=== PATIENT | male | born 1985 | race Caucasian/White ===

== ENCOUNTER 2017-10-08 10:20 | Inpatient (IN) | payer OTHER ==
[2017-10-08] MEDS ORDERED: NA CHLORIDE 0.9% 1,000 ML ONE ×3 (10:52→15:44)
[2017-10-08] MEDS ORDERED: ONDANSETRON 4 MG/2 ML VIAL ONE ×2 (10:52→15:26)
[2017-10-08] MEDS ORDERED: MORPHINE 4 MG/ML SYR ONE ×2 (10:52→15:21)
[2017-10-08 11:15] LABS: Absolute Lymphocytes (CBC) 1.4 K/uL (0.7-4.9); Absolute Monocytes 0.5 K/uL (0.1-1.3); Absolute Neutrophil 8.5 K/uL (1.8-8.0); Basophils % 0.2 % (0-1.3); Eosinophils % 0.5 % (0-4.4); Hematocrit 47.3 % (39.6-49.0); Lymphocytes % 13.7 % (15.3-44.8); MCH 34.1 pg (27.0-35.0); MCV 83.9 fL (80-100); MPV 8.5 fL (7.6-11.3); Monocytes % 5.1 % (3.3-12.3); RBC Red Blood Cell Count 5.64 M/uL (4.33-5.43)
[2017-10-08 11:52] LABS: ALT/SGPT 55 U/L (12-78); AST/SGOT 36 U/L (15-37); Albumin 3.3 g/dL (3.4-5.0); Alkaline Phosphatase 74 U/L (45-117); BUN Blood Urea Nitrogen 7 mg/dL (7-18); Bicarbonate 19 mmol/L (21-32); Bilirubin Direct 0.2 mg/dL (0-0.2); Glucose Level 322 mg/dL (74-106); Lipase 5142 U/L (73-393); Potassium 4.2 mmol/L (3.5-5.1); Protein, Total 8.2 g/dL (6.4-8.2); Sodium Level 137 mmol/L (136-145)
--- NOTE | 2017-10-08 12:45 | RAD REPORT ---
EXAM DESCRIPTION: US - Abdomen Exam Limited - 10/08/2017 12:28 pm CLINICAL HISTORY: pancreatitis, eval for gallstones/cbd;Abd pain COMPARISON: No comparisons FINDINGS: The gallbladder demonstrates no gallstones. No pericholecystic fluid or gallbladder wall t hickening. The common bile duct is normal measuring 3 mm. The liver demonstrates no findings of intrahepatic biliary dilatation. IMPRESSION: Unremarkable examination.
[2017-10-08 13:05] LABS: Urine Blood TRACE (NEG); Urine Glucose 2+ (NEG); Urine Protein 3+ (NEG); Urine Specific Gravity 1.025 (1.005-1.030)
[2017-10-08 13:06] LABS: Urine Bacteria <20 /HPF (NONE SEEN); Urine Culture Reflex Order NOT NEEDED; Urine RBC <5 /HPF (NONE SEEN)
--- NOTE | 2017-10-08 13:34 | RAD REPORT ---
EXAM DESCRIPTION: CTAbdomen Pelvis W Contrast - 10/08/2017 1:08 pm CLINICAL HISTORY: Abdominal pain. ABD PAIN COMPARISON: No comparisons TECHNIQUE: Biphasic CT imaging of the abdomen and pelvis was performed with 100 ml non-ionic IV cont rast. All CT scans are performed using dose optimization technique as appropriate and may include automated exposure control or mA/KV adjustment according to patient size. FINDINGS: The lung bases are clear. Diffuse fatty liver is present. The spleen, adrenal glands and kidneys are within normal limits. Win a is present involving the pancreatic head compatible with acute pancreatitis. No pancreatic necrosis , pseudocyst or portal venous thrombosis seen. Inflammatory changes are seen along the right inferior abdomen. No bowel obstruction, free air, free fluid or abscess. The appendix is normal. No evidence of signi ficant lymphadenopathy. Chronic bilateral spondylolysis at L5-S1 with minimal anterolisthesis. IMPRESSION: Mild to moderate acute pancreatitis without complication evident.
--- NOTE | 2017-10-08 14:08 | ER ---
Nurse's Notes [facility] Name: Kit Arias Age: 32 yrs Sex: Male : 1985 Arrival Date: 10/08/2017 Time: 10:24 Bed 20 Private MD: Carlyle Camp Diagnosis: Acute pancreatitis;Hyperglycemia, unspecified;Dehydration Presentation: 10/08 10:26 Presenting complaint: Patient states: RLQ started yesterday and has worsened. Denies sv n/v/d/fever/chills. Transition of care: patient was not received from another setting of care. Onset of symptoms was October 07, 2017. Care prior to arrival: None. 10:26 Method Of Arrival: Ambulatory sv 10:26 Acuity: JUAN 3 sv 10:43 Risk Assessment: Do you want to hurt yourself or someone else? Patient reports no hj desire to harm self or others. Initial Sepsis Screen: Does the patient meet any 2 criteria? No. Patient's initial sepsis screen is negative. Does the patient have a suspected source of infection? No. Patient's initial sepsis screen is negative. Triage Assessment: 10:43 General: Appears in no apparent distress. uncomfortable, Behavior is calm, cooperative, hj appropriate for age. Pain: Complains of pain in right lower quadrant. Historical: - Allergies: 10:27 No Known Allergies; sv - Home Meds: 10:27 None [Active]; sv - PMHx: 10:27 None; sv - PSHx: 10:27 arm; sv - Immunization history:: Adult Immunizations up to date. - Social history:: Smoking status: Patient/guardian denies using tobacco. - Ebola Screening: : No symptoms or risks identified at this time. - Family history:: not pertinent. - Hospitalizations: : No recent hospitalization is reported. Screenin:43 Abuse screen: Denies threats or abuse. Denies injuries from another. Nutritional hj screening: No deficits noted. Tuberculosis screening: No symptoms or risk factors identified. Fall Risk None identified. Assessment: 10:43 General: Appears in no apparent distress. uncomfortable, Behavior is calm, cooperative, hj appropriate for age. Pain: Complains of pain in right lower quadrant. Neuro: Level of Consciousness is awake, alert, obeys commands, Oriented to person, place, time, situation, Appropriate for age. Cardiovascular: Capillary refill < 3 seconds Patient's skin is warm and dry. Respiratory: Airway is patent Respiratory effort is even, unlabored, Respiratory pattern is regular, symmetrical. GI: Abdomen is non-distended, Bowel sounds present X 4 quads. Reports lower abdominal pain. : No signs and/or symptoms were reported regarding the genitourinary system. EENT: No signs and/or symptoms were reported regarding the EENT system. Derm: No signs and/or symptoms reported regarding the dermatologic system. Musculoskeletal: No signs and/or symptoms reported regarding the musculoskeletal system. 11:15 Reassessment: finished contrast; supervisor microbiology technologists informed;. hj 12:05 Reassessment: Patient and/or family updated on plan of care and expected duration. Pain hj level reassessed. Patient is alert, oriented x 3, equal unlabored respirations, skin warm/dry/pink. awaiting results and POC;. 12:52 Reassessment: awaiting US results; family in room;. sc1 14:03 Reassessment: Patient and/or family updated on plan of care and expected duration. Pain hj level reassessed. Patient is alert, oriented x 3, equal unlabored respirations, skin warm/dry/pink. provider in room;. Vital Signs: 10:27 BP 154 / 100; Pulse 130; Resp 20; Temp 97.1; Pulse Ox 99% ; Weight 108.86 kg; Height 5 sv ft. 11 in. (180.34 cm); Pain 7/10; 12:06 BP 151 / 91; Pulse 116; Resp 18; Pulse Ox 100% on R/A; hj 12:55 BP 141 / 87; Pulse 125; Resp 18; Pulse Ox 100% on R/A; hj 14:03 BP 142 / 80; Pulse 115; Resp 18; Pulse Ox 98% on R/A; hj 10:27 Body Mass Index 33.47 (108.86 kg, 180.34 cm) sv ED Course: 10:24 Patient arrived in ED. mr 10:24 Carlyle Camp MD is Private Physician. mr 10:26 Triage completed. sv 10:27 Arm band placed on right wrist. sv 10:28 Reese White RN is Primary Nurse. hj 10:33 Tarik Horton MD is Attending Physician. rn 10:43 Patient has correct armband on for positive identification. Placed in gown. Bed in low hj position. Call light in reach. Side rails up X 1. 11:01 Initial lab(s) drawn, by me, sent to lab. Inserted saline lock: 20 gauge in left sc1 antecubital area, using aseptic technique. Blood collected. 12:27 US Abdomen Limited In Process Unspecified. EDMS 12:37 Urine collected: clean catch specimen, ekaterina colored. [facility] 13:04 CT completed. Patient tolerated procedure well. Patient moved to CT via wheelchair. Patient moved back from CT. 13:08 CT Abd/Pelvis - W/Contrast In Process Unspecified. EDMS 14:07 Antonio Cuellar DO is Hospitalizing Provider. rn 14:53 Repeat lab(s) drawn. by me, sent to lab. by venipuncture 23G to left hand. [facility] 16:33 Lab(s) recollected, by me, sent to lab. First set of blood cultures drawn by in, by [facility] venipuncture 21G to right ac. Administered Medications: 10:44 Drug: NS 0.9% 1000 ml Route: IV; Rate: 1000 ml; Site: left antecubital; hj 11:53 Follow up: IV Status: Completed infusion hj 10:44 Drug: Zofran 4 mg Route: IVP; Site: left antecubital; hj 11:53 Follow up: Response: No adverse reaction hj 10:44 Drug: morphine 4 mg Route: IVP; Site: left antecubital; hj 11:53 Follow up: Response: No adverse reaction; Pain is decreased hj 13:30 Drug: NS 0.9% 1000 ml Route: IV; Rate: 1000 ml; Site: left antecubital; Outcome: 14:07 Decision to Hospitalize by Provider. rn 17:02 Patient left the ED. sv Signatures: Dispatcher [employer] EDWV Lalita Carrero RN Sugey Marquez Roman, MD MD rn Warren, Shannon sw Joaquin, Henry, RN RN hj Herrera, Deanna [facility] Oriana Louis RN RN sc1
--- NOTE | 2017-10-08 14:08 | EDPHYS ---
Physician Documentation [facility] Name: Kit Arias Age: 32 yrs Sex: Male : 1985 Arrival Date: 10/08/2017 Time: 10:24 Bed 20 Private MD: Carlyle Camp ED Physician Tarik Horton HPI: 10/08 10:54 This 32 yrs old Male presents to ER via Ambulatory with complaints of RLQ rn Pain. 10:54 The patient presents with abdominal pain right lower quadrant. Onset: The rn symptoms/episode began/occurred yesterday. The symptoms do not radiate. Associated signs and symptoms: Pertinent negatives: nausea and vomiting, anorexia, blood in stools, chest pain, constipation, diarrhea, dysuria, fever, testicular pain, vomiting. The symptoms are described as constant, sharp. Modifying factors: The symptoms are alleviated by nothing, the symptoms are aggravated by movement, touching the area. Severity of pain: At its worst the pain was moderate in the emergency department the pain is unchanged. The patient has not experienced similar symptoms in the past. Reports diffuse abd pain that is now worse in RLQ, began yesterday, constant, seen at urgent care today, sent here for eval. No fever/vomiting/diarrhea.. Historical: - Allergies: 10:27 No Known Allergies; sv - Home Meds: 10:27 None [Active]; sv - PMHx: 10:27 None; sv - PSHx: 10:27 arm; sv - Immunization history:: Adult Immunizations up to date. - Social history:: Smoking status: Patient/guardian denies using tobacco. - Ebola Screening: : No symptoms or risks identified at this time. - Family history:: not pertinent. - Hospitalizations: : No recent hospitalization is reported. ROS: 10:54 Constitutional: Negative for fever, chills, and weight loss, Eyes: Negative for injury, rn pain, redness, and discharge, Neck: Negative for injury, pain, and swelling, Cardiovascular: Negative for chest pain, palpitations, and edema, Respiratory: Negative for shortness of breath, cough, wheezing, and pleuritic chest pain, Abdomen/GI: + abd pain, no nausea/vomiting/diarrhea MS/Extremity: Negative for injury and deformity, Skin: Negative for injury, rash, and discoloration, Neuro: Negative for headache, weakness, numbness, tingling, and seizure. Exam: 10:54 Constitutional: This is a well developed, well nourished patient who is awake, alert, rn and in no acute distress. Head/Face: Normocephalic, atraumatic. Eyes: Pupils equal round and reactive to light, extra-ocular motions intact. Lids and lashes normal. Conjunctiva and sclera are non-icteric and not injected. Cornea within normal limits. Periorbital areas with no swelling, redness, or edema. ENT: MMM Abdomen/GI: soft, + diffuse tenderness, no peritoneal signs, worse in RLQ Skin: Warm, dry MS/ Extremity: Pulses equal, no cyanosis. Neurovascular intact. Full, normal range of motion. Equal circumference. Neuro: Awake and alert, GCS 15, oriented to person, place, time, and situation. Cranial nerves II-XII grossly intact. Motor strength 5/5 in all extremities. Sensory grossly intact. Vital Signs: 10:27 BP 154 / 100; Pulse 130; Resp 20; Temp 97.1; Pulse Ox 99% ; Weight 108.86 kg; Height 5 sv ft. 11 in. (180.34 cm); Pain 7/10; 12:06 BP 151 / 91; Pulse 116; Resp 18; Pulse Ox 100% on R/A; hj 12:55 BP 141 / 87; Pulse 125; Resp 18; Pulse Ox 100% on R/A; hj 14:03 BP 142 / 80; Pulse 115; Resp 18; Pulse Ox 98% on R/A; hj 10:27 Body Mass Index 33.47 (108.86 kg, 180.34 cm) sv MDM: 10:33 Patient medically screened. rn 14:05 Differential diagnosis: cholecystitis, Cholelithiasis, gastritis, gastroesophageal rn reflux disease, Hepatitis, non-specific abd pain, pancreatitis, Peptic Ulcer Disease, Ureterolithiasis, urinary tract infection. Data reviewed: vital signs, nurses notes, lab test result(s), radiologic studies, CT scan, ultrasound, and as a result, I will admit patient. Counseling: I had a detailed discussion with the patient and/or guardian regarding: the historical points, exam findings, and any diagnostic results supporting the discharge/admit diagnosis, lab results, radiology results, the need for further work-up and treatment in the hospital. Response to treatment: the patient's symptoms have mildly improved after treatment, and as a result, I will admit patient. Admission orders: after a detailed discussion of the patient's condition and case, the admit orders are written by me. 10/08 10:44 Order name: Basic Metabolic Panel; Complete Time: 12:04 10/08 10:44 Order name: CBC with Diff; Complete Time: 12:04 10/08 10:44 Order name: Hepatic Function; Complete Time: 12:04 10/08 10:44 Order name: Lipase; Complete Time: 12:04 10/08 10:44 Order name: Urine Microscopic Only; Complete Time: 13:30 10/08 12:53 Order name: Urine Dipstick--Ancillary (enter results); Complete Time: 13:30 10/08 10:44 Order name: CT Abd/Pelvis - W/Contrast; Complete Time: 13:40 10/08 12:05 Order name: US Abdomen Limited; Complete Time: 13:30 10/08 14:32 Order name: Lipid Profile 10/08 14:33 Order name: BMP 10/08 15:04 Order name: Blood Culture Adult (2) 10/08 15:32 Order name: Blood Culture [facility] 10/08 15:35 Order name: Hemoglobin A1c; Complete Time: 15:57 [facility] 10/08 10:44 Order name: IV Saline Lock; Complete Time: 11:01 10/08 10:44 Order name: Labs collected and sent; Complete Time: 11:01 10/08 10:44 Order name: Urine Dipstick-Ancillary (obtain specimen); Complete Time: 12:38 10/08 16:04 Order name: Labs - recollect needed; Complete Time: 16:39 bd Administered Medications: 10:44 Drug: NS 0.9% 1000 ml Route: IV; Rate: 1000 ml; Site: left antecubital; hj 11:53 Follow up: IV Status: Completed infusion hj 10:44 Drug: Zofran 4 mg Route: IVP; Site: left antecubital; hj 11:53 Follow up: Response: No adverse reaction hj 10:44 Drug: morphine 4 mg Route: IVP; Site: left antecubital; hj 11:53 Follow up: Response: No adverse reaction; Pain is decreased hj 13:30 Drug: NS 0.9% 1000 ml Route: IV; Rate: 1000 ml; Site: left antecubital; hj Disposition: 10/08/17 14:07 Hospitalization ordered by Antonio Cuellar for Inpatient Admission. Preliminary diagnosis are Acute pancreatitis, Hyperglycemia, unspecified, Dehydration. - Bed requested for Intensive Care Unit. - Status is Inpatient Admission. sv - Condition is Stable. - Problem is new. - Symptoms have improved. UTI on Admission? No Signatures: Dispatcher [employer] EDMS Karley Gil Stephanie, RN RN sv Nieto, Roman, MD MD rn Joaquin, Henry, RN RN hj Corrections: (The following items were deleted from the chart) 16:40 14:07 Hospitalization Ordered by Antonio Cuellar DO for Inpatient Admission. Preliminary bd diagnosis is Acute pancreatitis; Hyperglycemia, unspecified; Dehydration. Bed requested for Telemetry/MedSurg (Inpatient). Status is Inpatient Admission. Condition is Stable. Problem is new. Symptoms have improved. UTI on Admission? No. rn 17:02 16:40 10/08/2017 14:07 Hospitalization Ordered by Antonio Cuellar DO for Inpatient sv Admission. Preliminary diagnosis is Acute pancreatitis; Hyperglycemia, unspecified; Dehydration. Bed requested for Intensive Care Unit. Status is Inpatient Admission. Condition is Stable. Problem is new. Symptoms have improved. UTI on Admission? No. bd
[2017-10-08] MEDS ORDERED: MORPHINE 4 MG/ML SYR IV PRN (14:44)
--- NOTE | 2017-10-08 14:57 | P.HP ---
Certification for Inpatient Patient admitted to: Inpatient With expected LOS: >2 Midnights Patient will require the following post-hospital care: None Practitioner: I am a practitioner with admitting privileges, knowledge of patient current condition, hospital course, and medical plan of care. Services: Services provided to patient in accordance with Admission requirements found in Title 42 Section 412.3 of the Code of Federal Regulations Patient History Date of Service: 10/08/17 Primary Care Provider: Dr. Camp Reason for admission: Abdominal pain History of Present Illness: 35-year-old male presented emergency room with abdominal pain. Patient was seen at urgent care and sent to the ER for further evaluation. The patient reported the pain started yesterday. It was mainly to the epigastric region. He rated the pain about a 7/10. He had some nausea with this. Pain persisted today. He went to urgent care. There was some suspicion for appendicitis. The patient was sent to the ER. The patient reported 7/10 pain. He denied any fever, chills. Patient reports a history of diabetes and elevated triglycerides. It is been a while since he is taking medication. He does not drink. In the ER he was evaluated. Lipase was elevated at 5142. His anion gap was 19. White count within normal range. Ketones were noted in the urine. Lipid panel pending. Abdominal ultrasound unremarkable. CT scan showed mild to moderate pancreatitis. Patient was admitted for treatment. Patient has gotten 2 units of fluid. Insulin drip to be started. Patient be transferred to ICU. In the ER when I evaluated the patient. Pain was still present. Patient reported mild nausea. Pain to the epigastric region noted. Patient reports having bowel movement yesterday. He has not been able to tolerate a diet today. There is family history of pancreatitis of unknown etiology. Allergies No Known Allergies Allergy (Unverified 10/08/17 14:14) Home medications list reviewed: Yes - Past Medical/Surgical History Diabetic: Yes -: Diabetes mellitus type 2 -: Hypertriglyceridemia -: Right arm surgery Psychosocial/ Personal History: The patient is single. He has no children. 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 - Family History Father -: Diabetes, Other (see notes) (Pancreatitis of unknown etiology) Mother -: Diabetes - Social History Smoking Status: Never smoker Alcohol use: No CD- Drugs: No Caffeine use: Yes Place of Residence: Home Review of Systems General: As per HPI Eyes: Unremarkable ENT: Unremarkable Respiratory: Unremarkable Cardiovascular: Unremarkable Gastrointestinal: Nausea, Vomiting, Abdominal Pain, As per HPI Genitourinary: As per HPI (polyuria) Musculoskeletal: Unremarkable Integumentary: Unremarkable Neurological: Unremarkable Lymphatics: Unremarkable Physical Examination - Physical Exam General: Alert, In no apparent distress, Oriented x3, Cooperative HEENT: Atraumatic, Normocephalic, PERRLA, Other (Dry mucous membranes) Neck: Supple, No Thyromegaly Respiratory: Clear to auscultation bilaterally, Normal air movement Cardiovascular: Abnormal pulses (Sinus tachycardia) Gastrointestinal: Hypoactive (Throughout), Soft and benign, Non-distended, No masses, No rebound, No guarding, Tenderness (Pain to the epigastric region) Musculoskeletal: No erythema, No tenderness, No warmth Integumentary: No tenderness/swelling, No erythema, No warmth, No cyanosis Neurological: Normal speech, Normal strength at 5/5 x4 extr, Normal tone, Normal affect - Studies Laboratory Data (last 24 hrs) 10/08/17 10:56: WBC 10.5, Hgb 19.2 H, Hct 47.3, Plt Count 257 10/08/17 10:56: Sodium 137, Potassium 4.2, BUN 7, Creatinine 0.70, Glucose 322 H , Total Bilirubin 1.0, AST 36, ALT 55, Alkaline Phosphatase 74, Lipase 5142 H Assessment and Plan - Problems (Diagnosis) (1) DKA (diabetic ketoacidosis) Current Visit: Yes Status: Acute Plan: Patient with DKA. Patient with acute pancreatitis likely from hypertriglyceridemia. Will start insulin drip. Will continue with IV fluids. Will monitor closely and adjust appropriately. Will keep the patient NPO for now. Will continue monitor his anion gap. Will wean down insulin. Will consult GI to further assess his pancreatitis. Qualifiers: Diabetes mellitus type: type 2 Diabetes mellitus complication detail: without coma Qualified Code(s): E11.10 - Type 2 diabetes mellitus with ketoacidosis without coma (2) Diabetes mellitus Current Visit: Yes Status: Chronic Plan: Patient with DKA. Will continue with insulin drip and IV fluids. Will monitor closely. Will wean off insulin. Patient also with pancreatitis. Qualifiers: Diabetes mellitus type: type 2 Diabetes mellitus manager coding insulin use: unspecified custodial insulin use status Diabetes mellitus complication status : with ketoacidosis Diabetes mellitus complication detail: without coma Qualified Code(s): E11.10 - Type 2 diabetes mellitus with ketoacidosis without coma (3) Pancreatitis Current Visit: Yes Status: Acute Plan: Patient with history of hypertriglyceridemia. Acute pancreatitis noted. Will keep the patient NPO. Will start insulin drip. Will continue IV fluids and pain control. GI consulted to further assess. Family history of pancreatitis of unknown etiology noted. Qualifiers: Chronicity: acute Pancreatitis type: other (4) Hypertriglyceridemia Current Visit: Yes Status: Chronic Plan: Will check his lipid panel. Will continue as above. (5) Obesity Current Visit: Yes Status: Chronic Plan: Will evaluate BMI. Will address lifestyle modification education. (6) Dehydration Current Visit: Yes Status: Acute Plan: Continue IV fluids. Will monitor closely. Continue as above. Discharge Plan: Home Plan to discharge in: 72 Hours - Advance Directives Does patient have a Living Will: No Does patient have a Durable POA for Healthcare: No - Code Status/Comfort Care Code Status Assessed: Yes Time Spent Managing Pts Care (In Minutes): 55
[2017-10-08] MEDS: D5 0.45 NS 1,000 ML IV SCH ×4 (15:00→21:40)
[2017-10-08] MEDS: NACHLORIDE 0.45% 1,000 ML IV SCH ×3 (15:00→23:45)
[2017-10-08] MEDS: ONDANSETRON 4 MG/2 ML VIAL IV PRN (15:24)
[2017-10-08] MEDS ORDERED: D5 0.45 NS 1,000 ML IV ONE (15:29)
[2017-10-08] MEDS ORDERED: NACHLORIDE 0.45% 1,000 ML IV ONE (15:44)
[2017-10-08] MEDS: ENOXAPARIN 40 MG/0.4 ML SQ SCH (16:00)
[2017-10-08] MEDS ORDERED: SODIUM CHL 0.9% 1000 ML BAG IV SCH (16:00)
[2017-10-08] MEDS ORDERED: ENOXAPARIN 40 MG/0.4 ML SQ ONE (16:17)
[2017-10-08] MEDS ORDERED: NA CHLORIDE 0.9% 500 ML IV ONE (17:00)
[2017-10-08 17:42] LABS: BUN Blood Urea Nitrogen 5 mg/dL (7-18); Bicarbonate 17 mmol/L (21-32); Glucose Level 270 mg/dL (74-106); HDL Cholesterol 22 mg/dL (40-60); LDL Cholesterol, Calculated ND (<130); Sodium Level 132 mmol/L (136-145)
[2017-10-08 17:50] LABS: Potassium 4.7 mmol/L (3.5-5.1)
[2017-10-08 18:11] LABS: LDL, Direct 125 mg/dL (100-129)
[2017-10-08] MEDS: FENTANYL CITR 100 MCG/2 ML IV PRN ×2 (18:18→22:38)
[2017-10-08 20:12] LABS: BUN Blood Urea Nitrogen 5 mg/dL (7-18); Glucose Level 311 mg/dL (74-106); Potassium 4.5 mmol/L (3.5-5.1); Sodium Level 136 mmol/L (136-145)
[2017-10-08 20:18] LABS: Bicarbonate 13 mmol/L (21-32)
[2017-10-08] MEDS: KETOROLAC 30 MG/ML INJ IV PRN (20:24)
[2017-10-08] MEDS ORDERED: PNEUMOCOCCAL VACCINE 0.5 ML IMVAC ONE (21:00)
[2017-10-09] MEDS: KETOROLAC 30 MG/ML INJ IV PRN ×2 (01:59→17:50)
[2017-10-09] MEDS: ONDANSETRON 4 MG/2 ML VIAL IV PRN (02:00)
[2017-10-09] MEDS: D5 0.45 NS 1,000 ML IV SCH ×3 (04:20→18:03)
[2017-10-09] MEDS: NACHLORIDE 0.45% 1,000 ML IV SCH ×4 (04:20→17:40)
[2017-10-09] MEDS: FENTANYL CITR 100 MCG/2 ML IV PRN ×4 (05:15→21:57)
[2017-10-09 05:57] LABS: Absolute Lymphocytes (CBC) 1.3 K/uL (0.7-4.9); Absolute Monocytes 0.7 K/uL (0.1-1.3); Absolute Neutrophil 9.4 K/uL (1.8-8.0); Basophils % 0.1 % (0-1.3); Eosinophils % 0.3 % (0-4.4); Lymphocytes % 11.4 % (15.3-44.8); MCV 84.5 fL (80-100); MPV 9.3 fL (7.6-11.3); Monocytes % 6.1 % (3.3-12.3); RBC Red Blood Cell Count 5.56 M/uL (4.33-5.43)
[2017-10-09 06:28] LABS: Albumin 2.4 g/dL (3.4-5.0); Alkaline Phosphatase 62 U/L (45-117); BUN Blood Urea Nitrogen 6 mg/dL (7-18); Bilirubin Total 1.2 mg/dL (0.2-1.0); Glucose Level 304 mg/dL (74-106); HDL Cholesterol 20 mg/dL (40-60); LDL Cholesterol, Calculated ND (<130); Lipase 8012 U/L (73-393); Magnesium 1.8 mg/dL (1.8-2.4); Potassium 4.3 mmol/L (3.5-5.1); Protein, Total 7.1 g/dL (6.4-8.2); Sodium Level 134 mmol/L (136-145)
[2017-10-09 06:38] LABS: Bicarbonate 13 mmol/L (21-32)
[2017-10-09 06:42] LABS: ALT/SGPT ND U/L (12-78); AST/SGOT ND U/L (15-37)
[2017-10-09 06:44] LABS: Amylase Level 817 U/L (25-115)
[2017-10-09 06:55] LABS: LDL, Direct 114 mg/dL (100-129)
[2017-10-09 08:05] LABS: HDL Cholesterol 20 mg/dL (40-60); LDL Cholesterol, Calculated ND (<130)
[2017-10-09 08:24] LABS: LDL, Direct 108 mg/dL (100-129)
[2017-10-09 08:31] LABS: Blood Morphology Comment NOT SEEN (NOT SEEN); Platelet Estimate ADEQ
[2017-10-09] MEDS: ENOXAPARIN 40 MG/0.4 ML SQ SCH (09:00)
[2017-10-09] MEDS ORDERED: METOPROLOL TARTRATE 5 MG/5 ML INJ IV PRN (12:30)
--- NOTE | 2017-10-09 12:35 | P.PN ---
Subjective Date of Service: 10/09/17 Primary Care Provider: Dr. Camp Chief Complaint: Abdominal pain Subjective: Other (Pain slightly improved. Patient still noted to the epigastric region.) Physical Examination - Vital Signs Temperature: 97.4 F Blood Pressure: 160/88 Pulse: 120 Respirations: 22 Pulse Ox (%): 97 - Physical Exam General: Alert, In no apparent distress, Oriented x3, Cooperative HEENT: Atraumatic Neck: Supple Respiratory: Clear to auscultation bilaterally, Normal air movement Cardiovascular: Normal pulses, Regular rate/rhythm Gastrointestinal: Hypoactive, Non-distended, No masses, No rebound, No guarding , Tenderness (To the epigastric region but improved) - Studies Medications List Reviewed: Yes Assessment & Plan - Problems (Diagnosis) (1) DKA (diabetic ketoacidosis) Onset Date: 10/09/17 Current Visit: Yes Status: Acute Plan: Patient with DKA. Patient with acute pancreatitis secondary to hypertriglyceridemia. Will continue with insulin drip. Will monitor and adjust IV fluids. Spoke with GI yesterday. Patient NPO at this time. Will monitor closely. Once gap has closed and triglycerides improves then will transition to oral medication. Qualifiers: Diabetes mellitus type: type 2 Diabetes mellitus complication detail: without coma Qualified Code(s): E11.10 - Type 2 diabetes mellitus with ketoacidosis without coma (2) Diabetes mellitus Onset Date: 10/09/17 Current Visit: Yes Status: Chronic Plan: Patient with DKA. Will continue with insulin drip and IV fluids. Will monitor closely. 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 Acute pancreatitis noted with hypertriglyceridemia. Continue insulin drip. Will discuss with GI further. Patient NPO at this time. Qualifiers: Chronicity: acute Pancreatitis type: other (4) Hypertriglyceridemia Onset Date: 10/09/17 Current Visit: Yes Status: Chronic Plan: Continue monitor triglycerides (5) Obesity Onset Date: 10/09/17 Current Visit: Yes Status: Chronic Plan: BMI 36. Will address lifestyle modification education. Qualifiers: Obesity type: due to excess calories Obesity classification: adult class 2 (BMI 35 - 39.9) Serious obesity comorbidity presence: with serious comorbidity Body mass index: BMI 36.0-36.9 Qualified Code(s): E66.01 - Morbid (severe) obesity due to excess calories; Z68.36 - Body mass index (BMI) 36.0-36.9, adult (6) Dehydration Onset Date: 10/09/17 Current Visit: Yes Status: Acute Plan: Continue IV fluids. Will monitor closely. Continue as above. (7) Hypertension Current Visit: Yes Status: Acute Plan: Patient with elevated blood pressure. Will start Lopressor IV. Qualifiers: Hypertension type: essential hypertension Qualified Code(s): I10 - Essential (primary) hypertension Discharge Plan: Home Plan to discharge in: Greater than 2 days Time Spent Managing Pts Care (In Minutes): 55
[2017-10-09 13:15] LABS: BUN Blood Urea Nitrogen 5 mg/dL (7-18); Bicarbonate 16 mmol/L (21-32); Glucose Level 276 mg/dL (74-106); Potassium 4.1 mmol/L (3.5-5.1); Sodium Level 137 mmol/L (136-145)
--- NOTE | 2017-10-09 14:17 | RAD REPORT ---
EXAM DESCRIPTION: RAD - Chest Single View - 10/09/2017 1:53 pm CLINICAL HISTORY: Shortness of breath, pancreatitis COMPARISON: None. TECHNIQUE: AP portable chest image was obtained 1339 hours . FINDINGS: Lung volumes are low. No significant pulmonary edema pattern and no peripheral mass or con solidation. Heart size, vasculature and lung markings are not outside of normal range for shallow ins piration exam. Focal nodular density in the mid right lung field is believed to be summation of the a nterior right first rib. This can be monitored on a followup chest film. No measurable pleural effusi on and no pneumothorax. No gross bony abnormality seen. No acute aortic findings suspected. IMPRESSION: No failure, infiltrate or other acute cardiopulmonary finding suspected. Nodular density right midlung field is favored to be artifact of anterior right first rib rather than a lung parenchymal nodule. Follow-up follow-up chest film would be recommended when the patient can take in optimal inspiration.
--- NOTE | 2017-10-09 14:25 | ECHO ---
HEIGHT: 5 ft 11 in WEIGHT: 258 lb 7 oz DATE OF STUDY: 10/09/[address]: Antonio Cuellar DO 2-DIMENSIONAL: YES M.MODE: YES DOPPLER: YES COLOR FLOW: YES TDS: YES PORTABLE: YES DEFINITY: NO BUBBLE STUDY: NO DIAGNOSIS: HYPERTENSION CARDIAC HISTORY: CATHERIZATION: NO SURGERY: NO PROSTHETIC VALVE: NO PACEMAKER: NO MEASUREMENTS (cm) DIASTOLIC (NORMALS) SYSTOLIC (NORMALS) IVSd 1.0 (0.6-1.2) LA Diam 4.0 (1.9-4.0) LVEF 58% LVIDd 3.3 (3.5-5.7) LVIDs 2.3 (2.0-3.5) %FS 30% LVPWd 1.0 (0.6-1.2) Ao Diam 3.2 (2.0-3.7) 2 DIMENSIONAL ASSESSMENT: RIGHT ATRIUM: NORMAL LEFT ATRIUM: NORMAL RIGHT VENTRICLE: NORMAL LEFT VENTRICLE: NORMAL TRICUSPID VALVE: NORMAL MITRAL VALVE: NORMAL PULMONIC VALVE: NORMAL AORTIC VALVE: NORMAL PERICARDIAL EFFUSION: NONE AORTIC ROOT: NORMAL LEFT VENTRICULAR WALL MOTION: NORMAL DOPPLER/COLOR FLOW: TRACE TRICUSPID REGURGITATION. NORMAL RIGHT VENTRICULAR SYSTOLIC PRESSURE. COMMENTS: TRACE TRICUSPID REGURGITATION. TECHNICALLY DIFFICULT STUDY. NORMAL LEFT VENTRICULAR SIZE AND FUNCTION. NO WALL MOTION ABNORMALITY. NO EFFUSION. TECHNOLOGIST: Christopher DE LA O
[2017-10-09 17:21] LABS: BUN Blood Urea Nitrogen 7 mg/dL (7-18); Glucose Level 234 mg/dL (74-106); Potassium 4.4 mmol/L (3.5-5.1); Sodium Level 138 mmol/L (136-145)
[2017-10-09 17:24] LABS: Bicarbonate 10 mmol/L (21-32)
[2017-10-09] MEDS: INSULIN -REGULAR HUMAN 100 UNIT in NA CHLORIDE 0.9% 100 ML IV SCH (18:05)
[2017-10-10] MEDS: KETOROLAC 30 MG/ML INJ IV PRN (00:06)
[2017-10-10] MEDS: D5 0.45 NS 1,000 ML IV SCH ×5 (00:20→20:20)
[2017-10-10] MEDS: NACHLORIDE 0.45% 1,000 ML IV SCH ×4 (00:20→20:20)
[2017-10-10 05:16] LABS: Absolute Lymphocytes (CBC) 1.3 K/uL (0.7-4.9); Absolute Monocytes 0.7 K/uL (0.1-1.3); Absolute Neutrophil 7.6 K/uL (1.8-8.0); Basophils % 0.2 % (0-1.3); Eosinophils % 0.3 % (0-4.4); Lymphocytes % 13.4 % (15.3-44.8); MCH 30.1 pg (27.0-35.0); MCV 84.3 fL (80-100); MPV 8.6 fL (7.6-11.3); Monocytes % 7.1 % (3.3-12.3); RBC Red Blood Cell Count 5.22 M/uL (4.33-5.43)
[2017-10-10 09:19] LABS: ALT/SGPT 29 U/L (12-78); AST/SGOT 27 U/L (15-37); Albumin 2.3 g/dL (3.4-5.0); Alkaline Phosphatase 57 U/L (45-117); BUN Blood Urea Nitrogen 12 mg/dL (7-18); Bicarbonate 18 mmol/L (21-32); Glucose Level 222 mg/dL (74-106); Lipase 2159 U/L (73-393); Magnesium 2.2 mg/dL (1.8-2.4); Potassium 3.7 mmol/L (3.5-5.1); Protein, Total 7.3 g/dL (6.4-8.2); Sodium Level 139 mmol/L (136-145)
--- NOTE | 2017-10-10 09:20 | P.PN ---
Subjective Date of Service: 10/10/17 Primary Care Provider: Dr. Camp Chief Complaint: Abdominal pain Subjective: Other (Patient is doing better. Pain is about 3/10. No nausea or vomiting.) Physical Examination - Vital Signs Temperature: 98.9 F Blood Pressure: 157/83 Pulse: 116 Respirations: 30 Pulse Ox (%): 96 - Physical Exam General: Alert, In no apparent distress, Oriented x3, Cooperative HEENT: Atraumatic Neck: Supple Respiratory: Clear to auscultation bilaterally, Normal air movement Cardiovascular: Normal pulses, Regular rate/rhythm Gastrointestinal: Normal bowel sounds, Soft and benign, Non-distended, No masses , No rebound, No guarding, Tenderness (Less pain to the epigastric region) Musculoskeletal: No erythema, No tenderness, No warmth Integumentary: No tenderness/swelling, No erythema, No warmth, No cyanosis Neurological: Normal speech, Normal strength at 5/5 x4 extr, Normal tone, Normal affect - Studies Medications List Reviewed: Yes Assessment & Plan - Problems (Diagnosis) (1) DKA (diabetic ketoacidosis) Onset Date: 10/09/17 Current Visit: Yes Status: Acute Plan: Patient with DKA. Patient with acute pancreatitis secondary to hypertriglyceridemia. Will continue with insulin drip. Will monitor and adjust IV fluids. Will review lab this morning. Will consider providing clear liquids. Will make sure anion gap has closed. Await findings on repeat triglycerides. Blood pressure slightly elevated. Will start metoprolol 25 mg 1 pill twice daily. Will discuss further with GI. Qualifiers: Diabetes mellitus type: type 2 Diabetes mellitus complication detail: without coma Qualified Code(s): E11.10 - Type 2 diabetes mellitus with ketoacidosis without coma (2) Diabetes mellitus Onset Date: 10/09/17 Current Visit: Yes Status: Chronic Plan: Patient with DKA. Will continue with insulin drip and IV fluids. Will monitor closely. Once anion gap has closed then will transition to insulin subcu. 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 Acute pancreatitis noted with hypertriglyceridemia. Continue insulin drip. Case discussed with GI yesterday. Await repeat triglycerides. If improved and anion gap has close will consider starting clear liquid diet. Qualifiers: Chronicity: acute Pancreatitis type: other (4) Hypertriglyceridemia Onset Date: 10/09/17 Current Visit: Yes Status: Chronic Plan: Continue as above (5) Obesity Onset Date: 10/09/17 Current Visit: Yes Status: Chronic Plan: BMI 36. Will address lifestyle modification education. Qualifiers: Obesity type: due to excess calories Obesity classification: adult class 2 (BMI 35 - 39.9) Serious obesity comorbidity presence: with serious comorbidity Body mass index: BMI 36.0-36.9 Qualified Code(s): E66.01 - Morbid (severe) obesity due to excess calories; Z68.36 - Body mass index (BMI) 36.0-36.9, adult (6) Dehydration Onset Date: 10/09/17 Current Visit: Yes Status: Acute Plan: Continue IV fluids. Will monitor closely. Continue as above. (7) Hypertension Current Visit: Yes Status: Acute Plan: Patient likely has hypertension. Blood pressure remains elevated. Will start metoprolol 25 mg 1 pill twice daily. Qualifiers: Hypertension type: essential hypertension Qualified Code(s): I10 - Essential (primary) hypertension (8) Obstructive sleep apnea Current Visit: Yes Status: Suspected Plan: Patient likely has obstructive sleep apnea. Patient will need sleep study as an outpatient. Patient reports heavy snoring. Discharge Plan: Home Plan to discharge in: 72 Hours Time Spent Managing Pts Care (In Minutes): 55
[2017-10-10 09:27] LABS: Amylase Level 289 U/L (25-115)
[2017-10-10] MEDS: ENOXAPARIN 40 MG/0.4 ML SQ SCH (10:04)
[2017-10-10] MEDS: FENTANYL CITR 100 MCG/2 ML IV PRN ×2 (10:05→14:57)
[2017-10-10 10:36] LABS: BUN Blood Urea Nitrogen 11 mg/dL (7-18); Glucose Level 232 mg/dL (74-106); Potassium 4.2 mmol/L (3.5-5.1); Sodium Level 138 mmol/L (136-145)
[2017-10-10 10:41] LABS: Bicarbonate 14 mmol/L (21-32)
[2017-10-10] MEDS: METOPROLOL TAR 25 MG TAB PO SCH ×2 (11:17→17:42)
[2017-10-10 13:31] LABS: BUN Blood Urea Nitrogen 10 mg/dL (7-18); Bicarbonate 21 mmol/L (21-32); Glucose Level 183 mg/dL (74-106); Potassium 3.4 mmol/L (3.5-5.1); Sodium Level 140 mmol/L (136-145)
[2017-10-10 13:52] LABS: HDL Cholesterol 18 mg/dL (40-60); LDL Cholesterol, Calculated ND (<130)
[2017-10-10 14:08] LABS: LDL, Direct 121 mg/dL (100-129)
[2017-10-10] MEDS: KCL 20 MEQ/100 mL IVPB 20 MEQ/100 ML BAG IV SCH ×2 (14:37→16:39)
[2017-10-10 17:30] LABS: BUN Blood Urea Nitrogen 10 mg/dL (7-18); Bicarbonate 21 mmol/L (21-32); Glucose Level 178 mg/dL (74-106); Potassium 3.9 mmol/L (3.5-5.1); Sodium Level 140 mmol/L (136-145)
[2017-10-10 18:20] LABS: LDL, Direct 143 mg/dL (100-129)
[2017-10-10] MEDS: INSULIN -REGULAR HUMAN 100 UNIT in NA CHLORIDE 0.9% 100 ML IV SCH (18:24)
[2017-10-10 20:25] LABS: Absolute Monocytes 0.6 K/uL (0.1-1.3); Basophils % 0.2 % (0-1.3); Eosinophils % 0.5 % (0-4.4)
[2017-10-10 20:29] LABS: Absolute Lymphocytes (CBC) 1.3 K/uL (0.7-4.9); Absolute Neutrophil 8.6 K/uL (1.8-8.0); Hematocrit 39.7 % (39.6-49.0); Lymphocytes % 12.1 % (15.3-44.8); MCH 29.7 pg (27.0-35.0); Monocytes % 5.5 % (3.3-12.3); RBC Red Blood Cell Count 4.68 M/uL (4.33-5.43)
[2017-10-10 20:56] LABS: Blood Morphology Comment NOT SEEN (NOT SEEN); Platelet Estimate ADEQ; Urine White Blood Cell Casts OK
[2017-10-10] MEDS ORDERED: D50W 25 GM/50 ML SYRINGE IV PRN (21:01)
[2017-10-10] MEDS ORDERED: GLUCAGON 1 MG/VIAL IM PRN (21:01)
[2017-10-10] MEDS: INSULIN DETEMIR 100 UNIT/1 ML INSULIN SQ SCH (21:46)
[2017-10-10] MEDS: INSULIN -REGULAR HUMAN 50 UNIT/0.5 ML ML SQ SCH (21:50)
[2017-10-10] MEDS: NA CHLORIDE 0.9% 1,000 ML IV SCH (23:26)
[2017-10-11] MEDS: KCL 20 MEQ/100 mL IVPB 20 MEQ/100 ML BAG IV SCH ×2 (01:27→03:22)
[2017-10-11 05:32] LABS: Absolute Lymphocytes (CBC) 1.3 K/uL (0.7-4.9); Absolute Monocytes 0.7 K/uL (0.1-1.3); Absolute Neutrophil 8.6 K/uL (1.8-8.0); Basophils % 0.3 % (0-1.3); Eosinophils % 1.1 % (0-4.4); Hematocrit 37.8 % (39.6-49.0); MCH 29.9 pg (27.0-35.0); MCV 84.8 fL (80-100); MPV 8.1 fL (7.6-11.3); Monocytes % 6.5 % (3.3-12.3); RBC Red Blood Cell Count 4.46 M/uL (4.33-5.43)
[2017-10-11 05:50] LABS: ALT/SGPT 23 U/L (12-78); AST/SGOT 21 U/L (15-37); Albumin 1.9 g/dL (3.4-5.0); Alkaline Phosphatase 56 U/L (45-117); Amylase Level 115 U/L (25-115); BUN Blood Urea Nitrogen 10 mg/dL (7-18); Bicarbonate 17 mmol/L (21-32); Bilirubin Total 0.7 mg/dL (0.2-1.0); Glucose Level 209 mg/dL (74-106); HDL Cholesterol 16 mg/dL (40-60); LDL Cholesterol, Calculated 171 (<130); Lipase 910 U/L (73-393); Magnesium 1.7 mg/dL (1.8-2.4); Potassium 3.6 mmol/L (3.5-5.1); Protein, Total 6.4 g/dL (6.4-8.2); Sodium Level 139 mmol/L (136-145)
[2017-10-11] MEDS: METOPROLOL TAR 25 MG TAB PO SCH (06:45)
[2017-10-11] MEDS: NA CHLORIDE 0.9% 1,000 ML IV SCH (06:51)
[2017-10-11] MEDS ORDERED: MAGNESIUM SULFATE 1 gm IVPB 1 GM/100 ML BAG IV ONE (07:00)
[2017-10-11] MEDS ORDERED: INSULIN -REGULAR HUMAN 50 UNIT/0.5 ML ML SQ SCH (07:30)
[2017-10-11] MEDS ORDERED: POTASSIUM 25 MEQ EFFERV TAB PO ONE (08:00)
--- NOTE | 2017-10-11 08:02 | PN ---
Date of Progress Note: 10/10/2017 This is a gastroenterology progress. Additional Attending Physician: Edvin Montano MD. Subjective: The patient was seen by me today. He feels significantly better. Also, his labs show s ignificant improvement. His hemoglobin has dropped to 13.9 with hematocrit of 39.7, which is quite r easonable. Chemistry panel also reveals that his triglycerides have improved below 5 and come down b elow 1000. He is still getting the fluids and on the drips. Objective: Abdomen: Soft. Minimal tenderness. Bowel sounds are present. Impression: A 32-year-old gentleman with diabetic ketoacidosis and acute pancreatitis secondary to h ypertriglyceridemia, now is significantly improved. Plan: Continue current management. Can start on clear liquids from today and advance as tolerated. Once the patient gets discharged, he will need to follow up with Endocrinology. We will also recomm end followup with GI on an outpatient basis. /JESUS Voice ID: [id number] Report ID: [id number]
--- NOTE | 2017-10-11 08:18 | P.PN ---
Subjective Date of Service: 10/11/17 Primary Care Provider: Dr. Camp Chief Complaint: Abdominal pain Subjective: Improving (Chest pain noted to the abdomen. Patient tolerating diet. Still was mild diarrhea.) Physical Examination - Vital Signs Temperature: 98.6 F Blood Pressure: 144/84 Pulse: 114 Respirations: 30 Pulse Ox (%): 97 - Physical Exam General: Alert, In no apparent distress, Oriented x3, Cooperative HEENT: Atraumatic Neck: Supple Respiratory: Clear to auscultation bilaterally, Normal air movement Cardiovascular: Abnormal pulses (Sinus tachycardia) Gastrointestinal: Normal bowel sounds, Soft and benign, Non-distended, No tenderness, No masses, No rebound, No guarding Musculoskeletal: No erythema, No tenderness, No warmth Integumentary: No tenderness/swelling, No erythema, No warmth, No cyanosis Neurological: Normal speech, Normal strength at 5/5 x4 extr, Normal tone, Normal affect - Studies Medications List Reviewed: Yes Assessment & Plan - Problems (Diagnosis) (1) DKA (diabetic ketoacidosis) Onset Date: 10/09/17 Current Visit: Yes Status: Acute Plan: DKA has resolved. Patient tolerating diet. Patient transitioned from insulin drip to Levemir 35 units subcu daily last night. Will continue with 1800 ADA diet. A1c 10.2. Patient will need insulin therapy at discharge. Will transition patient to the floor. Pancreatitis also improved. Encourage ambulation. Anticipate discharge in the next 1-2 days. Qualifiers: Diabetes mellitus type: type 2 Diabetes mellitus complication detail: without coma Qualified Code(s): E11.10 - Type 2 diabetes mellitus with ketoacidosis without coma (2) Diabetes mellitus Onset Date: 10/09/17 Current Visit: Yes Status: Chronic Plan: DKA resolved. Now on Levemir 35 units subcu daily. Will continue with 1800 ADA diet. Anticipate discharge in the next 1-2 days. Will transition to the patient to a regular floor. 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 Acute pancreatitis noted with hypertriglyceridemia. This has significantly improved. Triglycerides now down below 500 at 374. Lipase 910 and amylase 115. Will add Tricor. Patient now off insulin drip. Will transfer the patient to the floor. Encourage ambulation. Anticipate discharge in the next 1-2 days. Qualifiers: Chronicity: acute Pancreatitis type: other (4) Hypertriglyceridemia Onset Date: 10/09/17 Current Visit: Yes Status: Chronic Plan: Continue as above (5) Obesity Onset Date: 10/09/17 Current Visit: Yes Status: Chronic Plan: BMI 36. Will continue to address lifestyle modification education. Qualifiers: Obesity type: due to excess calories Obesity classification: adult class 2 (BMI 35 - 39.9) Serious obesity comorbidity presence: with serious comorbidity Body mass index: BMI 36.0-36.9 Qualified Code(s): E66.01 - Morbid (severe) obesity due to excess calories; Z68.36 - Body mass index (BMI) 36.0-36.9, adult (6) Dehydration Onset Date: 10/09/17 Current Visit: Yes Status: Acute Plan: Adjustment in IV fluids addressed (7) Hypertension Current Visit: Yes Status: Acute Plan: Patient likely has hypertension. Will increase metoprolol to 50 mg 1 pill twice daily Qualifiers: Hypertension type: essential hypertension Qualified Code(s): I10 - Essential (primary) hypertension (8) Obstructive sleep apnea Current Visit: Yes Status: Suspected Plan: Patient likely has obstructive sleep apnea. Patient will need sleep study as an outpatient. Patient reports heavy snoring. (9) Diarrhea Current Visit: Yes Status: Acute Plan: C diff pending. Will provide medication as needed Qualifiers: Diarrhea type: unspecified type Qualified Code(s): R19.7 - Diarrhea, unspecified (10) Hypomagnesemia Current Visit: Yes Status: Acute Plan: Continue monitor and replace appropriately. Replacement protocol in place. Discharge Plan: Home Plan to discharge in: 24 Hours (to 48 hours) Time Spent Managing Pts Care (In Minutes): 55
[2017-10-11] MEDS ORDERED: TRAMADOL HCL 50 MG TAB PO PRN (08:28)
[2017-10-11] MEDS ORDERED: HYDROCODONE/APAP 7.5/325 MG TAB PO PRN (08:28)
[2017-10-11] MEDS ORDERED: LOPERAMIDE HCL 2 MG CAPSULE PO PRN (08:28)
[2017-10-11] MEDS: INSULIN -REGULAR HUMAN 50 UNIT/0.5 ML ML SQ SCH ×4 (08:46→20:11)
[2017-10-11] MEDS: ENOXAPARIN 40 MG/0.4 ML SQ SCH (08:47)
[2017-10-11] MEDS: FENOFIBRATE 160 MG TAB PO SCH (08:47)
[2017-10-11] MEDS: NACHLORIDE 0.45% 1,000 ML IV SCH ×3 (08:48→21:35)
[2017-10-11] MEDS: INSULIN DETEMIR 100 UNIT/1 ML INSULIN SQ SCH (08:48)
[2017-10-11] MEDS: PANTOPRAZOLE 40MG TABLET PO SCH (08:49)
[2017-10-11] MEDS: ONDANSETRON 4 MG/2 ML VIAL IV PRN (10:00)
--- NOTE | 2017-10-11 17:17 | RAD REPORT ---
EXAM DESCRIPTION: RAD - Chest Pa And Lat (2 Views) - 10/11/2017 4:59 pm CLINICAL HISTORY: Follow up possible nodule Chest pain. COMPARISON: Chest Single View dated 10/09/2017 FINDINGS: The lungs are clear. The heart is normal in size. No displaced fractures. The previously d etailed nodular opacity in the right mid lung is probably related to the end of the right first rib. IMPRESSION: No acute or concerning finding suspected.
[2017-10-11] MEDS: METOPROLOL TAR 50 MG TAB PO SCH (19:09)
[2017-10-12] MEDS: NACHLORIDE 0.45% 1,000 ML IV SCH ×3 (01:00→08:21)
[2017-10-12 05:16] LABS: Absolute Lymphocytes (CBC) 1.5 K/uL (0.7-4.9); Absolute Monocytes 0.9 K/uL (0.1-1.3); Absolute Neutrophil 10.7 K/uL (1.8-8.0); Basophils % 0.3 % (0-1.3); Eosinophils % 0.7 % (0-4.4); Hematocrit 36.8 % (39.6-49.0); Lymphocytes % 11.1 % (15.3-44.8); MCH 29.3 pg (27.0-35.0); MCV 85.1 fL (80-100); MPV 7.8 fL (7.6-11.3); Monocytes % 7.2 % (3.3-12.3); RBC Red Blood Cell Count 4.33 M/uL (4.33-5.43)
[2017-10-12] MEDS: METOPROLOL TAR 50 MG TAB PO SCH (05:44)
[2017-10-12] MEDS: PANTOPRAZOLE 40MG TABLET PO SCH (05:44)
[2017-10-12 05:46] LABS: ALT/SGPT 22 U/L (12-78); AST/SGOT 24 U/L (15-37); Alkaline Phosphatase 58 U/L (45-117); BUN Blood Urea Nitrogen 8 mg/dL (7-18); Bicarbonate 21 mmol/L (21-32); Bilirubin Total 0.8 mg/dL (0.2-1.0); Glucose Level 194 mg/dL (74-106); Potassium 3.1 mmol/L (3.5-5.1); Sodium Level 138 mmol/L (136-145)
[2017-10-12 05:47] LABS: Albumin 1.9 g/dL (3.4-5.0); Magnesium 1.7 mg/dL (1.8-2.4)
[2017-10-12] MEDS ORDERED: POTASSIUM 25 MEQ EFFERV TAB PO ONE (05:55)
[2017-10-12] MEDS ORDERED: MAGNESIUM SULFATE 1 gm IVPB 1 GM/100 ML BAG IV ONE (06:00)
[2017-10-12] MEDS: ONDANSETRON 4 MG/2 ML VIAL IV PRN (06:20)
[2017-10-12] MEDS: INSULIN -REGULAR HUMAN 50 UNIT/0.5 ML ML SQ SCH (07:30)
[2017-10-12 07:35] LABS: Urine White Blood Cell Casts DIFF
[2017-10-12 07:36] LABS: Blood Morphology Comment NOTED (NOT SEEN); Platelet Estimate ADEQ
[2017-10-12 07:37] LABS: Anisocytosis 1+; Macrocytosis 1+; Poikilocytosis 1+; Target Cells 1+
[2017-10-12] MEDS: INSULIN DETEMIR 100 UNIT/1 ML INSULIN SQ SCH (08:19)
[2017-10-12] MEDS: FENOFIBRATE 160 MG TAB PO SCH (08:20)
[2017-10-12] MEDS: ENOXAPARIN 40 MG/0.4 ML SQ SCH (08:20)
--- NOTE | 2017-10-12 08:50 | P.DS ---
Admission Date: 10/08/17 Discharge Date: 10/12/17 Primary Care Provider: Dr. Camp Disposition: ROUTINE DISCHARGE Discharge Condition: GOOD Reason for Admission: Abdominal pain Consultations: GI-Dr. Montano Procedures: Abdominal ultrasound: No acute changes. Otherwise unremarkable CT scan: FINDINGS: The lung bases are clear. Diffuse fatty liver is present. The spleen, adrenal glands and kidneys are within normal limits. Edema is present involving the pancreatic head compatible with acute pancreatitis. No pancreatic necrosis, pseudocyst or portal venous thrombosis seen. Inflammatory changes are seen along the right inferior abdomen. No bowel obstruction, free air, free fluid or abscess. The appendix is normal. No evidence of significant lymphadenopathy. Chronic bilateral spondylolysis at L5-S1 with minimal anterolisthesis. IMPRESSION: Mild to moderate acute pancreatitis without complication evident. Echocardiogram: Ejection fraction within normal range, 58% LEFT VENTRICULAR WALL MOTION: NORMAL DOPPLER/COLOR FLOW: TRACE TRICUSPID REGURGITATION. NORMAL RIGHT VENTRICULAR SYSTOLIC PRESSURE. COMMENTS: TRACE TRICUSPID REGURGITATION. TECHNICALLY DIFFICULT STUDY. NORMAL LEFT VENTRICULAR SIZE AND FUNCTION. NO WALL MOTION ABNORMALITY. 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 Diabetes mellitus complication status : with ketoacidosis Diabetes mellitus complication detail: without coma Qualified Code(s): E11.10 - Type 2 diabetes mellitus with ketoacidosis without coma (3) Pancreatitis Onset Date: 10/09/17 Current Visit: Yes Status: Resolved Qualifiers: Chronicity: acute Pancreatitis type: other (4) Hypertriglyceridemia Onset Date: 10/09/17 Current Visit: Yes Status: Chronic (5) Obesity Onset Date: 10/09/17 Current Visit: Yes Status: Chronic Qualifiers: Obesity type: due to excess calories Obesity classification: adult class 2 (BMI 35 - 39.9) Serious obesity comorbidity presence: with serious comorbidity Body mass index: BMI 36.0-36.9 Qualified Code(s): E66.01 - Morbid (severe) obesity due to excess calories; Z68.36 - Body mass index (BMI) 36.0-36.9, adult (6) Dehydration Onset Date: 10/09/17 Current Visit: Yes Status: Acute (7) Hypertension Current Visit: Yes Status: Acute Qualifiers: Hypertension type: essential hypertension Qualified Code(s): I10 - Essential (primary) hypertension (8) Obstructive sleep apnea Current Visit: Yes Status: Suspected (9) Diarrhea Current Visit: Yes Status: Acute Qualifiers: Diarrhea type: unspecified type Qualified Code(s): R19.7 - Diarrhea, unspecified (10) Hypomagnesemia Current Visit: Yes Status: Acute (11) Spondylolysis of lumbar region Current Visit: Yes Status: Chronic (12) GERD (gastroesophageal reflux disease) Current Visit: Yes Status: Suspected Qualifiers: Esophagitis presence: esophagitis presence not specified Qualified Code(s) : K21.9 - Gastro-esophageal reflux disease without esophagitis Brief History of Present Illness: 35-year-old male presented emergency room with abdominal pain. Patient was seen at urgent care and sent to the ER for further evaluation. The patient reported the pain started yesterday. It was mainly to the epigastric region. He rated the pain about a 7/10. He had some nausea with this. Pain persisted today. He went to urgent care. There was some suspicion for appendicitis. The patient was sent to the ER. The patient reported 7/10 pain. He denied any fever, chills. Patient reports a history of diabetes and elevated triglycerides. It is been a while since he is taking medication. He does not drink. In the ER he was evaluated. Lipase was elevated at 5142. His anion gap was 19. White count within normal range. Ketones were noted in the urine. Lipid panel pending. Abdominal ultrasound unremarkable. CT scan showed mild to moderate pancreatitis. Patient was admitted for treatment. Patient has gotten 2 units of fluid. Insulin drip to be started. Patient be transferred to ICU. In the ER when I evaluated the patient. Pain was still present. Patient reported mild nausea. Pain to the epigastric region noted. Patient reports having bowel movement yesterday. He has not been able to tolerate a diet today. There is family history of pancreatitis of unknown etiology. Hospital Course: Patient presented with acute pancreatitis secondary to hypertriglyceridemia and DKA. His lipase was 8012 with amylase of 817 and a triglycerides of 2669. Patient was admitted to ICU, placed on an insulin drip. His condition improved. DKA resolved. Improvement in his triglycerides, lipase and amylase were noted. His triglycerides came down to 374. Patient was transition from insulin drip to Levemir. Patient has tolerated his diet. No significant abdominal pain, nausea vomiting noted. GI was consulted. No further intervention was required. Abdominal ultrasound unremarkable. CT scan showed mild to moderate pancreatitis. Patient has diabetes. Hemoglobin A1c 10.2. At discharge he will continue with Levemir 35 units subcu every night. He is to monitor his blood sugars at least twice daily. Recommendation is to maintain blood sugars less 140 fasting and less than 200 after meals. Further adjustment in his medication can be done by his PCP. Diabetic education and lifestyle modification education will be per day. For hypertriglyceridemia the patient will go home on Tricor 160 mg daily. Dietary changes will be provided. Recommendation is for the patient to follow up with GI in 1-2 weeks to follow up this hospitalization. Patient will follow up with his PCP this week to recheck lab-including BMP and fasting lipid panel. His PCP can determine when the patient can return to work. Patient has hypertension. Medication was started during his stay. Echocardiogram unremarkable with normal ejection fraction. At discharge he will continue with metoprolol 50 mg 1 pill twice daily. Recommendation is to maintain blood pressures less 150/80. Further adjustment can be done by his PCP. Patient likely has underlying obstructive sleep apnea. Recommendation is for the patient to follow up with pulmonology as an outpatient for sleep study to consider CPAP at night. Patient likely has GERD. Patient will continue with Protonix 40 mg 1 pill once daily. Patient will follow up with GI to further evaluate. CT scan also shows chronic spondylolysis at the L5-S1 region with minimal anterolisthesis. He has no significant pain at this time. This can be further addressed by his PCP. Vital Signs/Physical Exam: Temp Pulse Resp BP Pulse Ox 98.4 F 106 H 28 H 130/70 98 10/12/17 04:00 10/12/17 05:44 10/12/17 04:00 10/12/17 05:44 10/12/17 04:00 General: Alert, In no apparent distress, Oriented x3, Cooperative HEENT: Atraumatic, Mucous membr. moist/pink Neck: Supple, No Thyromegaly Respiratory: Clear to auscultation bilaterally, Normal air movement Cardiovascular: Normal pulses, Regular rate/rhythm Gastrointestinal: Normal bowel sounds, Soft and benign, Non-distended, No tenderness, No masses, No rebound, No guarding Musculoskeletal: No erythema, No tenderness, No warmth Integumentary: No tenderness/swelling, No erythema, No warmth, No cyanosis Neurological: Normal speech, Normal strength at 5/5 x4 extr, Normal tone, Normal affect Lymphatics: No axilla or inguinal lymphadenopathy Laboratory Data at Discharge: WBC 13.2 K/uL (4.3-10.9) H D 10/12/17 04:55 Hgb 12.7 g/dL (13.6-17.9) L 10/12/17 04:55 Hct 36.8 % (39.6-49.0) L 10/12/17 04:55 Plt Count 226 K/uL (152-406) 10/12/17 04:55 Sodium 138 mmol/L (136-145) 10/12/17 04:55 Potassium 3.1 mmol/L (3.5-5.1) L 10/12/17 04:55 BUN 8 mg/dL (7-18) 10/12/17 04:55 Creatinine 0.30 mg/dL (0.55-1.3) L 10/12/17 04:55 Glucose 194 mg/dL (74-106) H 10/12/17 04:55 Magnesium 1.7 mg/dL (1.8-2.4) L 10/12/17 04:55 Total Bilirubin 0.8 mg/dL (0.2-1.0) 10/12/17 04:55 AST 24 U/L (15-37) 10/12/17 04:55 ALT 22 U/L (12-78) 10/12/17 04:55 Alkaline Phosphatase 58 U/L (45-117) 10/12/17 04:55 Triglycerides 374 mg/dL (<150) H 10/11/17 05:18 Cholesterol 262 mg/dL (<200) H 10/11/17 05:18 LDL Cholesterol Direct 143 mg/dL (100-129) H 10/10/17 17:05 HDL Cholesterol 16 mg/dL (40-60) L 10/11/17 05:18 Cholesterol/HDL Ratio 16.38 10/11/17 05:18 Amylase 115 U/L (25-115) D 10/11/17 05:18 Lipase 910 U/L (73-393) H 10/11/17 05:18 Home Medications: Fenofibrate [Tricor*] 160 mg PO DAILY #30 tab 10/12/17 Insulin Detemir [Levemir Flextouch] 35 unit SQ BEDTIME #1 ml 10/12/17 Metoprolol Tartrate [Lopressor*] 50 mg PO BID 6AM 6PM #60 tab 10/12/17 Pantoprazole [Protonix Tab*] 40 mg PO DAILYAC #30 tab 10/12/17 traMADol HCL [Ultram*] 50 mg PO TID PRN #10 tab 10/12/17 New Medications: Fenofibrate [Tricor*] 160 mg PO DAILY #30 tab Insulin Detemir [Levemir Flextouch] 35 unit SQ BEDTIME #1 ml Metoprolol Tartrate [Lopressor*] 50 mg PO BID 6AM 6PM #60 tab Pantoprazole [Protonix Tab*] 40 mg PO DAILYAC #30 tab traMADol HCL [Ultram*] 50 mg PO TID PRN #10 tab PRN Reason: Pain Mild Patient Discharge Instructions: 1. Patient will need to follow up with his PCP in 1 week to follow up this hospitalization. 2. Patient presented with acute pancreatitis secondary to hypertriglyceridemia and diabetic ketoacidosis. His condition improved during the course of his stay. His diabetes was better controlled. Pancreatitis resolved. Improvement in his triglycerides were noted. Patient was seen by GI. Abdominal ultrasound unremarkable. CT scan showed mild to moderate pancreatitis. Patient has diabetes. Hemoglobin A1c 10.2. At discharge he will continue with Levemir 35 units subcu every night. He is to monitor his blood sugars at least twice daily. Recommendation is to maintain blood sugars less 140 fasting and less than 200 after meals. Further adjustment in his medication can be done by his PCP. Diabetic education and lifestyle modification education will be per day. For hypertriglyceridemia the patient will go home on Tricor 160 mg daily. Dietary changes will be provided. Recommendation is for the patient to follow up with GI in 1-2 weeks to follow up this hospitalization. Patient will follow up with his PCP this week to recheck lab-including BMP and fasting lipid panel. His PCP can determine when the patient can return to work. 3. Patient has hypertension. Medication was started during his stay. Echocardiogram unremarkable with normal ejection fraction. At discharge he will continue with metoprolol 50 mg 1 pill twice daily. Recommendation is to maintain blood pressures less 150/80. Further adjustment can be done by his PCP. 4. Patient likely has underlying obstructive sleep apnea. Recommendation is for the patient to follow up with pulmonology as an outpatient for sleep study to consider CPAP at night. 5. Patient likely has GERD. Patient will continue with Protonix 40 mg 1 pill once daily. Patient will follow up with GI to further evaluate. 6. CT scan also shows chronic spondylolysis at the L5-S1 region with minimal anterolisthesis. He has no significant pain at this time. This can be further addressed by his PCP. Diet: ADA Activity: Ad shraddha Time spent managing pt's care (in minutes): 55
== END 2017-10-12 10:22 | disposition home or self-care (01) | DRG 438 ==
LOC: ER 10:20 → ERHOLD 14:07 → 3RD-ICU 16:59
PROVIDERS: ADMIT Family Medicine; ATTEND Family Medicine
DX: K85.90 Acute pancreatitis without necrosis or infection, unspecified (principal); E11.10 Type 2 diabetes mellitus with ketoacidosis without coma; Z79.4 Long term (current) use of insulin; E78.1 Pure hyperglyceridemia; E66.01 Morbid (severe) obesity due to excess calories; Z68.36 Body mass index [BMI] 36.0-36.9, adult; E86.0 Dehydration; I10 Essential (primary) hypertension; G47.33 Obstructive sleep apnea (adult) (pediatric); R19.7 Diarrhea, unspecified; E83.42 Hypomagnesemia; M43.06 Spondylolysis, lumbar region; K21.9 Gastro-esophageal reflux disease without esophagitis
CPT/HCPCS: 36415; 71045; 71046; 74177; 76705; 80048; 80053; 80061; 80076; 81003; 81015; 82010; 82150; 82962; 83036; 83605; 83690; 83735; 84132; 84478; 85025; 87040; 87493; 93306; 96361; 96374; 96375; 99284; J1650; J2405; J3010; J3475; J7030; Q9967

== ENCOUNTER 2018-03-17 04:05 | Inpatient (IN) | payer OTHER ==
--- OUTSIDE RECORDS SUMMARY | 2018-03-17 04:07 | XMS REPORT ---
:1985 Author Organization [facility] Address [address] [place] [address] Dr. Robertson [address] [place] [id number] Care Team Providers Name Role Phone Unavailable Unavailable Unavailable Problems This patient has no known problems. Allergies, Adverse Reactions, Alerts This patient has no known allergies or adverse reactions. Medications This patient has no known medications.
[2018-03-17] MEDS ORDERED: FENTANYL CITR 100 MCG/2 ML ONE (04:44)
[2018-03-17] MEDS ORDERED: ONDANSETRON 4 MG/2 ML VIAL ONE ×2 (04:45→06:05)
[2018-03-17] MEDS ORDERED: NA CHLORIDE 0.9% 1,000 ML ONE ×2 (04:45→06:13)
[2018-03-17 05:27] LABS: ALT/SGPT 51 U/L (12-78); AST/SGOT 37 U/L (15-37); Albumin 3.5 g/dL (3.4-5.0); Alkaline Phosphatase 72 U/L (45-117); BUN Blood Urea Nitrogen 12 mg/dL (7-18); Bicarbonate 20 mmol/L (21-32); Bilirubin Direct 0.1 mg/dL (0-0.2); Bilirubin Total 0.8 mg/dL (0.2-1.0); Glucose Level 370 mg/dL (74-106); Lipase 1557 U/L (73-393); Potassium 4.7 mmol/L (3.5-5.1); Protein, Total 7.7 g/dL (6.4-8.2); Sodium Level 136 mmol/L (136-145)
--- NOTE | 2018-03-17 05:58 | ER ---
Nurse's Notes [facility] Name: Kit Arias Age: 32 yrs Sex: Male : 1985 Arrival Date: 03/17/2018 Time: 04:05 Bed 7 Private MD: Carlyle Camp Diagnosis: Acute pancreatitis Presentation: 03/17 04:18 Presenting complaint: Patient states: N/V abd pain since noon. Transition of care: ak1 patient was not received from another setting of care. Onset of symptoms was March 16, 2018. Risk Assessment: Do you want to hurt yourself or someone else? Patient reports no desire to harm self or others. Initial Sepsis Screen: Does the patient meet any 2 criteria? No. Patient's initial sepsis screen is negative. Does the patient have a suspected source of infection? No. Patient's initial sepsis screen is negative. Care prior to arrival: None. 04:18 Method Of Arrival: Ambulatory ak1 04:18 Acuity: JUAN 3 ak1 Triage Assessment: 04:24 General: Appears uncomfortable, Behavior is calm, cooperative, anxious. Pain: Complains ak1 of pain in abdomen. EENT: No signs and/or symptoms were reported regarding the EENT system. Neuro: No deficits noted. Cardiovascular: No deficits noted. Respiratory: No deficits noted. GI: Reports lower abdominal pain, upper abdominal pain, nausea, vomiting, since noon yesterday. pt stated he has had pancreatitis and the pain feels similar. : No signs and/or symptoms were reported regarding the genitourinary system. Derm: No signs and/or symptoms reported regarding the dermatologic system. Musculoskeletal: No signs and/or symptoms reported regarding the musculoskeletal system. Historical: - Allergies: 04:24 No Known Allergies; ak1 - Home Meds: 04:24 promethazine-DM 6.25-15 mg/5 mL Oral syrp 5 mL every 4 hours [Active]; pantoprazole 40 ak1 mg oral TbEC 1 tab once daily [Active]; fenofibrate 160 mg oral tab 1 tab once daily [Active]; metoprolol tartrate 50 mg Oral tab 1 tab 2 times per day [Active]; Azithromycin Oral [Active]; sertraline 100 mg oral tab 1 tab once daily [Active]; - PMHx: 04:24 GERD; Pancreatitis; Hypertension; Diabetes - IDDM; ak1 - PSHx: 04:24 arm; ak1 - Immunization history:: Adult Immunizations unknown. - Social history:: Smoking status: Patient/guardian denies using tobacco, Patient/guardian denies using alcohol. - Ebola Screening: : No symptoms or risks identified at this time. Screenin:26 Abuse screen: Denies threats or abuse. Denies injuries from another. Nutritional ak1 screening: No deficits noted. Tuberculosis screening: No symptoms or risk factors identified. Fall Risk None identified. Assessment: 04:26 GI: Bowel sounds present X 4 quads. Abd is soft Abdomen is tender to palpation. ak1 05:15 Reassessment: Patient and/or family updated on plan of care and expected duration. Pain ea level reassessed. Patient is alert, oriented x 3, equal unlabored respirations, skin warm/dry/pink. 05:22 Reassessment: outside lab needs CBC recollected, inside lab paged for recollect. ak1 06:18 Reassessment: Patient and/or family updated on plan of care and expected duration. Pain ea level reassessed. Patient is alert, oriented x 3, equal unlabored respirations, skin warm/dry/pink. 07:37 Reassessment: Nurse unable to take report at this time, will call back. sv Vital Signs: 04:24 BP 145 / 92; Pulse 128; Resp 18; Temp 99.5(O); Pulse Ox 98% on R/A; Weight 120.2 kg ak1 (R); Height 5 ft. 11 in. (180.34 cm) (R); Pain 8/10; 05:06 BP 135 / 90; Pulse 106; Resp 18; Pulse Ox 95% on R/A; ea 06:35 BP 134 / 85; Pulse 110; Resp 18; Pulse Ox 96% ; ea 07:07 BP 142 / 92; Pulse 117; Resp 18; Pulse Ox 96% ; sv 04:24 Body Mass Index 36.96 (120.20 kg, 180.34 cm) ak1 ED Course: 04:05 Patient arrived in ED. am2 04:06 Carlyle Camp MD is Private Physician. am2 04:18 Laney Mathur, SKINNY is Primary Nurse. ak1 04:19 Triage completed. ak1 04:22 Lj Marcano MD is Attending Physician. gs 04:24 Arm band placed on Patient placed in an exam room, on a stretcher, on pulse oximetry, ak1 Patient notified of wait time. 04:25 Missed attempt(s): 20 gauge in right forearm. Bleeding controlled, band aid applied, ea catheter tip intact. 04:26 Patient has correct armband on for positive identification. Bed in low position. Call ak1 light in reach. Side rails up X 1. Adult w/ patient. Pulse ox on. NIBP on. 04:30 Inserted saline lock: 18 gauge in right antecubital area, using aseptic technique. ea Blood collected. 05:56 Maida Ty MD is Hospitalizing Provider. gs 06:17 No provider procedures requiring assistance completed. Patient admitted, IV remains in ea place. Administered Medications: 04:41 Drug: fentaNYL (PF) 25 mcg Route: IVP; Site: right antecubital; ea 05:10 Follow up: Response: No adverse reaction; Pain is decreased ea 04:42 Drug: NS 0.9% 1500 ml Route: IV; Rate: 1 bolus; Site: right antecubital; ea 05:21 Follow up: Response: No adverse reaction; IV Status: Completed infusion; IV Intake: ea 1000ml 04:42 Drug: Zofran 4 mg Route: IVP; Site: right antecubital; ea 05:10 Follow up: Response: No adverse reaction ea 06:01 Drug: morphine 4 mg Route: IVP; Site: right antecubital; ea 06:36 Follow up: Response: No adverse reaction; Pain is decreased ea 06:06 Drug: Zofran 4 mg Route: IVP; Site: right antecubital; ea 06:37 Follow up: Response: No adverse reaction ea 06:06 Drug: NS 0.9% 1000 ml Route: IV; Rate: 125 ml/hr; Site: right antecubital; ea 06:37 Follow up: IV Status: Infusion continued upon admission ea Intake: 05:21 IV: 1000ml; Total: 1000ml. ea Outcome: 05:57 Decision to Hospitalize by Provider. gs 06:18 Instructed on the need for admit. ea 07:56 Admitted to Med/surg accompanied by tech, via wheelchair, room 231, with chart, Report sv called to Glenis BABB 07:56 Condition: stable 08:06 Patient left the ED. sv Signatures: Magan, Lalita, RN RN Laney Elmore RN RN ak1 Radha Durant am2 Vicky Salgado RN RN Lj Preciado MD MD gs Corrections: (The following items were deleted from the chart) 07:58 07:56 Admitted to Med/surg accompanied by tech, via wheelchair, room 207, with chart, sv Report called to Glenis manning
--- NOTE | 2018-03-17 05:58 | EDPHYS ---
Physician Documentation [facility] Name: Kit Arias Age: 32 yrs Sex: Male : 1985 Arrival Date: 03/17/2018 Time: 04:05 Bed 7 Private MD: Carlyle Camp ED Physician Lj Marcano HPI: 03/17 05:54 This 32 yrs old Male presents to ER via Ambulatory with complaints of gs Abdominal Pain. 05:54 The patient presents with abdominal pain in the epigastric area. Onset: The gs symptoms/episode began/occurred yesterday. The symptoms do not radiate. Associated signs and symptoms: Pertinent positives: nausea and vomiting. The symptoms are described as sharp. Modifying factors: The symptoms are alleviated by nothing, the symptoms are aggravated by food. Severity of pain: At its worst the pain was moderate in the emergency department the pain is unchanged. The patient has experienced similar episodes in the past, a few times. Historical: - Allergies: 04:24 No Known Allergies; ak1 - Home Meds: 04:24 promethazine-DM 6.25-15 mg/5 mL Oral syrp 5 mL every 4 hours [Active]; pantoprazole 40 ak1 mg oral TbEC 1 tab once daily [Active]; fenofibrate 160 mg oral tab 1 tab once daily [Active]; metoprolol tartrate 50 mg Oral tab 1 tab 2 times per day [Active]; Azithromycin Oral [Active]; sertraline 100 mg oral tab 1 tab once daily [Active]; - PMHx: 04:24 GERD; Pancreatitis; Hypertension; Diabetes - IDDM; ak1 - PSHx: 04:24 arm; ak1 - Immunization history:: Adult Immunizations unknown. - Social history:: Smoking status: Patient/guardian denies using tobacco, Patient/guardian denies using alcohol. - Ebola Screening: : No symptoms or risks identified at this time. ROS: 05:54 All other systems are negative. gs Exam: 05:54 Head/Face: Normocephalic, atraumatic. gs 05:54 Eyes: Pupils equal round and reactive to light, extra-ocular motions intact. Lids and lashes normal. Conjunctiva and sclera are non-icteric and not injected. Cornea within normal limits. Periorbital areas with no swelling, redness, or edema. ENT: Nares patent. No nasal discharge, no septal abnormalities noted. Tympanic membranes are normal and external auditory canals are clear. Oropharynx with no redness, swelling, or masses, exudates, or evidence of obstruction, uvula midline. Mucous membranes moist. Neck: Trachea midline, no thyromegaly or masses palpated, and no cervical lymphadenopathy. Supple, full range of motion without nuchal rigidity, or vertebral point tenderness. No Meningismus. Chest/axilla: Normal chest wall appearance and motion. Nontender with no deformity. No lesions are appreciated. Respiratory: Lungs have equal breath sounds bilaterally, clear to auscultation and percussion. No rales, rhonchi or wheezes noted. No increased work of breathing, no retractions or nasal flaring. Back: No spinal tenderness. No costovertebral tenderness. Full range of motion. Skin: Warm, dry with normal turgor. Normal color with no rashes, no lesions, and no evidence of cellulitis. MS/ Extremity: Pulses equal, no cyanosis. Neurovascular intact. Full, normal range of motion. Neuro: Awake and alert, GCS 15, oriented to person, place, time, and situation. Cranial nerves II-XII grossly intact. Motor strength 5/5 in all extremities. Sensory grossly intact. Cerebellar exam normal. Normal gait. 05:54 Constitutional: The patient appears alert, awake. 05:54 Constitutional: The patient appears uncomfortable. 05:54 Cardiovascular: Rate: tachycardic, Rhythm: regular, Pulses: no pulse deficits are appreciated. 05:54 Abdomen/GI: Palpation: moderate abdominal tenderness, in all quadrants. Vital Signs: 04:24 BP 145 / 92; Pulse 128; Resp 18; Temp 99.5(O); Pulse Ox 98% on R/A; Weight 120.2 kg ak1 (R); Height 5 ft. 11 in. (180.34 cm) (R); Pain 8/10; 05:06 BP 135 / 90; Pulse 106; Resp 18; Pulse Ox 95% on R/A; ea 06:35 BP 134 / 85; Pulse 110; Resp 18; Pulse Ox 96% ; ea 07:07 BP 142 / 92; Pulse 117; Resp 18; Pulse Ox 96% ; sv 04:24 Body Mass Index 36.96 (120.20 kg, 180.34 cm) [facility] MDM: 04:22 Patient medically screened. gs 05:54 Differential diagnosis: gastritis, gastroesophageal reflux disease, non-specific abd gs pain, pancreatitis. Data reviewed: vital signs, nurses notes. Response to treatment: the patient's symptoms have mildly improved after treatment, and as a result, I will admit patient. 03/17 04:27 Order name: Basic Metabolic Panel; Complete Time: 05:52 gs 03/17 04:27 Order name: CBC with Diff gs 03/17 04:27 Order name: Hepatic Function; Complete Time: 05:52 gs 03/17 04:27 Order name: Lipase; Complete Time: 05:52 gs 03/17 07:27 Order name: Manual Differential EDMS 03/17 07:40 Order name: Urinalysis EDMS 03/17 07:40 Order name: CBC with Automated Diff EDMS 03/17 07:40 Order name: CBC with Automated Diff EDMS 03/17 07:40 Order name: Comprehensive Metabolic Panel EDMS 03/17 07:40 Order name: Comprehensive Metabolic Panel EDMS 03/17 07:40 Order name: Lipid Profile EDMS 03/17 07:40 Order name: Lipid Profile EDMS 03/17 07:40 Order name: Magnesium EDMS 03/17 04:27 Order name: IV Saline Lock; Complete Time: 04:31 gs 03/17 04:27 Order name: Labs collected and sent; Complete Time: 04:31 gs 03/17 07:40 Order name: NPO EDMS 03/17 07:40 Order name: Magnesium EDMS 03/17 07:40 Order name: Phosphorus EDMS 03/17 07:40 Order name: Phosphorus EDMS 03/17 07:42 Order name: Lipase EDMS 03/17 07:42 Order name: Lipase EDMS Administered Medications: 04:41 Drug: fentaNYL (PF) 25 mcg Route: IVP; Site: right antecubital; ea 05:10 Follow up: Response: No adverse reaction; Pain is decreased ea 04:42 Drug: NS 0.9% 1500 ml Route: IV; Rate: 1 bolus; Site: right antecubital; ea 05:21 Follow up: Response: No adverse reaction; IV Status: Completed infusion; IV Intake: ea 1000ml 04:42 Drug: Zofran 4 mg Route: IVP; Site: right antecubital; ea 05:10 Follow up: Response: No adverse reaction ea 06:01 Drug: morphine 4 mg Route: IVP; Site: right antecubital; ea 06:36 Follow up: Response: No adverse reaction; Pain is decreased ea 06:06 Drug: Zofran 4 mg Route: IVP; Site: right antecubital; ea 06:37 Follow up: Response: No adverse reaction ea 06:06 Drug: NS 0.9% 1000 ml Route: IV; Rate: 125 ml/hr; Site: right antecubital; ea 06:37 Follow up: IV Status: Infusion continued upon admission ea Disposition: 03/17/18 05:57 Hospitalization ordered by Maida Ty for Inpatient Admission. Preliminary diagnosis is Acute pancreatitis. - Bed requested for Telemetry/MedSurg (Inpatient). - Status is Inpatient Admission. sv - Condition is Stable. - Problem is new. - Symptoms have improved. UTI on Admission? No Signatures: Dispatcher [employer] EDGA Lalita Carrero RN RN Dion, Maddy, RN Laney Herbert RN RN ak Vicky Salgado RN Lj Viramontes ea, MD MD gs Corrections: (The following items were deleted from the chart) 06:05 05:57 Hospitalization Ordered by Maida Ty MD for Inpatient Admission. Preliminary diagnosis is Acute pancreatitis. Bed requested for Telemetry/MedSurg (Inpatient). Status is Inpatient Admission. Condition is Stable. Problem is new. Symptoms have improved. UTI on Admission? No. 07:42 07:40 Lipase ordered. EDGA EDGA 08:06 06:05 03/17/2018 05:57 Hospitalization Ordered by Maida Ty MD for Inpatient sv Admission. Preliminary diagnosis is Acute pancreatitis. Bed requested for Telemetry/MedSurg (Inpatient). Status is Inpatient Admission. Condition is Stable. Problem is new. Symptoms have improved. UTI on Admission? No. mw
[2018-03-17] MEDS ORDERED: MORPHINE 4 MG/ML SYR ONE (06:05)
[2018-03-17 07:21] LABS: Absolute Lymphocytes (CBC) 2.4 K/uL (0.7-4.9); Absolute Neutrophil 16.2 K/uL (1.8-8.0); Basophils % 0.4 % (0-1.3); Eosinophils % 0.2 % (0-4.4); Lymphocytes % 12.1 % (15.3-44.8); Monocytes % 5.1 % (3.3-12.3); RBC Red Blood Cell Count 5.22 M/uL (4.33-5.43)
[2018-03-17] MEDS ORDERED: ONDANSETRON 4 MG/2 ML VIAL IV PRN (07:36)
--- NOTE | 2018-03-17 07:53 | P.HP ---
Certification for Inpatient Patient admitted to: Inpatient With expected LOS: >2 Midnights Patient will require the following post-hospital care: None Practitioner: I am a practitioner with admitting privileges, knowledge of patient current condition, hospital course, and medical plan of care. Services: Services provided to patient in accordance with Admission requirements found in Title 42 Section 412.3 of the Code of Federal Regulations Patient History Date of Service: 03/17/18 Reason for admission: Acute pancreatitis secondary to hypertriglyceridemia History of Present Illness: Patient is a 32-year-old gentleman who came into the hospital with abdominal pain along with nausea. He denies having any persistent vomiting. He is having severe pain in the epigastric region which radiates to his back. Has a history of hypertriglyceridemia with secondary pancreatitis. He believes this is flaring up. He came into the ER for further evaluation. In the emergency room his lipase was 1600. His triglycerides were not checked. These are pending. He has not been taking his fenofibrate as prescribed. He denies drinking but has been eating fatty meals lately. He will be admitted to the hospital for further evaluation. Allergies No Known Allergies Allergy (Verified 10/08/17 15:55) Home Medications: Fenofibrate [Tricor*] 160 mg PO DAILY #30 tab 10/12/17 Insulin Detemir [Levemir Flextouch] 35 unit SQ BEDTIME #1 ml 10/12/17 Metoprolol Tartrate [Lopressor*] 50 mg PO BID 6AM 6PM #60 tab 10/12/17 Pantoprazole [Protonix Tab*] 40 mg PO DAILYAC #30 tab 10/12/17 traMADol HCL [Ultram*] 50 mg PO TID PRN #10 tab 10/12/17 Insulin Detemir [Levemir Flextouch] 35 unit SQ BEDTIME #1 box 10/14/17 - Past Medical/Surgical History Diabetic: Yes -: Diabetes mellitus type 2 -: Hypertriglyceridemia -: HTN -: Right arm surgery Psychosocial/ Personal History: The patient is single. He has no children. 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 - Family History Father Medical History: Diabetes Mother Medical History: Diabetes - Social History Alcohol use: No CD- Drugs: No Caffeine use: Yes Review of Systems 10-point ROS is otherwise unremarkable Physical Examination - Vital Signs Temperature: 98.9 F Blood Pressure: 140/80 Pulse: 88 Respirations: 18 Pulse Ox (%): 98 - Physical Exam General: Alert, In no apparent distress, Oriented x3 HEENT: Atraumatic, Normocephalic Neck: Supple, 2+ carotid pulse no bruit, JVD not distended, No Thyromegaly, No LAD Respiratory: Clear to auscultation bilaterally, Normal air movement Cardiovascular: No edema, Normal pulses, Regular rate/rhythm, Normal S1 S2, No murmurs Gastrointestinal: Normal bowel sounds, Soft and benign, Non-distended, No tenderness, No rebound, No guarding Musculoskeletal: No clubbing, No swelling Integumentary: No rashes Neurological: Normal strength at 5/5 x4 extr, Normal tone, Sensation intact, Cranial nerves 3-12 intact, Normal reflexes 2+ - Studies Laboratory Data (last 24 hrs) 03/17/18 07:37: Lipase Cancelled 03/17/18 06:06: WBC 19.7 H, Hgb 16.1, Hct 40.0, Plt Count 334 03/17/18 04:30: Sodium 136, Potassium 4.7, BUN 12, Creatinine 0.78, Glucose 370 H, Total Bilirubin 0.8, AST 37, ALT 51, Alkaline Phosphatase 72, Lipase 1557 H Assessment & Plan - Problems (Diagnosis) (1) Acute pancreatitis Current Visit: Yes Status: Acute (2) Dehydration Onset Date: 10/09/17 Current Visit: No Status: Acute (3) Diabetes mellitus Onset Date: 10/09/17 Current Visit: No Status: Chronic Qualifiers: (4) Hypertriglyceridemia Onset Date: 10/09/17 Current Visit: No Status: Chronic - Plan 1. Continue with IV hydration 2. Continue with medication for hypertriglyceridemia 3. Continue with pain control 4. NPO 5. GI consultation as an outpatient 6. Serial labs, and we will monitor CBC, BMP, LFTs and lipase along with triglycerides 7. GI and DVT prophylaxis Discharge Plan: Home Plan to discharge in: Greater than 2 days - Advance Directives Does patient have a Living Will: No Does patient have a Durable POA for Healthcare: No - Code Status/Comfort Care Code Status Assessed: Yes Code Status: Full Code Critical Care: No Time Spent Managing PTS Care (In Minutes): 50
[2018-03-17 08:21] LABS: Blood Morphology Comment NOT SEEN (NOT SEEN); Platelet Estimate ADEQ
[2018-03-17] MEDS: DOCOSAHEXANOIC AC/EPA 1000 MG PO SCH ×3 (09:00→20:39)
[2018-03-17] MEDS: FENOFIBRATE 160 MG TAB PO SCH (09:00)
[2018-03-17] MEDS: MORPHINE 4 MG/ML SYR IV PRN ×4 (09:26→21:27)
[2018-03-17] MEDS: NA CHLORIDE 0.9% 1,000 ML IV SCH ×3 (09:29→21:27)
[2018-03-17] MEDS: ENOXAPARIN 40 MG/0.4 ML SQ SCH (09:29)
[2018-03-17] MEDS: METOPROLOL TAR 50 MG TAB PO SCH ×2 (09:30→17:35)
[2018-03-17] MEDS ORDERED: INFLUENZA VACCINE (for 3y+) 0.5 ML DOSE IMVAC ONE (10:00)
[2018-03-17] MEDS: ONDANSETRON 4 MG/2 ML VIAL IV PRN ×3 (13:35→21:27)
[2018-03-17] MEDS ORDERED: GLUCAGON 1 MG/VIAL IM PRN (16:47)
[2018-03-17] MEDS ORDERED: D50W 25 GM/50 ML SYRINGE IV PRN (16:47)
[2018-03-17] MEDS: INSULIN -REGULAR HUMAN 50 UNIT/0.5 ML ML SQ SCH (17:34)
[2018-03-17] MEDS: INSULIN GLARGINE 100 UNITS/ML SQ SCH (21:20)
[2018-03-18] MEDS: INSULIN -REGULAR HUMAN 50 UNIT/0.5 ML ML SQ SCH ×3 (00:29→12:37)
[2018-03-18] MEDS: NA CHLORIDE 0.9% 1,000 ML IV SCH ×3 (03:55→17:30)
[2018-03-18] MEDS: METOPROLOL TAR 50 MG TAB PO SCH ×2 (05:28→17:30)
[2018-03-18] MEDS: PANTOPRAZOLE 40MG TABLET PO SCH (05:31)
[2018-03-18 08:19] LABS: BUN Blood Urea Nitrogen 10 mg/dL (7-18); HDL Cholesterol 22 mg/dL (40-60); LDL Cholesterol, Calculated ND (<130); Magnesium 2.1 mg/dL (1.8-2.4)
[2018-03-18 08:36] LABS: Absolute Monocytes 0.7 K/uL (0.1-1.3); Basophils % 0.3 % (0-1.3); Hematocrit 45.4 % (39.6-49.0); Lymphocytes % 12.1 % (15.3-44.8); RBC Red Blood Cell Count 5.28 M/uL (4.33-5.43)
[2018-03-18 09:11] LABS: Bicarbonate 17 mmol/L (21-32); Glucose Level 312 mg/dL (74-106); Potassium 4.1 mmol/L (3.5-5.1); Sodium Level 138 mmol/L (136-145)
[2018-03-18 09:12] LABS: ALT/SGPT 28 U/L (12-78); Phosphorus 1.9 mg/dL (2.5-4.9)
[2018-03-18 09:13] LABS: Albumin 2.9 g/dL (3.4-5.0); Lipase 1113 U/L (73-393); Protein, Total 7.4 g/dL (6.4-8.2)
[2018-03-18 09:31] LABS: AST/SGOT 17 U/L (15-37); Alkaline Phosphatase 60 U/L (45-117)
[2018-03-18 09:42] LABS: LDL, Direct ND mg/dL (100-129)
[2018-03-18] MEDS: ENOXAPARIN 40 MG/0.4 ML SQ SCH (10:34)
[2018-03-18] MEDS: MORPHINE 4 MG/ML SYR IV PRN (10:35)
[2018-03-18] MEDS: ONDANSETRON 4 MG/2 ML VIAL IV PRN (10:35)
[2018-03-18] MEDS: SERTRALINE HCL 100 MG TAB PO SCH (10:36)
[2018-03-18] MEDS: DOCOSAHEXANOIC AC/EPA 1000 MG PO SCH ×3 (10:36→21:45)
[2018-03-18] MEDS: FENOFIBRATE 160 MG TAB PO SCH (10:36)
--- NOTE | 2018-03-18 14:31 | P.PN ---
Subjective Date of Service: 03/18/18 Chief Complaint: Acute pancreatitis secondary to hypertriglyceridemia Physical Examination - Vital Signs Temperature: 98.6 F Blood Pressure: 142/89 Pulse: 107 Respirations: 20 Pulse Ox (%): 95 Assessment And Plan - Current Problems (Diagnosis) (1) Acute pancreatitis Current Visit: Yes Status: Acute (2) Hypertension Current Visit: No Status: Acute Qualifiers: Hypertension type: essential hypertension Qualified Code(s): I10 - Essential (primary) hypertension (3) Diabetes mellitus Onset Date: 10/09/17 Current Visit: No Status: Chronic Qualifiers: (4) Hypertriglyceridemia Onset Date: 10/09/17 Current Visit: No Status: Chronic (5) Obesity Onset Date: 10/09/17 Current Visit: No Status: Chronic Qualifiers: Obesity type: due to excess calories Obesity classification: adult class 2 (BMI 35 - 39.9) Serious obesity comorbidity presence: with serious comorbidity Body mass index: BMI 36.0-36.9 Qualified Code(s): E66.01 - Morbid (severe) obesity due to excess calories; Z68.36 - Body mass index (BMI) 36.0-36.9, adult - Plan This is a 32 yr old male with: Acute pancreatitis Hypertriglyceridemia Likely secondary to the high triglycerides Transfer patient to ICU for insulin infusion. Start at 0.5 units/hr, titrate to keep blood sugar between 200-250. Check blood glucose q1 hrs, triglycerides levels Q12 hrs. 5% dextrose infusion if Blood sugar drops below 200. We will stop the insulin drip once triglycerides are below 500 Continue pain control, IVF, NPO Zofran prn for nausea Dehydration Diabetes mellitus Patient will need strict blood sugar control and lifestyle modifications once discharged from the hospital. DVT prophylaxis: Lovenox GI prophylaxis: Not needed Diet: NPO Disposition: Transfer to ICU for insulin drip. Pending symptomatic improvement. Physician Review: Patient Assessed, Agree with Above Assessment and Plan Time Spent Managing PTS Care (In Minutes): 45
[2018-03-18] MEDS: D5 0.45 NS 1,000 ML IV SCH ×2 (16:04→17:30)
[2018-03-18 17:21] LABS: LDL, Direct 153 mg/dL (100-129)
[2018-03-18] MEDS: INSULIN -REGULAR HUMAN 100 UNIT in NA CHLORIDE 0.9% 100 ML IV SCH (17:27)
[2018-03-18] MEDS ORDERED: POTASSIUM PHOS IN 0.9 % NACL 15 MMOL/250 ML BAG IV ONE (18:15)
[2018-03-18] MEDS ORDERED: PNEUMOCOCCAL VACCINE 0.5 ML IMVAC ONE (20:00)
[2018-03-18] MEDS: INSULIN GLARGINE 100 UNITS/ML SQ SCH (21:00)
[2018-03-19] MEDS: MORPHINE 4 MG/ML SYR IV PRN ×5 (00:21→21:54)
[2018-03-19] MEDS: NA CHLORIDE 0.9% 1,000 ML IV SCH ×5 (02:36→20:00)
[2018-03-19] MEDS: PANTOPRAZOLE 40MG TABLET PO SCH (04:58)
[2018-03-19] MEDS: METOPROLOL TAR 50 MG TAB PO SCH ×2 (04:58→17:32)
[2018-03-19] MEDS: D5 0.45 NS 1,000 ML IV SCH ×3 (05:24→18:44)
[2018-03-19 07:05] LABS: Absolute Lymphocytes (CBC) 1.7 K/uL (0.7-4.9); Absolute Monocytes 0.6 K/uL (0.1-1.3); Absolute Neutrophil 12.5 K/uL (1.8-8.0); Basophils % 0.3 % (0-1.3); Eosinophils % 0.2 % (0-4.4); Hematocrit 38.8 % (39.6-49.0); Lymphocytes % 11.6 % (15.3-44.8); MPV 8.5 fL (7.6-11.3); Monocytes % 3.9 % (3.3-12.3); RBC Red Blood Cell Count 4.57 M/uL (4.33-5.43)
[2018-03-19] MEDS: FENOFIBRATE 160 MG TAB PO SCH (08:09)
[2018-03-19] MEDS: SERTRALINE HCL 100 MG TAB PO SCH (08:09)
[2018-03-19] MEDS: ENOXAPARIN 40 MG/0.4 ML SQ SCH (08:09)
[2018-03-19] MEDS: DOCOSAHEXANOIC AC/EPA 1000 MG PO SCH ×3 (09:09→21:47)
[2018-03-19 10:39] LABS: LDL, Direct 105 mg/dL (100-129)
[2018-03-19 11:52] LABS: Glucose Level 215 mg/dL (74-106); Potassium 4.2 mmol/L (3.5-5.1); Sodium Level 141 mmol/L (136-145)
[2018-03-19 11:53] LABS: ALT/SGPT 24 U/L (12-78); AST/SGOT 34 U/L (15-37); Alkaline Phosphatase 57 U/L (45-117); BUN Blood Urea Nitrogen 10 mg/dL (7-18); Bilirubin Total 0.8 mg/dL (0.2-1.0); Protein, Total 6.7 g/dL (6.4-8.2)
[2018-03-19 11:54] LABS: Albumin 2.4 g/dL (3.4-5.0)
[2018-03-19 11:56] LABS: Bicarbonate 10 mmol/L (21-32)
[2018-03-19] MEDS: LISINOPRIL 10 MG TAB PO SCH (12:22)
[2018-03-19] MEDS: NA CHLORIDE 0.9% IV SCH (16:02)
[2018-03-19] MEDS: NA BICARB IV SCH (16:02)
--- NOTE | 2018-03-19 16:54 | P.PN ---
Subjective Date of Service: 03/19/18 Chief Complaint: Acute pancreatitis secondary to hypertriglyceridemia Subjective: No new changes, No C/O voiced, Improving Patient seen and examined at bedside. No family at bedside. Chart reviewed and case discussed with nursing staff. Reports improved pain Review of Systems 10-point ROS is otherwise unremarkable Physical Examination - Vital Signs Temperature: 98.1 F Blood Pressure: 160/94 Pulse: 103 Respirations: 23 Pulse Ox (%): 98 - Physical Exam General: Alert, Oriented x3, Mild distress, Moderate distress HEENT: Atraumatic, PERRLA, EOMI Neck: Supple, JVD not distended Respiratory: Clear to auscultation bilaterally, Normal air movement Cardiovascular: Regular rate/rhythm, Normal S1 S2 Gastrointestinal: Normal bowel sounds, No tenderness Musculoskeletal: No tenderness Integumentary: No rashes Neurological: Normal speech, Normal tone, Normal affect Lymphatics: No axilla or inguinal lymphadenopathy Assessment And Plan - Current Problems (Diagnosis) (1) Acute pancreatitis Current Visit: Yes Status: Acute Qualifiers: Pancreatitis type: other Acute pancreatitis complication: no infection or necrosis Qualified Code(s): K85.80 - Other acute pancreatitis without necrosis or infection (2) Hypertension Current Visit: No Status: Acute Qualifiers: Hypertension type: essential hypertension Qualified Code(s): I10 - Essential (primary) hypertension (3) Diabetes mellitus Onset Date: 10/09/17 Current Visit: No Status: Chronic Qualifiers: Diabetes mellitus type: type 2 Diabetes mellitus long term care pharmacist insulin use: without long term care pharmacist use Diabetes mellitus complication status: with hyperglycemia Qualified Code(s): E11.65 - Type 2 diabetes mellitus with hyperglycemia (4) Hypertriglyceridemia Onset Date: 10/09/17 Current Visit: No Status: Chronic (5) Obesity Onset Date: 10/09/17 Current Visit: No Status: Chronic Qualifiers: Obesity type: due to excess calories Obesity classification: adult class 2 (BMI 35 - 39.9) Serious obesity comorbidity presence: with serious comorbidity Body mass index: BMI 36.0-36.9 Qualified Code(s): E66.01 - Morbid (severe) obesity due to excess calories; Z68.36 - Body mass index (BMI) 36.0-36.9, adult - Plan This is a 32 yr old male with: Acute pancreatitis Hypertriglyceridemia Likely secondary to the high triglycerides Continue to monitor patient in ICU for insulin infusion. Start at 0.5 units/hr, titrate to keep blood sugar between 200-250. Check blood glucose q1 hrs, triglycerides levels Q12 hrs. 5% dextrose infusion if Blood sugar drops below 200. We will stop the insulin drip once triglycerides are below 500 Continue pain control, IVF, NPO Zofran prn for nausea Dehydration Diabetes mellitus Patient will need strict blood sugar control and lifestyle modifications once discharged from the hospital. DVT prophylaxis: Lovenox GI prophylaxis: Not needed Diet: NPO Disposition: Pending symptomatic improvement. Continue insulin drip Physician Review: Patient Assessed, Agree with Above Assessment and Plan
[2018-03-19 18:18] LABS: LDL, Direct 101 mg/dL (100-129)
[2018-03-19] MEDS: ALPRAZOLAM 0.25 MG TABLET PO PRN (21:46)
[2018-03-20] MEDS: D5 0.45 NS 1,000 ML IV SCH ×4 (01:24→21:24)
[2018-03-20] MEDS: NA CHLORIDE 0.9% IV SCH ×3 (01:45→15:18)
[2018-03-20] MEDS: NA BICARB IV SCH ×3 (01:45→15:18)
[2018-03-20] MEDS: MORPHINE 4 MG/ML SYR IV PRN ×2 (01:48→20:45)
[2018-03-20] MEDS: NA CHLORIDE 0.9% 1,000 ML IV SCH ×4 (02:40→22:40)
[2018-03-20] MEDS: INSULIN -REGULAR HUMAN 100 UNIT in NA CHLORIDE 0.9% 100 ML IV SCH (03:52)
[2018-03-20 06:36] LABS: Absolute Lymphocytes (CBC) 1.2 K/uL (0.7-4.9); Absolute Monocytes 0.6 K/uL (0.1-1.3); Absolute Neutrophil 11.9 K/uL (1.8-8.0); Basophils % 0.2 % (0-1.3); Hematocrit 40.9 % (39.6-49.0); MPV 8.1 fL (7.6-11.3); Monocytes % 4.2 % (3.3-12.3); RBC Red Blood Cell Count 4.84 M/uL (4.33-5.43)
[2018-03-20] MEDS: PANTOPRAZOLE 40MG TABLET PO SCH (06:43)
[2018-03-20] MEDS: METOPROLOL TAR 50 MG TAB PO SCH ×2 (06:43→18:01)
[2018-03-20 07:01] LABS: Albumin 2.3 g/dL (3.4-5.0); Bilirubin Total 0.8 mg/dL (0.2-1.0); Potassium 3.1 mmol/L (3.5-5.1); Protein, Total 7.4 g/dL (6.4-8.2)
[2018-03-20] MEDS ORDERED: KCL 20 MEQ/100 mL IVPB 20 MEQ/100 ML BAG IV SCH (09:00)
[2018-03-20] MEDS: SERTRALINE HCL 100 MG TAB PO SCH (09:05)
[2018-03-20] MEDS: ENOXAPARIN 40 MG/0.4 ML SQ SCH (09:05)
[2018-03-20] MEDS: LISINOPRIL 10 MG TAB PO SCH (09:05)
[2018-03-20] MEDS: DOCOSAHEXANOIC AC/EPA 1000 MG PO SCH ×3 (09:06→20:44)
[2018-03-20] MEDS: FENOFIBRATE 160 MG TAB PO SCH (09:06)
[2018-03-20] MEDS ORDERED: POTASSIUM PHOS IN 0.9 % NACL 15 MMOL/250 ML BAG IV ONE (11:00)
--- NOTE | 2018-03-20 12:13 | P.PN ---
Subjective Date of Service: 03/20/18 Chief Complaint: Acute pancreatitis secondary to hypertriglyceridemia Subjective: No new changes, No C/O voiced, Improving Patient seen and examined at bedside. No family at bedside. Chart reviewed and case discussed with nursing staff. Reports improved pain Review of Systems 10-point ROS is otherwise unremarkable Physical Examination - Vital Signs Temperature: 98.4 F Blood Pressure: 154/81 Pulse: 113 Respirations: 22 Pulse Ox (%): 92 - Physical Exam General: Alert, In no apparent distress, Oriented x3 HEENT: Atraumatic, PERRLA, EOMI Neck: Supple, JVD not distended Respiratory: Clear to auscultation bilaterally, Normal air movement Cardiovascular: Regular rate/rhythm, Normal S1 S2 Gastrointestinal: Normal bowel sounds, No tenderness Musculoskeletal: No tenderness Integumentary: No rashes Neurological: Normal gait, Normal speech, Normal strength at 5/5 x4 extr, Normal tone, Normal affect, Other (Non focal Neuro exam) Lymphatics: No axilla or inguinal lymphadenopathy - Studies Medications List Reviewed: Yes Assessment And Plan - Current Problems (Diagnosis) (1) Acute pancreatitis Current Visit: Yes Status: Acute Qualifiers: Pancreatitis type: other Acute pancreatitis complication: no infection or necrosis Qualified Code(s): K85.80 - Other acute pancreatitis without necrosis or infection (2) Hypertension Current Visit: No Status: Acute Qualifiers: Hypertension type: essential hypertension Qualified Code(s): I10 - Essential (primary) hypertension (3) Diabetes mellitus Onset Date: 10/09/17 Current Visit: No Status: Chronic Qualifiers: Diabetes mellitus type: type 2 Diabetes mellitus nursing home insulin use: without longwall foreman use Diabetes mellitus complication status: with hyperglycemia Qualified Code(s): E11.65 - Type 2 diabetes mellitus with hyperglycemia (4) Hypertriglyceridemia Onset Date: 10/09/17 Current Visit: No Status: Chronic (5) Obesity Onset Date: 10/09/17 Current Visit: No Status: Chronic Qualifiers: Obesity type: due to excess calories Obesity classification: adult class 2 (BMI 35 - 39.9) Serious obesity comorbidity presence: with serious comorbidity Body mass index: BMI 36.0-36.9 Qualified Code(s): E66.01 - Morbid (severe) obesity due to excess calories; Z68.36 - Body mass index (BMI) 36.0-36.9, adult - Plan This is a 32 yr old male with: Acute pancreatitis Hypertriglyceridemia Secondary to the high triglycerides; triglycerides improving. Continue to monitor patient in ICU for insulin infusion. Start at 0.5 units/hr, titrate to keep blood sugar between 200-250. Check blood glucose q1 hrs, triglycerides levels Q12 hrs. 5% dextrose infusion if Blood sugar drops below 200. We will stop the insulin drip once triglycerides are below 500 Continue pain control, IVF, NPO Zofran prn for nausea Dehydration Diabetes mellitus Patient will need strict blood sugar control and lifestyle modifications once discharged from the hospital. DVT prophylaxis: Lovenox GI prophylaxis: Not needed Diet: NPO Disposition: Pending symptomatic improvement. Continue insulin drip Physician Review: Patient Assessed, Agree with Above Assessment and Plan Critical Care: Yes
[2018-03-20 18:09] LABS: LDL, Direct 146 mg/dL (100-129)
[2018-03-20] MEDS: ALPRAZOLAM 0.25 MG TABLET PO PRN (20:45)
[2018-03-20 21:54] LABS: Magnesium 2.4 mg/dL (1.8-2.4)
[2018-03-20 21:57] LABS: Potassium 2.4 mmol/L (3.5-5.1)
[2018-03-20] MEDS: KCL 20 MEQ/100 mL IVPB 20 MEQ/100 ML BAG IV SCH (22:30)
[2018-03-20 23:58] LABS: Urine Appearance CLEAR; Urine Blood NEGATIVE (NEG); Urine Color YELLOW; Urine Glucose 3+ (NEG); Urine Protein TRACE (NEG); Urine Urobilinogen 0.2 mg/dL (0.2-1.0); Urine pH 5.5 (5.0-7.0)
[2018-03-21 00:21] LABS: Urine Bilirubin NEGATIVE (NEG)
[2018-03-21 00:25] LABS: Urine Bacteria <20 /HPF (NONE SEEN); Urine Culture Reflex Order NOT NEEDED; Urine RBC NONE SEEN /HPF (NONE SEEN)
[2018-03-21] MEDS: NA CHLORIDE 0.9% IV SCH ×2 (00:36→03:00)
[2018-03-21] MEDS: KCL 20 MEQ/100 mL IVPB 20 MEQ/100 ML BAG IV SCH ×2 (00:36→02:37)
[2018-03-21] MEDS: NA BICARB IV SCH ×2 (00:36→03:00)
[2018-03-21] MEDS: D5 0.45 NS 1,000 ML IV SCH ×3 (04:04→18:02)
[2018-03-21] MEDS: NA CHLORIDE 0.9% 1,000 ML IV SCH (05:20)
[2018-03-21] MEDS: METOPROLOL TAR 50 MG TAB PO SCH ×2 (05:36→18:02)
[2018-03-21] MEDS: PANTOPRAZOLE 40MG TABLET PO SCH (05:37)
[2018-03-21 06:02] LABS: Albumin 2.3 g/dL (3.4-5.0); Bilirubin Total 0.7 mg/dL (0.2-1.0); Protein, Total 7.2 g/dL (6.4-8.2)
[2018-03-21 06:08] LABS: Absolute Lymphocytes (CBC) 1.6 K/uL (0.7-4.9); Absolute Monocytes 0.7 K/uL (0.1-1.3); Absolute Neutrophil 12.8 K/uL (1.8-8.0); Basophils % 0.1 % (0-1.3); Hematocrit 36.9 % (39.6-49.0); Lymphocytes % 10.4 % (15.3-44.8); Monocytes % 4.8 % (3.3-12.3); RBC Red Blood Cell Count 4.51 M/uL (4.33-5.43)
[2018-03-21 06:27] LABS: Magnesium 2.3 mg/dL (1.8-2.4); Phosphorus 0.2 mg/dL (2.5-4.9)
[2018-03-21] MEDS ORDERED: KCL 20 MEQ/100 mL IVPB 20 MEQ/100 ML BAG IV SCH ×2 (07:00→20:00)
[2018-03-21] MEDS ORDERED: POTASSIUM PHOS 30 MM in NA CHLORIDE 0.9% 500 ML IV ONE (07:00)
[2018-03-21 07:56] LABS: Blood Morphology Comment NOT SEEN (NOT SEEN); Platelet Estimate ADEQ
[2018-03-21] MEDS ORDERED: LORazepam 2 MG/ML VIAL IV ONE (08:02)
[2018-03-21] MEDS: LISINOPRIL 10 MG TAB PO SCH (08:12)
[2018-03-21] MEDS: SERTRALINE HCL 100 MG TAB PO SCH (08:13)
[2018-03-21] MEDS: FENOFIBRATE 160 MG TAB PO SCH (08:13)
[2018-03-21] MEDS: ENOXAPARIN 40 MG/0.4 ML SQ SCH (08:13)
[2018-03-21] MEDS: DOCOSAHEXANOIC AC/EPA 1000 MG PO SCH ×3 (08:17→22:22)
[2018-03-21] MEDS ORDERED: D5 0.45 NS 1,000 ML IV ONE (08:19)
[2018-03-21] MEDS: INSULIN -REGULAR HUMAN 100 UNIT in NA CHLORIDE 0.9% 100 ML IV SCH (09:06)
[2018-03-21] MEDS: MORPHINE 4 MG/ML SYR IV PRN ×2 (10:22→19:46)
--- NOTE | 2018-03-21 12:57 | P.PN ---
Subjective Date of Service: 03/21/18 Chief Complaint: Acute pancreatitis secondary to hypertriglyceridemia Patient seen and examined at bedside. No family at bedside. Chart reviewed and case discussed with nursing staff. Patient seems to be exhibiting inappropriate behavior, though neurological intact. Follows commands, and is alert and oriented. Review of Systems 10-point ROS is otherwise unremarkable Physical Examination - Vital Signs Temperature: 99.4 F Blood Pressure: 135/79 Pulse: 107 Respirations: 27 Pulse Ox (%): 98 - Physical Exam General: Alert, In no apparent distress, Other (Exhibits inappropriate behavior) HEENT: Atraumatic, PERRLA, EOMI Neck: Supple, JVD not distended Respiratory: Clear to auscultation bilaterally, Normal air movement Cardiovascular: Regular rate/rhythm, Normal S1 S2 Gastrointestinal: Normal bowel sounds, No tenderness Musculoskeletal: No tenderness Integumentary: No rashes Neurological: Normal speech, Normal tone, Normal affect Lymphatics: No axilla or inguinal lymphadenopathy - Studies Medications List Reviewed: Yes Assessment And Plan - Current Problems (Diagnosis) (1) Acute pancreatitis Current Visit: Yes Status: Acute Qualifiers: Pancreatitis type: other Acute pancreatitis complication: no infection or necrosis Qualified Code(s): K85.80 - Other acute pancreatitis without necrosis or infection (2) Hypertension Current Visit: No Status: Acute Qualifiers: Hypertension type: essential hypertension Qualified Code(s): I10 - Essential (primary) hypertension (3) Diabetes mellitus Onset Date: 10/09/17 Current Visit: No Status: Chronic Qualifiers: Diabetes mellitus type: type 2 Diabetes mellitus [facility] insulin use: without terminal worker use Diabetes mellitus complication status: with hyperglycemia Qualified Code(s): E11.65 - Type 2 diabetes mellitus with hyperglycemia (4) Hypertriglyceridemia Onset Date: 10/09/17 Current Visit: No Status: Chronic (5) Obesity Onset Date: 10/09/17 Current Visit: No Status: Chronic Qualifiers: Obesity type: due to excess calories Obesity classification: adult class 2 (BMI 35 - 39.9) Serious obesity comorbidity presence: with serious comorbidity Body mass index: BMI 36.0-36.9 Qualified Code(s): E66.01 - Morbid (severe) obesity due to excess calories; Z68.36 - Body mass index (BMI) 36.0-36.9, adult (6) Inappropriate behavior Current Visit: Yes Status: Acute - Plan This is a 32 yr old male with: Acute pancreatitis Hypertriglyceridemia Secondary to the high triglycerides; triglycerides improving. Continue to monitor patient in ICU for insulin infusion. Start at 0.5 units/hr, titrate to keep blood sugar between 200-250. Check blood glucose q1 hrs, triglycerides levels Q12 hrs. 5% dextrose infusion if Blood sugar drops below 200. We will stop the insulin drip once triglycerides are below 500 Continue pain control, IVF, NPO Zofran prn for nausea Dehydration Diabetes mellitus Patient will need strict blood sugar control and lifestyle modifications once discharged from the hospital. Inappropriate behavior Normal neurological exam, neurological intact. Alert oriented. Unsure if patient has any underlying psych issues. This does seem to be behavioral in etiology. Will continue to monitor. May need an MRI or further imaging if seems to get worse. DVT prophylaxis: Lovenox GI prophylaxis: Not needed Diet: NPO Disposition: Pending symptomatic improvement. Continue insulin drip Physician Review: Patient Assessed, Agree with Above Assessment and Plan
[2018-03-21] MEDS: ACETAMINOPHEN 500 MG TAB PO PRN (13:36)
[2018-03-21] MEDS: ONDANSETRON 4 MG/2 ML VIAL IV PRN (13:39)
[2018-03-21] MEDS ORDERED: ZIPRASIDONE MESYLA 20 MG/VIAL IM PRN (14:35)
[2018-03-21] MEDS ORDERED: WATER FOR INJ,STERILE 10 ML IM PRN (14:35)
[2018-03-21] MEDS ORDERED: HALOPERIDOL LACT 5 MG/ML INJ IV ONE (18:25)
[2018-03-21 18:51] LABS: Albumin 2.2 g/dL (3.4-5.0); Phosphorus 0.3 mg/dL (2.5-4.9); Potassium 1.7 mmol/L (3.5-5.1)
[2018-03-21] MEDS ORDERED: POTASSIUM CL IV SCH ×2 (19:00)
[2018-03-21] MEDS ORDERED: D5 NS IV SCH ×2 (19:00)
[2018-03-21] MEDS ORDERED: POTASSIUM PHOS IN 0.9 % NACL 15 MMOL/250 ML BAG IV ONE (19:17)
[2018-03-21] MEDS ORDERED: D5W 1,000 ML with NA BICARB 8.4% 50 MEQ IV SCH ×2 (23:00)
[2018-03-21] MEDS ORDERED: D5W 1,000 ML IV SCH (23:00)
[2018-03-21] MEDS: D5W 1,000 ML IV SCH (23:31)
[2018-03-21] MEDS: ALPRAZOLAM 0.25 MG TABLET PO PRN (23:32)
[2018-03-22 00:22] LABS: Bilirubin Total 0.9 mg/dL (0.2-1.0); Protein, Total 6.3 g/dL (6.4-8.2)
[2018-03-22 00:23] LABS: Potassium 1.9 mmol/L (3.5-5.1)
[2018-03-22] MEDS ORDERED: INSULIN GLARGINE 100 UNITS/ML SQ STA (01:06)
[2018-03-22] MEDS ORDERED: POTASSIUM 25 MEQ EFFERV TAB PO ONE ×2 (01:14→06:47)
[2018-03-22] MEDS: MORPHINE 4 MG/ML SYR IV PRN ×4 (03:41→23:30)
[2018-03-22] MEDS: ACETAMINOPHEN 500 MG TAB PO PRN (04:43)
[2018-03-22 05:29] LABS: Absolute Lymphocytes (CBC) 1.8 K/uL (0.7-4.9); Absolute Neutrophil 11.9 K/uL (1.8-8.0); Basophils % 0.2 % (0-1.3); Hematocrit 36.8 % (39.6-49.0); Lymphocytes % 12.4 % (15.3-44.8); MPV 8.2 fL (7.6-11.3); Monocytes % 6.7 % (3.3-12.3); RBC Red Blood Cell Count 4.52 M/uL (4.33-5.43)
[2018-03-22 05:57] LABS: Albumin 2.2 g/dL (3.4-5.0); Protein, Total 6.7 g/dL (6.4-8.2)
[2018-03-22 05:57] LABS: Arterial Blood Carboxyhemoglob 2.9 % (0-1.5); Blood Gas Oxyhemoglobin 93.8 % (94-97); Blood O2 Saturation 97.8 % (92-98.5)
[2018-03-22 05:58] LABS: Potassium 2.3 mmol/L (3.5-5.1)
[2018-03-22] MEDS: D5W 1,000 ML IV SCH ×4 (06:26→20:19)
[2018-03-22] MEDS: PANTOPRAZOLE 40MG TABLET PO SCH (06:26)
[2018-03-22] MEDS: METOPROLOL TAR 50 MG TAB PO SCH ×2 (06:26→17:46)
[2018-03-22] MEDS: KCL 20 MEQ/100 mL IVPB 20 MEQ/100 ML BAG IV SCH ×2 (07:10→09:00)
[2018-03-22 07:31] LABS: Magnesium 2.1 mg/dL (1.8-2.4); Phosphorus 1.5 mg/dL (2.5-4.9)
[2018-03-22] MEDS ORDERED: POTASSIUM PHOS IN 0.9 % NACL 15 MMOL/250 ML BAG IV ONE ×2 (07:36→18:25)
[2018-03-22] MEDS ORDERED: GLUCAGON 1 MG/VIAL IM PRN (07:45)
[2018-03-22] MEDS ORDERED: INSULIN -REGULAR HUMAN 100 UNIT in NA CHLORIDE 0.9% 100 ML IV SCH (07:45)
[2018-03-22] MEDS ORDERED: D50W 25 GM/50 ML SYRINGE IV PRN (07:45)
[2018-03-22] MEDS: GEMFIBROZIL 600 MG TAB PO SCH ×2 (08:53→20:06)
[2018-03-22] MEDS: ENOXAPARIN 40 MG/0.4 ML SQ SCH (08:53)
[2018-03-22] MEDS: DOCOSAHEXANOIC AC/EPA 1000 MG PO SCH ×3 (08:53→20:06)
[2018-03-22] MEDS: SERTRALINE HCL 100 MG TAB PO SCH (08:54)
[2018-03-22] MEDS ORDERED: GEMFIBROZIL 600 MG TAB PO SCH ×2 (09:00)
--- NOTE | 2018-03-22 09:17 | RAD REPORT ---
EXAM DESCRIPTION: CTAbdomen Pelvis W Contrast - 03/22/2018 8:38 am CLINICAL HISTORY: Abdominal pain. acute pancreatitis COMPARISON: Abdomen Pelvis W Contrast dated 10/08/2017 TECHNIQUE: Biphasic CT imaging of the abdomen and pelvis was performed with 100 ml non-ionic IV cont rast. All CT scans are performed using dose optimization technique as appropriate and may include automated exposure control or mA/KV adjustment according to patient size. FINDINGS: Subsegmental atelectasis is present in the lung bases. Mild diffuse fatty liver is present. Severe inflammatory changes are seen surrounding the pancreas co mpatible with acute pancreatitis. No evidence of portal vein thrombus. No pseudocyst seen. No seconda ry findings to indicate necrosis of pancreas. No bowel obstruction, free air, free fluid or abscess. The appendix is normal. No evidence of signi ficant lymphadenopathy. No suspicious bony findings. IMPRESSION: Severe acute pancreatitis is noted. No evidence of pseudocyst, portal venous system thro mbosis or pancreatic necrosis seen.
--- NOTE | 2018-03-22 10:02 | RAD REPORT ---
EXAM DESCRIPTION: RAD - Chest Single View - 03/22/2018 2:22 am CLINICAL HISTORY: pneumonia Chest pain. COMPARISON: Chest Pa And Lat (2 Views) dated 10/11/2017; Chest Single View dated 10/09/2017; Abdomen Pelvis W Contrast dated 03/22/2018 FINDINGS: Portable technique limits examination quality. The lungs are underinflated which results in vascular crowding. No focal infiltrate seen. The heart i s normal in size. No displaced fractures. IMPRESSION: Underinflated lungs.
[2018-03-22 12:03] LABS: Magnesium 2.3 mg/dL (1.8-2.4); Phosphorus 1.4 mg/dL (2.5-4.9); Potassium 3.1 mmol/L (3.5-5.1)
[2018-03-22] MEDS ORDERED: POTASSIUM CL SA 10 MEQ TAB PO ONE (12:57)
[2018-03-22] MEDS: ONDANSETRON 4 MG/2 ML VIAL IV PRN ×2 (13:26→17:46)
[2018-03-22 17:12] LABS: Magnesium 1.8 mg/dL (1.8-2.4); Potassium 3.2 mmol/L (3.5-5.1)
[2018-03-22] MEDS ORDERED: MAGNESIUM SULFATE 1 gm IVPB 1 GM/100 ML BAG IV ONE (19:00)
[2018-03-22] MEDS ORDERED: KCL 20 MEQ/100 mL IVPB 20 MEQ/100 ML BAG IV SCH (19:00)
[2018-03-22] MEDS: ALPRAZOLAM 0.25 MG TABLET PO PRN (20:06)
[2018-03-22] MEDS ORDERED: D5W 1,000 ML IV SCH (23:00)
[2018-03-23 01:05] LABS: BUN Blood Urea Nitrogen 6 mg/dL (7-18); Bicarbonate 32 mmol/L (21-32); Glucose Level 248 mg/dL (74-106); Magnesium 1.8 mg/dL (1.8-2.4); Phosphorus 1.9 mg/dL (2.5-4.9); Potassium 3.2 mmol/L (3.5-5.1); Sodium Level 146 mmol/L (136-145)
[2018-03-23] MEDS ORDERED: MAGNESIUM SULFATE 1 gm IVPB 1 GM/100 ML BAG IV ONE (01:35)
[2018-03-23] MEDS ORDERED: POTASSIUM 25 MEQ EFFERV TAB PO ONE ×2 (01:35→06:30)
[2018-03-23] MEDS ORDERED: POTASSIUM PHOS IN 0.9 % NACL 15 MMOL/250 ML BAG IV ONE ×4 (01:35→19:10)
[2018-03-23] MEDS: MORPHINE 4 MG/ML SYR IV PRN (05:25)
[2018-03-23 05:26] LABS: Absolute Lymphocytes (CBC) 2.3 K/uL (0.7-4.9); Absolute Monocytes 0.9 K/uL (0.1-1.3); Basophils % 0.3 % (0-1.3); Eosinophils % 1.3 % (0-4.4); Hematocrit 35.9 % (39.6-49.0); Lymphocytes % 18.9 % (15.3-44.8); MPV 7.4 fL (7.6-11.3); Monocytes % 6.9 % (3.3-12.3); RBC Red Blood Cell Count 4.41 M/uL (4.33-5.43)
[2018-03-23] MEDS: METOPROLOL TAR 50 MG TAB PO SCH ×2 (05:26→17:20)
[2018-03-23] MEDS: PANTOPRAZOLE 40MG TABLET PO SCH (05:26)
[2018-03-23 05:37] VITALS: BMI 35.6
[2018-03-23 05:45] LABS: Albumin 2.1 g/dL (3.4-5.0); Bilirubin Total 0.9 mg/dL (0.2-1.0); Phosphorus 1.9 mg/dL (2.5-4.9); Potassium 3.2 mmol/L (3.5-5.1); Protein, Total 6.3 g/dL (6.4-8.2)
[2018-03-23] MEDS ORDERED: GLUCAGON 1 MG/VIAL IM PRN ×3 (05:58→13:24)
[2018-03-23] MEDS ORDERED: D50W 25 GM/50 ML SYRINGE IV PRN ×3 (05:58→13:24)
[2018-03-23] MEDS: INSULIN GLARGINE 100 UNITS/ML SQ SCH (06:23)
[2018-03-23] MEDS ORDERED: D5W 1,000 ML IV SCH (07:00)
[2018-03-23] MEDS: SERTRALINE HCL 100 MG TAB PO SCH (08:06)
[2018-03-23] MEDS: DOCOSAHEXANOIC AC/EPA 1000 MG PO SCH ×3 (08:06→20:11)
[2018-03-23] MEDS: ENOXAPARIN 40 MG/0.4 ML SQ SCH (08:06)
[2018-03-23] MEDS: GEMFIBROZIL 600 MG TAB PO SCH ×2 (08:06→20:11)
--- NOTE | 2018-03-23 09:13 | RAD REPORT ---
EXAM DESCRIPTION: Tessie Single View03/23/2018 6:32 am CLINICAL HISTORY: Abdominal pain COMPARISON: August 20, 2018 FINDINGS: The lungs appear clear of acute infiltrate. The heart is normal size IMPRESSION: No acute abnormalities displayed
--- NOTE | 2018-03-23 09:39 | P.PN ---
- Date of Service Date of Service: 03/22/18 - Subjective Call see patient because of altered mental status. Patient is restless and not really making a lot of sense. Patient's sodium a significantly elevated. Will go ahead and start patient on D5 water. Patient is also severely hypokalemic. I will decrease his insulin drip to a minimal as well. His triglycerides have RA come down significantly. I will have Lopid and plan on stopping the insulin drip. As long as his labs are okay and his pain is minimal he should be able to start with clear liquids. Will increase his free water intake. Because of his numerous clinical issues I will go ahead and check a CT of the abdomen and pelvis to rule out complications of pancreatitis including necrosis or pseudocyst or in abscess. As long as this is negative then we should be able to start feeding him and hopefully with increased free water intake his sodium will correct. I will also do a chest x-ray because of his tachypnea. This could be related to his tachycardia. - Vital Signs Temp Pulse Resp BP Pulse Ox 97 F 98 H 19 129/73 96 03/23/18 04:00 03/23/18 08:00 03/23/18 08:00 03/23/18 08:00 03/23/18 08:00 - Physical Exam HEENT: Head atraumatic, normocephalic Lungs: Other (Minimal basilar crackles) Heart: Other (Tachycardic with no murmurs) Abdomen: Soft, Bowel sounds are normal with no guarding, Other (Minimal epigastric tenderness) - Problems (Diagnosis) (1) Acute pancreatitis Current Visit: Yes Status: Acute Qualifiers: Pancreatitis type: other Acute pancreatitis complication: no infection or necrosis Qualified Code(s): K85.80 - Other acute pancreatitis without necrosis or infection (2) Dehydration Onset Date: 10/09/17 Current Visit: No Status: Acute (3) Diabetes mellitus Onset Date: 10/09/17 Current Visit: No Status: Chronic Qualifiers: Diabetes mellitus type: type 2 Diabetes mellitus manager terminal insulin use: without manager terminal use Diabetes mellitus complication status: with hyperglycemia Qualified Code(s): E11.65 - Type 2 diabetes mellitus with hyperglycemia Comment: Hemoglobin A1c 10.2 (4) Hypertriglyceridemia Onset Date: 10/09/17 Current Visit: No Status: Chronic - Assessment and Plan 1. Change IV fluids to D5 water and monitor sodium level and electrolytes every 6 hr 2. Lopid 600 p.o. b.i.d. along with fish oil 2 g t.i.d. 3. Decrease insulin drip to a minimal and hopefully we can discontinue it altogether if patient is able to start eating; this will help correct his potassium and phosphorus quicker 4. NPO-if CT is improved then advanced to clear liquid diet 5. GI consultation as an outpatient 6. Serial labs, and we will monitor CBC, BMP, LFTs and lipase along with triglycerides 7. GI and DVT prophylaxis - Discharge Plan Discharge Plan: Home Plan to discharge in: Greater than 2 days - Code Status/Comfort Care Code Status: Full Code - Physician Review Physician Review: Patient Assessed, Agree with Above Assessment and Plan Critical Care: No Time Spent Managing Pts Care (In Minutes): 35
[2018-03-23 11:26] LABS: BUN Blood Urea Nitrogen 7 mg/dL (7-18); Bicarbonate 33 mmol/L (21-32); Glucose Level 226 mg/dL (74-106); Potassium 3.7 mmol/L (3.5-5.1); Sodium Level 143 mmol/L (136-145)
[2018-03-23] MEDS: ONDANSETRON 4 MG/2 ML VIAL IV PRN ×3 (12:01→20:11)
[2018-03-23] MEDS: INSULIN -REGULAR HUMAN 50 UNIT/0.5 ML ML SQ SCH ×2 (16:39→21:05)
[2018-03-23] MEDS ORDERED: PROMETHAZINE 25 MG TABLET PO PRN (16:53)
[2018-03-23 17:55] LABS: BUN Blood Urea Nitrogen 9 mg/dL (7-18); Bicarbonate 23 mmol/L (21-32); Glucose Level 233 mg/dL (74-106); Magnesium 2.1 mg/dL (1.8-2.4); Phosphorus 2.5 mg/dL (2.5-4.9); Potassium 3.6 mmol/L (3.5-5.1); Sodium Level 141 mmol/L (136-145)
[2018-03-23 18:11] LABS: LDL, Direct 162 mg/dL (100-129)
--- NOTE | 2018-03-23 22:14 | P.PN ---
Subjective Date of Service: 03/23/18 Chief Complaint: Acute pancreatitis secondary to hypertriglyceridemia Patient seen and examined at bedside. No family at bedside. Chart reviewed and case discussed with nursing staff. Doing well, more alert, talking appropriately, follows commands. Still having nausea and not eating much Review of Systems 10-point ROS is otherwise unremarkable Physical Examination - Vital Signs Temperature: 97.4 F Blood Pressure: 122/66 Pulse: 101 Respirations: 15 Pulse Ox (%): 98 - Physical Exam General: Alert, In no apparent distress HEENT: Atraumatic, PERRLA, EOMI Neck: Supple, JVD not distended Respiratory: Clear to auscultation bilaterally, Normal air movement Cardiovascular: Regular rate/rhythm, Normal S1 S2 Gastrointestinal: Normal bowel sounds, No tenderness Musculoskeletal: No tenderness Integumentary: No rashes Neurological: Normal speech, Normal tone, Normal affect Lymphatics: No axilla or inguinal lymphadenopathy - Studies Medications List Reviewed: Yes Assessment And Plan - Current Problems (Diagnosis) (1) Acute pancreatitis Current Visit: Yes Status: Acute Qualifiers: Pancreatitis type: other Acute pancreatitis complication: no infection or necrosis Qualified Code(s): K85.80 - Other acute pancreatitis without necrosis or infection (2) Hypertension Current Visit: No Status: Acute Qualifiers: Hypertension type: essential hypertension Qualified Code(s): I10 - Essential (primary) hypertension (3) Diabetes mellitus Onset Date: 10/09/17 Current Visit: No Status: Chronic Qualifiers: Diabetes mellitus type: type 2 Diabetes mellitus lobsterman insulin use: without custodial use Diabetes mellitus complication status: with hyperglycemia Qualified Code(s): E11.65 - Type 2 diabetes mellitus with hyperglycemia (4) Hypertriglyceridemia Onset Date: 10/09/17 Current Visit: No Status: Chronic (5) Obesity Onset Date: 10/09/17 Current Visit: No Status: Chronic Qualifiers: Obesity type: due to excess calories Obesity classification: adult class 2 (BMI 35 - 39.9) Serious obesity comorbidity presence: with serious comorbidity Body mass index: BMI 36.0-36.9 Qualified Code(s): E66.01 - Morbid (severe) obesity due to excess calories; Z68.36 - Body mass index (BMI) 36.0-36.9, adult (6) Inappropriate behavior Current Visit: Yes Status: Acute (7) Hypernatremia Current Visit: Yes Status: Acute (8) Hypokalemia Current Visit: Yes Status: Acute - Plan This is a 32 yr old male with: Acute pancreatitis Hypertriglyceridemia Hypernatremia Hypokalemia Secondary to the high triglycerides; triglycerides improving. Continue to monitor patient in ICU, Wean insulin, start levemir. Continue IVF until patient tolerating PO. Triglycerides now under 600. Monitor electrolytes closely. Continue pain control, IVF, NPO Zofran prn for nausea Dehydration Diabetes mellitus Patient will need strict blood sugar control and lifestyle modifications once discharged from the hospital. Inappropriate behavior: Likely secondary to multiple etiologies including electrolyte imbalance, pain, possible underlying behavioral/psch issues. Now improved and pt back to baseline. Normal neurological exam, neurological intact. Alert oriented. DVT prophylaxis: Lovenox GI prophylaxis: Not needed Diet: CLD Disposition: Pending symptomatic improvement. If stable, can transfer to the floor. Physician Review: Patient Assessed, Agree with Above Assessment and Plan
[2018-03-24 00:58] LABS: BUN Blood Urea Nitrogen 9 mg/dL (7-18); Bicarbonate 22 mmol/L (21-32); Glucose Level 208 mg/dL (74-106); Magnesium 1.9 mg/dL (1.8-2.4); Phosphorus 2.5 mg/dL (2.5-4.9); Potassium 3.7 mmol/L (3.5-5.1); Sodium Level 141 mmol/L (136-145)
[2018-03-24 05:31] LABS: Phosphorus 2.6 mg/dL (2.5-4.9); Potassium 4.5 mmol/L (3.5-5.1)
[2018-03-24] MEDS: PANTOPRAZOLE 40MG TABLET PO SCH (06:11)
[2018-03-24] MEDS: METOPROLOL TAR 50 MG TAB PO SCH (06:12)
[2018-03-24] MEDS: INSULIN -REGULAR HUMAN 50 UNIT/0.5 ML ML SQ SCH (08:43)
[2018-03-24] MEDS: INSULIN GLARGINE 100 UNITS/ML SQ SCH (08:44)
[2018-03-24] MEDS: ENOXAPARIN 40 MG/0.4 ML SQ SCH (08:45)
[2018-03-24] MEDS: DOCOSAHEXANOIC AC/EPA 1000 MG PO SCH (08:46)
[2018-03-24] MEDS: SERTRALINE HCL 100 MG TAB PO SCH (08:46)
[2018-03-24] MEDS: GEMFIBROZIL 600 MG TAB PO SCH (08:46)
[2018-03-24 09:18] VITALS: O2SAT 99
[2018-03-24 10:26] VITALS: BP 144/73
[2018-03-24 10:57] VITALS: TEMP 97
--- NOTE | 2018-03-25 06:44 | DS ---
Date of Discharge: 03/24/2018 Consultants: None. Admitting Diagnoses: 1.Acute pancreatitis. 2.Acute dehydration. 3.Diabetes mellitus type 2, insulin requiring with hyperglycemia. 4.Hypertriglyceridemia. Discharge Diagnoses: 1.Acute pancreatitis without infection, necrosis. 2.Essential hypertension. 3.Diabetes mellitus type 2 with long-term use of insulin with hyperglycemia. 4.Hypertriglyceridemia, improving. 5.Obesity due to excessive calories, BMI greater than 30. 6.Inappropriate behavior. 7.Hypernatremia. 8.Hypokalemia. Hospital Course: The patient is a 32-year-old male, came into the hospital with abdominal pain and n ausea, was found to have acute pancreatitis secondary to hypertriglyceridemia. His lipase was 1600, triglycerides were over 3000. The patient denied any alcohol use. He was admitted to the ICU for in sulin drip. He was started on IV fluids and pain control. He was kept n.p.o. The patient improved slowly. His triglyceride levels also improved and were less than 500. When being discharged, the nicolas martin was also started on Lopid. According to his diabetes, which was uncontrolled, his insulin dose was adjusted. The patient was then able to tolerate a diet, however, did not have much appetite. H e did have some diarrhea. C. diff was checked, which was negative. The patient's white blood cell c ount improved and was trending down. The patient did have some mild electrolyte abnormalities, which were corrected including hypernatremia and hypokalemia. The patient did have some inappropriate beh avior including drinking his urine and putting his hand in his mouth, which was likely thought to be multifactorial due to delirium from electrolyte disturbance. However, he improved once his electroly jr were corrected. He did not have any further inappropriate behavior. CT scan of the abdomen and pelvis was done, which did not show any necrosis or infection related to his pancreatitis. The patie nt did have significant improvement in his condition overall, was able to tolerate his diet and was a mbulating. Denies any further abdominal pain, nausea, or vomiting. The patient was then cleared for discharge. The patient was sent home in a stable condition. Activity: As tolerated. Medications: As per medication reconciliation list. Followup: Follow up with primary care physician in 2-3 days. Follow up with GI in 2 weeks. Return to ER for worsening condition. Diet: Diabetic, low-fat diet. Physical Examination: General: Awake, alert, and oriented x3. Obese male, no acute distress. CV: S1, S2. Regular rate and rhythm. No murmurs. Respiratory: Moving air well bilaterally. No wheezing. Gastrointestinal: Abdomen is soft. Mild tenderness to palpation in the epigastric region, but no re bound, guarding, or rigidity. No signs of peritonitis. Bowel sounds are positive. Extremities: No clubbing, cyanosis, or edema. Neurologic: Nonfocal. Total time spent discharging the patient was 33 minutes. MENG Voice ID: [id number] Report ID: [id number]
== END 2018-03-24 10:00 | disposition home or self-care (01) | DRG 439 ==
LOC: ER 04:05 → ERHOLD 07:36 → 2ND 07:58 → UNDODISIN 03-18 15:35 → 3RD-ICU 03-18 17:10
PROVIDERS: ADMIT Hospitalist; ATTEND Family Medicine
DX: K85.90 Acute pancreatitis without necrosis or infection, unspecified (principal); E87.0 Hyperosmolality and hypernatremia; I10 Essential (primary) hypertension; E78.1 Pure hyperglyceridemia; E66.09 Other obesity due to excess calories; E87.6 Hypokalemia; Z79.4 Long term (current) use of insulin; R46.89 Other symptoms and signs involving appearance and behavior; E11.649 Type 2 diabetes mellitus with hypoglycemia without coma; K21.9 Gastro-esophageal reflux disease without esophagitis; E86.0 Dehydration; Z68.36 Body mass index [BMI] 36.0-36.9, adult
CPT/HCPCS: 36415; 71045; 74177; 80048; 80053; 80061; 80076; 81001; 82010; 82805; 82962; 83605; 83690; 83735; 84100; 84132; 84145; 84478; 85025; 87493; 96361; 96374; 96375; 99285; J1630; J1650; J2405; J3010; J3475; J3486; J7030; Q9967

== ENCOUNTER 2018-03-26 07:20 | Inpatient (IN) | payer OTHER ==
--- OUTSIDE RECORDS SUMMARY | 2018-03-26 07:23 | XMS REPORT ---
:1985 [facility] Address [address] [place] [address] Dr. Robertson [address] [place] [id number] Care Team Providers Name Role Phone Unavailable Unavailable Unavailable Problems This patient has no known problems. Allergies, Adverse Reactions, Alerts This patient has no known allergies or adverse reactions. Medications This patient has no known medications.
[2018-03-26] MEDS ORDERED: FENTANYL CITR 100 MCG/2 ML ONE (08:09)
[2018-03-26] MEDS ORDERED: ONDANSETRON 4 MG/2 ML VIAL ONE ×2 (08:10→09:30)
[2018-03-26] MEDS ORDERED: NA CHLORIDE 0.9% 2,000 ML ONE (08:10)
[2018-03-26] MEDS ORDERED: PANTOPRAZOLE 40 MG INJ ONE (08:10)
[2018-03-26] MEDS ORDERED: METOCLOPRAMIDE 10 MG/2mL INJ ONE (08:10)
[2018-03-26 08:25] LABS: Urine Blood TRACE (NEG); Urine Glucose 2+ (NEG); Urine Protein TRACE (NEG); Urine Specific Gravity 1.015 (1.005-1.030); Urine pH 5.5 (5.0-7.0)
--- NOTE | 2018-03-26 08:33 | RAD REPORT ---
EXAM DESCRIPTION: RAD - Chest Single View - 03/26/2018 8:01 am CLINICAL HISTORY: COUGH Chest pain. COMPARISON: Chest Single View dated 03/23/2018; Chest Single View dated 03/22/2018; Chest Pa And Lat (2 Views) dated 10/11/2017; Chest Single View dated 10/09/2017 FINDINGS: Portable technique limits examination quality. The lungs are grossly clear. The heart is normal in size. No displaced fractures. IMPRESSION: No acute intrathoracic process suspected.
[2018-03-26 08:55] LABS: Absolute Lymphocytes (CBC) 1.2 K/uL (0.7-4.9); Absolute Monocytes 1.8 K/uL (0.1-1.3); Basophils % 0.1 % (0-1.3); Hematocrit 43.1 % (39.6-49.0); Lymphocytes % 5.9 % (15.3-44.8); Monocytes % 8.3 % (3.3-12.3); Protime INR 1.13; RBC Red Blood Cell Count 5.11 M/uL (4.33-5.43)
[2018-03-26] MEDS ORDERED: INSULIN -REGULAR HUMAN 50 UNIT/0.5 ML ML ONE (09:01)
[2018-03-26 09:05] LABS: ALT/SGPT 24 U/L (12-78); AST/SGOT 12 U/L (15-37); Albumin 2.5 g/dL (3.4-5.0); Alkaline Phosphatase 103 U/L (45-117); BUN Blood Urea Nitrogen 63 mg/dL (7-18); Bicarbonate 16 mmol/L (21-32); Bilirubin Direct 0.2 mg/dL (0-0.2); Bilirubin Total 0.8 mg/dL (0.2-1.0); Glucose Level 615 mg/dL (74-106); Lipase 1252 U/L (73-393); Magnesium 2.6 mg/dL (1.8-2.4); NT PRO-BNP 101 pg/mL (<125); Potassium 3.2 mmol/L (3.5-5.1); Protein, Total 8.4 g/dL (6.4-8.2); Sodium Level 131 mmol/L (136-145); Troponin (Emerg Dept Use Only) < 0.02 ng/mL (0.0-0.045)
--- NOTE | 2018-03-26 09:22 | EDPHYS ---
Physician Documentation [facility] Name: Kit Arias Age: 32 yrs Sex: Male : 1985 Arrival Date: 03/26/2018 Time: 07:24 Bed 2 Private MD: Carlyle Camp ED Physician Javy Burr HPI: 03/26 07:44 This 32 yrs old Male presents to ER via Ambulatory with complaints of erica Vomiting. 07:44 The patient presents to the emergency department with nausea, vomiting, abdominal pain, erica of the epigastric area, right upper quadrant and left upper quadrant. Onset: The symptoms/episode began/occurred 3 day(s) ago. Possible causes: unknown. The symptoms are aggravated by nothing. The symptoms are alleviated by nothing. Associated signs and symptoms: The patient has no apparent associated signs or symptoms. Severity of symptoms: At their worst the symptoms were moderate in the emergency department the symptoms are unchanged. The patient has experienced similar episodes in the past, multiple times. Historical: - Allergies: 07:31 No Known Allergies; sg - PMHx: 07:31 Diabetes - IDDM; GERD; Hypertension; Pancreatitis; sg - PSHx: 07:31 arm; sg - Immunization history:: Adult Immunizations unknown. - Social history:: Smoking status: Patient/guardian denies using tobacco. - Ebola Screening: : Patient negative for fever greater than or equal to 101.5 degrees Fahrenheit, and additional compatible Ebola Virus Disease symptoms Patient denies exposure to infectious person Patient denies travel to an Ebola-affected area in the 21 days before illness onset No symptoms or risks identified at this time. - Family history:: not pertinent. ROS: 07:44 Constitutional: Negative for fever, chills, and weight loss, Eyes: Negative for injury, erica pain, redness, and discharge, ENT: Negative for injury, pain, and discharge, Neck: Negative for injury, pain, and swelling, Cardiovascular: Negative for chest pain, palpitations, and edema, Respiratory: Negative for shortness of breath, cough, wheezing, and pleuritic chest pain, Back: Negative for injury and pain, : Negative for injury, bleeding, discharge, and swelling, MS/Extremity: Negative for injury and deformity, Skin: Negative for injury, rash, and discoloration, Neuro: Negative for headache, weakness, numbness, tingling, and seizure, Psych: Negative for depression, anxiety, suicide ideation, homicidal ideation, and hallucinations, Allergy/Immunology: Negative for hives, rash, and allergies, Endocrine: Negative for neck swelling, polydipsia, polyuria, polyphagia, and marked weight changes, Hematologic/Lymphatic: Negative for swollen nodes, abnormal bleeding, and unusual bruising. 07:44 Abdomen/GI: Positive for abdominal pain, nausea and vomiting, abdominal cramps, of the epigastric area, right upper quadrant and left upper quadrant. Exam: 07:44 Constitutional: This is a well developed, well nourished patient who is awake, alert, erica and in no acute distress. Head/Face: Normocephalic, atraumatic. Eyes: Pupils equal round and reactive to light, extra-ocular motions intact. Lids and lashes normal. Conjunctiva and sclera are non-icteric and not injected. Cornea within normal limits. Periorbital areas with no swelling, redness, or edema. ENT: Nares patent. No nasal discharge, no septal abnormalities noted. Tympanic membranes are normal and external auditory canals are clear. Oropharynx with no redness, swelling, or masses, exudates, or evidence of obstruction, uvula midline. Mucous membranes moist. Neck: Trachea midline, no thyromegaly or masses palpated, and no cervical lymphadenopathy. Supple, full range of motion without nuchal rigidity, or vertebral point tenderness. No Meningismus. Chest/axilla: Normal chest wall appearance and motion. Nontender with no deformity. No lesions are appreciated. Respiratory: Lungs have equal breath sounds bilaterally, clear to auscultation and percussion. No rales, rhonchi or wheezes noted. No increased work of breathing, no retractions or nasal flaring. Back: No spinal tenderness. No costovertebral tenderness. Full range of motion. Male : Normal genitalia with no discharge or lesions. Skin: Warm, dry with normal turgor. Normal color with no rashes, no lesions, and no evidence of cellulitis. MS/ Extremity: Pulses equal, no cyanosis. Neurovascular intact. Full, normal range of motion. Neuro: Awake and alert, GCS 15, oriented to person, place, time, and situation. Cranial nerves II-XII grossly intact. Motor strength 5/5 in all extremities. Sensory grossly intact. Cerebellar exam normal. Normal gait. Psych: Awake, alert, with orientation to person, place and time. Behavior, mood, and affect are within normal limits. 07:44 Cardiovascular: Rate: tachycardic, Rhythm: regular, Pulses: Pulses are 4+ in bilateral radial, brachial, femoral, popliteal, posterior tibial and and dorsalis pedis arteries.. Heart sounds: normal, Edema: is not appreciated. Vital Signs: 07:29 BP 111 / 71; Pulse 116; Resp 26; Temp 98.8; Pulse Ox 97% on R/A; Weight 111.13 kg; sg Height 6 ft. 0 in. (182.88 cm); Pain 10/10; 08:23 BP 128 / 77; Pulse 118; Resp 21; Pulse Ox 98% on R/A; Pain 7/10; sg 09:40 BP 141 / 87; Pulse 136; Resp 24 S; Pulse Ox 99% on R/A; Pain 7/10; aa5 10:52 BP 140 / 83; Pulse 130; Resp 18 S; Pulse Ox 100% on R/A; aa5 11:58 BP 140 / 85; Pulse 134; Resp 20 S; Temp 97.8(TE); Pulse Ox 100% on R/A; aa5 07:29 Body Mass Index 33.23 (111.13 kg, 182.88 cm) Procedures: 11:21 Central Line: the site was prepped with Betadine, a triple lumen catheter was inserted, erica in the right femoral vein, in 1 attempts. placement was verified, by blood return, the site was dressed with using sterile technique, the patient tolerated the procedure, well. MDM: 07:25 Patient medically screened. [facility] 07:56 Data reviewed: vital signs, nurses notes, lab test result(s), EKG, radiologic studies, [facility] CT scan, plain films. 03/26 07:44 Order name: Basic Metabolic Panel; Complete Time: 09: [facility] 03/26 07:44 Order name: CBC with Diff [facility] 03/26 07:44 Order name: LFT's; Complete Time: 09: [facility] 03/26 07:44 Order name: Magnesium; Complete Time: 09: [facility] 03/26 07:44 Order name: NT PRO-BNP; Complete Time: 09: [facility] 03/26 07:44 Order name: PT-INR; Complete Time: 09: [facility] 03/26 07:44 Order name: Troponin (emerg Dept Use Only); Complete Time: 09:09 [facility] 03/26 07:44 Order name: Lipase; Complete Time: 09:09 [facility] 03/26 07:44 Order name: Urine Culture [facility] 03/26 07:56 Order name: Blood Culture Adult (2) [facility] 03/26 07:56 Order name: Procalcitonin; Complete Time: 09:19 [facility] 03/26 07:56 Order name: Lactate; Complete Time: 09:09 [facility] 03/26 07:57 Order name: Glucose, Ancillary Testing; Complete Time: 08:40 EDMS 03/26 07:59 Order name: Urine Dipstick--Ancillary (enter results); Complete Time: 08:40 em1 03/26 07:44 Order name: XRAY Chest (1 view); Complete Time: 08:40 [facility] 03/26 09:11 Order name: ABG; Complete Time: 09:55 [facility] 03/26 09:11 Order name: Abdomen ; Complete Time: 09:55 EDMS 03/26 10:13 Order name: Manual Differential EDMS 03/26 10:32 Order name: Acetone Level EDMS 03/26 10:32 Order name: Osmolality, Serum EDMS 03/26 11:45 Order name: Basic Metabolic Panel [facility]WV 03/26 07:44 Order name: EKG; Complete Time: 07:45 [facility] 03/26 07:44 Order name: Cardiac monitoring; Complete Time: 08:17 [facility] 03/26 07:44 Order name: EKG - Nurse/Tech; Complete Time: 08:17 [facility] 03/26 07:44 Order name: IV Saline Lock; Complete Time: 08:18 erica 03/26 07:44 Order name: Labs collected and sent; Complete Time: 08:18 erica 03/26 07:44 Order name: O2 Per Protocol; Complete Time: 08:18 erica 03/26 07:44 Order name: O2 Sat Monitoring; Complete Time: 08:18 [facility] 03/26 07:44 Order name: Urine Dipstick-Ancillary (obtain specimen); Complete Time: 07:58 [facility] 03/26 07:56 Order name: IV Saline Lock - Large Bore; Complete Time: 08:16 erica 03/26 11:21 Order name: Garcia; Complete Time: 11:54 [facility] Administered Medications: 08:10 Drug: NS 0.9% 1000 ml Route: IV; Rate: 1 bolus; Site: right antecubital; sg 09:33 Follow up: IV Status: Completed infusion aa5 08:10 Drug: NS 0.9% 1000 ml Route: IV; Rate: 1 bolus; Site: right antecubital; sg 09:33 Follow up: IV Status: Completed infusion aa5 08:10 Drug: ProTONIX 40 mg Route: IVP; Site: right antecubital; sg 09:00 Follow up: Response: No adverse reaction sg 08:10 Drug: Reglan 10 mg Route: IVP; Site: right antecubital; sg 08:10 Drug: Zofran 4 mg Route: IVP; Site: right antecubital; sg 08:10 Drug: fentaNYL (PF) 25 mcg Route: IVP; Site: right antecubital; sg 08:10 Drug: fentaNYL (PF) 25 mcg Route: IVP; Site: right antecubital; sg 08:48 Drug: Insulin Regular Human 10 units {Co-Signature: sg (Pool Gilman RN).} Route: IVP; iw Site: right antecubital; 09:39 Follow up: Response: Blood sugar is lowered aa5 09:11 Drug: NS 0.9% 1000 ml Route: IV; Rate: 125 ml/hr; Site: right antecubital; iw 10:10 Follow up: Infusion moved to [facility] aa5 12:36 Follow up: IV Status: Infusion continued upon admission aa5 09:33 Drug: NS 0.9% 1000 ml Route: IV; Rate: 1 bolus; Site: right antecubital; aa5 10:20 Follow up: IV Status: Completed infusion aa5 09:35 Drug: Zofran 4 mg Route: IVP; Site: right antecubital; aa5 09:45 Follow up: Response: No adverse reaction aa5 09:37 Drug: Dilaudid 1 mg Route: IVP; Site: right antecubital; aa5 09:50 Follow up: Response: No adverse reaction; Pain is unchanged, physician notified aa5 09:45 Drug: Insulin Drip - (Insulin Regular Human 100 units, NS 0.9% 100 ml) {Co-Signature: iw aa5 (Kathy Connolly RN).} {Note: Drip started at 4 units/hr per Dr. Burr VO.} Route: IV; Rate: 5 units/hr; Site: right antecubital; 12:34 Follow up: IV Status: Infusion continued upon admission aa5 10:03 Drug: Phenergan 12.5 mg Route: IVP; Site: left antecubital; aa5 10:10 Follow up: Response: No adverse reaction aa5 10:05 Drug: Dilaudid 1 mg Route: IVP; Site: left antecubital; aa5 10:10 Follow up: Response: No adverse reaction; Pain is decreased aa5 10:05 Drug: Ativan 1 mg Route: IVP; Site: left antecubital; aa5 10:10 Follow up: Response: No adverse reaction aa5 10:10 Drug: Potassium Chloride 20 mEq Route: IV; Rate: per protocol; Site: left antecubital; aa5 12:35 Follow up: Response: No adverse reaction; IV Status: Completed infusion aa5 10:30 Drug: Rocephin - (cefTRIAXone) 1 grams {Note: administered slow IVP per pharmacy aa5 protocol at this time. .} Route: IVPB; Infused Over: 30 mins; Site: left antecubital; 10:40 Follow up: Response: No adverse reaction aa5 11:22 Drug: NS 0.9% 1000 ml Route: IV; Rate: 1 bolus; Site: right femoral; aa5 12:25 Follow up: IV Status: Completed infusion aa5 11:22 CANCELLED (Duplicate Order): NS 0.9% 1000 ml IV at 1000 ml once aa5 Point of Care Testing: Blood Glucose: 07:55 Blood Glucose: High (>450 mg/dL); iw 09:39 Blood Glucose: 384 mg/dL; aa5 10:22 Blood Glucose: 371 mg/dL; aa5 10:54 Blood Glucose: 344 mg/dL; aa5 11:58 Blood Glucose: 331 mg/dL; jb1 09:39 Dr. Burr notified aa5 Ranges: Critical Glucose Levels:Adult <50 mg/dl or >400 mg/dl <40 mg/dl or >180 mg/dl Disposition: 03/26/18 09:21 Hospitalization ordered by Babar Krishna for Inpatient Admission. Preliminary diagnosis are Vomiting, Type 1 diabetes mellitus with ketoacidosis, Acute kidney failure, Hypokalemia, Acute pancreatitis - hypetriglyceridemia, Elevated white blood cell count. - Bed requested for Intensive Care Unit. - Status is Inpatient Admission. aa5 - Condition is Fair. - Problem is an acute exacerbation. - Symptoms have improved. UTI on Admission? No Signatures: Dispatcher [employer] ED[facility] Pool Gilman RN RN sg Anderson, Corey, MD MD cha Williams, Irene RN SKINNY Kathy Connolly RN RN aa5 Nicole Stovall RN RN df Pool Connolly RN aa5 Corrections: (The following items were deleted from the chart) 09:10 07:56 Abdomen Pelvis W Con+CT.RAD.BRZ ordered. EDWV EDWV 09:22 09:21 Hospitalization Ordered by Babar Krishna MD for Inpatient Admission. Preliminary [facility] diagnosis is Vomiting. Bed requested for Intensive Care Unit. Status is Inpatient Admission. Condition is Fair. Problem is an acute exacerbation. Symptoms have improved. UTI on Admission? No. erica 10:34 09:22 03/26/2018 09:21 Hospitalization Ordered by Babar Krishna MD for Inpatient df Admission. Preliminary diagnosis is Vomiting; Type 1 diabetes mellitus with ketoacidosis; Acute kidney failure; Hypokalemia; Acute pancreatitis - hypetriglyceridemia; Elevated white blood cell count. Bed requested for Intensive Care Unit. Status is Inpatient Admission. Condition is Fair. Problem is an acute exacerbation. Symptoms have improved. UTI on Admission? No. erica 11:22 11:21 NS 0.9% 1000 ml IV at 1000 ml once ordered. aa5 aa5 12:37 10:34 03/26/2018 09:21 Hospitalization Ordered by Babar Krishna MD for Inpatient aa5 Admission. Preliminary diagnosis is Vomiting; Type 1 diabetes mellitus with ketoacidosis; Acute kidney failure; Hypokalemia; Acute pancreatitis - hypetriglyceridemia; Elevated white blood cell count. Bed requested for Intensive Care Unit. Status is Inpatient Admission. Condition is Fair. Problem is an acute exacerbation. Symptoms have improved. UTI on Admission? No. df
--- NOTE | 2018-03-26 09:22 | ER ---
Nurse's Notes [facility] Name: Kit Arias Age: 32 yrs Sex: Male : 1985 Arrival Date: 03/26/2018 Time: 07:24 Bed 2 Private MD: Carlyle Camp Diagnosis: Vomiting;Type 1 diabetes mellitus with ketoacidosis;Acute kidney failure;Hypokalemia;Acute pancreatitis-hypetriglyceridemia;Elevated white blood cell count Presentation: 03/26 07:27 Presenting complaint: Mother states: He has been vomiting for several days today, sg unable to get enough blood to do a FSBG, pt took his normal medication, insulin this morning, pt reports weakness and abd pain. Transition of care: patient was not received from another setting of care. Onset of symptoms was March 26, 2018. Risk Assessment: Do you want to hurt yourself or someone else? Patient reports no desire to harm self or others. Initial Sepsis Screen: Does the patient meet any 2 criteria? RR > 20 per min. Does the patient have a suspected source of infection? Yes: Acute abdominal pain. Care prior to arrival: None. 07:27 Method Of Arrival: Ambulatory sg 07:27 Acuity: JUAN 2 iw Historical: - Allergies: 07:31 No Known Allergies; sg - PMHx: 07:31 Diabetes - IDDM; GERD; Hypertension; Pancreatitis; sg - PSHx: 07:31 arm; sg - Immunization history:: Adult Immunizations unknown. - Social history:: Smoking status: Patient/guardian denies using tobacco. - Ebola Screening: : Patient negative for fever greater than or equal to 101.5 degrees Fahrenheit, and additional compatible Ebola Virus Disease symptoms Patient denies exposure to infectious person Patient denies travel to an Ebola-affected area in the 21 days before illness onset No symptoms or risks identified at this time. - Family history:: not pertinent. Screenin:32 Abuse screen: Denies threats or abuse. Denies injuries from another. Nutritional sg screening: No deficits noted. Tuberculosis screening: No symptoms or risk factors identified. Never had TB. Fall Risk None identified. Assessment: 07:32 General: Appears in no apparent distress. uncomfortable, ill, well groomed, well sg developed, well nourished, Behavior is cooperative, appropriate for age, quiet. Pain: Complains of pain in abdomen Quality of pain is described as aching, sharp, stabbing. Neuro: No deficits noted. Cardiovascular: Capillary refill is brisk in bilateral fingers Chest pain is located in epigastric area. Respiratory: Airway is patent Respiratory effort is even, unlabored, Respiratory pattern is symmetrical, tachypnea. GI: Abdomen is round non-distended, Reports lower abdominal pain, upper abdominal pain, nausea, vomiting. : No signs and/or symptoms were reported regarding the genitourinary system. EENT: No signs and/or symptoms were reported regarding the EENT system. Derm: Skin is intact, is healthy with good turgor, Skin is dry, Skin is pale, Skin temperature is cool Bruising that is dark purple, green, on dorsal aspect of right forearm and dorsal aspect of left forearm. Musculoskeletal: No signs and/or symptoms reported regarding the musculoskeletal system. 08:24 Reassessment: Patient appears in no apparent distress at this time. Patient and/or sg family updated on plan of care and expected duration. Pain level reassessed. Patient is alert, oriented x 3, equal unlabored respirations, skin warm/dry/pink. 09:00 Reassessment: Patient appears in no apparent distress at this time. Patient and/or sg family updated on plan of care and expected duration. Pain level reassessed. Patient is alert, oriented x 3, equal unlabored respirations, skin warm/dry/pink. pt appears uncomfortable reports pain 10/10, notified, orders received, pt medicated, V/O to consent pt on Central Line access, prep pt for Central line, pt and pt family moved to exam room 2, report given to Fidelina BABB for continuation of care Patient states symptoms have not improved. 09:33 Reassessment: Pt back from CT. Report received from Pool Gilman RN. aa5 09:35 General: Appears uncomfortable, Behavior is cooperative, quiet, restless. Pain: aa5 Complains of pain in left upper quadrant and right upper quadrant Pain currently is 7 out of 10 on a pain scale. Quality of pain is described as sharp, stabbing, Pain began approximately 1 week ago Is continuous. Neuro: Level of Consciousness is awake, alert, obeys commands, Oriented to person, place, time, situation. Cardiovascular: Heart tones S1 S2 present Rhythm is sinus tachycardia. Respiratory: Airway is patent Respiratory effort is even, unlabored, Respiratory pattern is regular, symmetrical, Breath sounds are clear bilaterally. GI: Abdomen is round Bowel sounds present X 4 quads. Abdomen is tender to palpation in right upper quadrant and left upper quadrant Reports nausea, vomiting. : No signs and/or symptoms were reported regarding the genitourinary system. EENT: No signs and/or symptoms were reported regarding the EENT system. Derm: Skin is dry, Skin is pale, Skin temperature is warm Bruising that is dark purple, green, on dorsal aspect of right forearm and dorsal aspect of left forearm. Musculoskeletal: Range of motion: intact in all extremities. 09:35 Reassessment: Consent for central line placement obtained and signed by patient and aa5 co-signed by pt's mother. . 09:50 Reassessment: Pt remains restless, pt reports pain level is unchanged. Dr. Burr was aa5 notified. . 10:10 Reassessment: Pt now resting in bed with eyes closed, respirations even and unlabored, aa5 skin is pale/warm/dry. Pt appears comfortable at this time. Pt's mother remains at bedside. . 10:30 Reassessment: Pt cleaned of urinary incontinence at this time. Clean gown applied. Pt aa5 opens eyes to verbal and tactile stimuli at this time, non-verbal and not following commands at this time. Radial pulses 3+, equal and unlabored respirations, skin is pale/warm/dry. Warm blanket given. Pupils round,equal, and reactive to light. . 10:55 Reassessment: Dr. Burr at bedside. Pt remains non-verbal, opens eyes to aa5 verbal/tactile stimuli, equal and unlabored respirations. . 11:50 Reassessment: Pt resting in bed with eyes closed, pt opens eyes to verbal/tactile aa5 stimuli. Equal unlabored respirations. Skin is pale/warm/dry . Vital Signs: 07:29 BP 111 / 71; Pulse 116; Resp 26; Temp 98.8; Pulse Ox 97% on R/A; Weight 111.13 kg; sg Height 6 ft. 0 in. (182.88 cm); Pain 10/10; 08:23 BP 128 / 77; Pulse 118; Resp 21; Pulse Ox 98% on R/A; Pain 7/10; sg 09:40 BP 141 / 87; Pulse 136; Resp 24 S; Pulse Ox 99% on R/A; Pain 7/10; aa5 10:52 BP 140 / 83; Pulse 130; Resp 18 S; Pulse Ox 100% on R/A; aa5 11:58 BP 140 / 85; Pulse 134; Resp 20 S; Temp 97.8(TE); Pulse Ox 100% on R/A; aa5 07:29 Body Mass Index 33.23 (111.13 kg, 182.88 cm) Vitals: 08:23 Cardiac Rhythm Assessment Sinus tach. ED Course: 07:24 Patient arrived in ED. mr 07:24 Carlyle Camp MD is Private Physician. mr 07:25 Javy Burr MD is Attending Physician. erica 07:27 Pool Gilman, SKINNY is Primary Nurse. sg 07:29 Triage completed. sg 07:29 Arm band placed on. sg 07:50 Radiology exam delayed due to PATIENT NEEDED TO USE RESTROOM BEFORE X RAY. sw 07:55 Initial lab(s) drawn, by de, sent to lab. Urine collected: clean catch specimen, clear. iw Inserted saline lock: 20 gauge in right antecubital area, using aseptic technique. Blood collected. 07:59 X-ray completed. Portable x-ray completed in exam room. Patient tolerated procedure jb2 well. 07:59 Patient has correct armband on for positive identification. Bed in low position. Call mh5 light in reach. Side rails up X 1. Adult w/ patient. Warm blanket given. Pulse ox on. NIBP on. 08:02 EKG done, by radiologic technologist chief. reviewed by Javy Burr MD. at1 08:03 XRAY Chest (1 view) In Process Unspecified. EDMS 08:07 Note: tried to drop off oral contrast for ct, but mother stated he wont be drinking sj that, that he will just vomit it up. dr. Burr notified. 08:14 Inserted saline lock: 20 gauge in left antecubital area, using aseptic technique. Blood iw collected. 08:30 Lab(s) recollected, sent to lab. [facility] 09:09 Notified ED physician of a critical lab result(s). WBC=21.1, Cl=84, Gtdn=904. iw 09:20 Babar Krishna MD is Hospitalizing Provider. erica 09:21 CT completed. Patient tolerated procedure well. Patient moved to CT via stretcher. sj Patient moved back from CT. 09:23 Abdomen In Process Unspecified. EDMS 11:06 Assisted provider with central line placement. Set up central line tray. Triple lumen aa5 line placed in right femoral. Line placed by Javy Burr MD Dressed with Tegaderm, Patient tolerated well. by de, sent to lab. 11:20 Kathy Connolly, RN is Primary Nurse. aa5 11:57 Garcia cath inserted, using sterile technique, 16 Fr., by de, balloon inflated, to jb1 gravity drainage. 12:35 Patient admitted, IV remains in place. aa5 Administered Medications: 08:10 Drug: NS 0.9% 1000 ml Route: IV; Rate: 1 bolus; Site: right antecubital; sg 09:33 Follow up: IV Status: Completed infusion aa5 08:10 Drug: NS 0.9% 1000 ml Route: IV; Rate: 1 bolus; Site: right antecubital; sg 09:33 Follow up: IV Status: Completed infusion aa5 08:10 Drug: ProTONIX 40 mg Route: IVP; Site: right antecubital; sg 09:00 Follow up: Response: No adverse reaction sg 08:10 Drug: Reglan 10 mg Route: IVP; Site: right antecubital; sg 08:10 Drug: Zofran 4 mg Route: IVP; Site: right antecubital; sg 08:10 Drug: fentaNYL (PF) 25 mcg Route: IVP; Site: right antecubital; sg 08:10 Drug: fentaNYL (PF) 25 mcg Route: IVP; Site: right antecubital; sg 08:48 Drug: Insulin Regular Human 10 units {Co-Signature: sg (Pool Gilman RN).} Route: IVP; iw Site: right antecubital; 09:39 Follow up: Response: Blood sugar is lowered aa5 09:11 Drug: NS 0.9% 1000 ml Route: IV; Rate: 125 ml/hr; Site: right antecubital; iw 10:10 Follow up: Infusion moved to [facility] aa5 12:36 Follow up: IV Status: Infusion continued upon admission aa5 09:33 Drug: NS 0.9% 1000 ml Route: IV; Rate: 1 bolus; Site: right antecubital; aa5 10:20 Follow up: IV Status: Completed infusion aa5 09:35 Drug: Zofran 4 mg Route: IVP; Site: right antecubital; aa5 09:45 Follow up: Response: No adverse reaction aa5 09:37 Drug: Dilaudid 1 mg Route: IVP; Site: right antecubital; aa5 09:50 Follow up: Response: No adverse reaction; Pain is unchanged, physician notified aa5 09:45 Drug: Insulin Drip - (Insulin Regular Human 100 units, NS 0.9% 100 ml) {Co-Signature: iw aa5 (Kathy Connolly RN).} {Note: Drip started at 4 units/hr per Dr. Burr VO.} Route: IV; Rate: 5 units/hr; Site: right antecubital; 12:34 Follow up: IV Status: Infusion continued upon admission aa5 10:03 Drug: Phenergan 12.5 mg Route: IVP; Site: left antecubital; aa5 10:10 Follow up: Response: No adverse reaction aa5 10:05 Drug: Dilaudid 1 mg Route: IVP; Site: left antecubital; aa5 10:10 Follow up: Response: No adverse reaction; Pain is decreased aa5 10:05 Drug: Ativan 1 mg Route: IVP; Site: left antecubital; aa5 10:10 Follow up: Response: No adverse reaction aa5 10:10 Drug: Potassium Chloride 20 mEq Route: IV; Rate: per protocol; Site: left antecubital; aa5 12:35 Follow up: Response: No adverse reaction; IV Status: Completed infusion aa5 10:30 Drug: Rocephin - (cefTRIAXone) 1 grams {Note: administered slow IVP per pharmacy aa5 protocol at this time. .} Route: IVPB; Infused Over: 30 mins; Site: left antecubital; 10:40 Follow up: Response: No adverse reaction aa5 11:22 Drug: NS 0.9% 1000 ml Route: IV; Rate: 1 bolus; Site: right femoral; aa5 12:25 Follow up: IV Status: Completed infusion aa5 11:22 CANCELLED (Duplicate Order): NS 0.9% 1000 ml IV at 1000 ml once aa5 Point of Care Testing: Blood Glucose: 07:55 Blood Glucose: High (>450 mg/dL); iw 09:39 Blood Glucose: 384 mg/dL; aa5 10:22 Blood Glucose: 371 mg/dL; aa5 10:54 Blood Glucose: 344 mg/dL; aa5 11:58 Blood Glucose: 331 mg/dL; jb1 09:39 Dr. Burr notified aa5 Ranges: Intake: Outcome: 09:21 Decision to Hospitalize by Provider. [facility] 12:35 Admitted to ICU accompanied by nurse, family with patient, via stretcher, room ICU 8, aa5 on monitor, with chart, Report called to SKINNY De La O 12:35 Condition: stable 12:35 Discharge instructions given to family, Instructed on the need for admit, Demonstrated understanding of instructions. 12:37 Patient left the ED. aa5 Signatures: Dispatcher [employer] Shiva Farooq1 Pool Gilman, Javy Azar RN, MD MD cha Rivera, Janay mr Bravo, Ted mccray2 Rajni Ambrosio Irene, RN RN iw Calderon, Kathy RN RN aa5 Radha Polanco, ball warper tender EKG [facility]1 Anum Joaquin [facility] Pool valerio5 Corrections: (The following items were deleted from the chart) 07:32 07:29 BP 111 / 71; Pulse 68bpm; Resp 26bpm; Pulse Ox 97% RA; Temp 98.8F; 111.13 kg; sg Height 6 ft. 0 in.; BMI: 33.2; Pain 10/10; sg 08:17 07:27 Acuity: JUAN 3 sg iw 09:58 09:39 Blood Glucose: Blood Glucose Orgihnp=199 mg/dL. aa5 aa5
[2018-03-26] MEDS ORDERED: MORPHINE 4 MG/ML SYR ONE (09:28)
[2018-03-26] MEDS ORDERED: HYDROMORPHONE HCL 1 MG/ML INJ ONE ×2 (09:30→10:13)
[2018-03-26 09:35] LABS: Arterial Blood Carboxyhemoglob 2.1 % (0-1.5); Blood Gas Oxyhemoglobin 94.4 % (94-97); Blood O2 Saturation 98.1 % (92-98.5)
[2018-03-26] MEDS ORDERED: NA CHLORIDE 0.9% 1,000 ML ONE ×2 (09:38→11:29)
[2018-03-26] MEDS ORDERED: KCL 20 MEQ/100 mL IVPB 20 MEQ/100 ML BAG IV ONE (09:38)
--- NOTE | 2018-03-26 09:38 | RAD REPORT ---
EXAM DESCRIPTION: CT - Abdomen Pelvis Wo Contrast - 03/26/2018 9:22 am CLINICAL HISTORY: Abdominal pain. ABD PAIN COMPARISON: Abdomen Pelvis W Contrast dated 03/22/2018; Abdomen Pelvis W Contrast dated 10/08/2017 TECHNIQUE: CT imaging of the abdomen and pelvis was performed without contrast. Solid organ, bowel a nd vascular assessment is limited due to lack of IV and oral contrast. All CT scans are performed using dose optimization technique as appropriate and may include automated exposure control or mA/KV adjustment according to patient size. FINDINGS: The lower lung luis are clear.Small hiatal hernia. The liver, spleen, adrenal glands and kidneys are within normal limits for a limited non-contrast exa mination.Significant inflammatory changes are present involving the pancreas. Full assessment is some what difficult due to lack of IV contrast material. No bowel obstruction, free air, free fluid or abscess. The appendix is normal. The osseous structures are within normal limits. IMPRESSION: Significant inflammatory changes are present involving the pancreas compatible with acut e pancreatitis. Full assessment is limited due to lack of IV contrast material. Grossly, no pseudocys t is visualized. A limited non-contrast examination was performed as detailed.
[2018-03-26] MEDS ORDERED: INSULIN -REGULAR HUMAN 100 UNIT in NA CHLORIDE 0.9% 100 ML IV SCH ×2 (10:00→10:45)
[2018-03-26 10:13] LABS: Platelet Estimate ADEQ; Toxic Granulation 1+
[2018-03-26] MEDS ORDERED: LORazepam 2 MG/ML VIAL ONE (10:13)
[2018-03-26] MEDS ORDERED: PROMETHAZINE 25 MG/ML VIAL ONE (10:13)
[2018-03-26 10:14] LABS: Anisocytosis 1+; Blood Morphology Comment NOTED (NOT SEEN)
[2018-03-26] MEDS ORDERED: NA CHLORIDE 0.9% 1,000 ML IV ONE (10:31)
[2018-03-26] MEDS ORDERED: CEFTRIAXONE/SWI 1gm 1 GM/10 ML SYR ONE (10:41)
[2018-03-26] MEDS ORDERED: PIPER/TAZO/NS 3.375gm 3.375 GM/100 ML BAG IV SCH (10:45)
[2018-03-26] MEDS ORDERED: NACHLORIDE 0.45% 1,000 ML IV SCH (11:00)
[2018-03-26] MEDS: D5 0.45 NS 1,000 ML IV SCH ×3 (11:00→16:43)
[2018-03-26 11:45] LABS: Potassium 3.4 mmol/L (3.5-5.1)
--- NOTE | 2018-03-26 12:04 | EKG ---
Test Date: 2018-03-26 Test Time: 07:56:45 Adult Educator: ELVIS MEASUREMENT RESULTS: Intervals: Rate: 135 RI: 116 QRSD: 88 QT: 312 QTc: 468 Wisner: P: 71 RI: 116 QRS: 80 T: 14 INTERPRETIVE STATEMENTS: Sinus tachycardia Otherwise normal ECG No previous ECG available for comparison Electronically Signed On 03-26-18 12:02:52 [employer] by Bobby Iyer
[2018-03-26 13:03] VITALS: BMI 31.8
[2018-03-26 14:17] LABS: LDL, Direct 228 mg/dL (100-129)
[2018-03-26 15:45] LABS: Potassium 3.2 mmol/L (3.5-5.1)
[2018-03-26] MEDS ORDERED: Meropenem 500 MG VIAL IV SCH (17:00)
[2018-03-26] MEDS: Meropenem 500 MG in NA CHLORIDE 0.9% 100 ML IV SCH (17:14)
[2018-03-26] MEDS: D5.45NS W/KCL 20MEQ 20 MEQ/1,000 ML BAG IV SCH (17:57)
[2018-03-26] MEDS ORDERED: KCL 20 MEQ/100 mL IVPB 20 MEQ/100 ML BAG IV SCH (18:00)
[2018-03-26] MEDS ORDERED: MORPHINE 4 MG/ML SYR IV PRN (18:15)
[2018-03-26] MEDS: ONDANSETRON 4 MG/2 ML VIAL IV PRN (18:23)
[2018-03-26 19:22] LABS: Potassium 3.2 mmol/L (3.5-5.1)
--- NOTE | 2018-03-26 22:54 | HP ---
Date of Admission: 03/26/2018 Chief Complaint: Nausea, vomiting, and abdominal pain. History Of Present Illness: The patient is a 32-year-old male who was recently discharged from the [facility] on 03/24/2018 due to acute pancreatitis secondary to hypertriglyceridemia. The patient had a prolonged stay in the hospital for approximately 1 week. The patient has a past medical history of diabetes mellitus type 2, hypertriglyceridemia, and hypertension. Since being discharged from the [facility], the patient has been unable to tolerate much of his diet and has been mainly on liquids, cont inuing to have nausea and vomiting. The patient was also having some abdominal pain along with some nausea. The patient's symptoms were constant, severe, and progressively worsening. The patient ther efforrest came into the ER for further evaluation. His workup revealed a glucose level of 615. He had p ositive acetone present and anion gap was 31. Lactate was normal. Procalcitonin was elevated. Lipa se was 1200. White blood cell count was 21,000. This is all new compared to previous when he was di scharged. The patient also had an elevated kidney function at 2.1. The patient was found to be in D KA. He was given 3 L of IV fluid boluses, started on insulin drip. The patient did receive pain med ications. CT scan of the abdomen did show significant inflammatory changes involving the pancreas co mpatible with acute pancreatitis. No pseudocyst was found. The patient was given 2 doses of Dilaudi d and did become somewhat lethargic in the ER, but responsive. ER physician, Dr. Burr, placed a central line and the patient was referred for admission. When seen in the ER, he was awake, somewhat lethargic, not answering questions appropriately. He appeared to be in moderate distress. Past Medical History: 1.Diabetes mellitus type 2. 2.Hypertriglyceridemia. 3.Hypertension. Past Surgical History: Right arm surgery. Allergies: NO KNOWN DRUG ALLERGIES. Medications: List reviewed. Social History: The patient is single and has no children. 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 He h as good social support. Family History: Father and mother both have diabetes. Review of Systems: Limited due to patient's medical condition. A 10-point system is negative except as per HPI. Physical Examination: Vital Signs: Blood pressure 111/71, pulse 116, respirations 26, temperature 98.8, and O2 97% on room air. General: Awake, alert, somewhat confused, not answering questions appropriately, ill-appearing male. HEENT: Normocephalic, atraumatic. PERRLA. EOMI. Dry mucous membranes. Oropharynx is clear. Conj unctivae anicteric. Neck: Supple. No JVD. Trachea midline. CV: S1, S2. Sinus tachycardia. No murmurs. Peripheral pulses present. Respiratory: Moving air well bilaterally. No wheezing or stridor. The patient is tachypneic, use o f accessory muscles present. Gastrointestinal: Abdomen is soft. Tenderness to palpation in the epigastric region. No rebound or guarding. Positive bowel sounds. Extremities: No clubbing, cyanosis, or edema. No calf tenderness. Neuro: Cranial nerves 2-12 intact grossly. The patient moves all 4 extremities. Strength is symmet becki. Skin: No rashes. Normal skin turgor. Laboratory Data: Sodium 131, potassium 3.2, chloride 84, CO2 of 16, BUN 63, creatinine 2.1, glucose 615, lactate 1.4, calcium 9.7, and magnesium 2.6. Troponin less than 0.02. Albumin 2.5, lipase 1252 . Procalcitonin 0.68. WBC 21.1, H and H are 14.4 and 43.1, and platelets 330. Neutrophils 85% and 3% bands. Blood cultures and urine cultures pending. CT scan of the abdomen and pelvis shows significant inflammatory changes present involving the pancre as compatible with acute pancreatitis. Full assessment is limited due to lack of IV contrast. No ps eudocyst visualized. Chest x-ray shows no acute intrathoracic process. Assessment And Plan: A 32-year-old male with, 1.Sepsis. The patient is tachycardic, tachypneic. White blood cell count of 21,000. Procalcitonin is elevated likely due to abdominal source. We will start on IV antibiotics. The patient has recei gaby 3 L of IV fluid bolus. 2.Diabetic ketoacidosis. Currently, anion gap is 31 and acetones are present; however, pH is normal , may be other form of metabolic acidosis. We will start on IV insulin and admit to the ICU. 3.Hypertriglyceridemia. 4.Acute pancreatitis. Lipase is 1200. CT scan shows significant inflammation. We will cover with Zosyn. Surgical consultation. 5.Acute kidney injury, likely due to dehydration, prerenal azotemia. We will continue with IV fluid hydration. 6.Hypermagnesemia. 7.Moderate protein-calorie malnutrition. Albumin 2.5. 8.Diabetes mellitus type 2 with diabetic ketoacidosis, insulin requiring. The patient is on IV insu jesús. 9.Essential hypertension, stable. 10.Hypertriglyceridemia. 11.GI and DVT prophylaxis addressed. Plan: Admit the patient to ICU and place as inpatient. Length of stay greater than 2 midnights. MENG Voice ID: [id number]
[2018-03-27] MEDS: Meropenem 500 MG in NA CHLORIDE 0.9% 100 ML IV SCH ×2 (01:00→09:46)
[2018-03-27] MEDS: D5.45NS W/KCL 20MEQ 20 MEQ/1,000 ML BAG IV SCH ×4 (01:00→17:04)
[2018-03-27 05:54] LABS: Absolute Lymphocytes (CBC) 1.8 K/uL (0.7-4.9); Absolute Monocytes 1.9 K/uL (0.1-1.3); Absolute Neutrophil 13.1 K/uL (1.8-8.0); Lymphocytes % 10.5 % (15.3-44.8); MPV 7.7 fL (7.6-11.3); Monocytes % 11.3 % (3.3-12.3); RBC Red Blood Cell Count 4.69 M/uL (4.33-5.43)
[2018-03-27 06:10] LABS: Magnesium 2.5 mg/dL (1.8-2.4)
[2018-03-27 06:13] LABS: Potassium 2.8 mmol/L (3.5-5.1)
[2018-03-27] MEDS ORDERED: KCL 20 MEQ/100 mL IVPB 20 MEQ/100 ML BAG IV SCH ×2 (07:00→17:50)
[2018-03-27] MEDS ORDERED: INFLUENZA VACCINE (for 3y+) 0.5 ML DOSE IMVAC ONE (09:00)
[2018-03-27] MEDS: KCL 20 MEQ/100 mL IVPB 20 MEQ/100 ML BAG IV SCH ×2 (09:52→11:46)
[2018-03-27] MEDS ORDERED: INSULIN GLARGINE 100 UNITS/ML SQ ONE (12:00)
[2018-03-27] MEDS: DOCOSAHEXANOIC AC/EPA 1000 MG PO SCH ×2 (13:40→21:21)
[2018-03-27] MEDS: ONDANSETRON 4 MG/2 ML VIAL IV PRN (14:46)
--- NOTE | 2018-03-27 14:52 | CON ---
Date of Consultation: 03/26/2018 Brief History Of Present Illness: The patient is a 32-year-old male, who presents after being recent ly discharged from the hospital on 03/24/2018 with an episode of acute pancreatitis on that particula r episode, which was attributable to hypertriglyceridemia. Apparently, he has a family history of fa milial hypertriglyceridemia with the triglycerides being over 1000 and had presented approximately 1 week ago with the above-stated complaints. He was discharged and subsequently comes back with recurr ent episodes of epigastric abdominal pain, some nausea, vomiting, and similar feelings and inability to tolerate diet as well, which was mainly liquids. The symptoms got progressively worse and he was brought to the ER for further evaluation. His lipase on this particular admission was 1200. He had an elevated white blood cell count as well, which is all elevated compared to his previous episode. Past Medical History: Significant for diabetes, hypertriglyceridemia, and hypertension. Past Surgical History: Only had right arm surgery. Social History: He is single. He has no children. 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 Family History: Both father and mother have diabetes. Allergies: NO KNOWN DRUG ALLERGIES. Home Medications: Include fish oil, Lopid, Levemir, Lopressor, Protonix, and promethazine DM syrup. Social History: Denies smoking, alcohol, or recreational drug use of any kind. Physical Examination: Vital Signs: At the time of my examination, his BMI is 31.9. His blood pressure was 125/79, pulse w as 129, respiratory rate 15, temperature 99.3. General: He is awake, alert, and oriented. Psychiatric: He has a flat affect and odd gaze and answers questions with appropriate responses, but with an unusual affect. He additionally is in a monitor room and was noted having some unusual beha vior, which I personally witnessed. He was placing his hands in his rectum and then licking his fing ers and smelling his fingers. Additionally, he would continue to have some hyperorality and hypersex uality with what appeared to be placing an oxygen sensor and SpO2 monitor on his genitals and disrobi ng continuously despite multiple attempts to keep him clothed during his entire episode. However, he remained alert, oriented to person, place, time, event, president, his background, his history. He is aware of his college background. He gives me details regarding many aspects of his life, which re quire fine detail and he seems completely oriented with respect to these and intelligent otherwise. HEENT: Otherwise, he is normocephalic. There is no obvious lesions on his head. His oropharynx is clear. Neck: Supple. No JVD. Chest: Normal expansion and excursion. Cardiovascular: Regular rate and rhythm. Pulmonary: Clear to auscultation bilaterally. Abdomen: Soft with mild epigastric tenderness to palpation. No rebound. No guarding. No focal per itonitis. Negative Damon sign. Extremities: No clubbing, cyanosis, or edema. Skin: Warm and dry, otherwise. Laboratory Data: Revealed a white blood cell count of 21.1, hemoglobin is 14.4, hematocrit 43.1, tania telet count is 330, neutrophils are 85%, lymphocytes are 5.9. His PT 13.3, INR 1.13. His blood gas showed a pH of 7.4, pCO2 is 19.3, pO2 is 115, bicarb is 13, base excess -10, oxyhemoglobin was 94, Sp O2 saturation was 98% on 21% oxygen, methemoglobin was 1.7, and carboxyhemoglobin was 2.1. His sodiu m 138, potassium 3.4, chloride 93, carbon dioxide 20, BUN 57, creatinine 1.6, glucose is 354. Serum osmolality 345, lactic acid 1.4, calcium 9.1, magnesium 2.6, total bilirubin 0.8, direct component 0. 2, AST 12, ALT 24, alkaline phosphatase 103. Rapid troponin is less than 0.02. His triglycerides we re elevated at 595 and LDL was 228. His lipase is 1252. Procalcitonin is 0.68. UA showed 2+ ketone s and trace blood and moderate acetone in his serum. Additionally, he had imaging performed which in cluded an abdomen and pelvis CT, which was officially read as significant inflammatory changes are pr esent involving the pancreas compatible with acute pancreatitis. Full assessment is limited due to l ack of IV contrast material. Grossly, no pseudocyst visualized. Limited noncontrast examination was performed as detailed. He additionally had a chest x-ray performed, which officially read as no acu te intrathoracic processes. Assessment And Plan: This is a 32-year-old male, who presents with signs and symptoms of acute pancr eatitis. 1.IV fluid hydration. 2.No need for antibiotic coverage as this is likely a SIRS response. There is no evidence of active infected pancreatitis. 3.Control blood sugar. 4.Medical management. 5.I recommended neurology consult for the patient's unusual behavior and affect. 6.I will follow along with you and do serial exams. 7.Continue electrolyte replacement. Thank you for this interesting consult. NEGRITO Voice ID: [id number] Report ID: [id number]
[2018-03-27] MEDS ORDERED: D50W 25 GM/50 ML SYRINGE IV PRN (14:58)
[2018-03-27] MEDS ORDERED: GLUCAGON 1 MG/VIAL IM PRN (14:58)
[2018-03-27] MEDS: INSULIN -REGULAR HUMAN 50 UNIT/0.5 ML ML IV SCH ×2 (16:30→21:23)
--- NOTE | 2018-03-27 16:58 | PN ---
Date of Progress Note: 03/27/2018 Subjective: The patient is seen and examined. Chart reviewed and case discussed with RN. The patie nt is much more awake and alert today. Still reporting some nausea and pain in his abdomen. Case di scussed with Dr. Camejo. Medications: List reviewed. Physical Examination: Vital Signs: Temperature 98.7, heart rate 113, blood pressure 136/90, respirations 18, O2 97% on luz elena m air. General: Awake, alert, oriented x3, in some mild distress due to pain. Obese male. CV: S1, S2. Regular rate and rhythm. No murmurs. Respiratory: Moving air well bilaterally. No wheezing. Gastrointestinal: Abdomen is soft, nontender, nondistended. Positive bowel sounds. Extremities: No clubbing, cyanosis, or edema. Neurologic: Nonfocal. Laboratory Data: Sodium 146, potassium 2.8, chloride 105, CO2 30, BUN 32, creatinine 1.29, glucose 1 74, calcium 9.4. Triglycerides 559, LDL 222. Lipase is 1957. WBC 16.8, H and H 13.3 and 38, platel ets 266, neutrophils 78%. Blood cultures, no growth to date. Assessment And Plan: A 32-year-old male with. 1.Sepsis, improving. White count is trending down, still around 16,000, maybe secondary to abdomina l source with pancreatitis. We will continue IV fluids. 2.Diabetic ketoacidosis. Anion gap now closed. We will continue IV insulin. IV fluids have been s witched to D5 half NS with potassium. 3.Hypernatremia. 4.Hypokalemia. We will replace and monitor. 5.Acute pancreatitis. Lipase trending up. Pain is somewhat better. We will start on ice chips for now. Appreciate Dr. Camejo's input. Discontinue antibiotics. 6.Acute kidney injury, likely due to prerenal azotemia and acute dehydration. Kidney function is no w normalized. We will continue to monitor creatinine and continue IV fluids. 7.Hypomagnesemia. 8.Moderate protein-calorie malnutrition. Albumin 2.5. 9.Diabetes mellitus type 2 with diabetic ketoacidosis, insulin requiring. We will continue IV insul in, switch to subcutaneous this afternoon. 10.Hypertriglyceridemia, slightly improved. 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 11.Acute metabolic encephalopathy, likely due to sepsis and electrolyte disturbances. However, the patient does have a flat affect. We will obtain Neurology consultation. 12.Gastrointestinal and deep venous thrombosis prophylaxis addressed. Plan: Continue to monitor in ICU setting until off of IV insulin and continue with the IV fluids. F ollow up with blood cultures. SA/MODL Voice ID: [id number] Report ID: [id number]
[2018-03-27] MEDS: METOPROLOL TAR 50 MG TAB PO SCH (17:07)
[2018-03-27] MEDS ORDERED: INSULIN GLARGINE 100 UNITS/ML SQ SCH (21:00)
[2018-03-27] MEDS: GEMFIBROZIL 600 MG TAB PO SCH (21:22)
--- NOTE | 2018-03-27 22:43 | CON ---
Reason For Consultation: Consultation called because of altered mental status. History Of Present Illness: Mr. Arias is a 32-year-old patient admitted to the hospital with pancre atitis, sepsis, and since his admission on the , the patient was experiencing more vomiting, abdo kike pain, nausea, and became confused. He had an elevated glucose up to 615, with an anion gap of 31. He was found to have white blood cell count of 21,000 and having the diabetic ketoacidosis. Sin ce his admission to the intensive care unit, the patient's cognitive status actually has improved sig nificantly. The patient's mother is at the bedside and indicated that he is largely back to himself, but still slightly disoriented. 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 The staff in the ICU also noted the pat loyd's affect seems to be somewhat unusual; however, the patient and his family denied any prior hist ory such as psychiatric diagnoses or personality disorders. He does not have a history of use of psy chotropic medications and denies a history of drug use. He has had some significant improvement in b lood sugar control, although still elevated to around 200 to 300s and today had significant hypokalem ia of 2.8. Magnesium is slightly elevated to 2.5. Calcium normal at 9.4. White blood cell count im proved from 21,000 yesterday to 16,800. Past Medical History: Is as indicated in addition to type 2 diabetes, hypertension, and dyslipidemia . Past Surgical History: Right arm surgery. Allergies: NO KNOWN DRUG ALLERGIES. 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 Denies alcohol, tobacco, or I V drug use. Family History: Both father and mother have diabetes mellitus. Current Medications: Lopid 600 mg twice daily, Lantus 35 units at bedtime, Lopressor 50 mg twice gris ly, Zofran 4 mg as needed every 4 hours, and fish oil 1000 mg tablets 2-3 times daily. Review of Systems: Mr. Arias and his mother did report the nausea, vomiting, abdominal pain, some disorientation and co nfusion. Otherwise, no focal findings such as face, arm, or leg numbness or weakness. No incoordina tion and no dermatological issues. No genitourinary issues. Physical Examination: Vital Signs: Blood pressure range 135 to 149 over 70 to 87, pulse up to 106, respiratory rate 16, te mperature 98.0, oxygen saturation 98% to 100% on room air. General: Mr. Arias is resting in bed. Neurologic: He is alert and oriented to situation, place, person, follows all commands appropriately . He did have some difficulty with concentration and showing inability to do serial 7 subtraction, b ut he was able to spell the word world in reverse without difficulty. He recalled 1 of 2 words after 5 minutes. On cranial nerves, there are no focal deficits on 2 through 12 on motor examination. He is fully strong in the upper and lower extremities proximally and distally. Sensory examination is intact to light touch and temperature in the arms and legs without deficits. Reflexes trace to 1+ in the biceps, triceps, brachioradialis, patellae, and heels. Coordination is slow, but intact in uppe r and lower extremities. Labs: His labs have been reviewed. Assessment: Mr. Arias is a 32-year-old patient with multifocal reasons for encephalopathy, which is resolving. He does have diabetic ketoacidosis and significant electrolyte abnormalities and there i s a possible underlying personality disorder that is not evaluated. At this point, no evidence of an y focal neurological deficits. The patient again is resolving his altered mental status back towards baseline. Plan: Continue with fluid replacement as per primary team. Continue with aggressive management of d iabetic ketoacidosis and electrolyte abnormalities. At this point, further neurological workup is not recommended as the patient is retur soniya to his baseline. LB/MODL Voice ID: [id number] Report ID: [id number]
[2018-03-28] MEDS: D5.45NS W/KCL 20MEQ 20 MEQ/1,000 ML BAG IV SCH ×2 (02:57→10:00)
[2018-03-28] MEDS: METOPROLOL TAR 50 MG TAB PO SCH ×2 (05:16→18:51)
[2018-03-28] MEDS: ONDANSETRON 4 MG/2 ML VIAL IV PRN (05:32)
[2018-03-28 06:26] LABS: Absolute Lymphocytes (CBC) 2.1 K/uL (0.7-4.9); Absolute Monocytes 0.9 K/uL (0.1-1.3); Absolute Neutrophil 6.8 K/uL (1.8-8.0); Basophils % 0.1 % (0-1.3); Eosinophils % 0.2 % (0-4.4); Hematocrit 34.5 % (39.6-49.0); MPV 7.8 fL (7.6-11.3); RBC Red Blood Cell Count 4.16 M/uL (4.33-5.43)
[2018-03-28 06:31] LABS: BUN Blood Urea Nitrogen 16 mg/dL (7-18); Bicarbonate 26 mmol/L (21-32); Glucose Level 295 mg/dL (74-106); Lipase 856 U/L (73-393); Magnesium 2.2 mg/dL (1.8-2.4); Potassium 3.7 mmol/L (3.5-5.1); Sodium Level 144 mmol/L (136-145)
[2018-03-28 07:03] LABS: LDL, Direct 172 mg/dL (100-129)
[2018-03-28 07:26] LABS: Blood Morphology Comment NOT SEEN (NOT SEEN); Platelet Estimate ADEQ; Urine White Blood Cell Casts OK
[2018-03-28] MEDS: INSULIN -REGULAR HUMAN 50 UNIT/0.5 ML ML IV SCH ×4 (07:30→20:57)
[2018-03-28] MEDS: GEMFIBROZIL 600 MG TAB PO SCH ×2 (09:00→20:53)
[2018-03-28] MEDS: DOCOSAHEXANOIC AC/EPA 1000 MG PO SCH ×3 (09:00→20:56)
--- NOTE | 2018-03-28 13:56 | PN ---
Date of Progress Note: 03/28/2018 Subjective: The patient is seen and examined. Chart reviewed, and case discussed with RN and Dr. Rob patel. The patient feels significantly better. Pain is well controlled. Does complain of some dysp hagia to liquids. No nausea or vomiting. Medications: List reviewed. Physical Examination: Vital Signs: Temperature 97, heart rate 94, blood pressure 129/78, respirations 18, O2 of 99% on luz elena m air. GENERAL: Awake, alert, oriented x3. No acute distress. An obese male. BMI 31. CV: S1, S2. No murmurs. Regular rate and rhythm. Respiratory: Moving air well bilaterally. No wheezing or stridor. Gastrointestinal: Abdomen is soft. Mild tenderness to palpation in the epigastric region. No guard ing or rigidity. Extremities: No clubbing, cyanosis, or edema. Neuro: Nonfocal. Laboratory Data: Sodium 144, potassium 3.7, chloride 106, CO2 of 26, BUN 16, creatinine 0.93, glucos e 295, calcium 8.9, magnesium 2.2. Triglycerides 510, LDL 172. Lipase 856. WBC 9.8, H and H 11.8 a nd 34.5, platelets 199, neutrophils 69%. Blood cultures, no growth to date. Assessment: A 32-year-old male with: 1.Sepsis, improving. White count is normalized. Likely from abdominal source due to pancreatitis. Continue IV fluids. IV antibiotics have been discontinued. 2.Diabetic ketoacidosis, resolved. Now switched to subcutaneous insulin. 3.Hypernatremia, corrected. 4.Hypokalemia. Replace and monitor. 5.Acute pancreatitis. Lipase improving. Secondary to hypertriglyceridemia. Appreciate Dr. Camejo 's input. Continue IV fluid hydration and advance to full liquids. 6.Acute kidney injury due to prerenal azotemia and acute dehydration. Kidney function is normalized . We will monitor creatinine. 7.Hypomagnesemia, replace and monitor. 8.Moderate protein-calorie malnutrition. Albumin 2.5. 9.Diabetes mellitus type 2 with ketoacidosis now resolved, insulin requiring. We will continue to m onitor Accu-Cheks. Continue sliding scale. 10.Hypertriglyceridemia, likely familial, improving. 11.Acute metabolic encephalopathy secondary to sepsis and electrolyte disturbances, resolved. 12.Gastrointestinal and deep venous thrombosis prophylaxis addressed. Plan: Continue advancing diet as tolerated. Likely discharge in the next 24 to 48 hours. /JESUS Voice ID: [id number] Report ID: [id number]
[2018-03-28] MEDS: NA CHLORIDE 0.9% 1,000 ML IV SCH (14:27)
[2018-03-28] MEDS: INSULIN GLARGINE 100 UNITS/ML SQ SCH (20:56)
[2018-03-29] MEDS: NA CHLORIDE 0.9% 1,000 ML IV SCH ×4 (02:00→20:00)
[2018-03-29] MEDS: METOPROLOL TAR 50 MG TAB PO SCH ×2 (05:17→18:29)
[2018-03-29 05:19] LABS: Absolute Lymphocytes (CBC) 1.8 K/uL (0.7-4.9); Absolute Monocytes 0.5 K/uL (0.1-1.3); Absolute Neutrophil 4.8 K/uL (1.8-8.0); Basophils % 0.1 % (0-1.3); Eosinophils % 0.6 % (0-4.4); Hematocrit 30.5 % (39.6-49.0); Lymphocytes % 24.6 % (15.3-44.8); MPV 7.5 fL (7.6-11.3); Monocytes % 7.7 % (3.3-12.3); RBC Red Blood Cell Count 3.68 M/uL (4.33-5.43)
[2018-03-29 05:36] LABS: Lipase 694 U/L (73-393); Magnesium 1.8 mg/dL (1.8-2.4)
[2018-03-29 05:53] LABS: LDL, Direct 153 mg/dL (100-129)
[2018-03-29] MEDS ORDERED: MAGNESIUM SULFATE 1 gm IVPB 1 GM/100 ML BAG IV ONE (06:00)
[2018-03-29 07:16] LABS: BUN Blood Urea Nitrogen 9 mg/dL (7-18); Bicarbonate 29 mmol/L (21-32); Glucose Level 192 mg/dL (74-106); Sodium Level 143 mmol/L (136-145)
[2018-03-29] MEDS ORDERED: POTASSIUM CL SA 10 MEQ TAB PO ONE ×2 (09:00→22:39)
[2018-03-29] MEDS: INSULIN -REGULAR HUMAN 50 UNIT/0.5 ML ML IV SCH ×4 (09:00→20:50)
[2018-03-29] MEDS: DOCOSAHEXANOIC AC/EPA 1000 MG PO SCH ×3 (09:02→20:49)
[2018-03-29] MEDS: GEMFIBROZIL 600 MG TAB PO SCH ×2 (09:03→20:49)
[2018-03-29] MEDS: INSULIN GLARGINE 100 UNITS/ML SQ SCH (20:49)
--- NOTE | 2018-03-29 20:51 | PN ---
Date of Progress Note: 03/29/2018 Subjective: The patient is seen and examined. Chart reviewed and case discussed with RN. Mother is at the bedside. Treatment plan explained. All questions answered. The patient denies any signific ant amount of pain. Does have some abdominal discomfort with liquids, but no nausea or vomiting. Di d have some difficulty with his medications, but kept him down. Medications: List reviewed. Physical Examination: Vital Signs: Temperature 97.6, heart rate 93, blood pressure 133/72, respirations 18, O2 98% on room air. General: Awake, alert, oriented x3. Some mild distress due to pain. Obese male, BMI 31.3. CV: S1, S2. Regular rate and rhythm. No murmurs. Respiratory: Moving air well bilaterally. No wheezing or stridor. Gastrointestinal: Abdomen is soft. Mild tenderness to palpation in the epigastric region. No guard ing or rigidity. Bowel sounds positive. Extremities: No clubbing, cyanosis, or edema. Neurologic: Nonfocal. Laboratory Data: Sodium 143, potassium 3, chloride 105, CO2 29, BUN 9, creatinine 0.63, glucose 192, calcium 8.5, magnesium 1.8. Triglycerides 500, LDL 153, lipase 694. WBC 7.1, H and H 10.5 and 30.5 , platelets 133, neutrophils 67%. Blood cultures, no growth to date. Assessment And Plan: A 32-year-old male with: 1.Acute sepsis, improving. White count normalized. Antibiotics discontinued. 2.Diabetic ketoacidosis, resolved. 3.Hypernatremia, corrected. 4.Hypokalemia. We will replace and monitor. 5.Acute pancreatitis secondary to hypertriglyceridemia, improving. Lipase trending down. We will a dvance to low-fat diet. 6.Acute kidney injury due to prerenal azotemia and acute dehydration. Kidney function normalized. We will continue to monitor. 7.Hypomagnesemia. We will replace and monitor. 8.Moderate protein-calorie malnutrition. Albumin is 2.5. 9.Diabetes mellitus type 2 with ketoacidosis, resolved, insulin requiring. We will adjust subcutane ous insulin dose. Continue sliding scale, moderate. 10.Hypertriglyceridemia, familial, improving. 11.Acute metabolic encephalopathy secondary to sepsis and electrolyte disturbances, resolved. 12.Gastrointestinal and deep venous thrombosis prophylaxis with PPI and SCDs. We will continue adam y persistent ambulation. Plan: Likely discharge in the next 24 to 48 hours depending on response if the patient tolerates low -fat diet. /JESUS Voice ID: [id number] Report ID: [id number]
[2018-03-30] MEDS: NA CHLORIDE 0.9% 1,000 ML IV SCH ×3 (02:46→15:40)
[2018-03-30 04:23] LABS: ALT/SGPT 22 U/L (12-78); AST/SGOT 24 U/L (15-37); Alkaline Phosphatase 55 U/L (45-117); BUN Blood Urea Nitrogen 7 mg/dL (7-18); Bicarbonate 29 mmol/L (21-32); Bilirubin Total 0.3 mg/dL (0.2-1.0); Glucose Level 199 mg/dL (74-106); Lipase 765 U/L (73-393); Potassium 3.7 mmol/L (3.5-5.1); Protein, Total 5.7 g/dL (6.4-8.2); Sodium Level 142 mmol/L (136-145)
[2018-03-30] MEDS ORDERED: MAGNESIUM SULFATE 1 gm IVPB 1 GM/100 ML BAG IV ONE (05:12)
[2018-03-30] MEDS ORDERED: POTASSIUM CL SA 10 MEQ TAB PO ONE (05:14)
[2018-03-30] MEDS: METOPROLOL TAR 50 MG TAB PO SCH ×2 (06:11→17:38)
[2018-03-30] MEDS: DOCOSAHEXANOIC AC/EPA 1000 MG PO SCH ×3 (08:19→21:54)
[2018-03-30] MEDS: GEMFIBROZIL 600 MG TAB PO SCH ×2 (08:19→21:54)
[2018-03-30] MEDS: INSULIN -REGULAR HUMAN 50 UNIT/0.5 ML ML IV SCH ×3 (08:19→17:34)
[2018-03-30 12:46] LABS: Absolute Monocytes 0.6 K/uL (0.1-1.3); Absolute Neutrophil 6.1 K/uL (1.8-8.0); Basophils % 0.3 % (0-1.3); Eosinophils % 0.9 % (0-4.4); Hematocrit 32.8 % (39.6-49.0); Lymphocytes % 22.5 % (15.3-44.8); MPV 7.9 fL (7.6-11.3); Monocytes % 6.7 % (3.3-12.3); RBC Red Blood Cell Count 3.94 M/uL (4.33-5.43)
[2018-03-30] MEDS ORDERED: ALTEPLASE 2 MG/VIAL IV SCH ×2 (15:00→16:00)
[2018-03-30] MEDS ORDERED: WATER FOR INJ,STERILE 10 ML IV ONE ×2 (15:00→16:00)
[2018-03-30] MEDS ORDERED: DEXTROSE 10%-WATER 500 ML IV SCH (15:00)
--- NOTE | 2018-03-30 17:13 | PN ---
Date of Progress Note: 03/30/2018 Subjective: The patient is seen and examined. Chart reviewed and case discussed with RN. The patient clinically has improved significantly. Able to tolerate low-fat diet. Still having some nausea. No significant abdominal pain. Has not vomited. Medications: List reviewed. Physical Examination: Vital Signs: Temperature 98.1, heart rate 95, blood pressure 125/70, respirations 18, and O2 of 100% on room air. General: Awake, alert, and oriented x3. No acute distress. Obese male. BMI 31. CV: S1 and S2. Regular rate and rhythm. No murmurs. Respiratory: Moving air well bilaterally. No wheezing. Gastrointestinal: Abdomen is soft, nontender, and nondistended. Positive bowel sounds. Extremities: No clubbing, cyanosis, or edema. Neurologic: Nonfocal. Laboratory Data: Sodium 142, potassium 3.7, chloride 106, CO2 of 29, BUN 7, creatinine 0.52, glucose 199, calcium 8.4, magnesium 1.8, and albumin 2. Lipase 765. WBC 7.1, H and H of 10.5 and 30.5, platelets 133, neutrophils 57%. Blood cultures, no growth to date. Assessment And Plan: A 32-year-old male with, 1. Acute sepsis, resolved. White count has normalized. Antibiotics have been stopped. Vital signs have been normalized as well. 2. Diabetic ketoacidosis, resolved. 3. Acute pancreatitis secondary to hypertriglyceridemia, clinically improved, however, lipase trended back up today to 765. The patient is tolerating low- fat diet. Surgery on board. 4. Hypertriglyceridemia, improved, likely familial. The patient would benefit from Repatha medication and will need to see environmental monitoring technician as an outpatient to prevent these recurrent episodes of pancreatitis. 5. Severe protein-calorie malnutrition, albumin is 2. 6. Hypocalcemia. 7. Diabetes mellitus type 2 with ketoacidosis, resolved, insulin requiring. The patient is still having hyperglycemia. We will adjust insulin dose. Continue sliding scale. 8. Acute metabolic encephalopathy, resolved. 9. Gastrointestinal and deep venous thrombosis prophylaxis, addressed. Continue persistent ambulation. We will continue to monitor the patient. Continue IV pain medications for pain control, IV fluids have been adjusted. We will monitor lipase and triglyceride levels. This is the patient's second admission for pancreatitis, discharge in the next 24 to 48 hours once lipase is improving. ADDENDUM: Case discussed with Dr. Camejo. He recommends changing diet to clears , initiate TPN and transfer to LTAC. Patient and mother adamantly opposed to both initially. Now accepting TPN but do not want LTAC. Long discussion regarding benefits and risks. They voiced understanding and all questions answered. They still disagree regarding LTAC. MENG Voice ID: [id number] Report ID: [id number] RODNEY
[2018-03-30 17:15] LABS: Anisocytosis 1+; Blood Morphology Comment NOTED (NOT SEEN); Platelet Estimate ADEQ; Toxic Granulation 1+
[2018-03-30] MEDS: AA 5%/D20W/ELECTROLYTES-TPN 2,000 ML, Lipids 20% 250 ML with MULTIVITAMINS INJ 10 ML IV SCH ×3 (17:33)
[2018-03-30] MEDS: INSULIN GLARGINE 100 UNITS/ML SQ SCH (21:53)
[2018-03-31] MEDS: INSULIN -REGULAR HUMAN 50 UNIT/0.5 ML ML IV SCH ×4 (00:51→18:12)
[2018-03-31 04:30] LABS: ALT/SGPT 25 U/L (12-78); AST/SGOT 23 U/L (15-37); Albumin 2.2 g/dL (3.4-5.0); Alkaline Phosphatase 57 U/L (45-117); BUN Blood Urea Nitrogen 6 mg/dL (7-18); Bicarbonate 28 mmol/L (21-32); Bilirubin Total 0.3 mg/dL (0.2-1.0); Glucose Level 227 mg/dL (74-106); Lipase 705 U/L (73-393); Magnesium 1.9 mg/dL (1.8-2.4); Potassium 4.7 mmol/L (3.5-5.1); Protein, Total 6.1 g/dL (6.4-8.2); Sodium Level 144 mmol/L (136-145)
[2018-03-31 04:53] LABS: LDL, Direct 132 mg/dL (100-129)
[2018-03-31] MEDS: METOPROLOL TAR 50 MG TAB PO SCH ×2 (06:31→18:13)
[2018-03-31] MEDS: DOCOSAHEXANOIC AC/EPA 1000 MG PO SCH ×3 (08:38→21:43)
[2018-03-31] MEDS: GEMFIBROZIL 600 MG TAB PO SCH ×2 (08:38→21:43)
--- NOTE | 2018-03-31 08:40 | P.PN ---
Subjective Date of Service: 03/27/18 Subjective: Improving (Patient only has mild tenderness, feels better) Physical Examination - Vital Signs Temperature: 97.7 F Blood Pressure: 119/69 Pulse: 88 Respirations: 20 Pulse Ox (%): 97 - Physical Exam General: Alert, In no apparent distress, Cooperative Respiratory: Clear to auscultation bilaterally Gastrointestinal: Other (soft, + epigastric TTP, ND, negative murphys) - Studies Microbiology Data (last 24 hrs): 03/26/18 08:05 Blood - Blood Aerobic Blood Culture - Final No growth in 5 days. 03/26/18 08:05 Blood - Blood Anaerobic Blood Culture - Final No growth in 5 days. 03/26/18 07:50 Blood - Blood Aerobic Blood Culture - Final No growth in 5 days. 03/26/18 07:50 Blood - Blood Anaerobic Blood Culture - Final No growth in 5 days. Assessment And Plan - Current Problems (Diagnosis) (1) Acute pancreatitis Onset Date: 03/27/18 Current Visit: No Status: Acute Plan: - NPO - serial exams - monitor electrolytes - fluid resuscitation - no need for antibiotics - pain control - ambulate with assist - consider PICC and TPN - may need LTAC - control triglycerides Qualifiers:
--- NOTE | 2018-03-31 08:41 | P.PN ---
Subjective Date of Service: 03/30/18 Patient continues to have mild tenderness in epigastrium Physical Examination - Vital Signs Temperature: 97.7 F Blood Pressure: 119/69 Pulse: 88 Respirations: 20 Pulse Ox (%): 97 - Physical Exam General: Alert, In no apparent distress, Cooperative Gastrointestinal: Other (mild epigastric TTP, unchanged from prior exams) - Studies Microbiology Data (last 24 hrs): 03/26/18 08:05 Blood - Blood Aerobic Blood Culture - Final No growth in 5 days. 03/26/18 08:05 Blood - Blood Anaerobic Blood Culture - Final No growth in 5 days. 03/26/18 07:50 Blood - Blood Aerobic Blood Culture - Final No growth in 5 days. 03/26/18 07:50 Blood - Blood Anaerobic Blood Culture - Final No growth in 5 days. Assessment And Plan - Current Problems (Diagnosis) (1) Acute pancreatitis Onset Date: 03/27/18 Current Visit: No Status: Acute Plan: - NPO - serial exams - monitor electrolytes - fluid resuscitation - no need for antibiotics - pain control - ambulate with assist - consider PICC and TPN - may need LTAC - control triglycerides Qualifiers:
--- NOTE | 2018-03-31 08:43 | P.PN ---
Subjective Date of Service: 03/31/18 Patient continues to have mild tenderness in epigastrium Physical Examination - Vital Signs Temperature: 97.7 F Blood Pressure: 119/69 Pulse: 88 Respirations: 20 Pulse Ox (%): 97 - Studies Microbiology Data (last 24 hrs): 03/26/18 08:05 Blood - Blood Aerobic Blood Culture - Final No growth in 5 days. 03/26/18 08:05 Blood - Blood Anaerobic Blood Culture - Final No growth in 5 days. 03/26/18 07:50 Blood - Blood Aerobic Blood Culture - Final No growth in 5 days. 03/26/18 07:50 Blood - Blood Anaerobic Blood Culture - Final No growth in 5 days. Assessment And Plan - Current Problems (Diagnosis) (1) Acute pancreatitis Onset Date: 03/27/18 Current Visit: No Status: Acute Plan: - NPO - serial exams - monitor electrolytes - fluid resuscitation - no need for antibiotics - pain control - ambulate with assist - consider PICC and TPN - recommend LTAC - control triglycerides - lipase level remains elevated - will sign off, call for any future needs Qualifiers:
[2018-03-31 13:15] VITALS: O2SAT 98
--- NOTE | 2018-03-31 15:44 | P.PN ---
Subjective Date of Service: 03/31/18 Chief Complaint: Pancreatitis Subjective: No new changes, No C/O voiced, Improving Patient seen and examined at bedside. Mother at bedside. Chart reviewed and case discussed with nursing staff. Patient comfortably sitting up by bathroom, mother helping trim his hair. He is no acute distress, AAOx3. States he has no complaints and abdominal pain is resolved. He currently has TPN going. Mother very adamant about not wanting patient to go to a facility as he has to be mobile and working. Review of Systems 10-point ROS is otherwise unremarkable Physical Examination - Vital Signs Temperature: 98.9 F Blood Pressure: 125/72 Pulse: 91 Respirations: 16 Pulse Ox (%): 99 - Physical Exam General: Alert, In no apparent distress, Oriented x3 HEENT: Atraumatic, PERRLA, EOMI Neck: Supple, JVD not distended Respiratory: Clear to auscultation bilaterally, Normal air movement Cardiovascular: Regular rate/rhythm, Normal S1 S2 Gastrointestinal: Normal bowel sounds, No tenderness Musculoskeletal: No tenderness Integumentary: No rashes Neurological: Normal speech, Normal tone, Normal affect Lymphatics: No axilla or inguinal lymphadenopathy - Studies Microbiology Data (last 24 hrs): 03/26/18 08:05 Blood - Blood Aerobic Blood Culture - Final No growth in 5 days. 03/26/18 08:05 Blood - Blood Anaerobic Blood Culture - Final No growth in 5 days. 03/26/18 07:50 Blood - Blood Aerobic Blood Culture - Final No growth in 5 days. 03/26/18 07:50 Blood - Blood Anaerobic Blood Culture - Final No growth in 5 days. Assessment And Plan - Current Problems (Diagnosis) (1) Sepsis Current Visit: Yes Status: Resolved Qualifiers: Sepsis type: sepsis due to unspecified organism Qualified Code(s): A41.9 - Sepsis, unspecified organism (2) Acute pancreatitis Onset Date: 03/27/18 Current Visit: No Status: Acute Qualifiers: Pancreatitis type: other Acute pancreatitis complication: no infection or necrosis Qualified Code(s): K85.80 - Other acute pancreatitis without necrosis or infection (3) Protein-calorie malnutrition, severe Current Visit: Yes Status: Acute (4) Inappropriate behavior Current Visit: No Status: Acute (5) Diabetes mellitus Onset Date: 10/09/17 Current Visit: No Status: Chronic Qualifiers: Diabetes mellitus type: type 2 Diabetes mellitus terminal carman insulin use: without assisted use Diabetes mellitus complication status: with hyperglycemia Qualified Code(s): E11.65 - Type 2 diabetes mellitus with hyperglycemia (6) Hypertriglyceridemia Onset Date: 10/09/17 Current Visit: No Status: Chronic (7) DKA (diabetic ketoacidosis) Onset Date: 10/09/17 Current Visit: No Status: Resolved Qualifiers: Diabetes mellitus type: type 2 Diabetes mellitus complication detail: without coma Qualified Code(s): E11.10 - Type 2 diabetes mellitus with ketoacidosis without coma - Plan 1. Acute sepsis, resolved. White count has normalized. Antibiotics have been stopped. Vital signs have been normalized as well. 2. Diabetic ketoacidosis, resolved. 3. Acute pancreatitis secondary to hypertriglyceridemia, clinically improved. patient currently recieving TPN, however patient was previously tolerating soft diet. I will discuss with mother and patient regarding discontinuing TPN. starting CLD and advancing as tolerated, as he is clinically improving. Educated and encouraged patient to trial of broth as patient's mother stated that he has "Never ever eaten soup/broth and will not do so." Mother did insisit that we "find a cure and make him mobile." Patient's mother very adamant on not wanting patient to go to facility but would be okay with TPN. 4. Hypertriglyceridemia, improved, likely familial. The patient would benefit from Repatha medication and will need to see clinical research nurse as an outpatient to prevent these recurrent episodes of pancreatitis. Educated patient and mother regarding importance of getting underlying disease in control otherwise patient will continue to have recurrent episodes of pancreatitis. 5. Severe protein-calorie malnutrition, albumin is 2. 6. Hypocalcemia. Resolved 7. Diabetes mellitus type 2 with ketoacidosis, resolved, insulin requiring. The patient is still having hyperglycemia. We will adjust insulin dose. Continue sliding scale. 8. Acute metabolic encephalopathy, resolved. Unsure of underlying psych/ behavioral issue. DVT prophylaxis: lovenox, encouraged ambulation GI prophylaxis: protonix Diet: CLD, advance as tolerated. Will discontinue TPN Disposition: discussed disease process extensively with patient and mother. Will plan to discontinue TPN, start CLD, and advance as tolerated. He will need outpatient Endocrinology follow up for management of hypertriglyceridemia. Time Spent Managing PTS Care (In Minutes): 45
[2018-03-31] MEDS: AA 5%/D20W/ELECTROLYTES-TPN 2,000 ML, Lipids 20% 250 ML with MULTIVITAMINS INJ 10 ML IV SCH ×3 (17:25)
[2018-03-31] MEDS: INSULIN GLARGINE 100 UNITS/ML SQ SCH (21:44)
[2018-03-31] MEDS: INSULIN -REGULAR HUMAN 50 UNIT/0.5 ML ML SQ SCH (21:44)
[2018-04-01] MEDS: METOPROLOL TAR 50 MG TAB PO SCH (05:58)
[2018-04-01 06:46] LABS: BUN Blood Urea Nitrogen 6 mg/dL (7-18); Bicarbonate 27 mmol/L (21-32); Glucose Level 169 mg/dL (74-106); Potassium 4.3 mmol/L (3.5-5.1); Sodium Level 141 mmol/L (136-145)
[2018-04-01] MEDS: INSULIN -REGULAR HUMAN 50 UNIT/0.5 ML ML SQ SCH ×2 (08:09→11:30)
[2018-04-01] MEDS: GEMFIBROZIL 600 MG TAB PO SCH (08:10)
[2018-04-01] MEDS: DOCOSAHEXANOIC AC/EPA 1000 MG PO SCH (08:10)
--- NOTE | 2018-04-01 12:34 | P.DS ---
Admission Date: 03/26/18 Discharge Date: 04/01/18 Disposition: ROUTINE DISCHARGE Discharge Condition: GOOD Reason for Admission: Pancreatitis Consultations: General surgery, Dr. Camejo Neurology, Dr. samuels - Problems (1) Sepsis Current Visit: Yes Status: Resolved Qualifiers: Sepsis type: sepsis due to unspecified organism Qualified Code(s): A41.9 - Sepsis, unspecified organism (2) Acute pancreatitis Onset Date: 03/27/18 Current Visit: No Status: Acute Qualifiers: Pancreatitis type: other Acute pancreatitis complication: no infection or necrosis Qualified Code(s): K85.80 - Other acute pancreatitis without necrosis or infection (3) Protein-calorie malnutrition, severe Current Visit: Yes Status: Acute (4) Inappropriate behavior Current Visit: No Status: Acute (5) Diabetes mellitus Onset Date: 10/09/17 Current Visit: No Status: Chronic Qualifiers: Diabetes mellitus type: type 2 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 use Diabetes mellitus complication status: with hyperglycemia Qualified Code(s): E11.65 - Type 2 diabetes mellitus with hyperglycemia (6) Hypertriglyceridemia Onset Date: 10/09/17 Current Visit: No Status: Chronic (7) DKA (diabetic ketoacidosis) Onset Date: 10/09/17 Current Visit: No Status: Resolved Qualifiers: Diabetes mellitus type: type 2 Diabetes mellitus complication detail: without coma Qualified Code(s): E11.10 - Type 2 diabetes mellitus with ketoacidosis without coma Brief History of Present Illness: The patient is a 32-year-old male who was recently discharged from the hospital on 03/24/2018 due to acute pancreatitis secondary to hypertriglyceridemia. The patient had a prolonged stay in the hospital for approximately 1 week. The patient has a past medical history of diabetes mellitus type 2, hypertriglyceridemia, and hypertension. Since being discharged from the hospital, the patient has been unable to tolerate much of his diet and has been mainly on liquids, continuing to have nausea and vomiting. The patient was also having some abdominal pain along with some nausea. The patient's symptoms were constant, severe, and progressively worsening. The patient therefore came into the ER for further evaluation. His workup revealed a glucose level of 615. He had positive acetone present and anion gap was 31. Lactate was normal. Procalcitonin was elevated. Lipase was 1200. White blood cell count was 21,000. This is all new compared to previous when he was discharged. The patient also had an elevated kidney function at 2.1. The patient was found to be in DKA. He was given 3 L of IV fluid boluses, started on insulin drip. The patient did receive pain medications. CT scan of the abdomen did show significant inflammatory changes involving the pancreas compatible with acute pancreatitis. No pseudocyst was found. The patient was given 2 doses of Dilaudid and did become somewhat lethargic in the ER, but responsive. ER physician, Dr. Burr, placed a central line and the patient was referred for admission. When seen in the ER, he was awake, somewhat lethargic, not answering questions appropriately. He appeared to be in moderate distress. Hospital Course: Patient was admitted for acute pancreatitis secondary to hypertriglyceridemia, acute sepsis in diabetic ketoacidosis. He was started on IV antibiotics, IV insulin and IV fluids per DKA protocol and he was admitted to the ICU. For his sepsis, likely source was the abdomen, from pancreatitis. His IV antibiotics were discontinued after his white count normalized and his vital signs normalized. His sepsis resolved. 1st diabetic ketoacidosis [facility] IV insulin was started, DKA protocol was followed. His blood sugars improved, gap closed. Patient was transferred out of the ICU to the floor. He was started on his home insulin as well as sliding scale. His blood sugars did normalize. For his acute pancreatitis secondary to hypertriglyceridemia, patient was kept NPO, IV fluids were started. He was monitored and general surgery was consulted. Patient was tolerating a low-fat diet clinically, though his lipase trended back up to 765. Per surgery recommendations, his diet was changed to clear and TPN was started. There was a discussion regarding transferring to a long-term acute care facility for TPN. Patient and mother were adamantly opposed to both initially, though they did accept the TPN. The still refused the long-term acute care facility. After a extensive conversation with mother and son, it was decided that patient would try process even though he does not needed at home and does not like it. Patient has low Mcdonough score as well as a low [place] score. Dietary was consulted, they also recommended discontinue TPN , started patient on clear liquids and advance as tolerated. Patient was then started on clear liquid diet, TPN was discontinued and we were able to advance his diet to full liquid/GI soft. Prior to discharge, patient was tolerating a full liquid/GI soft diet without worsening of the pain, nausea or vomiting. For his hypertriglyceridemia, it was recommended that patient follow up with radiology services manager as an outpatient as he would benefit from adding a clustered the me a medication such as repatha. Patient and mother were extensively educated on disease process along with treating underlying disease to prevent further pancreatitis flare-up/episodes. It was discussed that patient should call his insurance company, to see which radiology services manager are on the insurance. Then to call radiology services manager office and make an appointment as soon as possible. Patient was also educated on lifestyle modifications including diet and exercise. For his diabetes type 2 with ketoacidosis, ketoacidosis resolved. Patient was restarted on his home medication of sliding scale. No changes made to his home medications as this time. Patient is instructed to follow up with his primary care physician 1 week. Patient was extensively educated/counseled on making an endocrinology appointment as soon as possible Vital Signs/Physical Exam: Temp Pulse Resp BP Pulse Ox 97.4 F 95 H 18 114/66 100 04/01/18 08:00 04/01/18 08:00 04/01/18 08:00 04/01/18 08:00 04/01/18 08:00 General: Alert, In no apparent distress, Oriented x3 HEENT: Atraumatic, PERRLA, EOMI Neck: Supple, JVD not distended Respiratory: Clear to auscultation bilaterally, Normal air movement Cardiovascular: Regular rate/rhythm, Normal S1 S2 Gastrointestinal: Normal bowel sounds, No tenderness Musculoskeletal: No tenderness Integumentary: No rashes Neurological: Normal speech, Normal tone, Normal affect Lymphatics: No axilla or inguinal lymphadenopathy Laboratory Data at Discharge: WBC 8.7 K/uL (4.3-10.9) D 03/30/18 12:26 Hgb 11.1 g/dL (13.6-17.9) L 03/30/18 12:26 Hct 32.8 % (39.6-49.0) L 03/30/18 12:26 Plt Count 198 K/uL (152-406) D 03/30/18 12:26 PT 13.3 SECONDS (9.5-12.5) H 03/26/18 08:15 INR 1.13 03/26/18 08:15 Sodium 141 mmol/L (136-145) 04/01/18 05:45 Potassium 4.3 mmol/L (3.5-5.1) 04/01/18 05:45 BUN 6 mg/dL (7-18) L 04/01/18 05:45 Creatinine 0.54 mg/dL (0.55-1.3) L 04/01/18 05:45 Glucose 169 mg/dL (74-106) H 04/01/18 05:45 Phosphorus 3.5 mg/dL (2.5-4.9) 03/30/18 12:26 Magnesium 1.9 mg/dL (1.8-2.4) 03/31/18 03:54 Total Bilirubin 0.3 mg/dL (0.2-1.0) 03/31/18 03:54 AST 23 U/L (15-37) 03/31/18 03:54 ALT 25 U/L (12-78) 03/31/18 03:54 Alkaline Phosphatase 57 U/L (45-117) 03/31/18 03:54 Triglycerides 452 mg/dL (<150) H 03/31/18 03:54 LDL Cholesterol Direct 132 mg/dL (100-129) H 03/31/18 03:54 Lipase 705 U/L (73-393) H 03/31/18 03:54 Home Medications: Insulin Detemir [Levemir Flextouch] 35 unit SQ BEDTIME #1 ml 10/12/17 Metoprolol Tartrate [Lopressor*] 50 mg PO BID 6AM 6PM #60 tab 10/12/17 Pantoprazole [Protonix Tab*] 40 mg PO DAILYAC #30 tab 10/12/17 Promethazine/Dextromethorphan [Promethazine-Dm Syrup] 5 ml PO Q4H PRN 03/17/18 Docosahexanoic AC/Epa [Fish Oil 1,000 MG*] 2,000 mg PO TID #90 cap 03/24/18 Gemfibrozil [Lopid*] 600 mg PO BID #60 tab 03/24/18 Patient Discharge Instructions: Please follow up with the primary care physician in 1 week. As discussed, please call your insurance to see which radiology services manager discovered by your insurance. He will need to make an appointment with an radiology services manager. It is very important that we treat the underlying high triglycerides to prevent further pancreatitis episodes, likely discussed. Please return to the emergency department for worsening symptoms Diet: GI soft, low-fat Activity: Ad shraddha Followup: Carlyle Camp MD [Primary Care Provider] - 1 Week (Call to schedule an appointment) Time spent managing pt's care (in minutes): 55
[2018-04-01 12:56] VITALS: BP 107/64; TEMP 97
== END 2018-04-01 13:15 | disposition home or self-care (01) | DRG 871 ==
LOC: ER 07:20 → ERHOLD 10:26 → 3RD-ICU 12:07 → 4TH 03-27 16:05
PROVIDERS: ADMIT Family Medicine; ATTEND Family Medicine
PROC: 02HV33Z Insertion of Infusion Device into Superior Vena Cava, Percutaneous Approach (ICD-10-PCS; 2018-03-26)
PROC: 3E0436Z Introduction of Nutritional Substance into Central Vein, Percutaneous Approach (ICD-10-PCS; principal; 2018-03-30)
DX: A41.9 Sepsis, unspecified organism (principal); K85.80 Other acute pancreatitis without necrosis or infection; E43 Unspecified severe protein-calorie malnutrition; E11.10 Type 2 diabetes mellitus with ketoacidosis without coma; G93.41 Metabolic encephalopathy; N17.9 Acute kidney failure, unspecified; E87.0 Hyperosmolality and hypernatremia; R46.89 Other symptoms and signs involving appearance and behavior; E11.65 Type 2 diabetes mellitus with hyperglycemia; E78.1 Pure hyperglyceridemia; I10 Essential (primary) hypertension; K21.9 Gastro-esophageal reflux disease without esophagitis; E86.0 Dehydration; E87.6 Hypokalemia; E83.42 Hypomagnesemia; E78.5 Hyperlipidemia, unspecified; E83.51 Hypocalcemia; Z68.33 Body mass index [BMI] 33.0-33.9, adult
CPT/HCPCS: 36415; 51702; 71045; 74176; 80048; 80053; 80076; 81003; 82010; 82805; 82962; 83605; 83690; 83735; 83880; 83930; 84100; 84132; 84145; 84478; 84484; 85025; 85610; 87040; 87086; 87088; 93005; 99285; C9113; G0008; J0696; J1170; J2405; J2543; J2550; J2765; J2997; J3010; J3475; J7030; Q2035

== ENCOUNTER 2022-04-21 08:05 | Inpatient (IN) | payer OTHER ==
--- OUTSIDE RECORDS SUMMARY | 2022-04-21 08:10 | XMS REPORT | Continuity of Care Document ---
:1985 Author Organization [facility] t Address [address] [place] [address] Care Team Providers Name Role Phone Dion Lehman MD Primary Care Physician [phone] DION LEHMAN Attending Clinician Unavailable BO CORDERO Attending Clinician Unavailable Compa Colindres OD Attending Clinician COMPA COLINDRES Attending Clinician Unavailable Doctor Unassigned, [place] Attending Clinician Unavailable Dion Lehman MD Attending Clinician PATRICIA URBINA Attending Clinician Unavailable PATRICIA URBINA Attending Clinician Unavailable Lab, Ang - Db Attending Clinician Unavailable Tim Marinelli MD Attending Clinician Morena Leggett MD Attending Clinician GUY CLEMENTS Attending Clinician Unavailable TIM MARINELLI Attending Clinician Unavailable Silvano DUNCAN, Paulette A Attending Clinician TOREYUNYARY PAULETTE A Attending Clinician Unavailable ALLEN KAYY Attending Clinician Unavailable Allen Patricia GREENsra Attending Clinician Payers Payer Name Policy Type Policy Number Effective Date Expiration Date [place]aquelin [place] [id number] 2021 [employer]EE[employer] 00:00:00 Problems Condition Condition Condition Status Onset Resolution Last Treating Co mments Source Name Details Category Date Date Treatment Clinician Date Pancreatit Pancreatit Disease Active 2019-0 U nivers is is 7-12 ity of 00:00: [place] 00 Medical Branch Type 2 Type 2 Disease Active Univers diabetes diabetes 830 ity of mellitus mellitus 00:00: without 00 Medical complicati complicati Br anch on on Essential Essential Disease Active Uni vers hypertensi hypertensi 30 it y of on on 00:00: [place] 00 Medical Branch Hyperlipid Hyperlipid Disease Active U akbarisabella emia emia 8 ity of 00:00: [place] 00 [facility] Allergies, Adverse Reactions, Alerts Allergy Allergy Status Severity Reaction(s) Onset Inactive Treating Comm ents Source Name Type Date Date Clinician NO KNOWN Drug Active Univers ALLERGIE Class ity of S [facility] Social History Social Habit Start Date Stop Date Quantity Comments Source Exposure to 2022-02-01 2022-02-11 Not sure [facility] SARS-CoV-2 00:00:00 14:10:00 [facility] (event) [place] Alcohol intake 2022-02-11 2022-02-11 0 /d University 00:00:00 00:00:00 [facility] Tobacco use and 2015-11-14 2015-11-14 Smokeless tobacco Un iversity of exposure 00:00:00 00:00:00 non-user [facility] Sex Assigned At [birth year] Universit y of 00:00:00 00:00:00 [facility] Smoking Status Start Date Stop Date Source Never smoked tobacco [facility] Medications Ordered Filled Start Stop Current Ordering Indication Dosage Frequency Signature Comments Components Source Medication Medication Date Date Medication? Clinician (SIG) Name Name ATORSOFIA 2021-03 Yes [id number] TAKE 1 Univers N 20 mg 1-17 TABLET BY ity of tablet 00:00: MOUTH 00 EVERYDAY Medical AT BEDTIME Branch [facility]-03 Yes [id number] TAKE 1 Univers N 20 mg 1-17 TABLET BY ity of tablet 00:00: MOUTH EVERYDAY Medical AT BEDTIME [place] ATORVASTA 2021-03 Yes [id number] TAKE 1 Univers N 20 mg 1-17 TABLET BY ity of tablet 00:00: MOUTH EVERYDAY Medical AT BEDTIME [place] [facility] 2021-03 Yes [id number] TAKE 1 Univers N 20 mg 1-17 TABLET BY ity of tablet 00:00: MOUTH [place] 00 EVERYDAY Medical AT BEDTIME [facility] LISINOPRIL 2021-03 Yes [id number] TAKE 1 Univers 5 mg tablet 1-16 TABLET BY ity of 00:00: MOUTH [place] 00 EVERY DAY Medical IN THE [facility] MORNING LISINOPRIL 2021-03 Yes [id number] TAKE 1 Univers 5 mg tablet 1-16 TABLET BY ity of 00:00: MOUTH [place] 00 EVERY DAY Medical IN THE [facility] LISINOPRIL 2021-03 Yes [id number] TAKE 1 Univers 5 mg tablet 1-16 TABLET BY ity of 00:00: MOUTH [place] 00 EVERY DAY Medical IN THE [facility] LISINOPRIL 2021-03 Yes [id number] TAKE 1 Univers 5 mg tablet 1-16 TABLET BY ity of 00:00: MOUTH [place] 00 EVERY DAY Medical IN THE [facility] LISINOPRIL 2021-03 Yes [id number] TAKE 1 Univers 5 mg tablet 1-16 TABLET BY ity of 00:00: MOUTH [place] 00 EVERY DAY Medical IN THE [facility] metformin 2021-03- No 500mg Take 500 Un nicole ER 500 mg 0-01 10-01 mg by ity of 24 hr 23:00: 00:00 mouth in [place] tablet 49 :[address] [facility] and 500 mg in the evening. Take with meals. metformin 2021-03- No 500mg Take 500 Un nicole ER 500 mg 0-01 10-01 mg by ity of 24 hr 23:00: 00:00 mouth in [place] tablet 49 :[address] [facility] and 500 mg in the evening. Take with meals. Insulin 2021-03 Yes [id number] 35U inject 35 Univers Detemir 0-01 Units ity of (LEVEMIR 00:00: under the [employer] FLEXTOUCH 00 skin in Medical U-100 [facility] INSULN) 100 morning unit/mL (3 and 35 mL) Units in injection the evening. metformin 2021-03 Yes [id number] 1000mg Take 2 Univers ER 500 mg 0-01 tablets by ity of 24 hr 00:00: mouth in [place] tablet [address] [facility] and 2 tablets in the evening. Take with meals. Insulin 2021-03 Yes [id number] 35U inject 35 Univers Detemir 0-01 Units ity of (LEVEMIR 00:00: under the [employer] FLEXTOUCH 00 skin in Medical [facility] the Branch INSULN) 100 morning unit/mL (3 and 35 mL) Units in injection the evening. metformin 2021-03 Yes [id number] 1000mg Take 2 Univers ER 500 mg 0-01 tablets by ity of 24 hr 00:00: mouth in [place] tablet 00 the Medical morning Branch and 2 tablets in the evening. Take with meals. Insulin 2021-03 Yes [id number] 35U inject 35 Univers Detemir 0-01 Units ity of ([place]EM[place] 00:[place] skin [place] Medical [facility] the Branch INSULN) 100 morning unit/mL (3 and 35 mL) Units in injection the evening. metformin 2021-03 Yes [id number] 1000mg Take 2 Univers ER 500 mg 0-01 tablets by ity of 24 hr 00:00: mouth in [place] tablet 00 the [facility] morning Branch and 2 tablets in the evening. Take with meals. Insulin 2021-03 Yes [id number] 35U inject 35 Univers Detemir 0-01 Units ity of ([place]EM[place] 00:00: [place] skin in [facility] the Branch INSULN) 100 morning unit/mL (3 and 35 mL) Units in injection the evening. metformin 2021-03 Yes [id number] 1000mg Take 2 Univers ER 500 mg 0-01 tablets by ity of 24 hr 00:00: mouth in [place] tablet 00 the [facility] Branch and 2 tablets in the evening. Take with meals. Insulin 2021-03 Yes [id number] 35U inject 35 Univers Detemir 0-01 Units ity of (LEVEMIR 00:00: [place] skin [place] [facility] the Branch INSULN) 100 morning unit/mL (3 and 35 mL) Units in injection the evening. metformin 2021-03 Yes [id number] 1000mg Take 2 Univers ER 500 mg 0-01 tablets by ity of 24 hr 00:00: mouth in [place] tablet 00 the [facility] morning Branch and 2 tablets in the evening. Take with meals. Insulin 2021-03 Yes [id number] 35U inject 35 Univers Detemir 0-01 Units ity of (LEVEMIR 00:00: [place]LE[place] skin in Medical U-100 the Branch INSULN) 100 morning unit/mL (3 and 35 mL) Units in injection the evening. metformin 2021-03 Yes [id number] 1000mg Take 2 Univers ER 500 mg 0-01 tablets by ity of 24 hr 00:00: mouth in [place] tablet 00 the Medical morning Branch and 2 tablets in the evening. Take with meals. Insulin 2021-03 Yes [id number] 35U inject 35 Univers Detemir 0-01 Units ity of (LEVEM[place] 00:00: [place]LE[place] skin in Medical U-100 the Branch INSULN) 100 morning unit/mL (3 and 35 mL) Units in injection the evening. metformin 2021-03 Yes [id number] 1000mg Take 2 Univers ER 500 mg 0-01 tablets by ity of 24 hr 00:00: mouth in [place] tablet 00 the Medical morning Branch and 2 tablets in the evening. Take with meals. empaglifloz 2021-0 Yes [id number] 10mg Take 1 Univers in 9-26 tablet by ity of (JARDIANCE) 00:00: mouth in [place] 10 mg 00 the Medical morning. Branch empaglifloz 2021-0 Yes [id number] 10mg Take 1 Univers in 9-26 tablet by ity of (JARDIANCE) 00:00: mouth in [place] 10 mg 00 the Medical morning. Branch empaglifloz 2-0 Yes [id number] 10mg Take 1 Univers in 9-26 tablet by ity of (JARDIANCE) 00:00: mouth in [place] 10 mg 00 the Medical morning. Branch empaglifloz 2-0 Yes [id number] 10mg Take 1 Univers in 9-26 tablet by ity of (JARDIANCE) 00:00: mouth in [place] 10 mg 00 the Medical morning. Branch empaglifloz 2-0 Yes [id number] 10mg Take 1 Univers in 9-26 tablet by ity of (JARDIANCE) 00:00: mouth in [place] 10 mg 00 the Medical morning. Branch empaglifloz 2-0 Yes [id number] 10mg Take 1 Univers in 9-26 tablet by ity of (JARDIANCE) 00:00: mouth in [place] 10 mg 00 the Medical morning. Branch empaglifloz 2022-0 Yes [id number] 10mg Take 1 Univers in 12-10 tablet by ity of (JARDIANCE) 00:00: mouth in [place] 10 mg 00 the Medical morning. Branch Insulin 2021-0 Yes [id number] Use as Uni vers [place], 11-09 directed ity of Disposable, 00:00: [place] (PEN 00 Medical NEEDLE) 31 Branch gauge x 5/16" Ndle Insulin 2021-0 Yes [id number] Use as Uni vers [place], 11-09 directed ity of Disposable, 00:00: [place] (PEN 00 Medical NEEDLE) 31 Branch gauge x 5/16" Ndle Insulin 2021-0 Yes [id number] Use as Uni vers [place], 11-09 directed ity of Disposable, 00:00: [place] (PEN 00 Medical NEEDLE) 31 Branch gauge x 5/16" Ndle Insulin 2021-0 Yes [id number] Use as Uni vers [place], 11-09 directed ity of Disposable, 00:00: [place] (PEN 00 Medical NEEDLE) 31 Branch gauge x 5/16" Ndle Insulin 2021-0 Yes [id number] Use as Uni vers [place], 11-09 directed ity of Disposable, 00:00: [place] (PEN 00 Medical NEEDLE) 31 Branch gauge x 5/16" Ndle Insulin 2021-0 Yes [id number] Use as Uni vers [place], 11-09 directed ity of Disposable, 00:00: [place] (PEN 00 Medical NEEDLE) 31 Branch gauge x 5/16" Ndle Insulin 2021-0 Yes [id number] Use as Uni vers [place], 11-09 directed ity of Disposable, 00:00: [place] (PEN 00 Medical NEEDLE) 31 Branch gauge x 5/16" Ndle Insulin 2021-0 Yes [id number] Use as Uni vers [place], 11-09 directed ity of Disposable, 00:00: [place] (PEN 00 Medical NEEDLE) 31 Branch gauge x 5/16" Ndle metformin 2021-0 Yes 500mg Take 500 Uni vers ER 500 mg 8-22 mg by ity of 24 hr 08:39: mouth in [place] tablet 28 the Medical morning Branch and 500 mg in the evening. Take with meals. metformin 2021-0 Yes 500mg Take 500 Uni vers ER 500 mg 8-22 mg by ity of 24 hr 08:39: mouth in [place] tablet 28 the Medical morning Branch and 500 mg in the evening. Take with meals. metformin 2021-0 Yes 500mg Take 500 Uni vers ER 500 mg 8-22 mg by ity of 24 hr 08:39: mouth in [place] tablet 28 the Medical morning Branch and 500 mg in the evening. Take with meals. metformin 2021-0 Yes 500mg Take 500 Uni vers ER 500 mg 8-22 mg by ity of 24 hr 08:39: mouth in [place] tablet 28 the Medical morning Branch and 500 mg in the evening. Take with meals. metformin 2021-0 Yes 500mg Take 500 Uni vers ER 500 mg 8-22 mg by ity of 24 hr 08:39: mouth in [place] tablet 28 the Medical morning Branch and 500 mg in the evening. Take with meals. metformin 2021-0 Yes 500mg Take 500 Uni vers ER 500 mg 8-22 mg by ity of 24 hr 08:39: mouth in [place] tablet 28 the Medical morning Branch and 500 mg in the evening. Take with meals. metoprolol 0 Yes [id number] 50mg Take 1 U nivers tartrate 50 8-22 tablet by ity of mg tablet 00:00: mouth in [facility] 00 the [facility] morning Branch and 1 tablet in the evening. Insulin Yes [id number] 60U inject 60 Univers Detemir 8-22 Units ity of (LEVEMIR 00:00: under the [facility] FLEXTOUCH 00 skin in [facility] U-100 the Branch INSULN) 100 morning. unit/mL (3 mL) injection Fenofibrate 0 Yes [id number] 160mg Take 1 Univers 160 mg 8-22 tablet by ity of tablet 00:00: mouth in [place] 00 the morning. Branch atorvastati Yes [id number] 20mg Take 1 Univers n 20 mg 8-22 tablet by ity of tablet 00:00: mouth at [place] 00 bedtime. Medical Branch lisinopriL 0 Yes [id number] 5mg Take 1 Univers 5 mg tablet 8-22 tablet by ity of 00:00: mouth in [place] 00 the morning. Branch pantoprazol 0 Yes [id number] 40mg Take 1 Univers e 40 mg EC 8-22 tablet by ity of tablet 00:00: mouth in [place] 00 the morning. Branch insulin 2021-0 Yes [id number] 18U inject 18 Univers aspart 8-22 Units ity of U-100 00:00: under the [place] (NOVOLOG 00 skin in Medical FLEXPEN the Branch U-100 morning INSULIN) and 18 100 unit/mL Units at (3 mL) noon and injection 18 Units in the evening. inject before meals. insulin Yes [id number] 18U inject 18 Univers aspart 8-22 Units ity of U-100 00:00: under the [place] (NOVOLOG 00 skin in [facility] FLEXPEN the Branch U-100 morning INSULIN) and 18 100 unit/mL Units at (3 mL) noon and injection 18 Units in the evening. inject before meals. metoprolol Yes [id number] 50mg Take 1 U nivers tartrate 50 8-22 tablet by ity of mg tablet 00:00: mouth in [place] [address] the morning Branch and 1 tablet in the evening. Insulin Yes [id number] 60U inject 60 Univers Detemir 8-22 Units ity of (LEVEMIR 00:00: under the [facility] FLEXTOUCH 00 skin in [facility] U-100 the Branch INSULN) 100 morning. unit/mL (3 mL) injection Fenofibrate Yes [id number] 160mg Take 1 Univers 160 mg 8-22 tablet by ity of tablet 00:00: mouth in [place] the morning. Branch atorvastati 0 Yes [id number] 20mg Take 1 Univers n 20 mg 8-22 tablet by ity of tablet 00:00: mouth at [place] [address] bedtime. Medical Branch lisinopriL 0 Yes [id number] 5mg Take 1 Univers 5 mg tablet 8-22 tablet by ity of 00:00: mouth in [place] the morning. Branch pantoprazol Yes [id number] 40mg Take 1 Univers e 40 mg EC 8-22 tablet by ity of tablet 00:00: mouth in [place] the morning. Branch insulin Yes [id number] 18U inject 18 Univers aspart 8-22 Units ity of U-100 00:00: under the [place] (NOVOLOG 00 skin in [facility] U-100 morning INSULIN) and 18 100 unit/mL Units at (3 mL) noon and injection 18 Units in the evening. inject before meals. metoprolol 2021-0 Yes [id number] 50mg Take 1 U nivers tartrate 50 8-22 tablet by ity of mg tablet 00:00: mouth in [facility] s 00 the Medical morning Branch and 1 tablet in the evening. Fenofibrate 2021-0 Yes [id number] 160mg Take 1 Univers 160 mg 8-22 tablet by ity of tablet 00:00: mouth in [place] 00 the Medical morning. Branch atorvastati 2021-0 Yes [id number] 20mg Take 1 Univers n 20 mg 8-22 tablet by ity of tablet 00:00: mouth at [place] 00 bedtime. Medical Branch lisinopriL 2021-0 Yes [id number] 5mg Take 1 Univers 5 mg tablet 8-22 tablet by ity of 00:00: mouth in [place] 00 the Medical morning. Branch pantoprazol 2021-0 Yes [id number] 40mg Take 1 Univers e 40 mg EC 8-22 tablet by ity of tablet 00:00: mouth in [place] 00 the Medical morning. Branch insulin 0 Yes [id number] 18U inject 18 Univers aspart 8-22 Units ity of U-100 00:00: under the [place] (NOVOLOG 00 skin in Medical FLEXPEN the Branch U-100 morning INSULIN) and 18 100 unit/mL Units at (3 mL) noon and injection 18 Units in the evening. inject before meals. metoprolol 0 Yes [id number] 50mg Take 1 U nivers tartrate 50 8-22 tablet by ity of mg tablet 00:00: mouth in [facility] 00 the Medical morning Branch and 1 tablet in the evening. Fenofibrate 2021-0 Yes [id number] 160mg Take 1 Univers 160 mg 8-22 tablet by ity of tablet 00:00: mouth in [place] 00 the Medical morning. Branch atorvastati 2021-0 Yes [id number] 20mg Take 1 Univers n 20 mg 8-22 tablet by ity of tablet 00:00: mouth at [place] 00 bedtime. Medical Branch lisinopriL 2021-0 Yes [id number] 5mg Take 1 Univers 5 mg tablet 8-22 tablet by ity of 00:00: mouth in [place] 00 the Medical morning. Branch pantoprazol 2021-0 Yes [id number] 40mg Take 1 Univers e 40 mg EC 8-22 tablet by ity of tablet 00:00: mouth in [place] 00 the Medical morning. Branch insulin 0 Yes [id number] 18U inject 18 Univers aspart 8-22 Units ity of U-100 00:00: under the [place] (NOVOLOG 00 skin in Medical FLEXPEN the Branch U-100 morning INSULIN) and 18 100 unit/mL Units at (3 mL) noon and injection 18 Units in the evening. inject before meals. metoprolol 2021-0 Yes [id number] 50mg Take 1 U nivers tartrate 50 8-22 tablet by ity of mg tablet 00:00: [facility] Branch and 1 tablet in the evening. Fenofibrate 2021-0 Yes [id number] 160mg Take 1 Univers 160 mg 8-22 tablet by ity of tablet 00:00: mouth in [place] 00 the morning. Branch atorvastati 2021-0 Yes [id number] 20mg Take 1 Univers n 20 mg 8-22 tablet by ity of tablet 00:00: mouth at [place] 00 bedtime. Medical Branch pantoprazol 2021-0 Yes [id number] 40mg Take 1 Univers e 40 mg EC 8-22 tablet by ity of tablet 00:00: mouth in [place] the morning. Branch insulin 2021-0 Yes [id number] 18U inject 18 Univers aspart 8-22 Units ity of U-100 00:00: under the [place] (NOVOLOG 00 skin in Medical FLEXPEN the Branch U-100 morning INSULIN) and 18 100 unit/mL Units at (3 mL) noon and injection 18 Units in the evening. inject before meals. metoprolol 2021-0 Yes [id number] 50mg Take 1 U nivers tartrate 50 8-22 tablet by ity of mg tablet 00:00: mouth in [facility] s 00 the Medical morning Branch and 1 tablet in the evening. Fenofibrate 2021-0 Yes [id number] 160mg Take 1 Univers 160 mg 8-22 tablet by ity of tablet 00:00: mouth in [place] 00 the Medical morning. Branch pantoprazol 2021-0 Yes [id number] 40mg Take 1 Univers e 40 mg EC 8-22 tablet by ity of tablet 00:00: mouth in [place] 00 the Medical morning. Branch insulin 2021-0 Yes [id number] 18U inject 18 Univers aspart 8-22 Units ity of U-100 00:00: under the [place] (NOVOLOG 00 skin in [facility] the [place] U-100 morning INSULIN) and 18 100 unit/mL Units at (3 mL) noon and injection 18 Units in the evening. inject before meals. metoprolol 2021-0 Yes [id number] 50mg Take 1 U nivers tartrate 50 8-22 tablet by ity of mg tablet 00:00: mouth in [address] Branch and 1 tablet in the evening. Fenofibrate 2021-0 Yes [id number] 160mg Take 1 Univers 160 mg 8-22 tablet by ity of tablet 00:00: mouth in [place] the morning. Branch pantoprazol 0 Yes [id number] 40mg Take 1 Univers e 40 mg EC 8-22 tablet by ity of tablet 00:00: mouth in [place] the morning. Branch insulin 2021-0 Yes [id number] 18U inject 18 Univers aspart 8-22 Units ity of U-100 00:00: under the [place] (NOVOLOG 00 skin in [facility] the [place] U-100 morning INSULIN) and 18 100 unit/mL Units at (3 mL) noon and injection 18 Units in the evening. inject before meals. metoprolol 2021-0 Yes [id number] 50mg Take 1 U nivers tartrate 50 8-22 tablet by ity of mg tablet 00:00: mouth in [address] and 1 tablet in the evening. Fenofibrate 2021-0 Yes [id number] 160mg Take 1 Univers 160 mg 8-22 tablet by ity of tablet 00:00: mouth in [place] the morning. Branch pantoprazol 2021-0 Yes [id number] 40mg Take 1 Univers e 40 mg EC 8-22 tablet by ity of tablet 00:00: mouth in [place] the morning. Branch insulin 2021-0 Yes [id number] 18U inject 18 Univers aspart 8-22 Units ity of U-100 00:00: under the [place] (NOVOLOG 00 skin in [facility] the [place] U-100 morning INSULIN) and 18 100 unit/mL Units at (3 mL) noon and injection 18 Units in the evening. inject before meals. metoprolol 2021-0 Yes [id number] 50mg Take 1 U nivers tartrate 50 8-22 tablet by ity of mg tablet 00:00: mouth in [facility] morning Branch and 1 tablet in the evening. Fenofibrate Yes [id number] 160mg Take 1 Univers 160 mg 8-22 tablet by ity of tablet 00:00: mouth in [place] 00 the Medical morning. Branch pantoprazol Yes [id number] 40mg Take 1 Univers e 40 mg EC 8-22 tablet by ity of tablet 00:00: mouth in [place] 00 the Medical morning. Branch atorvastati 2021- No [id number] 20mg Take 1 Univers n 20 mg 8-22 11-17 tablet by ity of tablet 00:00: 00:00 mouth at [place] 00 :00 bedtime. Medical Branch lisinopriL 2021- No [id number] 5mg Take 1 Univers 5 mg tablet 8- 11-16 tablet by it y of 00:00: 00:00 mouth in [place] 00 :00 the Medical morning. Branch Insulin 2021- No [id number] 60U inject 60 Univers Detemir 8 10- Units ity of (LEVEMIR 00:00: 00:00 under the [place] FLEXTOUCH 00 :00 skin in Medical U-100 the Branch INSULN) 100 morning. unit/mL (3 mL) injection Insulin 2021- No [id number] 60U inject 60 Univers Detemir 8 10-01 Units ity of (LEVEMIR 00:00: 00:00 under the [place] FLEXTOUCH 00 :00 skin in Medical U-100 the Branch INSULN) 100 morning. unit/mL (3 mL) injection ATORVASTATI Yes [id number] TAKE 1 Univers N 20 mg 9-13 TABLET BY ity of tablet 00:00: MOUTH [place] 00 EVERYDAY Medical AT BEDTIME Branch LISINOPRIL Yes [id number] TAKE 1 Univers 5 mg tablet 9-13 TABLET BY ity of 00:00: MOUTH [place] 00 EVERY DAY Medical Branch PANTOPRAZOL Yes [id number] TAKE 1 Univers E 40 mg EC 9-13 TABLET BY ity of tablet 00:00: MOUTH [place] 00 EVERY DAY Medical Branch ATORVASTATI Yes [id number] TAKE 1 Univers N 20 mg 9-13 TABLET BY ity of tablet 00:00: MOUTH [place] 00 EVERYDAY Medical AT BEDTIME Branch LISINOPRIL Yes [id number] TAKE 1 Univers 5 mg tablet 9-13 TABLET BY ity of 00:00: MOUTH [place] 00 EVERY DAY Medical Branch PANTOPRAZOL Yes [id number] TAKE 1 Univers E 40 mg EC 9-13 TABLET BY ity of tablet 00:00: MOUTH [place] 00 EVERY DAY Medical Branch ATORVASTATI Yes [id number] TAKE 1 Univers N 20 mg 9-13 TABLET BY ity of tablet 00:00: MOUTH [place] 00 EVERYDAY Medical AT BEDTIME Branch LISINOPRIL Yes [id number] TAKE 1 Univers 5 mg tablet 9-13 TABLET BY ity of 00:00: MOUTH [place] 00 EVERY DAY Medical Branch PANTOPRAZOL Yes [id number] TAKE 1 Univers E 40 mg EC 9-13 TABLET BY ity of tablet 00:00: MOUTH [place] 00 EVERY DAY Medical Branch ATORVASTATI 0 2022- No [id number] TAKE 1 Univers N 20 mg 9-13 -22 TABLET BY ity of tablet 00:00: 00:00 MOUTH [place] 00 :00 EVERYDAY Medical AT BEDTIME Branch LISINOPRIL 0 202- No [id number] TAKE 1 Univers 5 mg tablet 9-13 -22 TABLET BY it y of 00:00: 00:00 MOUTH [place] 00 :00 EVERY DAY Medical Branch PANTOPRAZOL 0 2022- No [id number] TAKE 1 Univers E 40 mg EC 9-13 -22 TABLET BY ity of tablet 00:00: 00:00 MOUTH [place] 00 :00 EVERY DAY Medical Branch insulin 2019-03 Yes 18U inject 18 Unive rs aspart 0-19 Units ity of U-100 00:00: under the [place] (NOVOLOG 00 skin 3 Medical FLEXPEN (three) Branch U-100 times INSULIN) daily 100 unit/mL before (3 mL) meals. injection insulin 2019-03 Yes 18U inject 18 Unive rs aspart 0-19 Units ity of U-100 00:00: under the [place] (NOVOLOG 00 skin 3 Medical FLEXPEN (three) Branch U-100 times INSULIN) daily 100 unit/mL before (3 mL) meals. injection insulin 2019-03 Yes 18U inject 18 Unive rs aspart 0-19 Units ity of U-100 00:00: under the [place] (NOVOLOG 00 skin 3 Medical FLEXPEN (three) Branch U-100 times INSULIN) daily 100 unit/mL before (3 mL) meals. injection insulin 2019-03 Yes 18U inject 18 Unive rs aspart 0-19 Units ity of U-100 00:00: under the [place] (NOVOLOG 00 skin 3 Medical FLEXPEN (three) Branch U-100 times INSULIN) daily 100 unit/mL before (3 mL) meals. injection insulin 2019-03- No 18U inject 18 Univ ers aspart 0-19 08-22 Units ity of U-100 00:00: 00:00 under the [place] (NOVOLOG 00 :00 skin 3 Medical FLEXPEN (three) Branch U-100 times INSULIN) daily 100 unit/mL before (3 mL) meals. injection Insulin 2019-03 Yes [id number] Use as Uni vers [place], 0-09 directed ity of Disposable, 00:00: [place] (PEN 00 Medical NEEDLE) 31 Branch gauge x 5/16" Ndle Insulin 2019-03 Yes [id number] Use as Uni vers [place], 0-09 directed ity of Disposable, 00:00: [place] (PEN 00 Medical NEEDLE) 31 Branch gauge x 5/16" Ndle Insulin 2019-03 Yes [id number] Use as Uni vers [place], 0-09 directed ity of Disposable, 00:00: [place] (PEN 00 Medical NEEDLE) 31 Branch gauge x 5/16" Ndle Insulin 2019-03 Yes [id number] Use as Uni vers Johnston, 0-09 directed ity of Disposable, 00:00: [place] (PEN 00 Medical NEEDLE) 31 Branch gauge x 5/16" Ndle Insulin 2019-03 Yes [id number] Use as Uni vers [place], 0-09 directed ity of Disposable, 00:00: [place] (PEN 00 Medical NEEDLE) 31 Branch gauge x 5/16" Ndle Insulin 2019-03- No [id number] Use as Un nicole Johnston, 0-09 08-22 directed ity of Disposable, 00:00: 00:00 [place] (PEN 00 :00 Medical NEEDLE) 31 Branch gauge x 5/16" Ndle metoprolol Yes [id number] 50mg Take 1 U nivers tartrate 50 9-11 tablet by ity of mg tablet 00:00: mouth 2 (two) Medical times Branch daily. Insulin 2020-0 Yes [id number] 60U inject 60 Univers Detemir 9-11 Units ity of (LEVEM[place] 00:00[place] FLE[place] 00 skin Medical U-100 daily. Branch INSULN) 100 unit/mL (3 mL) injection Fenofibrate 2020-0 Yes [id number] 160mg Take 1 Univers 160 mg 9-11 tablet by ity of tablet 00:00: mouth [place] 00 daily. Medical Branch metoprolol 2020-0 Yes [id number] 50mg Take 1 U nivers tartrate 50 9-11 tablet by ity of mg tablet 00:00: mouth 2 (two) Medical times Branch daily. Insulin 2020-0 Yes [id number] 60U inject 60 Univers Detemir 9-11 Units ity of (LEVEMIR 00:00: [facility] F[facility] skin Medical U-100 daily. Branch INSULN) 100 unit/mL (3 mL) injection Fenofibrate 2020-0 Yes [id number] 160mg Take 1 Univers 160 mg 9-11 tablet by ity of tablet 00:00: mouth 00 daily. Medical Branch metoprolol 2020-0 Yes [id number] 50mg Take 1 U nivers tartrate 50 9-11 tablet by ity of mg tablet 00:00: mouth 2 (two) Medical times Branch daily. Insulin 2020-0 Yes [id number] 60U inject 60 Univers Detemir 9-11 Units ity of (LEVEMIR 00:00: under the [facility] FLEXTOUCH 00 skin Medical U-100 daily. Branch INSULN) 100 unit/mL (3 mL) injection Fenofibrate 2020-0 Yes [id number] 160mg Take 1 Univers 160 mg 9-11 tablet by ity of tablet 00:00: mouth 00 daily. Medical Branch metoprolol 2020-0 2021- No [id number] 50mg Take 1 Univers tartrate 50 9-11 08-22 tablet by it y of mg tablet 00:00: 00:00 mouth 2 [place] :[place] (two) Medical times Branch daily. Insulin 2020-0 2021- No [id number] 60U inject 60 Univers Detemir 9-11 08-22 Units ity of (LEVEMIR 00:00: 00:00 under the [place] as FLEXTOUCH 00 :00 skin Medical U-100 daily. Branch INSULN) 100 unit/mL (3 mL) injection Fenofibrate 2021- No [id number] 160mg Take 1 Univers 160 mg 9- 08-22 tablet by ity of tablet 00:00: 00:00 mouth [place] 00 :00 daily. Medical Branch [place]-3-DHA 2019-0 Yes 2000mg Take 2,000 Univers -EPA-Fish 7-12 mg by ity of Oil (FISH 10:16: mouth 3 [place] OIL) 1,000 38 (three) Medica l mg (120 times Branch mg-180 mg) daily. Cap [place]-3-DHA 2019-0 Yes 2000mg Take 2,000 Univers -EPA-Fish 7-12 mg by ity of Oil (FISH 10:16: mouth 3 [place] OIL) 1,000 38 (three) Medica l mg (120 times Branch mg-180 mg) daily. Cap [place]-3-DHA 2019-0 Yes 2000mg Take 2,000 Univers -EPA-Fish 7-12 mg by ity of Oil (FISH 10:16: mouth 3 [place] OIL) 1,000 38 (three) Medica l mg (120 times Branch mg-180 mg) daily. Cap [place]-3-DHA 2019-0 Yes 2000mg Take 2,000 Univers -EPA-Fish 7-12 mg by ity of Oil (FISH 10:16: mouth 3 [place] OIL) 1,000 38 (three) Medica l mg (120 times Branch mg-180 mg) daily. Cap [place]-3-DHA 2019-0 Yes 2000mg Take 2,000 Univers -EPA-Fish 7-12 mg by ity of Oil (FISH 10:16: mouth 3 [place] OIL) 1,000 38 (three) Medica l mg (120 times Branch mg-180 mg) daily. Cap [place]-3-DHA 2019-0 Yes 2000mg Take 2,000 Univers -EPA-Fish 7-12 mg by ity of Oil (FISH 10:16: mouth 3 [place] OIL) 1,000 38 (three) Medica l mg (120 times Branch mg-180 mg) daily. Cap [place]-3-DHA 2019-0 Yes 2000mg Take 2,000 Univers -EPA-Fish 7-12 mg by ity of Oil (FISH 10:16: mouth 3 [place] OIL) 1,000 38 (three) Medica l mg (120 times Branch mg-180 mg) daily. Cap [place]-3-DHA 2019-0 Yes 2000mg Take 2,000 Univers -EPA-Fish 7-12 mg by ity of Oil (FISH 10:16: mouth 3 [place] OIL) 1,000 38 (three) Medica l mg (120 times Branch mg-180 mg) daily. Cap [place]-3-DHA 2019-0 Yes 2000mg Take 2,000 Univers -EPA-Fish 7-12 mg by ity of Oil (FISH 10:16: mouth 3 [place] OIL) 1,000 38 (three) Medica l mg (120 times Branch mg-180 mg) daily. Cap [place]-3-DHA 2019-0 Yes 2000mg Take 2,000 Univers -EPA-Fish 7-12 mg by ity of Oil (FISH 10:16: mouth 3 [place] OIL) 1,000 38 (three) Medica l mg (120 times Branch mg-180 mg) daily. Cap [place]-3-DHA 2019-0 Yes 2000mg Take 2,000 Univers -EPA-Fish 7-12 mg by ity of Oil (FISH 10:16: mouth 3 [place] OIL) 1,000 38 (three) Medica l mg (120 times Branch mg-180 mg) daily. Cap [place]-3-DHA 2019-0 Yes 2000mg Take 2,000 Univers -EPA-Fish 7-12 mg by ity of Oil (FISH 10:16: mouth 3 [place] OIL) 1,000 38 (three) Medica l mg (120 times Branch mg-180 mg) daily. Cap [place]-3-DHA 2019-0 Yes 2000mg Take 2,000 Univers -EPA-Fish 7-12 mg by ity of Oil (FISH 10:16: mouth 3 [place] OIL) 1,000 38 (three) Medica l mg (120 times Branch mg-180 mg) daily. Cap Immunizations Ordered Filled Immunization Date Status Comments [facility] e Immunization Name Name SARS-COV-2 COVID-19 2020-06-21 Completed Unive rsity of MODERNA VACCINE 00:00:00 [place] Med ical Branch SARS-COV-2 COVID-19 2020-06-21 Completed Unive rsity of MODERNA VACCINE 00:00:00 [place] Med ical Branch SARS-COV-2 COVID-19 2020-06-21 Completed Unive rsity of MODERNA VACCINE 00:00:00 [place] Med ical Branch SARS-COV-2 COVID-19 2020-06-21 Completed Unive rsity of MODERNA VACCINE 00:00:00 [place] Med ical Branch SARS-COV-2 COVID-19 2020-06-21 Completed Unive rsity of MODERNA VACCINE 00:00:00 [place] Med ical Branch SARS-COV-2 COVID-19 2020-06-21 Completed Unive rsity of MODERNA VACCINE 00:00:00 [place] Med ical Branch SARS-COV-2 COVID-19 2020-06-21 Completed Unive rsity of MODERNA 12+ YRS 00:00:00 [place] Med ical VACCINE Branch SARS-COV-2 COVID-19 2020-06-21 Completed Unive rsity of MODERNA 12+ YRS 00:00:00 [place] Med ical VACCINE Branch SARS-COV-2 COVID-19 2020-06-21 Completed Unive rsity of MODERNA 12+ YRS 00:00:00 [place] Med ical VACCINE Branch SARS-COV-2 COVID-19 2020-06-21 Completed Unive rsity of MODERNA 12+ YRS 00:00:00 [place] Med ical VACCINE Branch SARS-COV-2 COVID-19 2020-06-21 Completed Unive rsity of MODERNA 12+ YRS 00:00:00 [place] Med ical VACCINE Branch SARS-COV-2 COVID-19 2020-06-21 Completed Unive rsity of MODERNA 12+ YRS 00:00:00 [place] Med ical VACCINE Branch SARS-COV-2 COVID-19 2020-06-21 Completed Unive rsity of MODERNA 12+ YRS 00:00:00 [place] Med ical VACCINE Branch SARS-COV-2 COVID-19 2020-05-24 Completed Unive rsity of MODERNA VACCINE 00:00:00 [place] Med ical Branch SARS-COV-2 COVID-19 2020-05-24 Completed Unive rsity of MODERNA VACCINE 00:00:00 [place] Med ical Branch SARS-COV-2 COVID-19 2020-05-24 Completed Unive rsity of MODERNA VACCINE 00:00:00 [place] Med ical Branch SARS-COV-2 COVID-19 2020-05-24 Completed Unive rsity of MODERNA VACCINE 00:00:00 [place] [facility] ical Branch SARS-COV-2 COVID-19 2020-05-24 Completed Unive rsity of MODERNA VACCINE 00:00:00 [place] [facility] ical Branch SARS-COV-2 COVID-19 2020-05-24 Completed Unive rsity of MODERNA VACCINE 00:00:00 [facility] [place] [facility] ical Branch SARS-COV-2 COVID-19 2020-05-24 Completed Unive rsity of MODERNA 12+ YRS 00:00:00 [place] [facility] ical VACCINE Branch SARS-COV-2 COVID-19 2020-05-24 Completed Unive rsity of MODERNA 12+ YRS 00:00:00 [facility] [place] [facility] ical VACCINE Branch SARS-COV-2 COVID-19 2020-05-24 Completed Unive rsity of MODERNA 12+ YRS 00:00:00 [facility] [place] [facility] ical VACCINE Branch SARS-COV-2 COVID-19 2020-05-24 Completed Unive rsity of MODERNA 12+ YRS 00:00:00 [facility] [place] [facility] ical VACCINE Branch SARS-COV-2 COVID-19 2020-05-24 Completed Unive rsity of MODERNA 12+ YRS 00:00:00 [facility] [place] [facility] ical VACCINE Branch SARS-COV-2 COVID-19 2020-05-24 Completed Unive rsity of MODERNA 12+ YRS 00:00:00 [facility] [place] [facility] ical VACCINE Branch SARS-COV-2 COVID-19 2020-05-24 Completed Unive rsity of MODERNA 12+ YRS 00:00:[address] [facility] VACCINE Branch Influenza Virus 2018-11-15 Completed Universit y of Vaccine 00:00:00 [facility] Influenza Virus 2018-11-15 Completed Universit y of Vaccine 00:00:00 [facility] Influenza Virus 2018-11-15 Completed Universit y of Vaccine 00:00:00 [facility] Influenza Virus 2018-11-15 Completed Universit y of Vaccine 00:00:00 [facility] Influenza Virus 2018-11-15 Completed Universit y of Vaccine 00:00:00 [facility] Influenza Virus 2018-11-15 Completed Universit y of Vaccine 00:00:00 [facility] Influenza Virus 2018-11-15 Completed Universit y of Vaccine 00:00:00 [facility] Influenza Virus 2018-11-15 Completed Universit y of Vaccine 00:00:00 [facility] Influenza Virus 2018-11-15 Completed Universit y of Vaccine 00:00:00 [facility] Influenza Virus 2018-11-15 Completed Universit y of Vaccine 00:00:00 [facility] Influenza Virus 2018-11-15 Completed Universit y of Vaccine 00:00:00 [facility] Influenza Virus 2018-11-15 Completed Universit y of Vaccine 00:00:00 [facility] Influenza Virus 2018-11-15 Completed Universit y of Vaccine 00:00:00 [facility] TDAP 2018-08-13 Completed University of 00:00:00 [facility] TDAP 2018-08-13 Completed University of 00:00:00 [facility] TDAP 2018-08-13 Completed University of 00:00:00 [facility] TDAP 2018-08-13 Completed University of 00:00:00 [facility] TDAP 2018-08-13 Completed University of 00:00:00 [facility] TDAP 2018-08-13 Completed University of 00:00:00 [facility] TDAP 2018-08-13 Completed University of 00:00:00 [facility] TDAP 2018-08-13 Completed University of 00:00:00 [facility] TDAP 2018-08-13 Completed University of 00:00:00 [facility] TDAP 2018-08-13 Completed University of 00:00:00 [facility] TDAP 2018-08-13 Completed University of 00:00:00 [facility] TDAP 2018-08-13 Completed University of 00:00:00 [facility] TDAP 2018-08-13 Completed University of 00:00:00 [facility] Vital Signs Vital Name Observation Time Observation Value Comments Source Body weight 2022-02-11 20:20:00 110.678 kg [facility] BMI 2022-02-11 20:20:00 34.03 kg/m2 [facility] Systolic blood 2021-12-10 21:28:00 152 mm[Hg] Univer sity of pressure [facility] Diastolic blood 2021-12-10 21:28:00 84 mm[Hg] Unive rsity of pressure [facility] Heart rate 2021-12-10 21:23:00 107 /min [facility] Body height 2021-12-10 21:23:00 180.3 cm Universi [facility] Body weight 2021-12-10 21:23:00 [facility] 2021-12-10 21:23:00 34.13 kg/m2 [facility] Oxygen saturation in 2021-12-10 21:23:00 97 /min [facility] Arterial blood [facility] Pulse oximetry Branch Systolic blood 2021-11-05 13:28:00 135 mm[Hg] Univer sity of pressure [facility] Diastolic blood 2021-11-05 13:28:00 84 mm[Hg] Unive rsity of [facility] Heart rate 2021-11-05 13:28:00 118 /min [facility] Body temperature 2021-11-05 13:28:00 36.83 Charissa [facility] height 2021-11-05 13:28:00 180.3 cm [facility] Body weight 2021-11-05 13:28:00 104.327 kg [facility] BMI 2021-11-05 13:28:00 32.08 kg/m2 [facility] Procedures Procedure Date / Time Performing Clinician Source Performed OPHTHALMOLOGY DIAGNOSTIC 2022-02-11 06:01:00 Doctor Unassigned, No [facility] TEST Name [facility] OU CIRRUS OCT OPTIC 2022-02-11 00:00:00 Compa Colindres [facility] [place] NERVE, BOTH EYES ([id number]) [facility] Encounters Start End Encounter Admission Attending Care Care Encounter Source Date/Time Date/Time Type Type Clinicians Facility Department ID 2022-05-09 2022-05-09 Outpatient Annie LEHMAN [facility] [id number] Univers 08:00:00 08:00:00 DION [facility] 2022-02-19 2022-02-19 Outpatient Annie CORDERO [facility] [id number] Univers 14:45:00 14:45:00 BO [facility] 2022-02-11 2022-02-11 Office Bernadine RUST 1.2.840.114 [id number] [facility] 14:45:00 15:00:00 Visit Compa MCKAY 350.1.13.10 ity of [place] 4.2.7.2.686 [place] [facility] [phone] [facility] PRIMARY & [facility] Branch SPECIALTY CARE 2022-02-11 2022-02-11 Outpatient R BERNADINE [facility] [id number] Univers 14:45:00 14:45:00 COMPA mercado of [facility] 2022-02-11 2022-02-11 Orders Doctor ALEX 1.2.840.114 [id number] Univers 00:00:00 00:00:00 Only Unassigned, KIERRA 350.1.13.10 ity of [place] [facility] [id number] [place] as [phone] [place] [address] Branch 2022-01-31 2022-01-31 [facility] [id number] Univers 00:00:00 00:00:00 [facility] 350.1.13.10 it y of [place] [id number] Leonid as SALLY?BLEA [phone] Dc christina[address] MEDICAL OFFICE BUILDING 2022-01-30 2022-01-30 [facility] 1.2.840.114 [id number] Univers 00:00:00 00:00:00 [facility] 350.1.13.10 it y of [place] 4.2.7.2.686 Leonid as SALLY?BLEA [id number] [address] MEDICAL OFFICE BUILDING 2021-12-10 2021-12-10 Outpatient R PATRICIA URBINA [facility] [id number] Univers 16:30:00 17:16:47 PATRICIA URBINA [facility] 2021-12-10 2021-12-10 Office Patricia Urbina RUST 1.2.840.114 [id number] Univers 16:30:00 17:16:47 Visit HEALTH 350.1.13.10 it y of [place] 4.2.7.2.686 Leonid as SALLY?BLEA [phone] [facility] [address] MEDICAL OFFICE BUILDING 2021-11-05 2021-11-05 [facility] 1.2.840.1 [id number] Univers 09:15:00 09:30:00 Visit Dominik Dion [facility] 350.1.13 .10 ity of [place] 4.2.7.2.686 Leonid as SALLY?BLEA [phone] Dc isabel RAMIREZ [address] MEDICAL OFFICE [facility] 2021-11-05 2021-11-05 [facility] [id number] Univers 09:15:00 09:15:00 DION y [facility] 2021-11-05 2021-11-05 Office [facility] 1.2.840.114 [id number] Univers 08:30:00 09:00:00 Visit [facility] 350.1.13.10 it y of [place] 4.2.7.2.686 Leonid as SALLY?BLEA [phone] Dc isabel LARRY 044 [facility] OFFICE [facility] 2021-11-05 2021-11-05 [facility] [id number] Univers 08:30:00 08:30:00 DION [facility] 2021-11-05 2021-11-05 Orders Doctor ALEX 1.2.840.114 [id number] Univers 00:00:00 00:00:00 Only Unassigned, KIERRA 350.1.13.10 ity of [place] [facility] 4.2.7.2.686 Leonid as [phone] [address] 2021-11-05 2021-11-05 Refill [facility] 1.2.840.114 [id number] Univers 00:00:00 00:00:00 [facility] 350.1.13.10 it y of [place] 4.2.7.2.686 Leonid as SALLY?BLEA [phone] Dc isabel RAMIREZ 044 [facility] OFFICE [facility] 2021-11-05 2021-11-05 Refill [facility] 1.2.616.164 [id number] Univers 00:00:00 00:00:00 Tim H HEALTH 350.1.13.10 it y of [place] 4.2.7.2.686 Leonid as SALLY?BLEA [phone] [address] MEDICAL OFFICE BUILDING 2021-11-05 2021-11-05 [facility] 1.2.840.114 [id number] Univers 00:00:00 00:00:00 Morena HEALTH 350.1.13.10 it y of [place] 4.2.7.2.686 Leonid as SALLY?BLEA [phone] [address] OFFICE BUILDING 2021-03-02 2021-03-02 [facility] 1.2.840.114 [id number] Univers 00:00:00 00:00:00 Dion HEALTH 350.1.13.10 it y of [place] 4.2.7.2.686 Leonid as PROFESSIO [phone] [address] ONE 2020-11-27 2020-11-27 [facility] 1.2.840.114 [id number] Univers 00:00:00 00:00:[address] [facility] 350.1.13.10 it y of [place] 4.2.7.2.686 Leonid as Professio [phone] [address] One 2020-11-25 2020-11-25 [facility] 1.2.840.114 [id number] Univers 00:00:00 00:00:[address] [facility] 350.1.13.10 it y of [place] 4.2.7.2.686 [place]id as Professio [phone] [address] One 2020-11-08 2020-11-08 [facility] 1.2.840.114 [id number] Univers 00:00:00 00:00:[address] [facility] 350.1.13.10 it y of [place] 4.2.7.2.686 [place] as Professio [phone] [address] One 2020-10-30 2020-10-30 Orders Doctor JOHNSON 1.2.840.114 [id number] Univers 00:00:00 00:00:00 Only Unassigned, KIERRA 350.1.13.10 ity of [place] [facility] 4.2.7.2.686 Leonid as [phone] [facility] [address] 2020-06-21 2020-06-21 Outpatient R TYREE, [facility] [id number] Univers 14:50:00 14:50:00 GUY ity of [facility] 2020-05-26 2020-05-26 Outpatient R DOMINIK, [facility] [id number] Univers 08:15:00 08:15:00 DION ity [facility] 2020-05-24 2020-05-24 Outpatient [facility] [id number] Univers 14:50:00 14:50:00 ity of [facility] 2020-04-28 2020-04-28 Outpatient R YVES, [facility] [id number] Univers 13:30:00 13:30:00 TIM [facility] 2020-01-18 2020-01-18 Office Silvano RUST [id number] Univers 13:32:29 14:07:57 Visit Paulette PRIMARY 350.1.13.10 ity of [place] 4.2.7.2.686 [place] [facility] [id number] Dc dical [address] 2020-01-18 2020-01-18 Outpatient R SILVANO [facility] [id number] Univers 13:45:00 13:45:00 PAULETTE ity [facility] 2020-01-03 2020-01-03 Telephone [facility] 1.2.840.114 [id number] Univers 00:00:00 00:00:00 Tim Vasquez 350.1.13.10 i ty of [place]2.7.2.686 [place] Profess[place] [phone] Dc dical nal 220 [facility] 2019-12-30 2019-12-30 Orders Doctor JOHNSON 1.2.840.114 [id number] Univers 00:00:00 00:00:00 Only Unassigned, KIERRA 350.1.13.10 ity of [place] [facility] 4.2.7.2.686 Leonid as [phone] [facility] [address] 2019-12-27 2019-12-27 Refill [facility] 1.2.840.114 [id number] Univers 00:00:00 00:00:00 Morena Vasquez 350.1.13.10 i ty of [place].2.7.2.686 [place] Professio [phone] Dc dical nal 220 [facility] 2019-12-24 2019-12-24 Office [facility] [id number] Univers 16:19:09 16:58:11 Visit Tim Vasquez 350.1.13.10 i ty of [place].2.7.2.686 [place] Professio [phone] [facility] 220 [facility] 2019-12-24 2019-12-24 [facility] [id number] Univers 16:30:00 16:30:00 TIM [facility] 2019-11-26 2019-11-26 [facility] 1.2.840.114 [id number] Univers 08:03:41 08:18:[address] [facility] 350.1.13.10 it y of [place] 4.2.7.2.686 Leonid as Professio [phone] [facility] 044 [facility] One 2019-11-26 2019-11-26 Outpatient R [facility] [id number] Univers 08:15:00 08:15:00 DION [facility] 2019-11-25 2019-11-25 Outpatient R DOMINIK [facility] [id number] Univers 08:00:00 08:00:00 DION [facility] 2019-11-23 2019-11-23 Outpatient R ALLEN [facility] [id number] Univers 08:00:00 08:00:00 KAYY [facility] 2019-11-05 2019-11-05 [facility] 1.2.840.114 [id number] Univers 00:00:00 00:00:[address] [facility] 350.1.13.10 it y of [place] 4.2.7.2.686 Leonid as Professio [phone] Dc dicct nal 044 [facility] 2019-10-21 2019-10-21 Refill [facility] 1.2.840.114 [id number] Univers 00:00:00 00:00:00 Dion [place] 350.1.13.10 i ty of [place] 4.2.7.2.686 [place] Profess[place] [phone] [address] 2019-09-09 2019-09-09 Refill [facility] 1.2.840.114 [id number] Univers 00:00:00 00:00:[address] [facility] 350.1.13.10 it y of [place] 4.2.7.2.686 Leonid as Professio [phone] [address] 2019-08-24 2019-08-24 Iron Assorter [facility] [id number] Univers 08:23:39 09:15:36 Visit [facility] 350.1.13.10 i ty [place] 4.2.7.2.686 [place] Profess[place] [phone] [facility] 220 [facility] 2019-08-24 2019-08-24 Outpatient [facility] [id number] Univers 08:00:00 08:00:00 KAYY ity of [facility] 2019-06-04 2019-06-04 Telephone [facility] 1.2.840.114 [id number] Univers 00:00:00 00:00:[address] [facility] 350.1.13.10 it y of [place] 4.2.7.2.686 Leonid as Professio [phone] [facility] nal [address] [place] [address] 2019-05-27 2019-05-27 Office [facility] 1.2.840.114 [id number] Univers 07:59:31 08:42:[address] [facility] 350.1.13.10 it y of [place] 4.2.7.2.686 Leonid as Professio [phone] [facility] nal [address] [place] [address] 2019-05-27 2019-05-27 Outpatient [facility]OT[facility] [id number] Univers 08:15:00 08:15:00 DION mercado [facility] 2019-05-07 2019-05-07 Office [facility] [id number] Univers 10:00:48 11:05:26 Visit Tim Katie Christina 350.1.13.10 i ty of [place]2.7.2.[place] Profess[place] [phone] Dc dical nal 220 [facility] 2019-05-07 2019-05-07 Outpatient [facility] [id number] Univers 10:00:00 11:05:26 TIM coronasusanne [facility] 2019-05-07 2019-05-07 Orders Doctor ALEX 1.2.840.114 [id number] Univers 00:00:00 00:00:00 Only Unassigned, KIERRA 350.1.13.10 ity of [place] [facility] 4.2.7.2.686 Leonid as [phone] [address] 2018-11-26 2018-11-26 Office [facility] 1.2.840.114 [id number] Univers 08:12:12 08:51:17 Visit Dion Sushma 350.1.13.10 it y of [place] 4.2.7.2.686 Leonid as Professio [phone] Dc dical nal [address] One Results This patient has no known results.
[2022-04-21] MEDS ORDERED: INSULIN -REGULAR HUMAN 50 UNIT/0.5 ML ML ONE (08:23)
[2022-04-21] MEDS ORDERED: NA CHLORIDE 0.9% 3,000 ML ONE (08:28)
[2022-04-21 08:46] LABS: Arterial Blood Carboxyhemoglob 1.7 % (0-1.5); Blood Gas Oxyhemoglobin 93.4 % (94-97); Blood O2 Saturation 97.8 % (92-98.5)
[2022-04-21 09:07] LABS: HDL Cholesterol 24 mg/dL (40-60)
[2022-04-21 09:09] LABS: Absolute Lymphocytes (CBC) 2.7 K/uL (0.7-4.9); Hematocrit 46.8 % (39.6-49.0); Lymphocytes % 14.1 % (15.3-44.8); MCV 87.2 fL (80-100); MPV 8.3 fL (7.6-11.3); Protime INR 0.9; RBC Red Blood Cell Count 5.37 M/uL (4.33-5.43)
[2022-04-21 09:18] LABS: LDL, Direct 111 mg/dL (100-129)
[2022-04-21 09:22] LABS: SARS-COV-2 RT PCR NEGATIVE (NEGATIVE)
[2022-04-21 09:33] LABS: ALT/SGPT 26 U/L (16-61); AST/SGOT 36 U/L (15-37); Albumin 2.9 g/dL (3.4-5.0); Alkaline Phosphatase 76 U/L (45-117); BUN Blood Urea Nitrogen 25 mg/dL (7-18); Bilirubin Direct 0.2 mg/dL (0-0.2); Bilirubin Total 0.6 mg/dL (0.2-1.0); Glomerular Filtration Rate 47 ml/min (=/>90); Lipase 259 U/L (73-393); Magnesium 2.7 mg/dL (1.6-2.4); NT PRO-BNP 485 pg/mL (<125); Potassium 4.6 mmol/L (3.5-5.1); Protein, Total 7.2 g/dL (6.4-8.2); Sodium Level 127 mmol/L (136-145); Troponin High Sensitivity 965.6 pg/mL (<58.9)
[2022-04-21 09:34] LABS: Bicarbonate < 8 mmol/L (21-32)
[2022-04-21 09:35] LABS: Glucose Level 619 mg/dL (74-106)
[2022-04-21] MEDS ORDERED: ONDANSETRON 4 MG/2 ML VIAL ONE (09:57)
[2022-04-21] MEDS ORDERED: ASPIRIN 81 MG CHEWABLE TABLET ONE (09:57)
[2022-04-21] MEDS ORDERED: INSULIN -REGULAR HUMAN 100 UNIT in NA CHLORIDE 0.9% 100 ML IV SCH (10:00)
--- NOTE | 2022-04-21 10:16 | RAD REPORT ---
EXAM DESCRIPTION: RAD - Chest Single View - 04/21/2022 9:53 am CLINICAL HISTORY: ams COMPARISON: Portable 03/26/2018 TECHNIQUE: AP portable chest image was obtained 04/21/2022 9:53 am . FINDINGS: Lung volumes are very low. This accentuates the interstitial pattern potentially masking m inimal edema or infiltrate. No mass or consolidations seen. Heart size and vasculature are accentuated by the portable technique and shallow inspiration. No giselle surable pleural effusion and no pneumothorax. No acute bony abnormality seen. No acute aortic finding s suspected. IMPRESSION: Limited low lung volume examination with no peripheral mass or consolidation. Mild failure, volume overload or interstitial infiltrate could be masked by exam limitations.
[2022-04-21] MEDS ORDERED: HEPARIN/D5W 25,000 UNIT/500 ML BAG IV ONE (10:19)
[2022-04-21] MEDS: INSULIN -REGULAR HUMAN 100 UNIT in NA CHLORIDE 0.9% 100 ML IV SCH (10:20)
[2022-04-21] MEDS: HEPARIN/D5W 25,000 UNIT/500 ML BAG IV SCH ×2 (10:20→19:30)
--- NOTE | 2022-04-21 10:22 | RAD REPORT ---
EXAM DESCRIPTION: CT - Chest Abd Pelvis Wo Con - 04/21/2022 10:00 am CLINICAL HISTORY: sob, vomiting COMPARISON: Extrem Venous W Compress Gary dated 04/21/2022 TECHNIQUE: Axial 5 millimeter thick noncontrast sequences of the chest abdomen and pelvis were obtai maggie. Sagittal and coronal reconstruction images were generated and reviewed. No oral contrast was administered. All CT scans are performed using dose optimization technique as appropriate and may include automated exposure control or mA/KV adjustment according to patient size. FINDINGS: Exam has significant motion degradation limitations. No focal mass or infiltrate seen in the lung parenchyma. Vasculature is mildly prominent and intersti tial pattern is prominent. Mild failure or volume overload interstitial infiltrate could be masked. N o pneumothorax or pleural effusion. No chest wall mass or abnormal axillary lymphadenopathy seen. M ediastinal and hilar regions show no mass or lymphadenopathy. No significant cardiac finding. The liver, spleen and pancreas show no significant findings for noncontrast exam. Gallbladder and bi liary tree are normal. Gallstones can be occult due to motion and inherent CT limitation. No hydronephrosis of either kidney. No obstructing or nonobstructing calculi. Isodense masses and stef lonephritis are not excluded on a noncontrast study. No adrenal abnormalities. No urinary bladder ab normalities. No dilated bowel loops or focal ball bowel wall thickening. No appendicitis findings No free air, joe e fluid or inflammatory stranding. No hernia, mass or bulky lymphadenopathy. Vascular assessment is limited in the absence of contrast. No gross abnormality seen. No acute bone finding. L5 spondylolysis is present without spondylolisthesis. IMPRESSION: CT chest imaging is affected by motion. No focal mass or consolidations seen. Interstiti al edema or infiltrate could be masked. CT abdomen and pelvis imaging shows no acute or emergent finding. CT abdomen and pelvis imaging shows no significant or suspicious finding.
--- NOTE | 2022-04-21 10:44 | ER ---
Nurse's Notes [facility] Name: Kit Arias Age: 36 yrs Sex: Male : 1985 Arrival Date: 04/21/2022 Time: 08:06 Bed 2 Private MD: Diagnosis: Diabetic Ketoacidosis;Subsequent non-ST elevation (NSTEMI) myocardial infarction Presentation: 04/21 08:17 Chief complaint: Parent and/or Guardian states: pt had stuffy nose/congestion not iw feeling well earlier this week, for past 24 hours he has been drinking a ton of water and vomited a few times, he became altered about 24 hours ago, is insulin dependent diabetic , has been here for DKA and pancreatitis in past. Coronavirus screen: Client presents with at least one sign or symptom that may indicate coronavirus-19. Ebola Screen: Patient negative for fever greater than or equal to 101.5 degrees Fahrenheit, and additional compatible Ebola Virus Disease symptoms Patient denies exposure to infectious person. Patient denies travel to an Ebola-affected area in the 21 days before illness onset. No symptoms or risks identified at this time. Initial Sepsis Screen: Does the patient meet any 2 criteria? RR > 20 per min. Altered Mental Status. HR > 90 bpm. Does the patient have a suspected source of infection? No. Patient's initial sepsis screen is negative. Risk Assessment: Do you want to hurt yourself or someone else? Patient reports no desire to harm self or others. Unable to obtain. 08:17 Method Of Arrival: Wheelchair iw 08:17 Acuity: JUAN 2 iw 08:22 Onset of symptoms was April 21, 2022. iw Historical: - Allergies: 08:21 No Known Allergies; iw - Home Meds: 08:21 atorvastatin 40 mg oral tab 1 tab once daily [Active]; metformin 500 mg Oral tab 2 tabs iw 2 times per day [Active]; Jardiance oral once daily [Active]; Novolog U-100 Insulin aspart 100 unit/mL Sub-Q soln [Active]; Levemir U-100 Insulin 100 unit/mL subcutaneous soln [Active]; - PMHx: 08:20 Diabetes - IDDM; Hypertension; Pancreatitis; GERD; iw - Immunization history:: Adult Immunizations unknown. - Social history:: Smoking status: unknown. Screenin:[facility] Fall Risk Assessment (Adult) Score/Fall Risk Level 3 or more points = High hb Risk Oriented to surroundings, Maintained a safe environment, Educated pt \\T\\ family on fall prevention, incl call for assistance when getting out of bed, Hourly rounding (assess needs \\T\\ fall precautionary measures) done, Utilized family, sitter, or virtual equity research analyst as indicated. Abuse screen: Denies threats or abuse. Denies injuries from another. Nutritional screening: No deficits noted. Tuberculosis screening: No symptoms or risk factors identified. Assessment: 08:42 General: Appears distressed, Behavior is restless. Pain: Unable to use pain scale. hb Patient is disoriented. FLACC scale score is 5 out of 10. Neuro: Level of Consciousness is confused, Oriented to person. Cardiovascular: Patient's skin is warm and dry. Respiratory: Respiratory effort is labored, Respiratory pattern is tachypnea. GI: Parent/caregiver reports the patient having vomiting. : No signs and/or symptoms were reported regarding the genitourinary system. EENT: No signs and/or symptoms were reported regarding the EENT system. Derm: Skin is healthy with good turgor, Skin is dry, Skin is pale. Musculoskeletal: Reports "pain all over". 08:45 Reassessment: Inside lab at bedside for lab draw. Family remains at bedside. hb 09:25 Reassessment: No changes from previously documented assessment. Awaiting BMP results at this time. Pt altered, thrashing in bed, moaning. Family remains at bedside. 10:36 Reassessment: Pt continues to be altered, very restless. Heparin and insulin infusions hb started at 1020. Family at bedside. 11:30 Reassessment: No changes from previously documented assessment. Patient and/or family hb updated on plan of care and expected duration. Pain level reassessed. 12:15 Reassessment: No changes from previously documented assessment. Patient and/or family hb updated on plan of care and expected duration. Pain level reassessed. Father at bedside. 12:21 Reassessment: Dr. Horton at bedside. hb 12:25 Reassessment: Dr. Arechiga at bedside. hb 12:58 Reassessment: BP 64/41. client repositioned, blood pressure cuff readjusted. BP is now kc6 97/59. Vital Signs: 08:22 BP 121 / 68; Pulse 136; Resp 30 S; Pulse Ox 100% on R/A; hb 08:22 BP 121 / 68; Pulse 136; Resp 27 S; Temp 97.1(TE); Pulse Ox 100% on R/A; iw 08:23 Weight 104.33 kg (M); kc6 08:41 BP 108 / 56; Pulse 132; Resp 26; Pulse Ox 99% on R/A; hb 09:12 BP 103 / 52; Pulse 132; Resp 30; Pulse Ox 100% on R/A; hb 09:45 BP 106 / 54; Pulse 127; Resp 28; Pulse Ox 99% on R/A; hb 10:20 BP 115 / 89; Pulse 134; Resp 26; Pulse Ox 100% on R/A; hb 10:45 BP 109 / 54; Pulse 122; Resp 25; Pulse Ox 100% on R/A; hb 11:13 Temp 97.5(TE); vg1 11:16 BP 102 / 45; Pulse 128; Resp 32; Pulse Ox 100% on R/A; hb 11:41 BP 93 / 54; Pulse 131; Resp 25; Pulse Ox 100% on R/A; hb 12:16 BP 106 / 69; Pulse 133; Resp 27; Pulse Ox 100% on R/A; hb 12:59 BP 97 / 59; Pulse 130; Resp 33; Pulse Ox 100% ; kc6 ED Course: 08:06 Patient arrived in ED. as 08:07 Jonathan Wilson PA is PHCP. [facility] 08:07 Tim ePters MD is Attending Physician. [facility] 08:19 Triage completed. iw 08:19 Inserted saline lock: 20 gauge in left antecubital area, using aseptic technique. Blood hb collected. 08:20 Inserted saline lock: 20 gauge in right antecubital area, using aseptic technique. vg1 Blood collected. 08:20 Second set of blood cultures drawn by ky. vg1 08:22 Arm band placed on. iw 08:25 Francisca Villeda, RN is Primary Nurse. iw 08:26 Patient has correct armband on for positive identification. Placed in gown. Bed in low hb position. Client placed on continuous cardiac and pulse oximetry monitoring. NIBP monitoring applied. 08:33 EKG done, by ED staff, reviewed by Tim Peters MD. mm9 08:34 Warm blanket given. metal finisher on. Pulse ox on. NIBP on. mm9 08:39 Rosalie Gimenez, RN is Primary Nurse. hb 09:55 XRAY Chest (1 view) In Process Unspecified. EDMS 10:01 CT Chest Abdomen Pelvis W/O Contrast In Process Unspecified. EDMS 10:35 US Extremity Venous W Compression Gary In Process Unspecified. EDMS 10:42 Luis Horton MD is Hospitalizing Provider. jmm 12:15 Garcia cath inserted, using sterile technique, 16 Fr., by ky, balloon inflated, to hb gravity drainage, urine specimen collected. returned clear yellow urine. Patient tolerated well. Administered Medications: 08:20 Drug: Insulin Regular Human 10 units {Co-Signature: doris (Rosalie Gimenez RN).} Route: kc6 IVP; Site: left antecubital; 09:48 Follow up: Response: No adverse reaction hb 08:29 Drug: NS 0.9% (30 ml/kg) 30 ml/kg Route: IV; Rate: bolus; Site: left antecubital; kc6 11:25 Follow up: IV Status: Infusion continued; Infusion continued upon admission; IV Intake: hb 3000ml 10:13 Drug: Aspirin Chewable Tablet 324 mg Route: PO; hb 10:58 Follow up: Response: No adverse reaction hb 10:13 Drug: Zofran (Ondansetron) 4 mg Route: IVP; Site: left antecubital; hb 10:58 Follow up: Response: No adverse reaction hb 10:20 Drug: Insulin Drip - (Insulin Regular Human 100 units, NS 0.9% 100 ml) {Co-Signature: doris vg1 (Yi Stubbs RN).} Route: IV; Rate: calculated rate; Site: right antecubital; 10:21 Drug: Heparin (NM Drip) 12 units/kg/hr - (HEParin 76450 units, D5W 500 ml) hb {Co-Signature: vg1 (Yi Stubbs RN).} Route: IV; Rate: calculated rate; Site: right antecubital; 11:25 Drug: NS 0.9% 1000 ml Route: IV; Rate: 125 ml/hr; Site: right antecubital; hb Medication: 08:27 VIS not applicable for this client. hb Intake: 11:25 IV: 3000ml; Total: 3000ml. hb Output: 12:21 Urine: 1300ml (Garcia); Total: 1300ml. hb Outcome: 10:43 Decision to Hospitalize by Provider. karen 12:49 Admitted to ER Hold. Please see [facility] for further documentation. hb 12:49 Condition: stable 12:49 Instructed on the need for admit, Demonstrated understanding of instructions. 20:09 Patient left the ED. pf1 Signatures: Dispatcher [employer] EDMS Jonathan Wilson PA PA jmm Martinez, Amelia as Francisca Villeda, RN SKINNY Rosalie Gimenez, RN RN Yi Stubbs RN RN vg1 Yas Nathan RN RN [email or web address] Sugey Borja mm9 Dayna frank RN RN pf1 Rosalie Gimenez RN Yi Stubbs RN vg1 Corrections: (The following items were deleted from the chart) 08: 08:22 Pulse 136bpm; Resp 30bpm; Spontaneous; Pulse Ox 100% RA; iw iw 08: 08:17 Chief complaint: Parent and/or Guardian states: pt had stuffy nose/congestion not iw feeling well earlier this week, for past 24 hours he has been drinking a ton of water and vomited a few times, he became alter about 24 hours ago, is indulin dependent diabetic , has been here for DKA and pancreatitis in past iw 09: 08:42 General: Appears distressed, Behavior is restless, hb hb : 09:25 Reassessment: No changes from previously documented assessment. Awaiting CMP hb results at this time. Pt altered, thrashing in bed, moaning. Family remains at bedside. hb
--- NOTE | 2022-04-21 10:44 | EDPHYS ---
Physician Documentation [facility] Name: Kit Arias Age: 36 yrs Sex: Male : 1985 Arrival Date: 04/21/2022 Time: 08:06 Bed 2 Private MD: ED Physician Tim Peters HPI: 04/21 08:12 This 36 yrs old Male presents to ER via Wheelchair with complaints of Altered Mental jmm Status, Shortness Of Breath. 08:12 The patient presents with confusion. Onset: The symptoms/episode began/occurred jmm gradually, 1 day(s) ago. Possible causes: DKA. Associated signs and symptoms: Pertinent positives: shortness of breath, Pertinent negatives: vomiting. Current symptoms: In the emergency department the patient's symptoms are unchanged from the initial presentation. Patient's baseline: Neuro: alert and fully oriented, Motor: no deficits, Ambulation:. The patient has experienced similar episodes in the past. Historical: - Allergies: 08:21 No Known Allergies; iw - Home Meds: 08:21 atorvastatin 40 mg oral tab 1 tab once daily [Active]; metformin 500 mg Oral tab 2 tabs iw 2 times per day [Active]; Jardiance oral once daily [Active]; Novolog U-100 Insulin aspart 100 unit/mL Sub-Q soln [Active]; Levemir U-100 Insulin 100 unit/mL subcutaneous soln [Active]; - PMHx: 08:20 Diabetes - IDDM; Hypertension; Pancreatitis; GERD; iw - Immunization history:: Adult Immunizations unknown. - Social history:: Smoking status: unknown. ROS: 08:12 Constitutional: Positive for malaise. jmm 08:12 ENT: Positive for sinus congestion. 08:12 Respiratory: Positive for shortness of breath. 08:12 Neuro: Positive for altered mental status. 08:12 All other systems are negative. Exam: 08:12 Head/Face: atraumatic. Eyes: EOMI, no conjunctival erythema appreciated ENT: Moist jmm Mucus Membranes Neck: Trachea midline, Supple Chest/axilla: Normal chest wall appearance and motion. 08:12 Constitutional: The patient appears in obvious distress, smells of ketones. 08:12 Cardiovascular: Rate: tachycardic. 08:12 Respiratory: mild respiratory distress is noted, Respirations: labored breathing, that is mild, Breath sounds: are clear throughout, Respiratory rate: 27 08:12 Abdomen/GI: Inspection: abdomen appears normal, Palpation: soft, in all quadrants. 08:12 Musculoskeletal/extremity: ROM: intact in all extremities. 08:12 Skin: Appearance: Color: normal in color. Vital Signs: 08:22 BP 121 / 68; Pulse 136; Resp 30 S; Pulse Ox 100% on R/A; hb 08:22 BP 121 / 68; Pulse 136; Resp 27 S; Temp 97.1(TE); Pulse Ox 100% on R/A; iw 08:23 Weight 104.33 kg (M); kc6 08:41 BP 108 / 56; Pulse 132; Resp 26; Pulse Ox 99% on R/A; hb 09:12 BP 103 / 52; Pulse 132; Resp 30; Pulse Ox 100% on R/A; hb 09:45 BP 106 / 54; Pulse 127; Resp 28; Pulse Ox 99% on R/A; hb 10:20 BP 115 / 89; Pulse 134; Resp 26; Pulse Ox 100% on R/A; hb 10:45 BP 109 / 54; Pulse 122; Resp 25; Pulse Ox 100% on R/A; hb 11:13 Temp 97.5(TE); vg1 11:16 BP 102 / 45; Pulse 128; Resp 32; Pulse Ox 100% on R/A; hb 11:41 BP 93 / 54; Pulse 131; Resp 25; Pulse Ox 100% on R/A; hb 12:16 BP 106 / 69; Pulse 133; Resp 27; Pulse Ox 100% on R/A; hb 12:59 BP 97 / 59; Pulse 130; Resp 33; Pulse Ox 100% ; kc6 MDM: 08:[address] [facility] 10:41 Data reviewed: vital signs, nurses notes. Consideration of Admission/Observation [facility] Patient was admitted/placed on observation. Management of patient was discussed with the following: Hospitalist: Dr. Horton. I considered the following discharge prescriptions or medication management in the emergency department Medications were administered in the Emergency Department. See MAR. Historians other than the Patient: Friend: Friend. Counseling: I had a detailed discussion with the patient and/or guardian regarding: the historical points, exam findings, and any diagnostic results supporting the discharge/admit diagnosis, lab results, radiology results, the need for further work-up and treatment in the hospital. Response to treatment: the patient's symptoms have mildly improved after treatment. 12:20 ED course: 1300 cc after adkins catheter inserted. [facility] 04/21 08:17 Order name: Basic Metabolic Panel; Complete Time: 09:36 04/21 08:17 Order name: CBC with Diff; Complete Time: 12:54 [facility] 04/21 08:17 Order name: LFT's; Complete Time: 09:36 [facility] 04/21 08:17 Order name: Magnesium; Complete Time: 09:36 [facility] 04/21 08:17 Order name: NT PRO-BNP; Complete Time: 09:36 [facility] 04/21 08:17 Order name: PT-INR; Complete Time: 09:22 [facility] 04/21 08:17 Order name: Troponin HS; Complete Time: 09:36 [facility] 04/21 08:17 Order name: ABG; Complete Time: 10:02 [facility] 04/21 08:17 Order name: COVID-19/FLU A+B; Complete Time: 09:22 [facility] 04/21 08:18 Order name: Lipase; Complete Time: 09:36 [facility] 04/21 08:22 Order name: Lipid Profile; Complete Time: 09:22 [facility] 04/21 08:24 Order name: Glucose, Ancillary Testing; Complete Time: 08:25 EDTX 04/21 09:09 Order name: LDL, Direct; Complete Time: 09:22 EDTX 04/21 11:59 Order name: Basic Metabolic Panel; Complete Time: 12:12 EDTX 04/21 12:14 Order name: Urine Dipstick-Ancillary; Complete Time: 12:19 EDTX 04/21 12:43 Order name: Urinalysis W/Microscopic EDMS 04/21 12:43 Order name: Blood Culture EDMS 04/21 12:43 Order name: Urine Culture EDMS 04/21 12:43 Order name: CBC Smear Scan; Complete Time: 12:54 EDMS 04/21 12:50 Order name: Basic Metabolic Panel EDMS 04/21 12:50 Order name: Basic Metabolic Panel; Complete Time: 16:29 EDMS 04/21 12:50 Order name: Basic Metabolic Panel EDMS 04/21 12:50 Order name: Basic Metabolic Panel EDMS 04/21 12:50 Order name: Basic Metabolic Panel EDMS 04/21 12:50 Order name: CBC with Automated Diff EDMS 04/21 12:50 Order name: CBC with Automated Diff EDMS 04/21 12:50 Order name: CBC with Automated Diff EDMS 04/21 12:50 Order name: CBC with Automated Diff EDMS 04/21 12:50 Order name: Magnesium EDMS 04/21 12:50 Order name: Magnesium EDMS 04/21 12:50 Order name: Magnesium EDMS 04/21 12:50 Order name: Magnesium EDMS 04/21 12:50 Order name: Phosphorus EDMS 04/21 12:50 Order name: Phosphorus EDMS 04/21 12:50 Order name: Phosphorus EDMS 04/21 12:50 Order name: Phosphorus EDMS 04/21 12:51 Order name: Creatine Phosphokinase EDMS 04/21 12:51 Order name: PTH Intact EDMS 04/21 12:51 Order name: Thyroid Stimulating Hormone EDMS 04/21 12:51 Order name: Ur Protein EDMS 04/21 12:51 Order name: Uric Acid EDMS 04/21 12:51 Order name: Renal Panel EDMS 04/21 12:51 Order name: Renal Panel EDMS 04/21 12:51 Order name: Renal Panel EDMS 04/21 12:51 Order name: Renal Panel EDMS 04/21 12:51 Order name: Renal Panel EDMS 04/21 12:51 Order name: Renal Panel EDMS 04/21 12:51 Order name: Lipase EDMS 04/21 12:51 Order name: Lipase EDMS 04/21 12:51 Order name: Lipid Profile EDMS 04/21 12:51 Order name: Lipid Profile EDMS 04/21 13:40 Order name: Glucose, Ancillary Testing; Complete Time: 13:41 EDMS 04/21 14:23 Order name: Ptt, Activated hb 04/21 14:39 Order name: Glucose, Ancillary Testing; Complete Time: 14:52 EDMS 04/21 14:50 Order name: PTT, Activated Partial Thromb; Complete Time: 14:52 EDMS 04/21 15:36 Order name: Glucose, Ancillary Testing; Complete Time: 15:44 EDMS 04/21 16:49 Order name: Troponin High Sensitivity; Complete Time: 16:52 EDMS 04/21 17:29 Order name: Glucose, Ancillary Testing; Complete Time: 17:49 EDMS 04/21 18:32 Order name: Glucose, Ancillary Testing; Complete Time: 18:35 EDMS 04/21 18:33 Order name: Ptt, Activated hb 04/21 08:17 Order name: XRAY Chest (1 view); Complete Time: 10:17 m 04/21 08:17 Order name: EKG; Complete Time: 08:17 jmm 04/21 08:17 Order name: Cardiac monitoring; Complete Time: 08:28 m 04/21 08:17 Order name: EKG - Nurse/Tech; Complete Time: 08:28 [facility] 04/21 08:17 Order name: IV Saline Lock; Complete Time: 08:28 jmm 04/21 08:17 Order name: Labs collected and sent; Complete Time: 08:30 [facility] 04/21 08:17 Order name: O2 Per Protocol; Complete Time: 08:27 m 04/21 08:17 Order name: O2 Sat Monitoring; Complete Time: 08:27 m 04/21 08:17 Order name: Urine Dipstick-Ancillary (obtain specimen); Complete Time: 12:46 [facility] 04/21 08:42 Order name: Labs - recollect needed: recollect the blood/ Lipemia protocol/ Caitie yeh called Rosibel from inside lab to draw; Complete Time: 08:51 04/21 09:37 Order name: CT Chest Abdomen Pelvis W/O Contrast; Complete Time: 10:25 m 04/21 09:38 Order name: US Extremity Venous W Compression Gary; Complete Time: 11:05 [facility] 04/21 10:28 Order name: Vital Signs; Complete Time: 10:29 [facility] 04/21 11:46 Order name: Adkins; Complete Time: 12:22 [facility] 04/21 12:41 Order name: CONS Physician Consult EDTX 04/21 12:50 Order name: NPO EDTX 04/21 18:58 Order name: PTT, Activated Partial Thromb; Complete Time: 19:00 EDTX 04/21 19:34 Order name: Glucose, Ancillary Testing; Complete Time: 19:38 EDMS 04/21 19:35 Order name: Glucose, Ancillary Testing; Complete Time: 19:38 EDMS Administered Medications: 08:20 Drug: Insulin Regular Human 10 units {Co-Signature: hb (Rosalie Gimenez RN).} Route: kc6 IVP; Site: left antecubital; 09:48 Follow up: Response: No adverse reaction hb 08:29 Drug: NS 0.9% (30 ml/kg) 30 ml/kg Route: IV; Rate: bolus; Site: left antecubital; kc6 11:25 Follow up: IV Status: Infusion continued; Infusion continued upon admission; IV Intake: hb 3000ml 10:13 Drug: Aspirin Chewable Tablet 324 mg Route: PO; hb 10:58 Follow up: Response: No adverse reaction hb 10:13 Drug: Zofran (Ondansetron) 4 mg Route: IVP; Site: left antecubital; hb 10:58 Follow up: Response: No adverse reaction hb 10:20 Drug: Insulin Drip - (Insulin Regular Human 100 units, NS 0.9% 100 ml) {Co-Signature: hb vg1 (Yi Stubbs RN).} Route: IV; Rate: calculated rate; Site: right antecubital; 10:21 Drug: Heparin (OK Drip) 12 units/kg/hr - (HEParin 53271 units, D5W 500 ml) hb {Co-Signature: vg1 (Yi Stubbs RN).} Route: IV; Rate: calculated rate; Site: right antecubital; 11:25 Drug: NS 0.9% 1000 ml Route: IV; Rate: 125 ml/hr; Site: right antecubital; hb Disposition Summary: 04/21/22 10:43 Hospitalization Ordered Hospitalization Status: Inpatient Admission [facility] Provider: Luis Horton Condition: Stable jm Problem: an acute exacerbation jm Symptoms: have improved [facility] Bed/Room Type: Standard [facility] Location: Intensive Care Unit(04/21/22 19:33) Room Assignment: 7-(04/21/22 19:33) cg Diagnosis - Diabetic Ketoacidosis jmm - Subsequent non-ST elevation (NSTEMI) myocardial infarction [facility] Discharge Instructions: - Discharge Summary Sheet hb Forms: - Medication Reconciliation Form jmm - SBAR form hb Signatures: Dispatcher [employer] Jonathan Hillman PA PA m Francisca Villeda RN RN Esme Stubbs RN RN cg Baxter, Heather, RN RN Kinjal Parra Kaitlyn, RN RN kc6 Rosalie Stubbs RN vg1 Corrections: (The following items were deleted from the chart) 11: 11:15 GLUCOSE+C.LAB.BRZ ordered. EDTX EDMS 11:59 11:57 GLUCOSE+C.LAB.BRZ reviewed. [facility] EDMS 12:00 11:46 BASIC METABOLIC PANEL+C.LAB.BRZ ordered. EDTX EDMS 12:49 10:43 Intensive Care Unit jm hb 12:49 10:43 [facility] hb 12:50 12:49 HLD2 hb hb 19:33 12:49 [facility] ER HOLD hb cg 19:33 12:50 ERHOLD- hb cg
--- NOTE | 2022-04-21 11:04 | RAD REPORT ---
EXAM DESCRIPTION: US - Extrem Venous W Compress Gary - 04/21/2022 10:33 am CLINICAL HISTORY: sob COMPARISON: None. TECHNIQUE: Real-time sonographic evaluation of the bilateral lower extremity common femoral, superfi cial femoral, popliteal and posterior tibial veins was performed. FINDINGS: Normal compressibility, flow augmentation, phasic flow and spontaneous flow are identified in the left and right lower extremity common femoral, superficial femoral, popliteal and posterior t ibial veins. No intraluminal filling defects seen. IMPRESSION: No DVT in either lower extremity.
[2022-04-21 11:56] LABS: Glucose Level 466 mg/dL (74-106)
[2022-04-21 12:09] LABS: BUN Blood Urea Nitrogen 29 mg/dL (7-18); Bicarbonate < 8 mmol/L (21-32); Glomerular Filtration Rate 47 ml/min (=/>90); Potassium 4.7 mmol/L (3.5-5.1); Sodium Level 131 mmol/L (136-145)
[2022-04-21 12:14] LABS: Urine Blood 3+ (Negative); Urine Glucose 2+ (Negative); Urine Protein 2+ (Negative)
[2022-04-21] MEDS ORDERED: NA CHLORIDE 0.9% 1,000 ML ONE (12:21)
[2022-04-21 12:42] LABS: Blood Morphology Comment NOT SEEN (NOT SEEN); Platelet Estimate INCR; White Blood Cell Scan OK (OK)
[2022-04-21] MEDS ORDERED: PHENAZOPYRIDINE 100MG TAB PO PRN (12:44)
--- NOTE | 2022-04-21 12:55 | P.HP ---
Certification for Inpatient Patient admitted to: Inpatient With expected LOS: >2 Midnights Practitioner: I am a practitioner with admitting privileges, knowledge of patient current condition, hospital course, and medical plan of care. Services: Services provided to patient in accordance with Admission requirements found in Title 42 Section 412.3 of the Code of Federal Regulations Patient History Date of Service: 04/21/22 Reason for admission: DKA, NSTEMI History of Present Illness: 36yo M, PMH: HTN, GERD, IDDM2, pancreatitis secondary to hypertriglyceridemia. Patient is confused and unable to provide accurate history. He is companied by his father who is also unable to provide accurate history. Upon initial arrival to the ED he reported "pain all over" and some epigastric pressure. He has been drinking a ton of water and vomited a few times in the last 24 hours. He believes the patient has been taking his insulin, but is unsure of the last day. He states a few days ago patient stayed home from work due to URI symptoms. He did some URI symptoms have been going around throughout his different family members over the last 2 weeks. Patient is awake, reports he has to pee, Garcia catheter was just placed in removed 1200 mL of urine. He answers " not really" or "not exactly" to most of my questions. Unable to provide how much insulin he takes at home or if he has been taking them. In the ED, he was noted to have severe metabolic acidosis, pH: 6.9, bicarb: 4, with anion gap, and labs consistent with DKA. Imaging without any acute process, lipase negative, hypertriglyceridemia noted on blood work. He was tachypneic to 30s and tachycardic to the 130s on arrival, without hypoxia. Allergies No Known Allergies Allergy (Verified 10/08/17 15:55) Home Medications: Insulin Detemir [Levemir Flextouch] 35 unit SQ BEDTIME #1 ml 10/12/17 Metoprolol Tartrate [Lopressor*] 50 mg PO BID 6AM 6PM #60 tab 10/12/17 Pantoprazole [Protonix Tab*] 40 mg PO DAILYAC #30 tab 10/12/17 Promethazine/Dextromethorphan [Promethazine-Dm Syrup] 5 ml PO Q4H PRN 03/17/18 Docosahexanoic AC/Epa [Fish Oil 1,000 MG*] 2,000 mg PO TID #90 cap 03/24/18 gemfibroziL [Lopid*] 600 mg PO BID #60 tab 03/24/18 - Past Medical/Surgical History Diabetic: Yes -: Diabetes mellitus type 2 -: Hypertriglyceridemia -: HTN -: pancreatitis -: Right arm surgery Psychosocial/ Personal History: The patient is single. He has no children. 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 - Family History Father -: Hypertension, Diabetes Notes: Hyperlipidemia Mother -: Hypertension, Diabetes Notes: Hyperlipidemia - Social History Smoking Status: Unknown if ever smoked Alcohol use: No CD- Drugs: No Caffeine use: Yes Place of Residence: Home Review of Systems is unable to be obtained (unable to obtain accurately.) Physical Examination - Physical Exam General: Oriented x2, Mild distress, Confused, Delirious HEENT: EOMI, Sclerae nonicteric Neck: No LAD Respiratory: Clear to auscultation bilaterally, Diminished Cardiovascular: No edema, Other (sinus tachycardia HR: 130s) Capillary refill: <2 Seconds Gastrointestinal: Soft and benign, Non-distended, No tenderness Integumentary: No rashes, No significant lesion Neurological: Other (confused) Urinary: Garcia catheter (placed in ED) - Studies Laboratory Data (last 24 hrs) 04/21/22 11:45: Sodium Cancelled, Potassium Cancelled, BUN Cancelled, Creatinine Cancelled, Glucose Cancelled 04/21/22 11:23: Sodium 131 L D, Potassium 4.7, BUN 29 H, Creatinine 1.90 H, Glucose 466 H* 04/21/22 09:08: Sodium 127 L, Potassium 4.6, BUN 25 H, Creatinine 1.89 H, Glucose 619 H*, Magnesium 2.7 H, Total Bilirubin 0.6, AST 36, ALT 26, Alkaline Phosphatase 76, Lipase 259 04/21/22 08:20: Triglycerides 2707 H, Cholesterol 400 H, LDL Cholesterol Direct 111, HDL Cholesterol 24 L, Cholesterol/HDL Ratio 16.67 04/21/22 08:20: PT 9.9, INR 0.90 04/21/22 08:20: WBC 19.40 H, Hgb 15.8, Hct 46.8, Plt Count 470 H Assessment and Plan - Advance Directives Does patient have a Living Will: No Does patient have a Durable POA for Healthcare: No Physician Review Additional Text: Problem List DKA, h/o IDDM2 NSTEMI SILVANA Encephalopathy, metabolic Hypertriglyceridemia HTN GERD h/o pancreatitis severe DKA confused, but awake, talking, protecting airway admit to ICU insulin drip, IVF bicarb drip per nephrology replace electrolytes unclear etiology of DKA, patient unable to say if he has been taking insulin, thinks he has, can't tell me what dose father at bedside, doesn't know med history/medications leukocytosis likely reactive, secondary to DKA father reports URI symptoms a few days ago - and similar symptoms been going around the family check cultures no evidence of sepsis at this time bloodwork derangements and vitals consistent with DKA low threshold to start antibiotics abdomen nontender, no obvious source of infection on exam NSTEMI trop: 900 likely secondary to DKA / demand ischemia however hyper TG, morbidly obese, h/o HTN, DM2 high risk factors continue heparin drip - started in ED cardio consulted trend trop repeat EKG once HR improved confirm home meds VTE: heparin drip Code: full Dispo: home, ~4-5 days Critical Care: Yes (35 minutes) Time Spent Managing Pts Care (In Minutes): 90
[2022-04-21] MEDS ORDERED: SODIUM BICARB 50 MEQ/50ML VIAL ONE (13:21)
[2022-04-21] MEDS ORDERED: WATER FOR INJ,STERILE 1,000 ML with NA BICARB 8.4% 150 MEQ IV SCH ×4 (13:30→17:47)
[2022-04-21] MEDS: MORPHINE 2 MG/ML SYR IV PRN ×2 (13:30→17:56)
[2022-04-21] MEDS ORDERED: NA CHLORIDE 0.9% 1,000 ML IV ONE (13:30)
[2022-04-21] MEDS ORDERED: POTASSIUM CL 40 MEQ in NA CHLORIDE 0.9% 500 ML IV ONE (14:00)
--- NOTE | 2022-04-21 14:02 | CON ---
Date of Consultation: 04/21/2022 Reason For Consultation: Elevated BUN and creatinine, acidosis. History Of Present Illness: This is a 36-year-old unfortunate white gentleman with significant past medical history of diabetes insulin dependent, hypertriglyceridemia, hypertension, no history of kidn ey disease before. The patient came to the hospital that a few days ago started having upper respira tory symptoms with congestion, feeling weak. His symptoms got worse. For that reason, they brought him to the hospital. Upon arrival to the hospital, found to have elevation in BUN and creatinine wit h severe acidosis. Creatinine was 1.8 with GFR down to 47. The patient had severe acidosis with bic arb of less than 8 and hyponatremia, sodium down to 127. For that reason, we have been consulted. T he patient denied taking any nonsteroidal, no IV contrast. The patient found to have non-ST elevatio n FL with elevation in troponin of 2700. The patient's blood pressure stayed maintained. Past Medical History: Includes; 1.Non-ST elevation FL. 2.Hypertension. 3.Chronic pancreatitis. 4.Diabetes. 5.Hypertension. Past Surgical History: Includes right arm surgery. Allergies: NO KNOWN DRUGS ALLERGY. Home Medications: Not obtainable. Social History: Denied smoking, denied drinking, denied drugs abuse. Family History: Positive for diabetes. Review of Systems: Head and Neck: Has headache. GI: Has abdominal pain. : Has urine retention. Upon arrival to the ER, Garcia was in place, has 1300. Chest: Clear. No cough. Maitre D': Not applicable. Respiratory: Has shortness of breath. Cardiovascular: No chest pain. Has shortness of breath. Endocrine: No polydipsia. Skin: No rash. Neuro: Has neuropathy. Has altered mental status. Musculoskeletal: Generalized fatigue. Physical Examination: General: When I saw the patient; the patient sitting in the stretcher, under stress. Vital Signs: Blood pressure 107/64, pulse of 94, afebrile. Chest: Clear to auscultation. Heart: S1, S2. Systolic murmur. Abdomen: Soft, nontender. Extremity: Trace edema. Neuro: Moving 4 extremities without any focality. Laboratory Data: CT was done, no contrast. No masses. No hydronephrosis on the kidney. Back in ; creatinine 0.5, GFR above 90. Upon admission; sodium 127, potassium 4.6, bicarb less than 8, chl oride 93, BUN 25, creatinine 1.8, glucose 600. Troponin elevated above 900. BNP 485. Urinalysis; + 2 protein. ABG; pH 6.9, CO2 14, O2 145, base access -26. Current Medications: The patient on heparin drip and IV fluid of LR. Assessment And Plan: 1.Acute kidney injury secondary to glucose diuresis/cardiorenal syndrome secondary to poor perfusion and ATN, superimposed with glucose diuresis and cardiac insult, complicated with acidosis. Given th e elevation in the troponin, we will send for CK to rule out any rhabdomyolysis. The patient looked to me still on the dry side. I am going to go ahead and bolus the patient with another L of normal s karina and given the altered mental status and severe acidosis and stable hemodynamically, I am going to give the patient bicarb drip. We will bolus the patient with loading bicarb and we will monitor t he patient. With the presence of cardiac insult and diabetic ketoacidosis, we need to keep the potas sium in the upper side. We will supplement to keep the potassium above 4. 2.Hyponatremia of pseudo secondary to hyperglycemia, corrected, within normal limit. We will monito r. Continue IV hydration. Could be component of depletional. Will be corrected with IV hydration. 3.High anion gap metabolic acidosis secondary to diabetic ketoacidosis, poor perfusion, ATN secondar y to lactic acidosis secondary to cardiac insult. Agree with insulin drip. Given the altered mental status and cardiac insult, I am going to start the patient on the bicarb. 4.Diabetes as by primary. Time spent examining the patient [id number], reviewing data, lab and radiology, discussing the case with the father by bedside, discussing the case with the team cdl driver including hospitalist and ER nu rses more than 65 minutes. YURI/JESUS Voice ID: [id number] Report ID: [id number]
[2022-04-21 16:24] LABS: Potassium 4.6 mmol/L (3.5-5.1)
[2022-04-21] MEDS ORDERED: D5W 1,000 ML IV ONE (16:49)
[2022-04-21] MEDS: D5W 1,000 ML IV SCH (17:00)
[2022-04-21] MEDS ORDERED: LORazepam 2 MG/ML VIAL ONE (17:16)
[2022-04-21] MEDS ORDERED: LORazepam 2 MG/ML VIAL IV ONE ×2 (17:20→21:52)
[2022-04-21] MEDS ORDERED: MORPHINE 2 MG/ML SYR ONE (17:57)
[2022-04-21] MEDS: METOPROLOL TAR 25 MG TAB PO SCH (18:00)
[2022-04-21] MEDS ORDERED: NACHLORIDE 0.45% 1,000 ML with NA BICARB 8.4% 75 MEQ IV SCH ×2 (18:00)
[2022-04-21] MEDS: ATORVASTATIN 40 MG TAB PO SCH (21:00)
[2022-04-21] MEDS: ONDANSETRON 4 MG/2 ML VIAL IV PRN (22:38)
[2022-04-21 23:14] LABS: BUN Blood Urea Nitrogen 27 mg/dL (7-18); Glomerular Filtration Rate 53 ml/min (=/>90); Glucose Level 242 mg/dL (74-106); Potassium 4.2 mmol/L (3.5-5.1); Sodium Level 137 mmol/L (136-145)
[2022-04-21 23:28] LABS: Bicarbonate < 8 mmol/L (21-32)
[2022-04-21 23:29] LABS: Troponin High Sensitivity 15137.2 pg/mL (<58.9)
[2022-04-21 23:53] LABS: Arterial Blood Carboxyhemoglob 2.3 % (0-1.5); Blood Gas Oxyhemoglobin 93.3 % (94-97)
[2022-04-22] MEDS ORDERED: LORazepam 2 MG/ML VIAL IV ONE ×3 (00:06→02:30)
[2022-04-22] MEDS ORDERED: MAGNESIUM SULFATE 1 gm IVPB 1 GM/100 ML BAG IV ONE (00:07)
[2022-04-22 01:05] LABS: BUN Blood Urea Nitrogen 23 mg/dL (7-18); Glomerular Filtration Rate 62 ml/min (=/>90); Glucose Level 248 mg/dL (74-106); Potassium 4.9 mmol/L (3.5-5.1); Sodium Level 136 mmol/L (136-145)
[2022-04-22 01:06] LABS: Bicarbonate < 8 mmol/L (21-32)
[2022-04-22] MEDS ORDERED: PROMETHAZINE INJ 25 MG/ML AMP ONE (01:37)
[2022-04-22] MEDS ORDERED: LORazepam 2 MG/ML VIAL ONE (02:53)
[2022-04-22] MEDS ORDERED: NA CHLORIDE 0.9% 1,000 ML IV ONE ×2 (03:34→06:42)
[2022-04-22] MEDS: CEFTRIAXONE 1,000 MG in NA CHLORIDE 0.9% 50 ML IVPB SCH ×2 (04:00→09:11)
[2022-04-22] MEDS: VANCOMYCIN 1.5 GM in NA CHLORIDE 0.9% 500 ML IVPB SCH ×2 (04:00→22:06)
[2022-04-22] MEDS ORDERED: VANCOMYCIN 1 GM in NA CHLORIDE 0.9% 250 ML IVPB SCH (05:00)
[2022-04-22] MEDS: ONDANSETRON 4 MG/2 ML VIAL IV PRN (05:00)
[2022-04-22 05:02] LABS: Arterial Blood Carboxyhemoglob 1.2 % (0-1.5); Blood Gas Oxyhemoglobin 95.5 % (94-97); Blood O2 Saturation 99.3 % (92-98.5)
[2022-04-22 05:07] LABS: Absolute Lymphocytes (CBC) 0.6 K/uL (0.7-4.9); Hematocrit 42.9 % (39.6-49.0); Lymphocytes % 6.5 % (15.3-44.8); MCV 84.1 fL (80-100); MPV 7.9 fL (7.6-11.3)
[2022-04-22] MEDS ORDERED: VANCOMYCIN 1 GM/VIAL ONE (05:09)
[2022-04-22] MEDS ORDERED: VANCOMYCIN 500 MG/VIAL ONE (05:09)
[2022-04-22] MEDS ORDERED: NA CHLORIDE 0.9% 250 ML ONE (05:09)
[2022-04-22] MEDS: METOPROLOL TAR 25 MG TAB PO SCH ×2 (06:00→17:20)
[2022-04-22] MEDS: D5W 1,000 ML IV SCH ×3 (06:16→20:10)
[2022-04-22] MEDS ORDERED: SODIUM BICARB 50 MEQ/50ML VIAL ONE (06:16)
[2022-04-22 06:48] LABS: Albumin 2.6 g/dL (3.4-5.0); BUN Blood Urea Nitrogen 25 mg/dL (7-18); Glomerular Filtration Rate 49 ml/min (=/>90); Glucose Level 302 mg/dL (74-106); HDL Cholesterol 33 mg/dL (40-60); Lipase 843 U/L (73-393); Phosphorus 1.6 mg/dL (2.5-4.9); Sodium Level 138 mmol/L (136-145); Thyroid Stimulating Hormone 0.194 uIU/mL (0.358-3.740); Troponin High Sensitivity 11034.8 pg/mL (<58.9)
--- NOTE | 2022-04-22 06:49 | P.PN ---
Date of Service: 04/22/22 Subjective: Remains confused, restless. Negative volume balance. Continues to be tachycardic ROS: 10 point ROS as noted above, Unable to fully obtain Physical exam GEN: awake, confused; restless HEENT: Normal conjunctiva, sclera anicteric CV: sinus tachycardia, no edema Pulm: tachypneic, shallow respirations ABD: Soft, nontender, nondistended Integumentary: No rashes, no lesions Neuro: Normal speech, normal affect Problem List DKA, h/o IDDM2 NSTEMI SILVANA Encephalopathy, metabolic Hypertriglyceridemia HTN GERD h/o pancreatitis severe DKA confused, but awake, talking, protecting airway admitted to ICU insulin drip, IVF bicarb drip per nephrology replace electrolytes unclear etiology possibly complicated by metformin associated lactic acidosis unclear etiology of DKA, patient unable to say if he has been taking insulin father at bedside, doesn't know med history/medications leukocytosis likely reactive, secondary to DKA father reports URI symptoms a few days ago - and similar symptoms been going around the family check cultures empiric antibiotics; no evidence of sepsis bloodwork derangements and vitals consistent with DKA low threshold to start antibiotics abdomen nontender, no obvious source of infection on exam NSTEMI trop: 900 increased significantly likely secondary to DKA / demand ischemia however hyper TG, morbidly obese, h/o HTN, DM2 high risk factors continue heparin drip - started in ED cardio consulted - ischemic eval once stable this hospitalization repeat EKG once HR improved confirm home meds VTE: heparin drip Code: full Dispo: home, ~5 days Time Spent Managing Pts Care (In Minutes): 60
[2022-04-22 06:57] LABS: Creatine Phosphokinase 2839 U/L (39-308); Uric Acid 14.2 mg/dL (3.5-7.2)
[2022-04-22 06:58] LABS: Magnesium 2.8 mg/dL (1.6-2.4); Potassium 4.7 mmol/L (3.5-5.1)
[2022-04-22 07:02] LABS: Bicarbonate < 8 mmol/L (21-32)
[2022-04-22 07:13] LABS: LDL, Direct 94 mg/dL (100-129)
[2022-04-22] MEDS ORDERED: WATER FOR INJ,STERILE 1,000 ML with NA BICARB 8.4% 150 MEQ IV SCH ×2 (07:30)
[2022-04-22] MEDS: ASPIRIN EC 81 MG TAB PO SCH (07:30)
[2022-04-22] MEDS: MORPHINE 2 MG/ML SYR IV PRN ×3 (07:46→22:55)
[2022-04-22] MEDS ORDERED: DEXMEDETOMIDINE HCL 200 MCG in NA CHLORIDE 0.9% 98 ML IV SCH (08:00)
[2022-04-22 08:56] LABS: Barbiturates NEGATIVE (NEGATIVE); Benzodiazepines NEGATIVE (NEGATIVE); Cocaine NEGATIVE (NEGATIVE); METHAMPHETAM NEGATIVE (NEGATIVE); Methadone NEGATIVE (NEGATIVE); Opiates NEGATIVE (NEGATIVE); Phencyclidine NEGATIVE (NEGATIVE); THC Cannibis NEGATIVE (NEGATIVE)
[2022-04-22 08:57] LABS: Albumin 2.8 g/dL (3.4-5.0); Bilirubin Direct 0.1 mg/dL (0-0.2); Bilirubin Total 0.7 mg/dL (0.2-1.0); T3 Free 1.52 pg/mL (2.18-3.98)
[2022-04-22 09:02] LABS: Specific Gravity 1.012 (1.005-1.030); Urine Bilirubin NEGATIVE (Negative); Urine Blood 3+ (Negative); Urine Clarity Clear (Clear); Urine Color Light-Yellow (Yellow); Urine Glucose 4+ (Over) (Negative); Urine Protein TRACE (Negative); Urine Urobilinogen Normal (Normal)
[2022-04-22 09:06] LABS: Urine Bacteria <20 /HPF (<20); Urine Mucus Slight /HPF (None Seen)
[2022-04-22] MEDS: HEPARIN/D5W 25,000 UNIT/500 ML BAG IV SCH (09:11)
[2022-04-22 09:20] LABS: UR PROTEIN 45.3 mg/dL (<11.9)
[2022-04-22 09:21] LABS: UR CREAT < 18.0 mg/dL (20-370)
--- NOTE | 2022-04-22 09:39 | RAD REPORT ---
EXAM DESCRIPTION: US - Abdomen Exam Limited - 04/22/2022 7:50 am CLINICAL HISTORY: eval liver/gallbladder/pancreas COMPARISON: Abdomen Exam Limited dated 10/08/2017; Chest Abd Pelvis Wo Con dated 04/21/2022 FINDINGS: The gallbladder demonstrates possible tiny gallstones. No pericholecystic fluid or gallbla dder wall thickening. The common bile duct is nonvisualized. The liver demonstrates diffuse fatty infiltration. IMPRESSION: Tiny gallstones possible in the gallbladder. Fatty liver.
[2022-04-22] MEDS: LORazepam 2 MG/ML VIAL IV PRN ×4 (09:45→23:00)
[2022-04-22 09:50] LABS: BUN Blood Urea Nitrogen 18 mg/dL (7-18); Bicarbonate < 8 mmol/L (21-32); Glomerular Filtration Rate 60 ml/min (=/>90); Glucose Level 181 mg/dL (74-106); Potassium 3.7 mmol/L (3.5-5.1); Sodium Level 144 mmol/L (136-145)
[2022-04-22] MEDS ORDERED: DEXMEDETOMIDINE HCL 400 MCG in NA CHLORIDE 0.9% 196 ML IV SCH (10:00)
[2022-04-22] MEDS ORDERED: POTASSIUM PHOS 10 MM in NA CHLORIDE 0.9% 250 ML IV ONE (11:24)
[2022-04-22] MEDS ORDERED: THIAMINE 200 MG/2 ML INJ IVP ONE (11:29)
--- NOTE | 2022-04-22 11:39 | P.CNS ---
Date of Consult: 04/22/22 Reason for Consult: Severe agitation Chief Complaint: DKA, NSTEMI History of Present Illness: Patient is 36 years of age metabolic syndrome pretension diabetes pancreatitis admitted to the hospital altered mental status severe metabolic acidosis he is unresponsive very agitated recent had an upper respiratory tract symptoms currently on an insulin drip Allergies No Known Allergies Allergy (Verified 10/08/17 15:55) Home Medications: Insulin Detemir [Levemir Flextouch] 35 unit SQ BEDTIME #1 ml 10/12/17 Metoprolol Tartrate [Lopressor*] 50 mg PO BID 6AM 6PM #60 tab 10/12/17 Pantoprazole [Protonix Tab*] 40 mg PO DAILYAC #30 tab 10/12/17 Promethazine/Dextromethorphan [Promethazine-Dm Syrup] 5 ml PO Q4H PRN 03/17/18 Docosahexanoic AC/Epa [Fish Oil 1,000 MG*] 2,000 mg PO TID #90 cap 03/24/18 gemfibroziL [Lopid*] 600 mg PO BID #60 tab 03/24/18 - Past Medical/Surgical History Diabetic: Yes -: Diabetes mellitus type 2 -: Hypertriglyceridemia -: HTN -: pancreatitis -: Right arm surgery Psychosocial/ Personal History: The patient is single. He has no children. 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 - Family History Father Medical History: Hypertension, Diabetes Notes: Hyperlipidemia Mother Medical History: Hypertension, Diabetes Notes: Hyperlipidemia - Social History Smoking Status: Unknown if ever smoked Alcohol use: No CD- Drugs: No Caffeine use: Yes Place of Residence: Home Review of Systems is unable to be obtained Physical Examination Temp Pulse Resp BP Pulse Ox 97.8 F 136 H 33 H 96/55 L 99 04/22/22 08:00 04/22/22 10:00 04/22/22 10:00 04/22/22 10:00 04/22/22 10:00 General: Delirious, Unresponsive Neck: Supple Respiratory: Clear to auscultation bilaterally Cardiovascular: No edema, Regular rate/rhythm Laboratory Data (last 24 hrs) 04/21/22 11:45: Sodium Cancelled, Potassium Cancelled, BUN Cancelled, Creatinine Cancelled, Glucose Cancelled 04/21/22 11:23: Sodium 131 L D, Potassium 4.7, BUN 29 H, Creatinine 1.90 H, Glucose 466 H* 04/21/22 08:20: WBC 19.40 H, Hgb 15.8, Hct 46.8, Plt Count 470 H - Problems (1) DKA (diabetic ketoacidosis) Current Visit: Yes Status: Acute Plan: Patient is 36 years of age admitted with severe DKA his bicarbonate is unmeasurable less than 8 positive anion gap rest x-ray unremarkable troponins are elevated non-STEMI white count is normal function tests are also within normal limits patient triglycerides cholesterol also elevated currently was taking his insulin continue with bicarb drip patient is on dexmedetomidine and Ativan for sedation continue with broad-spectrum antibiotic
[2022-04-22] MEDS: WATER FOR INJ,STERILE 1,000 ML with NA BICARB 8.4% 150 MEQ IV SCH ×4 (12:27→19:40)
[2022-04-22] MEDS: INSULIN -REGULAR HUMAN 100 UNIT in NA CHLORIDE 0.9% 100 ML IV SCH (12:27)
[2022-04-22 12:56] LABS: Arterial Blood Carboxyhemoglob 2.5 % (0-1.5); Blood Gas Oxyhemoglobin 93.1 % (94-97); Blood O2 Saturation 97.8 % (92-98.5)
[2022-04-22] MEDS ORDERED: LIDOCAINE 1% 20 ML MDV ONE (13:12)
[2022-04-22] MEDS: DEXMEDETOMIDINE HCL 1,000 MCG in NA CHLORIDE 0.9% 490 ML IV SCH (13:43)
[2022-04-22 13:46] VITALS: BMI 31.4
[2022-04-22] MEDS ORDERED: HYDROMORPHONE HCL 1 MG/ML INJ IV ONE (14:19)
--- NOTE | 2022-04-22 14:58 | P.OP ---
Preoperative diagnosis: Need for Urgent Hemodialysis / Acidosis Postoperative diagnosis: Need for Urgent Hemodialysis / Acidosis Primary procedure: Placement of RIGHT femoral Temporary HD catheter Anesthesia: Local 1% lidocain Estimated blood loss: 10cc Specimen: none Findings: dark non-pulsatile blood noted Complications: None Implants: Mahauker temporary HD catheter Transferred to: ICU Condition: Critical
--- NOTE | 2022-04-22 14:58 | RAD REPORT ---
EXAM DESCRIPTION: X-ray single view chest. CLINICAL HISTORY: 36 years Male, S/P PICC Insertion COMPARISON: Chest x-ray report from 04/21/2022. The image was not available for review. TECHNIQUE: Single portable x-ray view of the chest performed on 04/22/2022 at 3:22 AM FINDINGS: The lung volumes are low. There is patchy atelectasis suspected in the lung bases. There i s no evidence of a pneumothorax. The cardiac silhouette is normal in size and configuration. The mediastinal contours are normal. No acute osseous abnormality is identified. No acute soft tissue abnormalities are seen. Lines and tubes: There is a right upper extremity PICC line catheter which appears to terminate in the region of the cavoatrial junction. Free air: None IMPRESSION: 1. The tip of the right upper extremity PICC line catheter appears to terminate in the region of the cavoatrial junction. 2. Low lung volumes with probable bibasilar atelectasis. Electronically signed by: Bibiana Rasmussen DO 04/22/2022 4:20 AM ORTHOTICS TECHNICIAN Due to temporary technical issues with the PACS/Fluency reporting system, reports are being signed by the in house radiologists without review as a courtesy to insure prompt reporting. The interpreting radiologist is fully responsible for the content of the report.
[2022-04-22 15:02] LABS: Potassium 3.4 mmol/L (3.5-5.1)
[2022-04-22] MEDS ORDERED: POTASSIUM PHOS IN 0.9 % NACL 15 MMOL/250 ML BAG IV ONE (17:12)
[2022-04-22] MEDS ORDERED: POTASSIUM CL 40 MEQ in NA CHLORIDE 0.9% 500 ML IV SCH (18:00)
[2022-04-22] MEDS: ATORVASTATIN 40 MG TAB PO SCH ×2 (20:08→21:00)
[2022-04-22] MEDS: MUPIROCIN 2% OINT 22GM TUBE TOP SCH (20:13)
[2022-04-22 22:50] LABS: Magnesium 2.5 mg/dL (1.6-2.4); Potassium 3.6 mmol/L (3.5-5.1)
[2022-04-22] MEDS ORDERED: POTASSIUM PHOS 20 MM in NA CHLORIDE 0.9% 500 ML IV ONE (23:03)
[2022-04-22] MEDS ORDERED: NA CHLORIDE IV ONE (23:09)
[2022-04-22] MEDS ORDERED: POTASSIUM PHOS IV ONE (23:09)
[2022-04-23] MEDS: WATER FOR INJ,STERILE 1,000 ML with NA BICARB 8.4% 150 MEQ IV SCH ×6 (00:38→18:40)
[2022-04-23] MEDS: DEXMEDETOMIDINE HCL 1,000 MCG in NA CHLORIDE 0.9% 490 ML IV SCH ×3 (00:38→21:57)
[2022-04-23] MEDS: HYDROMORPHONE HCL 0.5 MG/0.5 ML INJ IV PRN ×3 (02:11→23:00)
--- NOTE | 2022-04-23 02:26 | CON ---
Date of Nephrology FU : 04/22/2022 ( DOS) Chief Complaint: Acute kidney injury, metabolic acidosis, DKA. History Of Present Illness: The patient presented to the hospital because of generalized weakness and he developed some agitation and confusion. He is admitted to ICU. Nephrology consultation was requested for acute kidney injury. The patient was found to have elevated BUN and creatinine. BUN was 29 and creatinine level was ranging up to 1.9. The patient is on multiple drips including bicarbonate drip, which was started for severe metabolic acidosis. Bicarbonate was less than 8. ABG showed today pH of 7.32, pCO2 of 15.2 and 6.2, PO2 153. The patient was treated with additional bicarbonate IV and bicarbonate drip dose was increased. Subsequently, bicarbonate level increased to 11. Review of medication was available today and according to his father, the patient was taking metformin. Apparently he was taking metformin for sometime, but he has history of diabetes mellitus type 1 and he is taking insulin. Review of systems is unavailable because the patient has some agitation and he was treated with antianxiety medication. He is hemodynamically stable. The patient was found to have hyperglycemia upon admission to the hospital and was started on insulin for DKA. The patient is a 36-year-old man with metabolic syndrome, diabetes mellitus insulin dependent, and history of pancreatitis. He presented to the hospital because of mental status changes and was found to have severe metabolic acidosis. He is not responding to voice although he is very agitated. He remains confused. Past Medical History: Diabetes mellitus type 2, hypertriglyceridemia, hypertension, chronic and acute pancreatitis, and right arm surgery. Physical Examination: General: The patient is hemodynamically stable. Neck: Supple. Lungs: Few rhonchi. Heart: S1, S2. Abdomen: Obese. Soft. Extremities: Slight edema. Laboratory Data: Lab work showed sodium 131, potassium 4.7, BUN 29, creatinine 1.9, and glucose 466. WBC 19.4, hemoglobin 15.8, and platelet count is 407. Troponin level was elevated and CK level was elevated. Phosphorus level was 1.6. CK level 2839. Troponin level 1134.8. Impression: 1. Acute kidney injury secondary to uncontrolled diabetes, DKA and possible sepsis. The patient was found to have severe leukocytosis and severe metabolic acidosis and the patient was started on bicarbonate drip today. Due to poor response of the acidosis to bicarbonate drip, dialysis catheter was initiated although currently, the patient needs IV phosphorus replacement. Additional lab work after phosphorus replacement showed phosphorus dropped from 1.6 to 0.9 and 0.9 phosphorus level at this point is critically low. The patient is receiving aggressive treatment with potassium phosphate infusion and plan is to postpone dialysis until phosphorus is stabilized. Plan is to monitor phosphorus level and additional infusion accordingly. Continue Thiamine IV. 2. Hypopotassemia. The patient will receive potassium replacement. 3. Acute kidney injury. The patient has nonoliguric urine output. Acidosis is related to metformin effect and diabetic ketoacidosis effect as well as possible acute coronary syndrome, pending labs to check lactate, acetone and serum osmolality. Blood pressure remains at normal ranges. The patient although may have metabolic acidosis, likely there is lactic acidosis secondary to metformin and possible liver dysfunction and I recommend to check ammonia level. EB/MODL Voice ID: [id number] Report ID: [id number] RODNEY
[2022-04-23 04:03] LABS: Absolute Lymphocytes (CBC) 0.7 K/uL (0.7-4.9); Hematocrit 32.3 % (39.6-49.0); Lymphocytes % 11.6 % (15.3-44.8); MCV 81.3 fL (80-100); MPV 7.3 fL (7.6-11.3); RBC Red Blood Cell Count 3.97 M/uL (4.33-5.43)
[2022-04-23 04:33] LABS: Albumin 2.2 g/dL (3.4-5.0); Bilirubin Direct 0.2 mg/dL (0-0.2); Bilirubin Total 0.8 mg/dL (0.2-1.0); Magnesium 2.4 mg/dL (1.6-2.4); Phosphorus 1.2 mg/dL (2.5-4.9); Potassium 3.4 mmol/L (3.5-5.1); Protein, Total 5.6 g/dL (6.4-8.2); Uric Acid 14.6 mg/dL (3.5-7.2)
[2022-04-23] MEDS ORDERED: HEPARIN 5000 UNIT/ML 1 ML VIAL ONE (04:36)
[2022-04-23] MEDS: MORPHINE 2 MG/ML SYR IV PRN ×3 (04:55→21:55)
[2022-04-23] MEDS: LORazepam 2 MG/ML VIAL IV PRN ×4 (04:56→21:55)
[2022-04-23] MEDS: METOPROLOL TAR 25 MG TAB PO SCH ×2 (06:00→18:00)
[2022-04-23] MEDS ORDERED: POTASSIUM PHOS 20 MM in NA CHLORIDE 0.9% 500 ML IV ONE (07:00)
[2022-04-23] MEDS ORDERED: POTASSIUM CL 40 MEQ in NA CHLORIDE 0.9% 500 ML IV SCH (07:00)
[2022-04-23] MEDS: ASPIRIN EC 81 MG TAB PO SCH (07:24)
[2022-04-23] MEDS: THIAMINE 200 MG/2 ML INJ IVP SCH (07:59)
[2022-04-23] MEDS: D5W 1,000 ML IV SCH ×3 (07:59→19:44)
[2022-04-23] MEDS: CEFTRIAXONE 1,000 MG in NA CHLORIDE 0.9% 50 ML IVPB SCH (07:59)
[2022-04-23] MEDS: MUPIROCIN 2% OINT 22GM TUBE TOP SCH ×2 (08:47→20:53)
[2022-04-23 10:02] LABS: Magnesium 1.9 mg/dL (1.6-2.4)
[2022-04-23 10:07] LABS: Phosphorus 0.9 mg/dL (2.5-4.9); Potassium 2.5 mmol/L (3.5-5.1)
[2022-04-23] MEDS: HEPARIN/D5W 25,000 UNIT/500 ML BAG IV PRN (10:28)
[2022-04-23] MEDS ORDERED: CALCIUM GLUCONATE 1 GM IVPB 1 GM/50 ML BAG IV ONE (10:45)
[2022-04-23 11:15] LABS: Magnesium 2.5 mg/dL (1.6-2.4); Phosphorus 1.5 mg/dL (2.5-4.9)
--- NOTE | 2022-04-23 12:02 | PN ---
Date of Progress Note: 04/23/2022 Subjective: Seen by bedside. He is still lethargic, but less combative. Review of Systems: No chest pain, shortness of breath, orthopnea, cough, nausea, vomiting, diarrhea. All other systems reviewed and they were negative. Physical Examination: Vital Signs: Reviewed. Head and Neck: Pupils are equal, reactive to light. Intact eye movements. No JVD. No cervical lym phadenopathy. Neck is supple. Thyroid is not enlarged. Lungs: Clear to auscultation bilaterally. No rhonchi, wheezing, or crackles. No accessory muscle u se. Heart: Regular rate and rhythm. No extra sounds. Abdomen: Soft, nontender. Bowel sounds positive. No organomegaly. No masses or hernia. No rigidi ty or rebound. Extremities: No clubbing or cyanosis. Intact pulses. Skin: No rash. Neurologic: Alert, awake, oriented x3. No acute focal deficits appreciated. Investigations: Today; his CO2 is 27, potassium is 2.5, glucose 460. Assessment And Recommendations: 1.Non-ST elevation myocardial infarction. No chest pain. Continue current therapy with heparin and aspirin. Obtain echocardiogram. Plan for coronary angiogram on . 2.Diabetic ketoacidosis, resolving nicely. Continue current management. 3.Dehydration. Continue IV fluid management. /PETERL Voice ID: [id number] Report ID: [id number]
[2022-04-23 12:34] LABS: Potassium 3.4 mmol/L (3.5-5.1)
--- NOTE | 2022-04-23 12:47 | PN ---
Date of Progress Note: 04/23/2022 Subjective: The patient was admitted with chest pain, severe acidosis. The patient had DKA. The patient was started on bicarb drip. The patient had acute kidney injury. Kidney function started improving, but the patient continued to have significant acidosis. The patient had altered mental status. Blood pressure on the lower side. Physical Examination: Vital Signs: Blood pressure 98/68, pulse of 105. Chest: Clear to auscultation. Heart: S1, S2. Tachy. Abdomen: Soft, nontender. Extremity: Moving 4 extremities without any focality. Neuro: Pupil equal, reactive, but patient poorly responsive. Laboratory Data: Sodium 151, potassium 3.4, bicarb 13, BUN 11, creatinine 1.4, GFR of 68, uric acid 14.6, calcium 8.1, phosphorus 1.2. Albumin 2.2. Serum protein electrophoresis is still pending. PTH 28, TSH 0.19. Urinalysis was negative for infection. CK 2839. Current Medications: The patient on include; 1. Aspirin 81 mg. 2. Ceftriaxone. 3. Heparin drip. 4. Atorvastatin. 5. Metoprolol 12.5. 6. Bicarb drip. 7. D5 at 75. 8. Potassium phosphate. 9. Mupirocin. 10. Thiamin. Assessment And Plan: 1. Acute kidney injury secondary to prerenal secondary to glucose diuresis. Obstructive uropathy was ruled out. Nonoliguric. Hypokalemia with acidosis. I am going to continue current hydration. I will follow up the lab today the repeat to decide if the patient need a session of dialysis for metabolic clearance for the resistant acidosis or we will monitor. 2. Acidosis. High anion gap metabolic acidosis, possible secondary to metformin/diabetic ketoacidosis. Given the resistant and delay in improvement, I am going to continue on the bicarb drip. I am going to send for serum osmolality and old lab to evaluate for any osmolar gap. We will follow up repeated lab today. If bicarb improves, I rather not to challenge the patient with any dialysis given the marginal blood pressure and the hypophosphatemia to avoid any farther depletion, which is going to be higher cardiac risk. 3. Diabetic ketoacidosis. Continue insulin drip. Continue bicarb drip. We will follow up the lab to decide if the patient is going to need to continue on the bicarb or not. 4. Hypokalemia. We will continue aggressive supplement. 5. Hypophosphatemia. We will supplement aggressively. 6. Hypernatremia secondary to depletional. We will continue IV hydration. 7. Hypokalemia. I will supplement. We will ask pharmacy if we can add KCl to the D5 and what the highest concentration to be able to use the other line to give the patient more phosphor supplement. 8. Altered mental status, unknown etiology with the patient being on a heparin drip. I am going to go ahead and get CT brain and we will follow up. 9. Non-ST elevation myocardial infarction as by Cardiology. Plan for cardiac cath tomorrow. time spend exam the patient face to face , reviewing data lab and radiology placing order , discussing with [facility] nursing and hospitalist >35 min BUCK Voice ID: [id number] Report ID: [id number] MTDD
--- NOTE | 2022-04-23 12:50 | RAD REPORT ---
EXAM DESCRIPTION: CT - Head Brain Wo Cont - 04/23/2022 11:49 am CLINICAL HISTORY: AMS Headache, drowsiness, alteration of awareness. COMPARISON: No comparisons TECHNIQUE: All CT scans are performed using dose optimization technique as appropriate and may inclu de automated exposure control or mA/KV adjustment according to patient size. FINDINGS: No intracranial hemorrhage, hydrocephalus or extra-axial fluid collection.No areas of brai n edema or evidence of midline shift. The paranasal sinuses and mastoids are clear. The calvarium is intact. IMPRESSION: No acute intracranial abnormality.
--- NOTE | 2022-04-23 12:58 | P.PN ---
Subjective Date of Service: 04/23/22 Chief Complaint: DKA, NSTEMI Per report patient became confused and agitated last night. He was started on Precedex drip. No recorded fever. Metabolic acidosis is improved, bicarb level is increasing. BP remain borderline low. Patient was on Precedex for sedation and could not provide any history during my examination. Physical Examination - Vital Signs Temperature: 97.1 F Blood Pressure: 96/71 Pulse: 103 Respirations: 16 Pulse Ox (%): 96 Assessment And Plan - Plan Physical exam GEN: Sedated, restless HEENT: Normal conjunctiva, sclera anicteric CV: sinus tachycardia, no edema Pulm: Clear to auscultation, adequate breath sounds bilaterally. ABD: Soft, nontender, nondistended Integumentary: No rashes, no lesions Neuro: Normal speech, normal affect Diagnosis DKA, h/o IDDM2 Metabolic encephalopathy NSTEMI SILVANA Encephalopathy, metabolic Hypertriglyceridemia HTN GERD h/o pancreatitis severe DKA Confused and agitated Cpntinue insulin drip, IVF bicarb drip per nephrology. Patient is also on D5 water and being aggressively hydrated replace electrolytes as needed. Lactic acidosis secondary to metformin suspected to be contributing to the severe anion gap acidosis Patient has leukocytosis which quickly resolved within 24 hours. Leukocytosis likely reactive or secondary to hemoconcentration. father reports recent URI symptoms and sick contacts. Blood cultures: No growth to date. Continue IV Rocephin Head CT: Negative for acute disease. AMS likely secondary to metabolic encephalopathy/acidosis. Nephrology is following and managing acute renal failure. Hemodialysis for metabolic acidosis which was initially not responding to treatment was considered but bicarb level has started trending up. No need for hemodialysis at this time. NSTEMI trop: 900 increased significantly likely secondary to DKA / demand ischemia however hyper TG, morbidly obese, h/o HTN, DM2-high cardiac risk factors continue heparin drip. cardio consulted. Dr. Krause recommending cardiac catheterization once clinically stable and tentatively scheduled for the next couple of days. VTE: heparin drip Code: full Dispo: home upon discharge. Time Spent Managing Pts Care (In Minutes): 48
--- NOTE | 2022-04-23 14:59 | CON ---
Date of Consultation: 04/22/2022 Reason For Consultation: Non-ST elevation myocardial infarction. History Of Present Illness: This is a 36-year-old male with history of diabetes insulin dependent fo r many years, who apparently became sick lately and he did not take his insulin, so he presented to [facility] emergency room with generalized body aches, epigastric pain, nausea and vomiting, feels very anxio us, very hypertensive and tachycardic. He has been having also upper respiratory tract symptoms with nasal congestion and sneezing and mild cough. In the ER, he was evaluated and he had a significantl y elevated troponin; however, the patient is very combative and not hemodynamically stable due to the severe DKA. Past Medical History: Hypertension, acid reflux disease, insulin-dependent diabetes, pancreatitis, h ypertriglyceridemia. Medications: Refer to reconciliation sheet for detailed list. Allergies: NO KNOWN DRUG ALLERGIES. Family History: No premature coronary artery disease or cancer. Social History: Does not smoke or drink. Does not use any drugs. Review of Systems: All systems reviewed and they were negative except what mentioned in HPI. Physical Examination: Vital Signs: Reviewed. Head and Neck: Pupils are equal, reactive to light. Intact eye movements. No JVD. No cervical lym phadenopathy. Neck is supple. Thyroid is not enlarged. Lungs: Clear to auscultation bilaterally. No rhonchi, wheezing, or crackles. No accessory muscle u se. Heart: Regular rate and rhythm. No extra sounds. Abdomen: Soft, nontender. Bowel sounds positive. No organomegaly. No masses or hernia. No rigidi ty or rebound. Extremities: No edema, clubbing, or cyanosis. Intact pulses. Skin: No rash. Neurologic: Alert, awake, oriented x3. No acute focal deficits appreciated. Investigations: BUN is 11, creatinine 1.4, CO2 is 13, and his troponin peaked at 15,137 and is trend ing down. Assessment And Recommendations: 1.Non-ST elevation myocardial infarction. Continue IV heparin, baby aspirin. Once the patient's ac idosis is resolved, we will plan for coronary angiogram. Obtain echocardiogram and also place on hig h-dose statin. 2.Diabetic ketoacidosis, still in severe acidosis, not stable. We will wait on any cardiac interven tion until the diabetic ketoacidosis is resolved. Aggressive insulin therapy, IV hydration is implem ented. 3.Hypotension due to dehydration. Continue IV fluid management. SR/MODL Voice ID: [id number] Report ID: [id number]
--- NOTE | 2022-04-23 16:14 | OP ---
Date of Procedure: 04/23/2022 Surgeon: Matthew Camejo MD, Reason For Procedure: Emergent hemodialysis need. Preoperative Diagnosis: Need for urgent hemodialysis. Postoperative Diagnosis: Need for urgent hemodialysis. Procedure Performed: Placement of a right femoral vein temporary hemodialysis catheter using ultraso und guidance. Estimated Blood Loss: Less than 10 cc. Anesthesia: Local 1% utilized. Complications: None. Specimen: None. Procedure In Detail: After informed consent was obtained, the patient was prepped and draped in the usual sterile fashion. At the bedside using ultrasound guidance, I mapped the area of the right femo ral vein. At this point, I used a microintroducer set to cannulate the right femoral vein. Microwir e was advanced at this point into the right femoral vein. I then used an 11 blade to make an incisio n over the insertion site. I placed the introducer sheath over the microwire at this point and remov ed the microwire. I then removed the inner cannula. Dark red nonpulsatile blood was returned. I ad vanced a standard wire at this point. I then performed sequential dilatation using Seldinger [employer] ue and advanced the catheter into the right femoral vein. Dark red nonpulsatile blood was returned. I then flushed both ports quite easily with sterile saline and secured it to the skin with the attac hed 2-0 nylon suture and sterile dressing was placed over top. The patient tolerated the procedure w ell without evidence of complication and remained in the ICU in critical condition throughout the procedure. All counts were correct at the end of the case. LUBNA/JESUS Voice ID: [id number] Report ID: [id number]
[2022-04-23] MEDS ORDERED: FOMEPIZOLE IV ONE (18:00)
[2022-04-23] MEDS ORDERED: NA CHLORIDE 0.9% IV ONE (18:00)
[2022-04-23 20:48] LABS: Hepatitis B surface AG Interp. Nonreactive (Nonreactive)
[2022-04-24] MEDS: D5W 1,000 ML IV SCH ×3 (03:42→19:58)
[2022-04-24] MEDS: HEPARIN/D5W 25,000 UNIT/500 ML BAG IV PRN ×2 (03:42→21:13)
[2022-04-24] MEDS: MORPHINE 2 MG/ML SYR IV PRN ×2 (03:49→23:29)
[2022-04-24] MEDS: LORazepam 2 MG/ML VIAL IV PRN ×3 (03:49→21:11)
[2022-04-24 05:07] LABS: Absolute Lymphocytes (CBC) 1.3 K/uL (0.7-4.9); Hematocrit 29.3 % (39.6-49.0); Lymphocytes % 25.8 % (15.3-44.8); MCV 81.3 fL (80-100)
[2022-04-24 05:16] LABS: Magnesium 2.3 mg/dL (1.6-2.4); Phosphorus 1.2 mg/dL (2.5-4.9); Potassium 3.2 mmol/L (3.5-5.1)
[2022-04-24] MEDS: METOPROLOL TAR 25 MG TAB PO SCH ×2 (06:00→16:59)
[2022-04-24] MEDS: ASPIRIN EC 81 MG TAB PO SCH (06:58)
[2022-04-24] MEDS: DEXMEDETOMIDINE HCL 1,000 MCG in NA CHLORIDE 0.9% 490 ML IV SCH ×2 (07:27→18:14)
[2022-04-24] MEDS: MUPIROCIN 2% OINT 22GM TUBE TOP SCH ×2 (07:48→21:12)
[2022-04-24] MEDS: CEFTRIAXONE 1,000 MG in NA CHLORIDE 0.9% 50 ML IVPB SCH (07:48)
[2022-04-24] MEDS: THIAMINE 200 MG/2 ML INJ IVP SCH ×3 (07:48→21:11)
[2022-04-24 10:27] LABS: Potassium 3.2 mmol/L (3.5-5.1)
[2022-04-24] MEDS: NA CHLORIDE 0.9% IV SCH ×2 (10:34→21:11)
[2022-04-24] MEDS: FOMEPIZOLE IV SCH ×2 (10:34→21:11)
--- NOTE | 2022-04-24 10:38 | P.PN ---
Subjective Date of Service: 04/24/22 Chief Complaint: DKA, NSTEMI Patient is still confused and intermittently agitated. He is still on the Precedex drip. No recorded fever. Metabolic acidosis has improved., bicarb level normalized. Patient noted to have high osmolar gap with concern for poisoning. Status post dialysis yesterday. He was also given fomepizole. Intermittently hypotensive. Physical Examination - Vital Signs Temperature: 97.3 F Blood Pressure: 99/80 Pulse: 94 Respirations: 19 Pulse Ox (%): 97 Assessment And Plan - Plan Physical exam GEN: Somnolent, restless HEENT: Normal conjunctiva, sclera anicteric CV: sinus tachycardia, no edema Pulm: Clear to auscultation, adequate breath sounds bilaterally. ABD: Soft, nontender, nondistended Integumentary: No rashes, no lesions Neuro: No focal motor deficit. Diagnosis DKA, h/o IDDM2 Metabolic encephalopathy NSTEMI SILVANA Encephalopathy, metabolic Hypertriglyceridemia HTN GERD h/o pancreatitis Hypernatremia severe DKA improving Still confused and agitated and requiring Precedex drip. Metabolic acidosis improved. Cpntinue insulin drip, IVF Patient is also on D5 water and being hydrated to correct hypernatremia. replace electrolytes as needed. Follow-up ethylene glycol, isopropyl and methanol levels. Patient has leukocytosis which quickly resolved within 24 hours. Leukocytosis likely reactive or secondary to hemoconcentration. father reports recent URI symptoms and sick contacts. Blood cultures: No growth to date. Continue IV Rocephin Head CT: Negative for acute disease. AMS likely secondary to metabolic encephalopathy/acidosis. NSTEMI trop: 900 increased significantly likely secondary to DKA / demand ischemia however hyper TG, morbidly obese, h/o HTN, DM2-high cardiac risk factors continue heparin drip. cardio consulted. Dr. Krause recommending cardiac catheterization once clinically stable and tentatively scheduled for the next couple of days. VTE: heparin drip Code: full Dispo: home upon discharge. Time Spent Managing Pts Care (In Minutes): 37
[2022-04-24] MEDS ORDERED: POTASSIUM PHOS IN 0.9 % NACL 15 MMOL/250 ML BAG IV ONE (10:51)
[2022-04-24] MEDS ORDERED: POTASSIUM CL 40 MEQ in NA CHLORIDE 0.9% 500 ML IV SCH (11:00)
[2022-04-24] MEDS ORDERED: FUROSEMIDE 40 MG/4 ML VIAL IV ONE (11:00)
--- NOTE | 2022-04-24 15:01 | PN ---
Date of Progress Note: 04/24/2022 Subjective: The patient was admitted with severe acidosis, altered mental status. The patient's workup showed osmolar gap of 35 and resistant acidosis. For that reason, the patient received dialysis yesterday. The patient has still altered mental status. Physical Examination: Vital Signs: Blood pressure 99/80, pulse of 94, afebrile. The patient had good urine output of 3500. Chest: Clear to auscultation. Heart: S1, S2. Regular. Tachy. Abdomen: Soft, nontender. Extremity: Trace edema. Neuro: Confused. Only responds to voice. Moving 4 extremities. No focality. Laboratory Data: Hemoglobin 10.4. Sodium 150, potassium 3.2, bicarb 22, BUN 10, creatinine of 1, glucose 277. Serum osmolality 346 osmolar gap of 27, which is still elevated. Calcium 8.6. WBC 5.2, platelet 133. Current Medications: The patient on include; 1. Aspirin. 2. Ceftriaxone. 3. Atorvastatin. 4. Metoprolol. 5. tylenol 6. Lasix. 7. Sodium bicarb. 8. Insulin drip. 9. D5 at 25 per hour. 10. KCl. 11. Potassium phosphate. Assessment And Plan: 1. Acute kidney injury secondary to cardiorenal, has been recovered. 2. Acidosis with osmolar gap. The patient still manifests significant osmolar gap of 25. I am going to go ahead and do another session of dialysis today and we will follow up. 3. Hypertension, currently blood pressure on the lower side. Keep holding any supplement. 4. Hypernatremia, will be corrected with dialysis. 5. Hypophosphatemia. We will supplement. 6. Hypokalemia. We will dialyze on high potassium bath and we will supply. 7. Altered mental status, possible intoxication. We will do another session of dialysis. 8. Non-ST elevation myocardial infarction. Follow up with Cardiology. time spend exam the patient face to face , reviewing data lab and radiology placing order , discussing with [facility] member nursing and hospitalist >35 min BUCK Voice ID: [id number] Report ID: [id number] [facility]
[2022-04-24] MEDS: INSULIN -REGULAR HUMAN 100 UNIT in NA CHLORIDE 0.9% 100 ML IV SCH (15:48)
[2022-04-24] MEDS: HYDROMORPHONE HCL 0.5 MG/0.5 ML INJ IV PRN ×2 (16:46→21:10)
[2022-04-24 17:55] LABS: Phosphorus 1.3 mg/dL (2.5-4.9)
[2022-04-24 18:01] LABS: Potassium 2.9 mmol/L (3.5-5.1)
[2022-04-24] MEDS: ATORVASTATIN 40 MG TAB PO SCH (21:00)
[2022-04-24 21:56] LABS: Potassium 3.1 mmol/L (3.5-5.1)
[2022-04-25] MEDS: HYDROMORPHONE HCL 0.5 MG/0.5 ML INJ IV PRN ×4 (01:16→22:00)
[2022-04-25] MEDS: LORazepam 2 MG/ML VIAL IV PRN ×5 (01:17→22:00)
[2022-04-25] MEDS: DEXMEDETOMIDINE HCL 1,000 MCG in NA CHLORIDE 0.9% 490 ML IV SCH ×3 (01:32→19:44)
[2022-04-25] MEDS: KCL 20 MEQ/100 mL IVPB 20 MEQ/100 ML BAG IV SCH ×5 (02:08→15:30)
[2022-04-25] MEDS: D5W 1,000 ML IV SCH ×4 (03:34→22:56)
[2022-04-25] MEDS: MORPHINE 2 MG/ML SYR IV PRN ×3 (04:35→19:08)
[2022-04-25] MEDS: METOPROLOL TAR 25 MG TAB PO SCH ×2 (05:11→18:00)
[2022-04-25 06:42] LABS: Magnesium 1.8 mg/dL (1.6-2.4); Phosphorus 1.6 mg/dL (2.5-4.9); Potassium 3.3 mmol/L (3.5-5.1)
[2022-04-25] MEDS ORDERED: POTASSIUM PHOS IN 0.9 % NACL 15 MMOL/250 ML BAG IV ONE (08:00)
--- NOTE | 2022-04-25 08:09 | EKG ---
Test Date: 2022-04-22 Test Time: 03:42:40 Agency Operator: VERN MEASUREMENT RESULTS: Intervals: Rate: 148 LA: QRSD: 106 QT: 340 QTc: 533 [place]: P: LA: QRS: 35 T: 33 INTERPRETIVE STATEMENTS: Supraventricular tachycardia Otherwise normal ECG Compared to ECG 03/26/2018 07:56:45 Sinus tachycardia no longer present Electronically Signed On 04-25-22 08:00:19 SENIOR TELECOMMUNICATIONS TECHNICIAN by Samuel Krause
[2022-04-25] MEDS: ASPIRIN EC 81 MG TAB PO SCH (08:25)
[2022-04-25] MEDS: MUPIROCIN 2% OINT 22GM TUBE TOP SCH ×2 (08:25→20:57)
[2022-04-25] MEDS: CEFTRIAXONE 1,000 MG in NA CHLORIDE 0.9% 50 ML IVPB SCH (08:26)
[2022-04-25] MEDS: THIAMINE 200 MG/2 ML INJ IVP SCH ×2 (08:26→20:57)
[2022-04-25] MEDS: FOMEPIZOLE IV SCH ×2 (08:33→22:54)
[2022-04-25] MEDS: NA CHLORIDE 0.9% IV SCH ×2 (08:33→22:54)
[2022-04-25] MEDS ORDERED: MAGNESIUM SULFATE 1 gm IVPB 1 GM/100 ML BAG IV ONE (09:00)
--- NOTE | 2022-04-25 10:26 | P.PN ---
Subjective Date of Service: 04/25/22 Chief Complaint: DKA, NSTEMI Patient is still confused and agitated. He underwent hemodialysis yesterday for a total of 2 hemodialysis sessions this hospitalization. No recorded fever. Physical Examination - Vital Signs Temperature: 98.7 F Blood Pressure: 94/60 Pulse: 108 Respirations: 24 Pulse Ox (%): 94 Assessment And Plan - Plan Physical exam GEN: Somnolent, restless HEENT: Normal conjunctiva, sclera anicteric CV: sinus tachycardia, no edema Pulm: Clear to auscultation, adequate breath sounds bilaterally. ABD: Soft, nontender, nondistended Integumentary: No rashes, no lesions Neuro: No focal motor deficit. Diagnosis DKA, h/o IDDM2 Metabolic encephalopathy NSTEMI SILVANA Encephalopathy, metabolic Hypertriglyceridemia HTN GERD h/o pancreatitis Hypernatremia severe DKA improved Back patient is still confused and agitated despite resolution of metabolic acidosis and still requiring Precedex drip. Continue insulin drip, IVF Hypernatremia corrected. replace electrolytes as needed. Follow-up ethylene glycol, isopropyl and methanol levels. Blood cultures: No growth to date. Continue IV Rocephin Head CT: Negative for acute disease. AMS likely secondary to metabolic encephalopathy/acidosis. NSTEMI Elevated troponin likely secondary to DKA / demand ischemia Cardiac risk factors: hyper TG, morbidly obese, h/o HTN, DM2-high cardiac risk factors continue heparin drip. Dr. Krause recommending cardiac catheterization once clinically stable and tentatively scheduled for the next couple of days. VTE: heparin drip Code: full Dispo: home upon discharge. Time Spent Managing Pts Care (In Minutes): 33
--- NOTE | 2022-04-25 10:32 | CON ---
Date of Consultation: 04/25/2022 Brief History Of Present Illness: The patient is a 36-year-old male with a history of diabetes for m any years who became sick prior to his admission in the hospital and had not taken his insulin. He h ad body aches, epigastric pain, nausea, vomiting, anxiety, hypertension, tachycardia. At the time of presentation to the ER, was found to have a possible non-ST elevation [place] and had worsening renal fun ction. As such, he had significant worsening of the lactic acidosis. I was consulted for placement of temporary hemodialysis catheter. Past Medical History: Hypertension, acid reflux, diabetes, pancreatitis, hypertriglyceridemia. Medications: Information unable to be obtained from the patient as he is currently nonresponsive, so the information was obtained primarily from the chart. Allergies: NO KNOWN DRUG ALLERGIES. Family History: Reportedly no premature coronary artery disease or cancer. Social History: No reports of smoking or drinking, and no recreational drug use. Review of Systems: A 10-point review of systems unable to obtain as the patient is currently nonresponsive. Physical Examination: General: The patient is lethargic, nonresponsive to verbal stimuli, not responsive to noxious stimul i. HEENT: Normocephalic. His oropharynx was clear. His mucous membranes are moist. Neck: Supple without JVD. Chest: Symmetric excursion. Cardiovascular: Tachycardic. Pulmonary: Decreased breath sounds bilaterally. Abdomen: Soft. Extremities: No clubbing, cyanosis, edema. Skin: Warm and dry. Laboratory Data: Revealed a white blood count 5.8, hemoglobin 7.4, hematocrit of 32.3, platelet coun t is 155. His PTT was 46.7. His sodium was 139, potassium 2.5, chloride 96, carbon dioxide 27, BUN 8, creatinine 1.03, glucose is 460. Calcium 6.2, phosphorus is 0.9, magnesium was 1.9. He had a dinesh st, abdomen, pelvis CT on 04/21/2022, officially read as chest CT is affected by motion. No focal ma ss, consolidation, interstitial edema or infiltrate or the mass. CT abdomen and pelvis shows no acut e emergent finding. Assessment And Plan: This is a 36-year-old male who presents with worsening renal function. As such , I am consulted to place a temporary hemodialysis catheter. I have explained the risks, benefits, a nd alternatives of placement of temporary hemodialysis catheter including but not limited to bleeding , infection, damage to the surrounding tissue, need for further operation and procedures, increased b leeding risk due to anticoagulation to the patient's family who agrees to proceed as indicated. LUBNA/JESUS Voice ID: [id number] Report ID: [id number]
--- NOTE | 2022-04-25 14:44 | PN ---
Date of Progress Note: 04/25/2022 Subjective: The patient was admitted with DKA. The patient had osmolar gap. For that reason, the patient was initiated on dialysis. The patient received 2 sessions of dialysis. His osmolar gap started decreasing currently down to 15. Physical Examination: Vital Signs: Blood pressure 109/76, pulse of 98, afebrile. Chest: Clear to auscultation. Heart: S1, S2. Regular. Abdomen: Soft, nontender. Extremities: No edema. Neuro: Moving 4 extremities. No focality. Responds only to pain and voice. Laboratory Data: Hemoglobin 10.4. Sodium 145, potassium 3.3, bicarb 26, BUN 8, creatinine 0.9, calcium 8.6, phosphorus 1.6, magnesium 1.8, albumin 2, corrected calcium is 10.2. Current Medications: The patient on include; 1. Ceftriaxone. 2. Aspirin. 3. Heparin drip. 4. Metoprolol. 5. Atorvastatin. 6. Dexamethasone. 7. Lorazepam. 8. Zofran. 9. D5 at 125. Assessment And Plan: 1. Acute kidney injury secondary to prerenal, secondary to glucose diuresis, recovered, resolved. 2. Rhabdomyolysis, status post dialysis, recovered, resolved. 3. Acidosis with high osmolar gap. The patient was started on treatment with Fibrzol _ and started also on the dialysis. Osmolar gap has decreased from 35 on down to 79 today. The patient will continue another session of dialysis tomorrow. Hopefully if low osmolar gap closes, we will discontinue hd and hold the dialysis. We will follow up lab Ethylen, methanol still pending. We will follow up. 4. Hypokalemia, hypomagnesemia, hypophosphatemia. We will continue supplement. 5. Diabetic ketoacidosis as by primary. 6. Hypernatremia, improved. Will continue to be corrected. I am going to go ahead and decrease D5 to 75 per hour and we will follow up. 7. Non-ST elevation myocardial infarction as by Cardiology. 8. Altered mental status as by primary. time spend exam the patient face to face , reviewing data lab and radiology placing order , discussing with [facility] member nursing and hospitalist >35 min YURI/JESUS Voice ID: [id number] Report ID: [id number] [facility]
[2022-04-25] MEDS: HEPARIN/D5W 25,000 UNIT/500 ML BAG IV PRN (15:29)
[2022-04-25] MEDS: ATORVASTATIN 40 MG TAB PO SCH (19:46)
[2022-04-25 20:14] LABS: Potassium 3.2 mmol/L (3.5-5.1)
[2022-04-26] MEDS: KCL 20 MEQ/100 mL IVPB 20 MEQ/100 ML BAG IV SCH ×4 (02:07→14:36)
[2022-04-26] MEDS: MORPHINE 2 MG/ML SYR IV PRN ×2 (02:07→22:13)
[2022-04-26] MEDS: DEXMEDETOMIDINE HCL 1,000 MCG in NA CHLORIDE 0.9% 490 ML IV SCH ×4 (02:18→23:47)
[2022-04-26] MEDS: LORazepam 2 MG/ML VIAL IV PRN ×5 (04:38→23:00)
[2022-04-26] MEDS: HYDROMORPHONE HCL 0.5 MG/0.5 ML INJ IV PRN ×5 (04:38→23:00)
[2022-04-26 05:56] LABS: HIV AG/AB 4TH GEN Nonreactive (Nonreactive)
[2022-04-26] MEDS: METOPROLOL TAR 25 MG TAB PO SCH ×2 (06:00→18:00)
[2022-04-26] MEDS: HEPARIN/D5W 25,000 UNIT/500 ML BAG IV PRN ×2 (06:48→20:35)
[2022-04-26] MEDS: INSULIN -REGULAR HUMAN 100 UNIT in NA CHLORIDE 0.9% 100 ML IV SCH (06:48)
[2022-04-26 06:58] LABS: Absolute Lymphocytes (CBC) 1.4 K/uL (0.7-4.9); Lymphocytes % 28.6 % (15.3-44.8); RBC Red Blood Cell Count 3.49 M/uL (4.33-5.43)
[2022-04-26 07:11] LABS: Albumin 1.9 g/dL (3.4-5.0); Magnesium 1.8 mg/dL (1.6-2.4); Potassium 3.3 mmol/L (3.5-5.1)
[2022-04-26 07:19] LABS: Potassium 3.3 mmol/L (3.5-5.1)
[2022-04-26 07:54] LABS: Blood Morphology Comment NOT SEEN (NOT SEEN); Platelet Estimate DECR; White Blood Cell Scan OK (OK)
[2022-04-26] MEDS ORDERED: HEPARIN 10,000 UNIT/10 ML VIAL IV ONE (08:00)
[2022-04-26] MEDS: THIAMINE 200 MG/2 ML INJ IVP SCH ×2 (08:26→20:23)
[2022-04-26] MEDS: CEFTRIAXONE 1,000 MG in NA CHLORIDE 0.9% 50 ML IVPB SCH (08:26)
[2022-04-26] MEDS: ASPIRIN EC 81 MG TAB PO SCH (08:27)
[2022-04-26] MEDS: MUPIROCIN 2% OINT 22GM TUBE TOP SCH ×2 (08:27→20:23)
[2022-04-26] MEDS: NA CHLORIDE 0.9% IV SCH ×2 (08:37→20:23)
[2022-04-26] MEDS: FOMEPIZOLE IV SCH ×2 (08:37→20:23)
[2022-04-26 10:05] LABS: Potassium 3.1 mmol/L (3.5-5.1)
--- NOTE | 2022-04-26 10:56 | P.PN ---
Subjective Date of Service: 04/26/22 Chief Complaint: DKA, NSTEMI No change in mental status. He is still agitated and confused, requiring Precedex drip. Status post hemodialysis x3 No recorded fever. Physical Examination - Vital Signs Temperature: 98.1 F Blood Pressure: 117/75 Pulse: 91 Respirations: 18 Pulse Ox (%): 18 Assessment And Plan - Plan Physical exam GEN: Somnolent, restless HEENT: Normal conjunctiva, sclera anicteric, VANESSA CV: sinus tachycardia, no edema Pulm: Clear to auscultation, adequate breath sounds bilaterally. ABD: Soft, nontender, nondistended Integumentary: No rashes, no lesions Neuro: No focal motor deficit. Diagnosis DKA, h/o IDDM2 Metabolic encephalopathy NSTEMI SILVANA Encephalopathy, metabolic Hypertriglyceridemia HTN GERD h/o pancreatitis Hypernatremia severe DKA improved Patient is still confused and agitated despite resolution of metabolic acidosis and still requiring Precedex drip. Continue insulin drip, IVF given the persistent altered mental status. Hypernatremia corrected. replace electrolytes as needed. Follow-up ethylene glycol, isopropyl and methanol levels. Blood cultures: No growth to date. Continue IV Rocephin for now Head CT: Negative for acute disease. AMS likely secondary to metabolic encephalopathy/acidosis. Nephrology is following. Further hemodialysis per nephrology. NSTEMI Elevated troponin likely secondary to DKA / demand ischemia Cardiac risk factors: hyper TG, morbidly obese, h/o HTN, DM2-high cardiac risk factors continue heparin drip. Dr. Krause recommending cardiac catheterization once clinically stable and tentatively scheduled for the next couple of days. VTE: heparin drip Code: full Dispo: home upon discharge. Time Spent Managing Pts Care (In Minutes): 33
[2022-04-26] MEDS: D5W 1,000 ML IV SCH (12:37)
[2022-04-26 12:39] LABS: KAPPA LIGHT CHAIN, FREE SERUM 7.8 mg/L (3.3-19.4)
--- NOTE | 2022-04-26 14:05 | P.PN ---
Subjective Date of Service: 04/26/22 Chief Complaint: DKA, NSTEMI Subjective: Other (Remains bedbound.) Physical Examination - Vital Signs Temperature: 98.2 F Blood Pressure: 124/89 Pulse: 95 Respirations: 22 Pulse Ox (%): 96 - Physical Exam General: Other (appears as his stated age) HEENT: Atraumatic, Normocephalic Neck: Supple, JVD not distended Respiratory: Other (symmetric chest expansion) Cardiovascular: No rubs, No murmurs Gastrointestinal: Soft and benign, No guarding Musculoskeletal: No clubbing Integumentary: No warmth Neurological: Normal tone, Other (+AMS) Urinary: Other (no bladder distention) External genitalia: Deferred Rectal: Deferred Assessment And Plan - Plan # SILVANA 2/2 prerenal state Resolved, SCr 0.7 Dc IVF Start clinimix 70 cc/hr # Persistently high osmolar gap w/ high anion gap 2/2 severe hypertriglyceridemia On 04/23/2022, measured serum osmolality 350, osmolar gap 30.5, anion gap 21. Dialysis started daily 3 on 04/23/2022. Dialysis last received yesterday. On 04/24/2032 measured serum osmolality 346, osmolar gap 27, anion gap 15 On 04/26/2022 measured serum osmolality 335, osmolar gap 31.5, anion gap 15 Persistently high osmolar gap with high anion gap secondary to severe hypertriglyceridemia. No need for dialysis. May remove chase cath. Statin +/- fibrate to aggressively lower TG level # Hypokalemia KCl repletion today # DM2 c/b DKA DKA resolved DM mngt per primary team # Hypernatremia Start clinimix as above # AMS Cont IV thiamine Per other services
[2022-04-26] MEDS ORDERED: THIAMINE 200 MG/2 ML INJ IVP ONE (15:48)
[2022-04-26] MEDS ORDERED: AA 5%/D20W/ELECTROLYTES-TPN 2,000 ML, Lipids 20% 250 ML with MULTIVITAMINS INJ 10 ML IV SCH ×3 (17:00)
--- NOTE | 2022-04-26 19:47 | CON ---
Reason For Consultation: Consultation called because of altered mental status. History Of Present Illness: Mr. Arias is a 36-year-old, right-handed patient with hypertension, gastroesophageal reflux disease, insulin-dependent diabetes mellitus, pancreatitis who has had multiple admissions to [facility] with diabetic ketoacidosis. I previously saw the patient on March 17, 2018, with very similar presentation with diabetic ketoacidosis. Glucose was 115 at that time and anion gap was 31. White count was 21,000. He was treated, actually recovered very well. For this admission, the patient's father was in the room and gave information. The patient did not verbalize any meaningful communication, groans and gasps. His father said last Friday and this is now almost a week out, he actually last Friday he was doing well, walked into his house. Apparently brought his medications including insulin but that evening and Friday in the morning, became more disoriented. He apparently had some upper respiratory tract infection symptoms which multiple family members were having. He was rather reportedly drinking a lot of water, but was not necessarily urinating. He came to [facility]. Parents brought him in. Garcia catheter was placed and 1.2 L of urine was removed. His blood work revealed a metabolic acidosis with pH 6.9, bicarb very low at 2 with a large anion gap and elevated blood glucose. He had a low-grade fever. He was tachypneic and tachycardic to 130s. He was treated as diabetic ketoacidosis and admitted to the ICU. His head CT scan showed no acute ischemic or hemorrhagic change. There was no loss of franco-white junction at the station. No abnormalities identified on brain CT scan. The patient has not been intubated and has been treated with hydration, management of blood sugars. Since his admission his father said he did open his eyes at least a few times to command and apparently moved the hands. However, at my time of evaluating him, he was spontaneously moving his legs, rest of arms and was grunting, moving his head, but did not answer questions. He did appear to attempt to open his eyes when asked, but eyes did not open. Past Medical History: As noted above in addition to his dyslipidemia. Past Surgical History: Right arm surgery. Allergies: NO KNOWN DRUG ALLERGIES. Home Medications: Levemir Flextouch 35 units subcutaneously at bedtime, Lopressor 50 mg twice daily, Protonix 40 mg daily. Social History: The patient lives alone. No children. 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 No alcohol or IV drug use. Family History: Hypertension, diabetes, dyslipidemia in father and mother. Review of Systems: Unable to obtain as the patient is not responding to verbal commands with any meaningful communication and just grunts and moves the arms and legs. Physical Examination: Vital Signs: Blood pressure 102/75, pulse of 96, respiratory rate is 17 to 22, temperature 98.2, oxygen saturation 97% room air. Weight 250 pounds, height 6 feet, BMI 33.9. General: Mr. Pantoja is in ICU. He is not intubated, breathing spontaneously, does not have oxygen via nasal cannula. HEENT: He appears normocephalic, atraumatic. Sclerae anicteric. Oropharynx appear pink and moist. Neck: Supple. Chest: Clear. Extremities: No significant edema, cyanosis, or clubbing. Abdomen: Soft. Neurological: He kept his eyes closed throughout my evaluation. Opening the eyes did show pupils are round, 2-3 mm and symmetric. Doll's eyes present. Face was symmetric and in terms of motor unable to fully assess. He did move the legs equally less so in the arms. Unable to assess sensation coordination, gait, reflexes symmetric. Laboratory Studies: White blood cell count 4.7, hemoglobin 9.7, platelets 98. His PTT is 133.9 and that was earlier this morning around midnight and that is on April 25 at 1:12 p.m.; on the , temp 38.3. Arterial blood gas on admission, pH 6.98, PCO2 14.1, PO2 145, bicarb 3.2. During all of these, he is on room air. Chemistries: Sodium 145, potassium 3.1, chloride 108, carbon dioxide 25, creatinine 0.71, his glucose ranged from 160 to 335, calcium 8.3, albumin 1.9. His ammonia level is 37. Urinalysis shows 4+ ketones, 3+ blood, 4+ glucose. Urine protein 45.3. His urine drug screen shows a large amount of acetone, which may be seen in diabetic ketoacidosis. He has negative CELSO, free lambda light chain 7.7, free kappa light chain 7.8. The kappa to lambda ratio is normal at 1.01. COVID-19 test is negative. Hepatitis B surface antigen nonreactive. HIV 1 and 2 nonreactive. Influenza A and B negative. Assessment: Mr. Pantoja is a 36-year-old patient with diabetic ketoacidosis and encephalopathy that is metabolic in origin. He does not have evidence of active infection. There is no evidence of focal neurological deficit. CT scan does not show evidence of cerebral edema. EEG not available. MRI too unstable at this point. Plan: Continue with hydration and management of DKA with insulin drip as appropriate. In addition, if the patient is able to do MRI of the brain and EEG may help with his prognosis. The last time, he was admitted in a similar fashion, he return home, was back to his baseline level of functioning, and at this point, there is no indication that he cannot return to his baseline level of functioning or should be able to return once he does not worsen and especially if the MRI shows no abnormalities and EEG is consistent with a metabolic encephalopathy making it clear. The patient will be followed once the studies, EEG and MRI are done. HAROLDO/JESUS Voice ID: [id number] Report ID: [id number] RODNEY
[2022-04-26] MEDS: ATORVASTATIN 40 MG TAB PO SCH (20:23)
[2022-04-26 20:44] LABS: Albumin, (SPE) 2.7 g/dL (3.8-4.8); Alpha-1-Globulins 0.3 g/dL (0.2-0.3); Alpha-2-Globulins 0.8 g/dL (0.5-0.9); Gamma Globulins 0.5 g/dL (0.8-1.7); INTERPRETATION REPORT
[2022-04-27] MEDS: KCL 20 MEQ/100 mL IVPB 20 MEQ/100 ML BAG IV SCH ×2 (00:37→02:21)
[2022-04-27] MEDS: INSULIN -REGULAR HUMAN 100 UNIT in NA CHLORIDE 0.9% 100 ML IV SCH ×2 (00:59→10:52)
[2022-04-27] MEDS: MORPHINE 2 MG/ML SYR IV PRN (02:10)
[2022-04-27] MEDS: LORazepam 2 MG/ML VIAL IV PRN ×4 (03:46→21:29)
[2022-04-27] MEDS: HYDROMORPHONE HCL 0.5 MG/0.5 ML INJ IV PRN (03:46)
[2022-04-27 05:21] LABS: Absolute Lymphocytes (CBC) 1.1 K/uL (0.7-4.9); Hematocrit 28.2 % (39.6-49.0); MCV 82.2 fL (80-100); MPV 7.3 fL (7.6-11.3); RBC Red Blood Cell Count 3.44 M/uL (4.33-5.43)
[2022-04-27 05:39] LABS: Magnesium 1.7 mg/dL (1.6-2.4); Phosphorus 1.9 mg/dL (2.5-4.9)
[2022-04-27] MEDS: METOPROLOL TAR 25 MG TAB PO SCH ×2 (06:00→17:23)
[2022-04-27] MEDS: DEXMEDETOMIDINE HCL 1,000 MCG in NA CHLORIDE 0.9% 490 ML IV SCH ×2 (06:37→14:23)
[2022-04-27] MEDS ORDERED: MAGNESIUM SULFATE 1 gm IVPB 1 GM/100 ML BAG IV ONE (07:00)
[2022-04-27] MEDS ORDERED: KCL 20 MEQ/100 mL IVPB 20 MEQ/100 ML BAG IV SCH (07:00)
[2022-04-27] MEDS: ASPIRIN EC 81 MG TAB PO SCH (08:57)
[2022-04-27] MEDS ORDERED: POTASSIUM PHOS IN 0.9 % NACL 15 MMOL/250 ML BAG IV ONE (09:00)
[2022-04-27] MEDS: THIAMINE 200 MG/2 ML INJ IVP SCH ×2 (09:04→21:28)
[2022-04-27] MEDS: NA CHLORIDE 0.9% IV SCH (09:04)
[2022-04-27] MEDS: CEFTRIAXONE 1,000 MG in NA CHLORIDE 0.9% 50 ML IVPB SCH (09:04)
[2022-04-27] MEDS: FOMEPIZOLE IV SCH (09:04)
[2022-04-27] MEDS: MUPIROCIN 2% OINT 22GM TUBE TOP SCH (09:04)
[2022-04-27] MEDS ORDERED: AA 5%/D20W/ELECTROLYTES-TPN 2,000 ML IV SCH ×2 (10:00→17:00)
[2022-04-27] MEDS ORDERED: SODIUM CHLORIDE 0.9% 10ML INJ IV PRN (10:46)
--- NOTE | 2022-04-27 10:47 | P.PN ---
Subjective Date of Service: 04/27/22 Chief Complaint: Delirium No change patient is delirious and responsive coughing spells Review of Systems is unable to be obtained Physical Examination - Vital Signs Temperature: 98.2 F Blood Pressure: 124/89 Pulse: 95 Respirations: 22 Pulse Ox (%): 96 - Physical Exam General: Unresponsive Respiratory: Clear to auscultation bilaterally Cardiovascular: No edema, Regular rate/rhythm - Studies Microbiology Data (last 24 hrs): 04/21/22 08:20 Blood - Blood Aerobic Blood Culture - Final No growth in 5 days. 04/21/22 08:20 Blood - Blood Anaerobic Blood Culture - Final No growth in 5 days. 04/21/22 08:15 Blood - Blood Aerobic Blood Culture - Final No growth in 5 days. 04/21/22 08:15 Blood - Blood Anaerobic Blood Culture - Final No growth in 5 days. Assessment And Plan - Current Problems (Diagnosis) (1) DKA (diabetic ketoacidosis) Current Visit: Yes Status: Acute Plan: DKA has been corrected gap is now normal will have some osmolar gap wean off dexmedetomidine could be due to triglyceride cultures so far negative (2) Delirium Current Visit: Yes Status: Acute Plan: Altered mental status delirious aggressive coughing spells add Pulmicort nebulized vital signs stable seen by neurology
[2022-04-27] MEDS: HEPARIN/D5W 25,000 UNIT/500 ML BAG IV PRN (10:53)
[2022-04-27] MEDS: PANTOPRAZOLE 40 MG INJ IVP SCH (11:02)
--- NOTE | 2022-04-27 13:38 | P.PN ---
Subjective Date of Service: 04/27/22 Chief Complaint: Delirium Patient mental status is improving slowly. He is somnolent but intermittently respond verbally. No recorded fever. Physical Examination - Vital Signs Temperature: 97.7 F Blood Pressure: 120/79 Pulse: 89 Respirations: 22 Pulse Ox (%): 95 - Studies Microbiology Data (last 24 hrs): 04/21/22 08:20 Blood - Blood Aerobic Blood Culture - Final No growth in 5 days. 04/21/22 08:20 Blood - Blood Anaerobic Blood Culture - Final No growth in 5 days. 04/21/22 08:15 Blood - Blood Aerobic Blood Culture - Final No growth in 5 days. 04/21/22 08:15 Blood - Blood Anaerobic Blood Culture - Final No growth in 5 days. Assessment And Plan - Plan Physical exam GEN: Somnolent, restless HEENT: Normal conjunctiva, sclera anicteric, VANESSA CV: sinus tachycardia, no edema Pulm: Clear to auscultation, adequate breath sounds bilaterally. ABD: Soft, nontender, nondistended Integumentary: No rashes, no lesions Neuro: No focal motor deficit. Diagnosis DKA, h/o IDDM2 Metabolic encephalopathy NSTEMI SILVANA Encephalopathy, metabolic Hypertriglyceridemia HTN GERD h/o pancreatitis Hypernatremia severe DKA improved Patient is still confused and agitated despite resolution of metabolic acidosis and still requiring Precedex drip. Continue insulin drip, IVF given the persistent altered mental status. Hypernatremia corrected. replace electrolytes as needed. Follow-up ethylene glycol, isopropyl and methanol levels. Elevated serum osmolality likely secondary to hypertriglyceridemia. Anticipate hypertriglyceridemia to improve with insulin. Monitor levels. Blood cultures: No growth to date. Continue IV Rocephin for now Head CT: Negative for acute disease. AMS likely secondary to metabolic encephalopathy/acidosis. Nephrology is following. Further hemodialysis per nephrology. Will recommend to remove lipids from the TPN. Neurochecks. NSTEMI Elevated troponin likely secondary to DKA / demand ischemia Cardiac risk factors: hyper TG, morbidly obese, h/o HTN, DM2-high cardiac risk factors continue heparin drip. Dr. Krause recommending cardiac catheterization once clinically stable and tentatively scheduled for the next couple of days. VTE: heparin drip Code: full Dispo: home upon discharge. Time Spent Managing Pts Care (In Minutes): 28
[2022-04-27] MEDS: HYDROMORPHONE HCL 1 MG/ML INJ IV PRN (14:03)
[2022-04-27] MEDS: BUDESONIDE 0.5 MG/2 ML NEB NEB SCH ×2 (14:13→20:25)
--- NOTE | 2022-04-27 17:29 | P.PN ---
Subjective Date of Service: 04/27/22 Chief Complaint: Delirium Pt with SILVANA , high osmolar gap, started on HD for possible substance toxicity today Stable VS cr improving Will dc Simon catheter will replace potassium Physical exam General: sedated HEENT PERRLA, moist mucose membrane neck: supple, no elevated JVD CHEST; CTAB, no wheezes or rales HEART : RRR. Normal S1,2 no murmur or rub Abd: soft, Nt, adkins catehetr Ext: hands edema edema Skin : No rash # SILVANA 2/2 prerenal state Resolved, SCr 0.7 Cont clinimix 70 cc/hr # Persistently high osmolar gap w/ high anion gap 2/2 severe hypertriglyceridemia On 04/23/2022, measured serum osmolality 350, osmolar gap 30.5, anion gap 21. Dialysis started daily 3 on 04/23/2022. Dialysis last received 04/26 Persistently high osmolar gap with high anion gap secondary to severe hypertriglyceridemia. Statin +/- fibrate to aggressively lower TG level # Hypokalemia KCl repletion today # DM2 c/b DKA DKA resolved DM mngt per primary team # Hypernatremia Start clinimix as above # AMS Cont IV thiamine Per other services Physical Examination - Vital Signs Temperature: 97.7 F Blood Pressure: 120/79 Pulse: 89 Respirations: 18 Pulse Ox (%): 98 - Studies Microbiology Data (last 24 hrs): 04/21/22 08:20 Blood - Blood Aerobic Blood Culture - Final No growth in 5 days. 04/21/22 08:20 Blood - Blood Anaerobic Blood Culture - Final No growth in 5 days. 04/21/22 08:15 Blood - Blood Aerobic Blood Culture - Final No growth in 5 days. 04/21/22 08:15 Blood - Blood Anaerobic Blood Culture - Final No growth in 5 days.
[2022-04-27] MEDS ORDERED: POTASSIUM CL 40 MEQ in NA CHLORIDE 0.9% 500 ML IV SCH (18:00)
[2022-04-27] MEDS: KCL 20 MEQ/100 mL IVPB 100 ML IV SCH ×2 (18:42→21:27)
[2022-04-27] MEDS: ATORVASTATIN 40 MG TAB PO SCH (21:00)
[2022-04-28] MEDS: HEPARIN/D5W 25,000 UNIT/500 ML BAG IV PRN ×2 (00:03→11:58)
[2022-04-28] MEDS: DEXMEDETOMIDINE HCL 1,000 MCG in NA CHLORIDE 0.9% 490 ML IV SCH ×2 (00:14→14:34)
[2022-04-28] MEDS: LORazepam 2 MG/ML VIAL IV PRN ×3 (01:15→22:18)
[2022-04-28] MEDS: HYDROMORPHONE HCL 1 MG/ML INJ IV PRN (01:15)
[2022-04-28] MEDS: METOPROLOL TAR 25 MG TAB PO SCH ×2 (06:00→19:26)
[2022-04-28] MEDS: INSULIN -REGULAR HUMAN 100 UNIT in NA CHLORIDE 0.9% 100 ML IV SCH (07:03)
[2022-04-28] MEDS: ASPIRIN EC 81 MG TAB PO SCH (07:19)
[2022-04-28] MEDS: PANTOPRAZOLE 40 MG INJ IVP SCH (07:45)
[2022-04-28] MEDS: THIAMINE 200 MG/2 ML INJ IVP SCH ×2 (07:45→21:38)
[2022-04-28] MEDS: CEFTRIAXONE 1,000 MG in NA CHLORIDE 0.9% 50 ML IVPB SCH (07:45)
[2022-04-28] MEDS: BUDESONIDE 0.5 MG/2 ML NEB NEB SCH ×2 (08:53→19:09)
[2022-04-28 09:12] LABS: Albumin 1.9 g/dL (3.4-5.0); Bilirubin Total 0.3 mg/dL (0.2-1.0); Magnesium 1.8 mg/dL (1.6-2.4); Phosphorus 3.5 mg/dL (2.5-4.9); Potassium 3.3 mmol/L (3.5-5.1); Protein, Total 5.7 g/dL (6.4-8.2)
--- NOTE | 2022-04-28 11:56 | P.PN ---
Subjective Date of Service: 04/28/22 Chief Complaint: Delirium Patient mental status significantly improved from yesterday. He is responding appropriately. He reports fatigue. Nursing staff report patient had a large bowel movement. No recorded fever. Physical Examination - Vital Signs Temperature: 97.6 F Blood Pressure: 101/62 Pulse: 88 Respirations: 19 Pulse Ox (%): 95 Assessment And Plan - Plan Physical exam GEN: Awake and interactive and following instructions. HEENT: Normal conjunctiva, sclera anicteric, VANESSA CV: sinus tachycardia, no edema Pulm: Clear to auscultation, adequate breath sounds bilaterally. ABD: Soft, nontender, nondistended Integumentary: No rashes, no lesions Neuro: No focal motor deficit. Diagnosis DKA, h/o IDDM2 Metabolic encephalopathy NSTEMI SILVANA Encephalopathy, metabolic Hypertriglyceridemia HTN GERD h/o pancreatitis Hypernatremia severe DKA improved. Mental status has significantly improved. Continue to wean off Precedex drip. Hypernatremia corrected. replace electrolytes as needed. Follow-up ethylene glycol, isopropyl and methanol levels. Elevated serum osmolality likely secondary to hypertriglyceridemia. Anticipate hypertriglyceridemia to improve with insulin. Check triglyceride l evel today and DC insulin drip as possible Blood cultures: No growth to date. Discontinue antibiotics. Head CT: Negative for acute disease. Nephrology is following. Status post hemodialysis x3 for high osmolar gap. Dialysis catheter removed. Resume diet and discontinue TPN. NSTEMI Elevated troponin likely secondary to DKA / demand ischemia Cardiac risk factors: hyper TG, morbidly obese, h/o HTN, DM2-high cardiac risk factors continue heparin drip. Dr. Krause recommending cardiac catheterization once clinically stable and tentatively scheduled for the next couple of days. VTE: heparin drip Code: full Dispo: home upon discharge. Time Spent Managing Pts Care (In Minutes): 28
--- NOTE | 2022-04-28 12:52 | P.PN ---
Subjective Date of Service: 04/28/22 Chief Complaint: Delirium Pt with SILVANA , high osmolar gap, started on HD for possible substance toxicity Today Stable VS off TPN , PO feeding trial K replacement Physical exam General: awake, alert HEENT PERRLA, moist mucose membrane neck: supple, no elevated JVD CHEST; CTAB, no wheezes or rales HEART : RRR. Normal S1,2 no murmur or rub Abd: soft, Nt, adkins catehetr Ext: hands edema improving Skin : No rash A/P # SILVANA 2/2 prerenal state Resolved, SCr 0.7 off TPN plan to start PO feeding # Persistently high osmolar gap w/ high anion gap 2/2 severe hypertriglyceridemia On 04/23/2022, measured serum osmolality 350, osmolar gap 30.5, anion gap 21. Dialysis started daily 3 on 04/23/2022. Dialysis last received 04/26 Persistently high osmolar gap with high anion gap secondary to severe hypertriglyceridemia. Statin +/- fibrate to aggressively lower TG level # Hypokalemia KCl repletion # DM2 c/b DKA DKA resolved DM mngt per primary team # Hypernatremia Start clinimix as above # AMS Cont IV thiamine Per other services Physical Examination - Vital Signs Temperature: 97.6 F Blood Pressure: 101/62 Pulse: 88 Respirations: 19 Pulse Ox (%): 95
[2022-04-28] MEDS ORDERED: POTASSIUM 25 MEQ EFFERV TAB PO ONE (13:21)
[2022-04-28] MEDS: D5W 1,000 ML IV SCH (13:34)
[2022-04-28] MEDS ORDERED: GUAIFENESIN/DM 5 ML UCUP PO PRN (14:56)
[2022-04-28] MEDS: ONDANSETRON 4 MG/2 ML VIAL IV PRN ×2 (17:01→22:18)
[2022-04-28] MEDS: ATORVASTATIN 40 MG TAB PO SCH (21:38)
[2022-04-29] MEDS: INSULIN -REGULAR HUMAN 100 UNIT in NA CHLORIDE 0.9% 100 ML IV SCH (00:42)
[2022-04-29] MEDS: HEPARIN/D5W 25,000 UNIT/500 ML BAG IV SCH ×3 (00:43→23:45)
[2022-04-29] MEDS: D5W 1,000 ML IV SCH (03:34)
[2022-04-29] MEDS: ONDANSETRON 4 MG/2 ML VIAL IV PRN (04:45)
[2022-04-29 05:09] LABS: Absolute Lymphocytes (CBC) 1.2 K/uL (0.7-4.9); Hematocrit 32.2 % (39.6-49.0); Lymphocytes % 26.6 % (15.3-44.8); MCV 82.2 fL (80-100); MPV 6.5 fL (7.6-11.3); RBC Red Blood Cell Count 3.92 M/uL (4.33-5.43)
[2022-04-29] MEDS: METOPROLOL TAR 25 MG TAB PO SCH ×2 (05:28→16:31)
[2022-04-29 06:05] LABS: Magnesium 1.5 mg/dL (1.6-2.4); Phosphorus 3.2 mg/dL (2.5-4.9)
[2022-04-29] MEDS: KCL 20 MEQ/100 mL IVPB 20 MEQ/100 ML BAG IV SCH ×2 (06:26→08:39)
[2022-04-29 06:51] LABS: Blood Morphology Comment NOT SEEN (NOT SEEN); Platelet Estimate ADEQ
[2022-04-29] MEDS: PANTOPRAZOLE 40 MG INJ IVP SCH (07:30)
[2022-04-29] MEDS: ASPIRIN EC 81 MG TAB PO SCH (07:30)
[2022-04-29] MEDS: THIAMINE 200 MG/2 ML INJ IVP SCH ×2 (07:31→20:21)
[2022-04-29] MEDS ORDERED: Magnesium Sulfate 2gm IVPB 2 G/50 ML BAG IV ONE (08:00)
[2022-04-29] MEDS: BUDESONIDE 0.5 MG/2 ML NEB NEB SCH ×2 (08:40→19:50)
[2022-04-29] MEDS ORDERED: BENZONATATE 100 MG CAP PO PRN (10:38)
[2022-04-29] MEDS ORDERED: GLUCAGON 1 MG/VIAL IM PRN (11:40)
[2022-04-29] MEDS ORDERED: D50W 25 GM/50 ML SYRINGE IV PRN (11:40)
[2022-04-29] MEDS ORDERED: D10W 125 ML IV PRN (11:46)
[2022-04-29] MEDS: INSULIN -REGULAR HUMAN 50 UNIT/0.5 ML ML IV SCH ×3 (11:58→20:30)
--- NOTE | 2022-04-29 13:02 | P.PN ---
Subjective Date of Service: 04/29/22 Chief Complaint: Delirium Patient is oriented x3 but mildly confused and seems to be hallucinating. Physical Examination - Vital Signs Temperature: 96.9 F Blood Pressure: 131/88 Pulse: 103 Respirations: 23 Pulse Ox (%): 100 Assessment And Plan - Plan Physical exam GEN: Awake and interactive and following instructions. HEENT: Normal conjunctiva, sclera anicteric, VANESSA CV: sinus tachycardia, no edema Pulm: Clear to auscultation, adequate breath sounds bilaterally. ABD: Soft, nontender, nondistended Integumentary: No rashes, no lesions Neuro: No focal motor deficit. Diagnosis DKA, h/o IDDM2 Metabolic encephalopathy NSTEMI SILVANA Encephalopathy, metabolic Hypertriglyceridemia HTN GERD h/o pancreatitis Hypernatremia Plan: severe DKA improved. Mental status has significantly improved. Patient seems to be hallucinating. He is not entirely back to baseline mental status. Hypernatremia corrected. Elevated serum osmolality likely secondary to hypertriglyceridemia. Nephrology is following. Status post hemodialysis x3 for high osmolar gap. Dialysis catheter removed. Hypertriglyceridemia improved on IV insulin. Current level is down to 333. Discontinue insulin drip. Start moderate sliding scale. ADA diet as tolerated. Blood cultures: No growth to date. Antibiotics discontinued. Head CT: Negative for acute disease. NSTEMI Elevated troponin likely secondary to DKA / demand ischemia Cardiac risk factors: hyper TG, morbidly obese, h/o HTN, DM2-high cardiac risk factors Patient is on heparin drip. Dr. Krause recommending cardiac catheterization once clinically stable and tentatively scheduled for the next couple of days. VTE: heparin drip Code: full Dispo: home upon discharge. Time Spent Managing Pts Care (In Minutes): 28
[2022-04-29] MEDS ORDERED: HALOPERIDOL LACT 5 MG/ML INJ IV PRN (17:29)
--- NOTE | 2022-04-29 17:29 | P.PN ---
Date of Service: 04/30/22 Subjective: improving less restless visual hallucinations this morning - saw chief quality officer in ICU (not there) feels tired no chest pain, no shortness of breath ROS: 10 point ROS as noted above, otherwise negative Physical exam GEN: Alert, Orientedx3, NAD HEENT: Normal conjunctiva, sclera anicteric CV: regular rate/rhythm, trace b/l pedal edema Pulm: Clear to auscultation, nonlabored respirations on room air ABD: Soft, nontender, nondistended Neuro: No focal motor deficit. with some paranoia Problem List DKA, h/o IDDM2 Metabolic acidosis secondary to DKA NSTEMI SILVANA Encephalopathy, metabolic Hypertriglyceridemia HTN GERD h/o pancreatitis Hypernatremia severe DKA improved. mental status has significantly improved. Patient seems to be hallucinating, but seems improving as well He is not entirely back to baseline mental status. Hypernatremia corrected. Elevated serum osmolality likely secondary to hypertriglyceridemia. Nephrology is following. s/p hemodialysis x3 for high osmolar gap. Dialysis catheter removed. Hypertriglyceridemia improved on IV insulin adjust insulin as needed ADA diet as tolerated. Blood cultures: No growth to date. Antibiotics discontinued. Head CT: Negative for acute disease. #NSTEMI Elevated troponin likely secondary to DKA / demand ischemia; however elevated significantly Cardiac risk factors: hyper TG, morbidly obese, h/o HTN, DM2 Patient is on heparin drip. Dr. Krause recommending cardiac catheterization - tentatively scheduled for tomorrow VTE: heparin drip Code: full Dispo: home upon discharge likely; ~2-3 days
[2022-04-29] MEDS: ATORVASTATIN 40 MG TAB PO SCH (20:21)
[2022-04-29 20:25] LABS: Magnesium 1.8 mg/dL (1.6-2.4)
--- NOTE | 2022-04-30 03:02 | PN ---
Date of Progress Note: 04/29/2022 Subjective: Seen him at the bedside. He is more stable, but still with confusion, but no distress. Review of Systems: He denies having any chest pain, shortness of breath, orthopnea, cough, nausea, vomiting, diarrhea. All other systems reviewed, they were negative. Physical Examination: Vital Signs: Temperature is 96.5, heart rate 108, breathing at 21, blood pressure is 129/81, saturat ing 100% on room air, pleasant young male, in no apparent distress. Head and Neck: Pupils are equal, reactive to light. Intact eye movements. No JVD. No cervical kary nopathy. Neck: Supple. Thyroid is not enlarged. Lungs: Clear to auscultation bilaterally. No rhonchi, rales, or crackles. No accessory muscle use. Heart: Regular rate and rhythm. No extra sounds. Abdomen: Soft, nontender. Bowel sounds positive. No organomegaly. No masses or hernia. No rigidi ty or rebound. Extremities: No edema, clubbing, or cyanosis. Intact pulses. Skin: No rashes. Neurologic: Alert, awake, oriented x3. No acute focal deficits appreciated. Lymph nodes: No cervical or axillary lymphadenopathy. Investigations: Labs were reviewed. Assessment/recommendation: 1.Non-ST elevation myocardial infarction. Patient's mental status is getting better, however, not f ully awake yet. We will reassess tomorrow. Once his mental status is clear, we will plan for franz ry angiogram, and in the interim, we will obtain an echocardiogram. Continue aspirin and heparin pen ding coronary angiogram. 2.Diabetes ketoacidosis, resolved. 3.Dyslipidemia. Continue statin. SR/MODL Voice ID: [id number] Report ID: [id number]
[2022-04-30] MEDS: METOPROLOL TAR 25 MG TAB PO SCH ×2 (05:02→17:58)
--- NOTE | 2022-04-30 05:53 | PN ---
Date of Progress Note: 04/29/2022 Chief Complaint: Encephalopathy, delirium, and DKA. Subjective: The patient was admitted with DKA. He was found to have high osmolar gap and high anion gap metabolic acidosis. The patient was found to have acute kidney injury as well as elevated tropo angle level. He remained hemodynamically stable and did not require intubation, although he was agitat ed and was found to have delirium and was admitted to the ICU. Patient underwent dialysis for high o smolar gap metabolic acidosis. He also was found to have hyperlipidemia. He is doing better. He remains hemodynamically stable. He is off TPN. He is initiated on p.o. inta ke. He denies any complaints today. He is communicative and conversive. Denies chest pain, palpita tion. He has some nonproductive cough. Physical Examination: Lungs: Clear to auscultation bilaterally. Heart: S1 and S2. Abdomen: Soft, not tender. Extremities: No edema. No clubbing. No cyanosis. Impression And Plan: 1.Acute kidney injury secondary to prerenal state. Renal function has improved. Acute kidney injur y, resolved. The patient is off TPN. Patient will continue p.o. feedings. 2.Metabolic acidosis in setting of severe diabetes ketoacidosis. The patient underwent dialysis dur ing this admission. Hemodialysis catheter currently is removed. Metabolic acidosis has resolved. Pe rsistent high osmolar gap was secondary to severe hypertriglyceridemia. The patient was started on s tatin and fibrate for control of triglyceride level. 3.Hypokalemia. Patient received potassium chloride repletion. 4.Diabetes mellitus type 1. Diabetes ketoacidosis, resolved. Patient will continue insulin. 5.Altered mental status per Neurology and primary team. EB/MODL Voice ID: [id number] Report ID: [id number]
[2022-04-30 05:55] LABS: Magnesium 1.8 mg/dL (1.6-2.4); Phosphorus 3.3 mg/dL (2.5-4.9); Potassium 3.6 mmol/L (3.5-5.1)
[2022-04-30] MEDS ORDERED: MAGNESIUM SULFATE 1 gm IVPB 1 GM/100 ML BAG IV ONE (06:42)
[2022-04-30] MEDS ORDERED: KCL 20 MEQ/100 mL IVPB 20 MEQ/100 ML BAG IV SCH ×2 (07:00→14:00)
[2022-04-30] MEDS: FENOFIBRATE 160 MG TAB PO SCH (07:48)
[2022-04-30] MEDS: ASPIRIN EC 81 MG TAB PO SCH (07:48)
[2022-04-30] MEDS: THIAMINE 200 MG/2 ML INJ IVP SCH ×2 (07:49→21:56)
[2022-04-30] MEDS: INSULIN -REGULAR HUMAN 50 UNIT/0.5 ML ML IV SCH ×4 (07:49→21:57)
[2022-04-30] MEDS: PANTOPRAZOLE 40 MG INJ IVP SCH (07:52)
[2022-04-30] MEDS: HEPARIN/D5W 25,000 UNIT/500 ML BAG IV SCH ×2 (09:26→19:15)
[2022-04-30] MEDS: BUDESONIDE 0.5 MG/2 ML NEB NEB SCH ×2 (13:50→20:00)
--- NOTE | 2022-04-30 14:53 | PN ---
Date of Progress Note: 04/30/2022 Subjective: The patient was admitted with acute kidney injury, severe acidosis, suspected ethylene isopropyl alcohol. The patient was started on emergent dialysis, osmolar gap got closed. Dialysis was stopped, acidosis resolved. The patient's mental status has been improved. Dialysis catheter was removed. Physical Examination: Vital Signs: Blood pressure 127/93, pulse of 109, afebrile. Chest: Clear to auscultation. Heart: S1, S2. Regular. Abdomen: Soft, nontender. Extremity: No edema. Neurologic: Alert. No focality. Laboratory Data: Hemoglobin 11.1. Sodium 137, potassium 3.6, bicarb 23, BUN 5, creatinine 0.4, calcium 8.7, phosphorus 3.3, magnesium 1.8. Current Medications: The patient on include; 1. Heparin. 2. Atorvastatin. 3. Fenofibrate. 4. Metoprolol. 5. Zofran. 6. Pantoprazole. 7. Breathing treatment. 8. Thiamine. Assessment And Plan: 1. Acute kidney injury secondary to prerenal, secondary to glucose diuresis, recovered, resolved. 2. Acidosis secondary to diabetic ketoacidosis/isopropyl alcohol, recovered, resolved. Off dialysis. 3. Non-ST segment elevation myocardial infarction as by primary. 4. Hyponatremia, resolved. 5. Rhabdomyolysis, resolved. 6. Hypernatremia, resolved. 7. Hypokalemia. We will supplement. 8. Non-ST segment elevation myocardial infarction. Plan for cardiac cath. We will follow up with Cardiology. time spend exam the patient face to face , reviewing data lab and radiology placing order , discussing with [facility] member nursing and hospitalist >35 min BUCK Voice ID: [id number] Report ID: [id number] [facility]
--- NOTE | 2022-04-30 17:40 | EKG ---
Test Date: 2022-04-21 Test Time: 08:19:08 Pad Machine Offbearer: LG MEASUREMENT RESULTS: Intervals: Rate: 135 HI: 112 QRSD: 102 QT: 356 QTc: 534 [place]: P: HI: 112 QRS: 45 T: 44 INTERPRETIVE STATEMENTS: Sinus tachycardia Nonspecific ST abnormality Abnormal ECG Compared to ECG 03/26/2018 07:56:45 ST (T wave) deviation now present Electronically Signed On 04-30-22 17:24:33 HOSPITAL EDUCATION COORDINATOR by Samuel Krause
[2022-04-30] MEDS: ATORVASTATIN 40 MG TAB PO SCH (21:56)
[2022-05-01] MEDS ORDERED: HALOPERIDOL LACT 5 MG/ML INJ IM PRN (03:05)
[2022-05-01 03:57] LABS: Absolute Lymphocytes (CBC) 1.2 K/uL (0.7-4.9); Hematocrit 33.3 % (39.6-49.0); Lymphocytes % 23.3 % (15.3-44.8); MCV 81.9 fL (80-100); MPV 6.8 fL (7.6-11.3); RBC Red Blood Cell Count 4.06 M/uL (4.33-5.43)
[2022-05-01 04:11] LABS: Albumin 2.7 g/dL (3.4-5.0); Bilirubin Total 0.4 mg/dL (0.2-1.0); Potassium 3.6 mmol/L (3.5-5.1); Protein, Total 7.5 g/dL (6.4-8.2)
[2022-05-01] MEDS ORDERED: POTASSIUM 25 MEQ EFFERV TAB PO ONE (05:20)
[2022-05-01] MEDS ORDERED: POTASSIUM CL SA 10 MEQ TAB PO ONE ×2 (05:26→05:34)
[2022-05-01] MEDS: HEPARIN/D5W 25,000 UNIT/500 ML BAG IV SCH (05:36)
[2022-05-01] MEDS: METOPROLOL TAR 25 MG TAB PO SCH (05:36)
--- NOTE | 2022-05-01 06:44 | P.PN ---
Date of Service: 05/01/22 Subjective: restless overnight pulled PICC line walked out of room, some paranoia received haldol ROS: 10 point ROS as noted above, otherwise negative Physical exam GEN: Alert, Orientedx3, NAD HEENT: Normal conjunctiva, sclera anicteric CV: regular rate/rhythm, trace b/l pedal edema Pulm: Clear to auscultation, nonlabored respirations on room air ABD: Soft, nontender, nondistended Neuro: No focal motor deficit. with some paranoia Problem List DKA, h/o IDDM2 Metabolic acidosis secondary to DKA NSTEMI SILVANA Encephalopathy, metabolic Hypertriglyceridemia HTN GERD h/o pancreatitis Hypernatremia severe DKA improved. mental status has significantly improved. Patient seems to be hallucinating, but seems improving as well He is not entirely back to baseline mental status. Hypernatremia corrected. Elevated serum osmolality likely secondary to hypertriglyceridemia. Nephrology is following. s/p hemodialysis x3 for high osmolar gap. Dialysis catheter removed. Hypertriglyceridemia improved on IV insulin adjust insulin as needed ADA diet as tolerated. Blood cultures: No growth to date. Antibiotics discontinued. Head CT: Negative for acute disease. #NSTEMI Elevated troponin likely secondary to DKA / demand ischemia; however elevated significantly Cardiac risk factors: hyper TG, morbidly obese, h/o HTN, DM2 Patient is on heparin drip. Dr. Krause recommending cardiac catheterization - tentatively scheduled for tomorrow VTE: heparin drip Code: full Dispo: home upon discharge likely; ~2-3 days
--- NOTE | 2022-05-01 07:11 | ECHO ---
HEIGHT: 6 ft 0 in WEIGHT: 225 lb 0 oz DATE OF STUDY: 04/30/[address]: Samuel Krause 2-DIMENSIONAL: YES M.MODE: YES DOPPLER: YES COLOR FLOW: YES TDS: PORTABLE: YES DEFINITY: BUBBLE STUDY: DIAGNOSIS: NON ST ELEVATION MYOCARDIAL INFARCTION CARDIAC HISTORY: CATHERIZATION: NO SURGERY: NO PROSTHETIC VALVE: NO PACEMAKER: NO MEASUREMENTS (cm) DIASTOLIC (NORMALS) SYSTOLIC (NORMALS) IVSd 1.1 (0.6-1.2) LA Diam 3.4 (1.9-4.0) LVEF 60% LVIDd 3.8 (3.5-5.7) LVIDs 2.8 (2.0-3.5) %FS 26% LVPWd 1.2 (0.6-1.2) Ao Diam 2.9 (2.0-3.7) 2 DIMENSIONAL ASSESSMENT: RIGHT ATRIUM: NORMAL LEFT ATRIUM: NORMAL RIGHT VENTRICLE: NORMAL LEFT VENTRICLE: NORMAL TRICUSPID VALVE: NORMAL MITRAL VALVE: MILD MITRAL REGURGITATION PULMONIC VALVE: NORMAL AORTIC VALVE: NORMAL PERICARDIAL EFFUSION: NONE AORTIC ROOT: NORMAL LEFT VENTRICULAR WALL MOTION: NORMAL DOPPLER/COLOR FLOW: MILD MITRAL REGURGITATION COMMENTS: 1. NORMAL LEFT VENTRICULAR EJECTION FRACTION 55-60% 2. NORMAL WALL MOTION 3. MILD MITRAL REGURGITATION 4. NORMAL DIASTOLIC FUNCTION TECHNOLOGIST: MIGEL MCARTHUR
[2022-05-01] MEDS: INSULIN -REGULAR HUMAN 50 UNIT/0.5 ML ML IV SCH (07:30)
[2022-05-01] MEDS: BUDESONIDE 0.5 MG/2 ML NEB NEB SCH (07:45)
[2022-05-01] MEDS: FENOFIBRATE 160 MG TAB PO SCH (07:54)
[2022-05-01] MEDS: ASPIRIN EC 81 MG TAB PO SCH (07:54)
[2022-05-01] MEDS: THIAMINE 200 MG/2 ML INJ IVP SCH (10:09)
[2022-05-01] MEDS: PANTOPRAZOLE 40 MG INJ IVP SCH (10:09)
[2022-05-01 10:33] VITALS: BP 140/88; TEMP 96.7
[2022-05-01 10:43] VITALS: O2SAT 98
--- NOTE | 2022-05-01 21:54 | P.DS ---
Admission Date: 04/21/22 Discharge Date: 05/01/22 Disposition: AMA-LEFT AGAINST MEDICAL ADVIC Reason for Admission: Delirium Consultations: Pulmonology - Dr. Bruce Cardiology - Dr. Krause Nephrology - Dr. Christensen Brief History of Present Illness: 36yo M, PMH: HTN, GERD, IDDM2, pancreatitis secondary to hypertriglyceridemia. Patient is confused and unable to provide accurate history. He is companied by his father who is also unable to provide accurate history. Upon initial arrival to the ED he reported "pain all over" and some epigastric pressure. He has been drinking a ton of water and vomited a few times in the last 24 hours. He believes the patient has been taking his insulin, but is unsure of the last day. He states a few days ago patient stayed home from work due to URI symptoms. He did some URI symptoms have been going around throughout his different family members over the last 2 weeks. Patient is awake, reports he has to pee, Garcia catheter was just placed in removed 1200 mL of urine. He answers " not really" or "not exactly" to most of my questions. Unable to provide how much insulin he takes at home or if he has been taking them. In the ED, he was noted to have severe metabolic acidosis, pH: 6.9, bicarb: 4, with anion gap, and labs consistent with DKA. Imaging without any acute process, lipase negative, hypertriglyceridemia noted on blood work. He was tachypneic to 30s and tachycardic to the 130s on arrival, without hypoxia. Hospital Course: Problem List DKA, h/o IDDM2 Metabolic acidosis secondary to DKA NSTEMI SILVANA Encephalopathy, metabolic Hypertriglyceridemia HTN GERD h/o pancreatitis Hypernatremia Patient treated for DKA per protocol. Despite correction of hyperglycemia, electrolyte abnormalities, fluid balance, bicarb drip, patient continued with persistent acidosis. Nephrology was consulted. There was concern for metformin toxicity vs hypertriglyceridemia leading to the cause of persistent acidosis. A temporary dialysis catheter was placed and patient underwent HD x3 with improvement. His symptoms / mentation improved. He was noted to have some intermittent hallucinations and paranoia. Psych was consulted, however unable to see patient as they are only available for consults on Mon/Tue. He had gradual improvement of his hallucinations and paranoia as well. He reported feeling better and was scheduled for cardiac catheterization on 05/01. Patient did have significant elevation of his troponin early in hospitalization up to 15,000 before downtrending. Patient was maintained on heparin drip throughout hospitalization due to NSTEMI. Patient became impatient and anxious regarding cardiac catheterization. In the morning he was doing well but reported anxious with the exam (/any exam). Nursing staff reported as soon as patient's father arrived to visit the patient, Kit became more frustrated/agitated and upset his cardiac catheterization was not go ing to be done until the afternoon. He removed his IV and left AMA. I spoke to the patient just 2 hours prior and seemed ok. I was able to speak with the patient and father as they were walking out of the ICU. Patient's father was in agreement with the patient and felt patient was at his baseline and agreed with the patient's decision. Discussed concern to r/o stenosis/obstruction. Patient refused. Discussed risk of or increased morbidity/mortality if he were to leave prior to further evaluation. He reported understanding and still adamant on leaving. Again, father was in agreement. Vital Signs/Physical Exam: Temp Pulse Resp BP Pulse Ox 96.7 F L 113 H 19 140/88 100 05/01/22 08:00 05/01/22 09:47 05/01/22 06:00 05/01/22 09:47 05/01/22 08:35 General: Alert, In no apparent distress, Oriented x3 HEENT: EOMI, Sclerae nonicteric Respiratory: Clear to auscultation bilaterally, Normal air movement Cardiovascular: No edema, Regular rate/rhythm Gastrointestinal: Soft and benign, Non-distended, No tenderness Musculoskeletal: No contractures, No tenderness Integumentary: No rashes, No significant lesion Neurological: Normal speech, Normal strength at 5/5 x4 extr, Other (upset, with some anxiety component) Laboratory Data at Discharge: WBC 5.00 K/uL (4.3-10.9) 05/01/22 03:38 Hgb 11.4 g/dL (13.6-17.9) L 05/01/22 03:38 Hct 33.3 % (39.6-49.0) L 05/01/22 03:38 Plt Count 281 K/uL (152-406) 05/01/22 03:38 PT 9.9 SECONDS (9.5-12.5) 04/21/22 08:20 INR 0.90 04/21/22 08:20 APTT 63.3 SECONDS (24.3-36.9) H 05/01/22 08:31 Sodium 137 mmol/L (136-145) 05/01/22 03:38 Potassium 3.6 mmol/L (3.5-5.1) 05/01/22 03:38 BUN 6 mg/dL (7-18) L 05/01/22 03:38 Creatinine 0.62 mg/dL (0.70-1.30) L 05/01/22 03:38 Glucose 278 mg/dL (74-106) H 05/01/22 03:38 Uric Acid 14.6 mg/dL (3.5-7.2) H 04/23/22 03:16 Phosphorus 3.3 mg/dL (2.5-4.9) 04/30/22 05:00 Phosphorus Cancelled 04/30/22 05:00 Magnesium 2.0 mg/dL (1.6-2.4) 05/01/22 03:38 Total Bilirubin 0.4 mg/dL (0.2-1.0) 05/01/22 03:38 AST 25 U/L (15-37) 05/01/22 03:38 ALT 32 U/L (16-61) 05/01/22 03:38 Alkaline Phosphatase 64 U/L (45-117) 05/01/22 03:38 Triglycerides 333 mg/dL (<150) H 04/28/22 14:16 Cholesterol 374 mg/dL (<200) H 04/22/22 04:15 LDL Cholesterol Direct 94 mg/dL (100-129) L 04/22/22 04:15 HDL Cholesterol 33 mg/dL (40-60) L 04/22/22 04:15 Cholesterol/HDL Ratio 11.33 04/22/22 04:15 Lipase 843 U/L (73-393) H 04/22/22 04:15 Home Medications: Atorvastatin Calcium 20 mg PO DAILY 04/22/22 Empagliflozin [Jardiance] 10 mg PO DAILY 04/22/22 Insulin Aspart [Novolog Flexpen] 18 units SQ AC 04/22/22 Insulin Detemir [Levemir Flexpen] 60 units SQ DAILY 04/22/22 Lisinopril [Zestril] 5 mg PO DAILY 04/22/22 Metformin ER [Glucophage ER*] 1,000 mg PO BID 04/22/22 Metoprolol Tartrate [Lopressor*] 50 mg PO BID 04/22/22 Pantoprazole [Protonix Tab*] 40 mg PO DAILY 04/22/22 Followup: NONE,NONE [Primary Care Provider] - Time spent managing pt's care (in minutes): 45
== END 2022-05-01 10:30 | disposition left against medical advice (07) | DRG 637 ==
LOC: ER 08:05 → ERHOLD 12:39 → 3RD-ICU 19:36
PROVIDERS: ADMIT Hospitalist; ATTEND Hospitalist
PROC: 02HV33Z Insertion of Infusion Device into Superior Vena Cava, Percutaneous Approach (ICD-10-PCS; 2022-04-22)
PROC: 3E0336Z Introduction of Nutritional Substance into Peripheral Vein, Percutaneous Approach (ICD-10-PCS; 2022-04-22)
PROC: 5A1D70Z Performance of Urinary Filtration, Intermittent, Less than 6 Hours Per Day (ICD-10-PCS; principal; 2022-04-24)
DX: E11.10 Type 2 diabetes mellitus with ketoacidosis without coma (principal); G93.41 Metabolic encephalopathy; N17.0 Acute kidney failure with tubular necrosis; I21.A1 Myocardial infarction type 2; E87.1 Hypo-osmolality and hyponatremia; E87.0 Hyperosmolality and hypernatremia; M62.82 Rhabdomyolysis; I10 Essential (primary) hypertension; K21.9 Gastro-esophageal reflux disease without esophagitis; E78.1 Pure hyperglyceridemia; Z99.2 Dependence on renal dialysis; Z79.4 Long term (current) use of insulin; Z53.29 Procedure and treatment not carried out because of patient's decision for other reasons; Z79.84 Long term (current) use of oral hypoglycemic drugs; Z79.899 Other long term (current) drug therapy; Z20.822 Contact with and (suspected) exposure to COVID-19; F41.9 Anxiety disorder, unspecified; E87.6 Hypokalemia; E86.0 Dehydration; E83.39 Other disorders of phosphorus metabolism; Z74.01 Bed confinement status; Z60.2 Problems related to living alone; R41.0 Disorientation, unspecified; R44.1 Visual hallucinations; E78.5 Hyperlipidemia, unspecified
CPT/HCPCS: 0240U; 36415; 36569; 51702; 70450; 71045; 71250; 74176; 76705; 80048; 80053; 80061; 80069; 80076; 80307; 80320; 81001; 81003; 82010; 82140; 82550; 82570; 82693; 82805; 82947; 83520; 83605; 83690; 83735; 83880; 83930; 83970; 84100; 84132; 84156; 84165; 84300; 84439; 84443; 84478; 84481; 84484; 84550; 85025; 85610; 85730; 86021; 86038; 86334; 86335; 87040; 87340; 87389; 90935; 93005; 93306; 93970; 94640; 97112; 97116; 97161; 97530; 99285; C9113; G0480; J0610; J1170; J1451; J1630; J1644; J1815; J1940; J2001; J2270; J2405; J2550; J3370; J3411; J3475; J3480; J7030; J7040; J7050